=== PATIENT | female | born 1955 | race Hispanic/Latino ===

== ENCOUNTER 2017-02-25 17:59 | Observation (INO) | payer BC, OTHER ==
[~2017-02-25] VITALS: Ht 162.6 cm; Wt 55.0 kg
[2017-02-25] MEDS ORDERED: ENOXAPARIN SODIUM 60 MG/0.6 ML SQ ONE (19:39)
[2017-02-25 19:54] LABS: EOSINOPHILS % (AUTO) 1.2 % (0.0-8.0); HEMATOCRIT 37.3 % (36-48); LYMPHOCYTES % (AUTO) 36.3 % (21.0-51.0); MEAN CORPUSCULAR HEMOGLOBIN 32.1 pg (27.0-33.0); MEAN CORPUSCULAR HGB CONC 34.3 g/dL (32.0-36.0); MEAN CORPUSCULAR VOLUME 93.5 fL (79-99); NEUTROPHILS % (AUTO) 55.5 % (40.0-77.0); NUCLEATED RED BLOOD CELLS 0.1 % (0.0-0.19); PLATELET COUNT (AUTO) 203 K/uL (130-400); RED BLOOD CELL COUNT(AUTO) 3.99 MIL/uL (4.00-5.50); RED CELL DISTRIBUTION WIDTH 12.4 % (11.0-15.5); WHITE BLOOD COUNT (AUTO) 5.5 K/uL (4.8-10.8)
[2017-02-25 20:05] LABS: CREATININE 0.5 mg/dL (0.5-1.5); POTASSIUM 3.8 mmol/L (3.5-5.1)
[2017-02-25 20:07] LABS: INR 0.92 (0.85-1.15); PARTIAL THROMBOPLASTIN TIME 22.5 SEC (26.3-35.5); PROTHROMBIN TIME 9.7 SEC (9.6-11.6)
[2017-02-25] MEDS ORDERED: INSULIN HUMULIN R 100 UNIT/ML 3ML ONE (23:41)
[2017-02-25 23:58] VITALS: BP 148/76
[2017-02-26] MEDS ORDERED: POTASSIUM CHLORIDE 20MEQ/100ML 100 ML IV PRN (02:30)
[2017-02-26] MEDS ORDERED: POTASSIUM CHLORIDE 10% ELIXIR 20 MEQ/15 ML UDCUP PO PRN (02:30)
[2017-02-26] MEDS ORDERED: LACTULOSE 20 GM/30 ML UDCUP PO PRN (02:30)
[2017-02-26] MEDS ORDERED: CLONIDINE HCL 0.1 MG TABLET PO PRN (02:30)
[2017-02-26] MEDS ORDERED: ACETAMINOPHEN 325 MG TAB PO PRN ×2 (02:30)
[2017-02-26] MEDS ORDERED: LIDOCAINE HCL-MPF 1% 2ML VIAL IJ PRN (02:30)
[2017-02-26] MEDS ORDERED: ZOLPIDEM TARTRATE 5 MG TAB PO PRN (02:30)
[2017-02-26] MEDS ORDERED: POTASSIUM CHLORIDE 20 MEQ ERTAB PO PRN (02:30)
[2017-02-26] MEDS ORDERED: NITROGLYCERIN 0.4 MG SL TAB SL PRN (02:30)
[2017-02-26 03:54] LABS: HEMATOCRIT 36.8 % (36-48); MEAN CORPUSCULAR HGB CONC 34.2 g/dL (32.0-36.0); MEAN CORPUSCULAR VOLUME 93.4 fL (79-99); PLATELET COUNT (AUTO) 194 K/uL (130-400); RED BLOOD CELL COUNT(AUTO) 3.94 MIL/uL (4.00-5.50); RED CELL DISTRIBUTION WIDTH 12.3 % (11.0-15.5); WHITE BLOOD COUNT (AUTO) 6.3 K/uL (4.8-10.8)
[2017-02-26 04:00] VITALS: BP 133/72
[2017-02-26 04:04] LABS: INR 0.93 (0.85-1.15); PARTIAL THROMBOPLASTIN TIME 24.7 SEC (26.3-35.5); PROTHROMBIN TIME 9.8 SEC (9.6-11.6)
[2017-02-26 04:10] LABS: CREATININE 0.5 mg/dL (0.5-1.5); POTASSIUM 3.4 mmol/L (3.5-5.1)
[2017-02-26 04:59] LABS: HEMOGLOBIN A1C 12.9 % (4.0-6.0)
[2017-02-26] MEDS ORDERED: DEXTROSE 50%-WATER 50 ML DISP.SYRIN IV PRN (05:30)
[2017-02-26] MEDS ORDERED: GLUCAGON 1MG KIT 1 MG ML IM PRN (05:30)
[2017-02-26] MEDS ORDERED: INSULIN HUMULIN R 100 UNIT/ML 3ML SQ SCH (07:30)
[2017-02-26 08:00] VITALS: BP 125/79
[2017-02-26] MEDS ORDERED: FAMOTIDINE 20MG TAB 20 MG TAB PO SCH (09:00)
[2017-02-26] MEDS ORDERED: ENOXAPARIN SODIUM 60 MG/0.6 ML SQ SCH (09:00)
[2017-02-26] MEDS ORDERED: METFORMIN HCL 500 MG TABLET PO SCH (09:45)
[2017-02-26 10:06] LABS: APPEARANCE,URINE Cloudy (CLEAR); BILIRUBIN,URINE Negative (NEGATIVE); COLOR,URINE Yellow (YELLOW); GLUCOSE, URINE (UA) >=1000 mg/dL (NEGATIVE); KETONES,URINE 15 mg/dL (NEGATIVE); LEUKOCYTE ESTERASE ,URINE Negative (NEGATIVE); NITRATE,URINE Negative (NEGATIVE); OCCULT BLOOD,URINE Negative (NEGATIVE); PROTEIN,URINE Negative (NEGATIVE); UROBILINOGEN,URINE 0.2 mg/dL (0.2-1.0)
[2017-02-26 10:15] LABS: BACTERIA,URINE Few /HPF (None Seen); RBC,URINE 0-1 /HPF (0-1); SQUAMOUS EPITHELIAL CELL,UR Rare /LPF (0-2); YEAST,URINE BUDDING Many /HPF (None Seen)
[2017-02-26] MEDS ORDERED: RIVAROXABAN 15 MG TABLET PO SCH (21:00)
== END 2017-02-26 11:30 | disposition home or self-care (01) ==
LOC: EDH 17:59 → EDHIP 20:01 → 3CH 23:11
PROVIDERS: ADMIT Internal Medicine; ATTEND Internal Medicine
DX: I82.402 Acute embolism and thrombosis of unspecified deep veins of left lower extremity (principal); M25.462 Effusion, left knee; E11.65 Type 2 diabetes mellitus with hyperglycemia; W01.190A Fall on same level from slipping, tripping and stumbling with subsequent striking against furniture, initial encounter; Y93.89 Activity, other specified; Y92.89 Other specified places as the place of occurrence of the external cause; Y99.8 Other external cause status; Z79.84 Long term (current) use of oral hypoglycemic drugs
CPT/HCPCS: 36415 ×2; 80048 ×2; 81001; 82948 ×2; 83036; 85025; 85027; 85610 ×2; 85730 ×2; 93005; 93971; 96372; 99285; G0378 ×15; J1650 ×2; J1815 ×2

== ENCOUNTER 2018-03-27 16:03 | Emergency (ER) | payer BC | END 2018-03-27 17:39 | disposition home or self-care (01) | LOC: EDH 16:03 | DX: M79.661 Pain in right lower leg (principal); E13.8 Other specified diabetes mellitus with unspecified complications | CPT/HCPCS: 93971 ==

== ENCOUNTER → 2020-08-18 | Outpatient (CLI) | payer BC ==
[~2020-08-18] MED LIST: AEC81 PO; AMLO5TAB4 PO; ATOR40TA69 PO; CEPH500B PO; CLOP75TA14 PO; GLIP5TAB11 PO; LISI40TA9 PO; METF-446 PO; PANT40TA55 PO
== END | disposition home or self-care (01) ==
LOC: RAH 13:46
PROVIDERS: ATTEND Internal Medicine
DX: R10.2 Pelvic and perineal pain (principal)
CPT/HCPCS: 76882

== ENCOUNTER 2020-10-27 09:32 | Emergency (ER) | payer BC ==
[~2020-10-27] VITALS: Ht 162.6 cm; Wt 54.4 kg
[2020-10-27] MEDS ORDERED: KETOROLAC 30MG VIAL (30MG/ML) IM ONE (10:00)
[2020-10-27 10:22] LABS: BASOPHILS % (AUTO) 0.5 % (0.0-5.0); EOSINOPHILS % (AUTO) 0.6 % (0.0-8.0); HEMATOCRIT 33.9 % (36-48); LYMPHOCYTES % (AUTO) 21.1 % (21.0-51.0); MEAN CORPUSCULAR HEMOGLOBIN 31.3 pg (27.0-33.0); MEAN CORPUSCULAR HGB CONC 33.9 g/dL (32.0-36.0); MEAN CORPUSCULAR VOLUME 92.4 fL (79-99); MONOCYTES % (AUTO) 5.9 % (3.0-13.0); NEUTROPHILS % (AUTO) 71.5 % (40.0-77.0); PLATELET COUNT (AUTO) 222 K/uL (130-400); RED BLOOD CELL COUNT(AUTO) 3.67 MIL/uL (4.00-5.50); RED CELL DISTRIBUTION WIDTH 11.7 % (11.0-15.5)
[2020-10-27 10:23] VITALS: BP 139/66
[2020-10-27 10:29] LABS: CREATININE 0.6 mg/dL (0.5-1.5); POTASSIUM 4.1 mmol/L (3.5-5.1)
[2020-10-27 10:34] LABS: ALBUMIN 3.3 g/dL (3.5-5.0); BILIRUBIN,TOTAL 0.3 mg/dL (0.2-1.0); CRP QUANTITATIVE 19.5 mg/L (0.00-9.0); TOTAL PROTEIN, SERUM 6.7 g/dL (6.0-8.3)
[2020-10-27 11:43] LABS: ERYTHROCYTE SEDIMENTATION RATE 11 MM/HR (0-30)
[2020-10-27 11:59] VITALS: BP 118/52
[2020-10-27] MEDS ORDERED: ACET-66 PO (12:14)
[2020-10-27] MEDS ORDERED: DICL20GE TP (12:14)
[2020-10-27 12:51] VITALS: BP 113/57
== END 2020-10-27 13:13 | disposition home or self-care (01) ==
LOC: EDH 09:32
DX: J20.9 Acute bronchitis, unspecified (principal); M25.571 Pain in right ankle and joints of right foot; M79.671 Pain in right foot; Z20.822 Contact with and (suspected) exposure to COVID-19; E11.9 Type 2 diabetes mellitus without complications; I10 Essential (primary) hypertension; Z79.1 Long term (current) use of non-steroidal anti-inflammatories (NSAID); Z79.82 Long term (current) use of aspirin; Z79.84 Long term (current) use of oral hypoglycemic drugs; Z79.899 Other long term (current) drug therapy; Z90.49 Acquired absence of other specified parts of digestive tract
CPT/HCPCS: 36415; 71045; 73600; 73630; 80053; 85025; 85651; 86140; 87635; 96372; 99284; C9803; J1885

== ENCOUNTER 2021-02-17 12:38 | Emergency (ER) | payer BC ==
[~2021-02-17] VITALS: Ht 157.5 cm; Wt 54.4 kg
[~2021-02-17 12:38] MED LIST changes: +ACET-66 PO; +DICL20GE TP
[2021-02-17 12:41] VITALS: BP 144/60
[2021-02-17] MEDS ORDERED: ACETAMINOPHEN 500 MG TABLET PO SCH (13:00)
[2021-02-17 13:46] LABS: BASOPHILS % (AUTO) 0.5 % (0.0-5.0); EOSINOPHILS % (AUTO) 0.8 % (0.0-8.0); HEMATOCRIT 39.9 % (36-48); LYMPHOCYTES % (AUTO) 7.3 % (21.0-51.0); MEAN CORPUSCULAR HEMOGLOBIN 31.8 pg (27.0-33.0); MEAN CORPUSCULAR HGB CONC 33.6 g/dL (32.0-36.0); MEAN CORPUSCULAR VOLUME 94.5 fL (79-99); MONOCYTES % (AUTO) 5.9 % (3.0-13.0); NEUTROPHILS % (AUTO) 85.2 % (40.0-77.0); PLATELET COUNT (AUTO) 190 K/uL (130-400); RED BLOOD CELL COUNT(AUTO) 4.22 MIL/uL (4.00-5.50); RED CELL DISTRIBUTION WIDTH 12.1 % (11.0-15.5); WHITE BLOOD COUNT (AUTO) 8.7 K/uL (4.8-10.8)
[2021-02-17 13:53] LABS: CREATININE 0.6 mg/dL (0.5-1.5); POTASSIUM 4.1 mmol/L (3.5-5.1)
[2021-02-17 13:57] LABS: ALBUMIN 4.2 g/dL (3.5-5.0); BILIRUBIN,TOTAL 0.3 mg/dL (0.2-1.0); TOTAL PROTEIN, SERUM 7.6 g/dL (6.0-8.3)
[2021-02-17] MEDS ORDERED: GUAIFENESIN-DM 200/20 MG 10 ML PO ONE (14:30)
[2021-02-17] MEDS ORDERED: ACET-66 PO (14:54)
[2021-02-17] MEDS ORDERED: BUDE180H IH (14:54)
[2021-02-17] MEDS ORDERED: AZIT500T4 PO (14:54)
[2021-02-17] MEDS ORDERED: ONDA4TAB10 PO (14:54)
[2021-02-17] MEDS ORDERED: BENZ-39 PO (14:54)
== END 2021-02-17 15:48 | disposition home or self-care (01) ==
LOC: EDH 12:38
DX: U07.1 COVID-19 (principal); Z79.899 Other long term (current) drug therapy
CPT/HCPCS: 36415; 71045; 80053; 85025; 87635; 87804 ×2; 87880; 99283; C9803

== ENCOUNTER 2023-12-19 15:03 | Inpatient (IN) | payer BC, MEDICARE, OTHER ==
[~2023-12-19] VITALS: Ht 162.6 cm; Wt 53.1 kg
[~2023-12-19 15:03] MED LIST changes: -ACET-66 PO; -AEC81 PO; -AMLO5TAB4 PO; -ATOR40TA69 PO; +ATOR40TA71 PO; -CEPH500B PO; -CLOP75TA14 PO; +CYAN-52 PO; -DICL20GE TP; +FOLI1 PO; -GLIP5TAB11 PO; +GLIP5TAB15 PO; +INSLAN SQ; +LISI10TA24 PO; -LISI40TA9 PO; -PANT40TA55 PO
--- NOTE | 2023-12-19 15:09 | ERN ---
ED Note History of Present Illness Stated Complaint: LEFT FOOT CELLULITIS X 3 WEEKS Chief Complaint: Cellulitis Time Seen by MD: 15:05 Dictation: PATIENT IS A 68-YEAR-OLD FEMALE HERE THAT IS COMING IN WITH ERYTHEMA TENDERNESS TO HER LEFT FOOT SHE HAS HAD FOR THREE WEEKS. SHE DENIES FEVER CHILLS NAUSEA VOMITING STATES SHE IS A DIABETIC STATES HE JUST CAME IN FROM [place] AND A NOT SEEN HER DOCTOR IN [place] PRIOR TO TRAVELING TO [place]. NO NAUSEA VOMITING. PATIENT STATES SHE HAS HAD A STENT FOR PID TO HER RIGHT LEG DONE [place] DR[place] NIELSEN SE[place]AL [place] [facility] [place]ies: Coded Allergies: No Known Drug Allergies (Unverified Allergy, Unknown, 02/26/17) Home Meds Active Scripts Insulin Glargine,Hum.rec.anlog (Lantus) 100 Unit/Ml Inj, 15 UNITS SQ HS, #1 ML Prov:LAWRENCE WILSON I [facility] 04/14/23 Folic Acid (Folvite) 1 Mg Tab, 1 MG PO DAILY, #30 TAB Prov:LAWRENCE W[facility]SON [facility] 04/14/23 Cyanocobalamin (Vitamin B-12) (Vitamin B-12) 1,000 Mcg Tablet, 1000 MCG PO DAILY, #30 TAB Prov:LAWRENCE W[facility]SON [facility] 04/14/23 Reported Medications Lisinopril (Lisinopril) 10 Mg Tablet, 1 TAB PO DAILY 04/14/23 Atorvastatin Calcium (Atorvastatin Calcium) 40 Mg Tablet, 1 TAB PO HS 04/14/23 Metformin HCl (Metformin HCl) 1,000 Mg Tablet, 1000 MG PO BID, TAB 09/24/18 Glipizide (Glipizide) 5 Mg Tablet, 5 MG PO DAILY, TAB 09/24/18 Past Medical History Past Medical History: Diabetes-Type II, High Cholesterol, Hypertension Surgical History: None Surgical History Other: C-SEC PSYCH History: no pertinent psych hx Family History: Negative Social History: Negative, Lives with family History: Not Applicable RN Note Reviewed/Agreed w/PFSH: Yes Review of System Dictation CONSTITUTIONAL: NEGATIVE EXCEPT FOR HPI HEAD/FACE: NEGATIVE EXCEPT FOR HPI EENT: NEGATIVE EXCEPT FOR HPI RESPIRATORY: NEGATIVE EXCEPT FOR HPI GASTROINTESTINAL/ABDOMINAL: NEGATIVE EXCEPT FOR HPI GENITOURINARY: NEGATIVE EXCEPT FOR HPI MUSCULOSKELETAL: NEGATIVE EXCEPT FOR HPI ERYTHEMA TENDERNESS TO DISTAL LEFT FOOT INTEGUMENTARY: NEGATIVE EXCEPT FOR HPI NEUROLOGICAL/PSYCH: NEGATIVE EXCEPT FOR HPI HEMATOLOGIC/LYMPHATIC: NEGATIVE EXCEPT FOR HPI ALL SYSTEMS NEGATIVE, EXCEPT NOTED ABOVE. 13 POINT REVIEW OF SYSTEMS ASSESSED AND ALL NEGATIVE EXCEPT FOR ABOVE. Initial Vital Sign VS Vital Signs Date Time Temp Pulse Resp B/P (MAP) Pulse Ox O2 Delivery O2 Flow Rate FiO2 12/19/23 15:05 99.3 110 20 168/87 99 Room Air 0 12/19/23 23:43 21 Physical Exam Dictation VITAL SIGNS REVIEWED GENERAL APPEARANCE: ALERT, ORIENTED X 3, MILD ACUTE DISTRESS, WELL DEVELOPED, NOURISHED. HEAD AND FACE: NON-TRAUMATIC. EYES: PERRL, PINK CONJUNCTIVAS, EYELID NO TRAUMA, ANTERIOR CHAMBER WITH ARCUS SENILIS. EARS: PINNAS INTACT AND NO SIGNS OF TRAUMA OR ERYTHEMA EAR CANALS CLEAR AND NO DISCHARGE TM NO ERYTHEMA NOSE: NO DISCHARGE, NO BLEEDING. OROPHARYNX: MOUTH NORMAL, TONGUE PINK, PHARYNX CLEAR,NO ERYTHEMA, TONSILS NO EXUDATES, NO ABSCESSES NOTED, MUCOUS MEMBRANE MOIST NECK: SUPPLE, NON-TENDER, NO THYROMEGALY, NO MASSES, NO JVD, NO BRUITS BREAST:DEFERRED CHEST:NO TENDERNESS, NO CREPITUS, NO PARADOXICAL MOVEMENT, NO RETRACTIONS LUNGS:CLEAR, WELL-VENTILATED, SYMMETRIC, NO RALES, NO WHEEZING, NO RHONCHI, NO STRIDOR, GOOD BREATH SOUNDS BILATERALLY HEART: REGULAR RATE, REGULAR RHYTHM, NO MURMUR, NO GALLOPS VASCULAR: NO PERIPHERAL EDEMA, ABDOMEN: SOFT, POSITIVE BOWEL SOUNDS, NONDISTENDED, NO GUARDING, NONTENDER, NO REBOUND, NO MASSES NO HEPATOMEGALY, NO SPLENOMEGALY, NO GARCIA'S SIGN, NO HERNIAS. RECTAL: DEFERRED GENITAL: DEFERRED NEUROLOGICAL: NORMAL SPEECH, MOTOR FUNCTION INTACT, SENSORY FUNCTION INTACT MUSCULOSKELETAL: NECK NONTENDER, FULL RANGE OF MOTION, BACK NONTENDER, FULL RANGE OF MOTION, EXTREMITIES: DISTAL LEFT FOOT INCLUDING TOES WITH ERYTHEMA TENDERNESS TO ALL FIVE TOES SKIN INTACT. ALSO DIMINISHED PULSES NOTED WITH DISTAL FOOT WARM TO TOUCH UNABLE TO PALPATE PULSES SKIN: COLOR PINK, DRY, NO TURGOR, NO RASH, NO LACERATIONS, NO ABRASIONS, NO CONTUSIONS. LYMPHATIC: DEFERRED Results (Laboratory/Radiology) Laboratory/Radiology Laboratory Tests Test 12/19/23 15:16 White Blood Count 4.8 K/uL (4.8-10.8) Red Blood Count 3.37 MIL/uL (4.00-5.50) L Hemoglobin 10.5 g/dL (12.0-16.0) L Hematocrit 31.8 % (36-48) L Mean Corpuscular Volume 94.4 fL (79-99) Mean Corpuscular Hemoglobin 31.2 pg (27.0-33.0) Mean Corpuscular Hemoglobin Concent 33.0 g/dL (32.0-36.0) Red Cell Distribution Width 12.5 % (11.0-15.5) Platelet Count 288 K/uL (130-400) Mean Platelet Volume 9.2 fL (7.5-10.5) Immature Granulocyte % (Auto) 0.2 % (0-1) Neutrophils (%) (Auto) 59.1 % (40.0-77.0) Lymphocytes (%) (Auto) 33.2 % (21.0-51.0) Monocytes (%) (Auto) 4.8 % (3.0-13.0) Eosinophils (%) (Auto) 1.9 % (0.0-8.0) Basophils (%) (Auto) 0.8 % (0.0-5.0) Neutrophils # (Auto) 2.8 K/uL (1.8-7.7) Lymphocytes # (Auto) 1.6 K/uL (1.0-4.8) Monocytes # (Auto) 0.2 K/uL (0.1-1.0) Eosinophils # (Auto) 0.09 K/uL (0.00-0.70) Basophils # (Auto) 0.04 K/uL (0.00-0.20) Absolute Immature Granulocyte (auto 0.01 K/uL (0-1) Nucleated Red Blood Cells 0.0 % (0.0-0.19) Sodium Level 143 mmol/L (136-145) Potassium Level 3.9 mmol/L (3.5-5.1) Chloride Level 104 mmol/L (101-111) Carbon Dioxide Level 29 mmol/L (21-32) Blood Urea Nitrogen 20 mg/dL (7-18) H Creatinine 0.6 mg/dL (0.5-1.0) Glomerular Filtration Rate Calc 97 mL/min (>90) Random Glucose 324 mg/dL (70-105) H Lactic Acid Level 1.8 mmol/L (0.8-2.5) Total Calcium 9.2 mg/dL (8.5-10.1) OOT COMP 3+VWS LT REASON: CELLULITIS OF DISTAL METATARSALS AND TOES RULE OUT OSTEO TECHNIQUE: 3 views were obtained. FINDINGS: There is no evidence of fracture or dislocation. There is no joint effusion. The soft tissues appear unremarkable. There is no evidence of a radiopaque foreign body. IMPRESSION: No acute findings. US ARTERIAL UNILA LOW EXT DUPL REASON: LEFT FOOT ERYTHEMA, FOOT COOL TO TOUCH COMPARISON: None TECHNIQUE: Left leg arterial Doppler evaluation was performed with spectral analysis and color flow imaging. FINDINGS: There is normal triphasic waveform in the right common femoral artery. Proximal superficial femoral artery is biphasic. There is marked flow velocity elevation in the mid superficial femoral artery consistent with stenosis. There are monophasic distal waveforms with significantly decreased flow velocity. There is no flow visible in the posterior tibial artery. Anterior tibial and dorsalis pedis arteries show decreased flow as does the distal popliteal artery. IMPRESSION: 1. Findings consistent with a severe stenosis mid superficial femoral artery with moderate to marked distal arterial inflow occlusion. Labs Reviewed?: Yes ED Course ED Course Orders Procedure Category Date Status Time Blood Cult KENIA 12/19/23 In Process 15:06 Lactic Acid LAB 12/19/23 Complete 15:06 Cbc With Differential LAB 12/19/23 Complete 15:06 Basic Metabolic Panel LAB 12/19/23 Complete 15:06 Urinalysis Profile LAB 12/19/23 Logged 15:13 Foot Comp 3+Vws Lt RAD 12/19/23 Resulted 15:13 Us Arterial Unila Low US 12/19/23 Resulted Ext Dupl 15:44 Heparin 25,000 PHA 12/19/23 In Process Units/250ml D5w 17:30 Clindamycin Ivpb PHA 12/19/23 In Process 600mg/50ml (Cleocin 17:30 Pt And Ptt LAB 12/19/23 In Process 23:28 Morphine 2mg Syg PHA 12/20/23 In Process (Morphine 2mg Syg) 00:00 Admit Orders ADM 12/19/23 Transmitted 23:43 Current Medications Medications (Trade) Dose Ordered Sig/Reji Route PRN Reason Start Time Stop Time Status Last Admin Dose Admin Clindamycin HCl/ Dextrose 50 ml @ 100 mls/hr Q8H IV 12/19/23 17:30 12/29/23 17:29 12/19/23 23:37 Heparin Sodium/ Dextrose 250 ml @ 0 mls/hr PROTOCOL IV 12/19/23 17:30 01/18/24 17:29 Morphine Sulfate (morPHINE 2MG SYG) 2 mg ONCE ONCE IVP 12/20/23 00:00 12/20/23 00:01 Vital Signs Date Time Temp Pulse Resp B/P (MAP) Pulse Ox O2 Delivery O2 Flow Rate FiO2 12/19/23 23:43 98.8 85 18 185/67 100 Room Air* 0 21 12/19/23 15:05 99.3 110 20 168/87 99 Room Air 0 SEVENTEEN , PATIENT HAS ULTRASOUND ARTERIAL OF THE LEFT LEG DEMONSTRATES SEVERE ARTERIAL STENOSIS, WE WILL PLACE PATIENT ON HEPARIN DRIP, WE WILL BEGIN CLINDAMYCIN FOR SECONDARY BACTERIAL INFECTION/CELLULITIS AND ADMIT PATIENT TO THE HOSPITAL FOR VASCULAR SURGERY CONSULTATION. 1 1725 spoke with Dereck METCALFdischarge planner nurse to make him aware of need for bed 1915, EMERGENCY ROOM IS FULL AND PATIENT IS STILL IN THE WAITING ROOM. CHARGE NURSES MADE AWARE THAT SHE IS PENDING HEPARIN DRIP FOR ISCHEMIA AND ADMISSION, BED WE WILL BE MADE AVAILABLE SOON POSSIBLE. 2320 PATIENT PLACED IN ROOM 16 IN THE EMERGENCY ROOM AND WE WILL START HEPARIN DRIP. SHE WILL BE ADMITTED TO THE HOSPITAL NOW FOR CRITICAL ISCHEMIA LEFT LEG. LEFT FOOT IS WARM TO TOUCH PULSES NOT PALPABLE WITH CLUBBING NOTED 2345SPOKE WITH JANEY MOTNEMAYOR HOSPITALIST AND REVIEWED LABS ULTRASOUND REPORT AND INITIATION OF HEPARIN AND CLINDAMYCIN FOR CRITICAL ISCHEMIA AND CELLULITIS HE AGREED TO ADMIT PATIENT. Medical Decision Making MDM MDM: DIFFERENTIAL DIAGNOSIS: CELLULITIS/SEPSIS/DIABETES MELLITUS/ELECTROLYTE IMBALANCE/DEHYDRATION/OSTEOMYELITIS/ARTERIAL STENOSIS/ISCHEMIA RATIONALE: TESTS CONSIDERED AND ORDERED SECONDARY TO SHARED DECISION MAKING INCLUDE: LABS, ECG AND RADIOLOGY PREVIOUS OUTSIDE RECORDS REVIEWED: OLD ER VISITS. SEE NURSE'S RISK OF COMPLICATION AND/OR MORBIDITY OR MORTALITY OF PATIENT MANAGEMENT: YES PATIENT WILL NEED HEPARIN DRIP AND VASCULAR SURGERY CONSULTATION MEDICATIONS-PER MEDICATION RECONCILIATION NEED FOR HOSPITALIZATION: PATIENT DOES MEET CRITERIA FOR HOSPITALIZATION. YES NEED FOR EMERGENCY MAJOR/MINOR SURGERY: NO THERE ARE NO SOCIAL CONCERNS WITH THIS PATIENT. PRESCRIPTION DRUG MANAGEMENT PRESCRIPTIONS WILL INCLUDE SYMPTOMATIC CARE PATIENT'S PRIOR EXTERNAL MEDICAL RECORDS FROM OTHER ER VISITS WERE REVIEWED BY ME INDICATED. PRIOR TESTING AND RESULTS FROM PREVIOUS VISITS WERE REVIEWED. PRIOR TESTS WERE TAKEN INTO ACCOUNT WITH MEDICAL DECISION MAKING AND RESOURCE UTILIZATION, INDEPENDENT HISTORIAN/HISTORIANS WERE USED TO OBTAIN COMPLETE MEDICAL HISTORY. I INDEPENDENTLY INTERPRETED THE TEST THAT WERE PERFORMED, RESULTS WERE REVIEWED BY ME AND CONSIDERED FINDINGS ON RADIOLOGY IF ORDERED. MEDICAL MANAGEMENT AND EXAMINATION INTERPRETATION DISCUSSIONS WERE HAD BY ME WITH OTHER QUALIFIED HEALTHCARE PROFESSIONALS INDICATED FOR THE PATIENT'S CARE. DX & DISP Disposition: Inpatient Decision to Admit Time: 17:21 Departure Impression: Primary Impression: Critical limb ischemia of left lower extremity Additional Impressions: Uncontrolled diabetes mellitus, Dehydration Condition: Stable Referrals: THERESE VOSS (PCP) Time of Disposition: 23:29 I have reviewed the case, and I agree with, Diagnosis and Plan LONNIE NDIAYE NP Dec 19, 2023 15:09
[2023-12-19 15:33] LABS: BASOPHILS # (AUTO) 0.04 K/uL (0.00-0.20); BASOPHILS % (AUTO) 0.8 % (0.0-5.0); EOSINOPHILS # (AUTO) 0.09 K/uL (0.00-0.70); EOSINOPHILS % (AUTO) 1.9 % (0.0-8.0); HEMATOCRIT 31.8 % (36-48); IMMATURE GRANULOCYTE ABSOLUTE 0.01 K/uL (0-1); LYMPHOCYTES # (AUTO) 1.6 K/uL (1.0-4.8); LYMPHOCYTES % (AUTO) 33.2 % (21.0-51.0); MEAN CORPUSCULAR HEMOGLOBIN 31.2 pg (27.0-33.0); MEAN CORPUSCULAR VOLUME 94.4 fL (79-99); MONOCYTES # (AUTO) 0.2 K/uL (0.1-1.0); MONOCYTES % (AUTO) 4.8 % (3.0-13.0); NEUTROPHILS # (AUTO) 2.8 K/uL (1.8-7.7); NEUTROPHILS % (AUTO) 59.1 % (40.0-77.0); PLATELET COUNT (AUTO) 288 K/uL (130-400); RED BLOOD CELL COUNT(AUTO) 3.37 MIL/uL (4.00-5.50); RED CELL DISTRIBUTION WIDTH 12.5 % (11.0-15.5); WHITE BLOOD COUNT (AUTO) 4.8 K/uL (4.8-10.8)
[2023-12-19 16:19] LABS: CREATININE 0.6 mg/dL (0.5-1.0); POTASSIUM 3.9 mmol/L (3.5-5.1)
--- NOTE | 2023-12-19 16:23 | HMCIMG ---
FOOT COMP 3+VWS LT REASON: CELLULITIS OF DISTAL METATARSALS AND TOES RULE OUT OSTEO TECHNIQUE: 3 views were obtained. FINDINGS: There is no evidence of fracture or dislocation. There is no joint effusion. The soft tissues appear unremarkable. There is no evidence of a radiopaque foreign body. IMPRESSION: No acute findings.
--- NOTE | 2023-12-19 16:58 | HMCIMG ---
US ARTERIAL UNILA LOW EXT DUPL REASON: LEFT FOOT ERYTHEMA, FOOT COOL TO TOUCH COMPARISON: None TECHNIQUE: Left leg arterial Doppler evaluation was performed with spectral analysis and color flow imaging. FINDINGS: There is normal triphasic waveform in the right common femoral artery. Proximal superficial femoral artery is biphasic. There is marked flow velocity elevation in the mid superficial femoral artery consistent with stenosis. There are monophasic distal waveforms with significantly decreased flow velocity. There is no flow visible in the posterior tibial artery. Anterior tibial and dorsalis pedis arteries show decreased flow as does the distal popliteal artery. IMPRESSION: 1. Findings consistent with a severe stenosis mid superficial femoral artery with moderate to marked distal arterial inflow occlusion.
--- NOTE | 2023-12-19 23:11 | NUR ---
ASSUMED PT CARE AT THIS TIME
[2023-12-19] MEDS: CLINDAMYCIN IVPB 600MG/50ML 50 ML IV SCH (23:37)
--- NOTE | 2023-12-19 23:43 | HP ---
History of Present Illness Reason for Visit: lle pain Referring MD: Nicole History of Present Illness Ms. Suarez is a 68-year-old female that was seen and examined today on 12/2023. Patient is a good historian and personal health. Patient reports that she came to the emergency department with a chief complaint of foot pain. Onset was three weeks ago. Location is to left lower extremity. Duration is on and off. Symptoms are aggravated with physical activity such as walking. There was no alleviating factors. Character of pain described as ting ling" like if I have lots of cuts. " patient denies any associated chest pain or shortness of breath. Today in the emergency department glucose 324 mg/dL, arterial ultrasound of lower extremity shows Findings consistent with a severe stenosis mid superficial femoral artery with moderate to marked distal arterial inflow occlusion. Emergency room mid-level provider recommended that patient be admitted with a diagnosis of severe PID and uncontrolled Diabetes mellitius type2 Past Medical History Patient History: Carcinomas MOTHER Diabetes mellitus BROTHER BROTHER Hypertension BROTHER BROTHER Unknown FATHER (HEART PROBLEM CAUSE OF ) ADDITIONAL PAST MEDICAL HISTORY: [Diabetes mellitius type2, PID] SOCIAL HISTORY: [Negative for smoking, alcohol use, drug use. Patient lives with the Ananth Suarez. Patient is typically independent of all her ADLs. Patient denies difficulty paying her bills. Patient has good access to health care through her insurance. 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 Dyspnea, Edema, Lt Headedness, Other Gastrointestinal: No: Nausea, Vomiting, Abdominal Pain, Diarrhea, Constipation, Melena, Hematochezia, Other Genitourinary: No Dysuria, No Frequency, No Incontinence, No Hematuria, No Retention, No Other Musculoskeletal: leg pain, foot pain; No: other, neck pain, shoulder pain, arm pain, back pain, hand pain Skin: No Urticaria, No Rash, No Other Neurological: No: Weakness, Numbness, Incoordination, Change in speech, Confusion, Seizures, Other Allergies: Coded Allergies: No Known Drug Allergies (Unverified Allergy, Unknown, 02/26/17) Scheduled Atorvastatin Calcium (Atorvastatin Calcium), 1 TAB PO HS, (Reported) Cyanocobalamin (Vitamin B-12) (Vitamin B-12), 1,000 MCG PO DAILY Folic Acid (Folvite), 1 MG PO DAILY Glipizide (Glipizide), 5 MG PO DAILY, (Reported) Insulin Detemir (Levemir), 30 UNIT SQ DAILY, (Reported) Insulin Glargine,Hum.rec.anlog (Lantus), 15 UNITS SQ HS Lisinopril (Lisinopril), 1 TAB PO DAILY, (Reported) Metformin HCl (Metformin HCl), 1,000 MG PO BID, (Reported) Metformin HCl (Metformin HCl ER), 1 TAB PO BID, (Reported) Rivaroxaban (Xarelto), 1 TAB PO DAILY, (Reported) Semaglutide (Ozempic), 1 MG SQ QWEEK, (Reported) [Rumoquin], Unknown Dose PO AD, (Reported) Exam Vital Signs Vital Signs Date Time Temp Pulse Resp B/P (MAP) Pulse Ox O2 Delivery O2 Flow Rate FiO2 12/19/23 15:05 99.3 110 20 168/87 99 Room Air 0 General Appearance: Alert, Oriented X3, Cooperative, No acute distress HEENT: Atraumatic, EOMI Respiratory: Clear to auscultation, Normal air movement, NL respiratory effort Cardiovascular: Regular rate, Regular rhythm, Normal S1, Normal S2 Abdominal: Normal bowel sounds, Soft, No tenderness Extremities: No edema, Other (Decreased left lower extremity pedal pulses) Skin: No rashes, No breakdown, No significant lesion Neuro: Normal speech, Strength at 5/5 X4 ext, Normal tone, Sensation intact, Cranial nerves 3-12 NL Psych/Mental Status: Mental status NL, Mood NL, Thoughts/Content NL Assessment/Plan ASSESSMENT: [ moderate to marked distal arterial inflow occlusion LLE, POA Uncontrolled Diabetes mellitius type2] PLAN: [ Admit patient to PCU as inpatient status. Place patient on telemetry monitoring. Continue heparin drip started in the emergency department. Monitor patient's labs. Consult cardiology service, Dr. Tolbert for evaluation and further recommend ations. Keep patient NPO. IV fluid maintenance therapy lactated Ringer's at 75 mL/HR Check preprocedure labs, CBC, BMP, magnesium, phosphorus, PTT, UA, type and screen, EKG, CXR Check hemoglobin A1c in a.m. Glucometer checks a.c. and HS 1800 ADA diet once patient is no longer NPO Humulin R sliding scale half dose GI prophylaxis, famotidine 20 mg by mouth once daily. DVT prophylaxis, patient will be on heparin drip as mentioned above. ADVANCED CARE PLANNING 1. Which of the following were discussed? Hospice Care - Yes Therapeutic options - Yes Advance Directives - Yes-patient states she does not have any advance directives in place at this time, however her Ananth Suarez can make decisions for her if she becomes unable. Other discussions - patient wishes to remain a full code at this time 2. Discussed with who? Patient 3. Voluntary nature of this service was explained to the patient? Yes 4. Amount of time spent - __ 16 minutes 5. Reviewed by Physician? (if this service was performed by NPP) Yes This document was generated in part using voice recognition software, occasional wrong word or sound alike substitutions may have occurred due to the inherent limitations of voice recognition software. Read the chart carefully and recognize using context, where the substitutions have occurred. Although every effort was made to edit the content, tire fabric impregnating range tender and typing errors may occur ATTESTATION BY PHYSICIAN I have seen and examined the patient. I reviewed the documentation, medical decision making, and treatment plan as noted by the mid-level provider above. I agree with the findings and plan of care. JANEY COHEN [facility] Dec 19, 2023 23:43
[2023-12-19 23:51] LABS: INR 1.01 (0.85-1.15); PROTHROMBIN TIME 10.9 SEC (9.6-11.6)
[2023-12-19 23:52] LABS: PARTIAL THROMBOPLASTIN TIME 25.2 SEC (26.3-35.5)
[2023-12-19] MEDS: morPHINE 2 MG SYG IVP ONE (23:53)
[2023-12-19] MEDS ORDERED: METF-1151 PO (23:56)
[2023-12-19] MEDS ORDERED: RIVA20TA PO (23:56)
[2023-12-19] MEDS ORDERED: INSU100V12 SQ (23:56)
[2023-12-19] MEDS ORDERED: [UNRECOGNIZED DRUG - OTHER] PO (23:56)
[2023-12-19] MEDS ORDERED: SEMA1PEN3 SQ (23:57)
[2023-12-20] MEDS: HEParin 25,000 UNITS/250ML D5W 250 ML IV SCH (00:08)
[2023-12-20] MEDS: HEParin 5,000 UNIT VIAL ONE (00:10)
[2023-12-20] MEDS ORDERED: acetaMINOPHEN 325 MG TAB PO PRN (00:30)
[2023-12-20] MEDS: LACTATED RINGERS 1000ML 1,000 ML IV SCH (01:09)
[2023-12-20 06:27] LABS: BASOPHILS # (AUTO) 0.02 K/uL (0.00-0.20); BASOPHILS % (AUTO) 0.4 % (0.0-5.0); EOSINOPHILS # (AUTO) 0.15 K/uL (0.00-0.70); EOSINOPHILS % (AUTO) 2.7 % (0.0-8.0); IMMATURE GRANULOCYTE ABSOLUTE 0.02 K/uL (0-1); LYMPHOCYTES # (AUTO) 2.5 K/uL (1.0-4.8); LYMPHOCYTES % (AUTO) 44.3 % (21.0-51.0); MEAN CORPUSCULAR HEMOGLOBIN 30.9 pg (27.0-33.0); MEAN CORPUSCULAR HGB CONC 33.9 g/dL (32.0-36.0); MEAN CORPUSCULAR VOLUME 91.2 fL (79-99); MONOCYTES # (AUTO) 0.3 K/uL (0.1-1.0); MONOCYTES % (AUTO) 6.1 % (3.0-13.0); NEUTROPHILS # (AUTO) 2.6 K/uL (1.8-7.7); NEUTROPHILS % (AUTO) 46.1 % (40.0-77.0); PLATELET COUNT (AUTO) 241 K/uL (130-400); RED BLOOD CELL COUNT(AUTO) 3.07 MIL/uL (4.00-5.50); RED CELL DISTRIBUTION WIDTH 12.6 % (11.0-15.5); WHITE BLOOD COUNT (AUTO) 5.6 K/uL (4.8-10.8)
[2023-12-20 06:34] LABS: INR 1.2 (0.85-1.15); PROTHROMBIN TIME 12.8 SEC (9.6-11.6)
[2023-12-20 06:35] LABS: CREATININE 0.6 mg/dL (0.5-1.0); MAGNESIUM 1.4 mg/dL (1.80-2.40); PHOSPHORUS 3.7 mg/dL (2.5-4.9); POTASSIUM 3.5 mmol/L (3.5-5.1)
[2023-12-20] MEDS: MAGNESIUM 2GM PREMIX 50ML 50 ML IV PRN (06:40)
[2023-12-20 06:41] LABS: PARTIAL THROMBOPLASTIN TIME 94.5 SEC (26.3-35.5)
--- NOTE | 2023-12-20 06:41 | NUR ---
LAB REPORTED PTT OF 94.5, HEPARIN DRIP HELD AT THIS TIME PER PROTOCOL.
[2023-12-20 07:05] LABS: HEMOGLOBIN A1C 12.5 % (4.0-6.0)
--- NOTE | 2023-12-20 07:05 | NUR ---
ASSUMED CARE AT THIS TIME PT AOX3 HEPARIN ON HOLD TILL 0740.
--- NOTE | 2023-12-20 07:33 | EKG ---
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
[2023-12-20] MEDS: FAMOTIDINE 20MG TAB PO SCH (09:04)
[2023-12-20] MEDS: INSULIN humuLIN R 100 UNIT/ML 3ML SQ SCH (09:05)
--- NOTE | 2023-12-20 09:52 | HMCIMG ---
CHEST 1VW REASON: preprocedural COMPARISON: 02/17/2021 FINDINGS: Single view of the chest was obtained. Lungs are clear. Heart size is normal. There is no pulmonary vascular congestion. Mediastinum and bony thorax appear unremarkable. IMPRESSION: 1. Normal single view chest x-ray.
--- NOTE | 2023-12-20 10:02 | CONS ---
[facility] CARDIOLOGY CONSULTATION NOTE Date Patient Seen: Dec 20, 2023 Time of Visit: 09:56 Reason for Consultation: Pain in Right lower extremity, peripheral artery d isease History of Present Illness: Patient is a 68-year-old female with past history of type 2 diabetes mellitus, hypertension, dyslipidemia and peripheral vascular disease who presented emergency department with complaints of Left foot pain onset over the past few weeks with progressive worsening. Arterial duplex suggesting severe stenosis in the mid SFA, with monophasic waveforms distally. She was last seen at the [facility] in [address] Oconnor. Patient has a history of intervention to the left distal SFA using a 5 x 150 Medtronic Impact drug-coated balloon angioplasty, left popliteal Medtronic Impact drug-coated balloon angioplasty 4.0 x 40 mm with 20 to 30% residual stenosis in July 2020. The Left RUBY was 100% pproximal, TPT 50%, L PT 100%. She has a known history of Right SFA [employer] with extensive collaterals, Right pAT 70%, distal AT 70%, and R PT 100%. She also has a history of LLE DVT Involving the left common, superficial femoral and popliteal veins in April of 2023 treated with Eliquis therapy. Past Medical History: Type 2 diabetes mellitus, hypertension, dyslipidemia, peripheral vascular disease, LLE DVT 04/2023 Past Surgical History: Left SFA balloon angioplasty July 27, 2020 Family History: denies Social History: nonsmoker Current Meds: Current Medications Medications Dose Ordered Sig/Reji Start Time Stop Time Status Last Admin Heparin Sodium/ Dextrose 250 ml @ 0 mls/hr PROTOCOL 12/19/23 17:30 01/18/24 17:29 12/20/23 00:08 Clindamycin HCl/ Dextrose 50 ml @ 100 mls/hr Q8H 12/19/23 17:30 12/29/23 17:29 12/20/23 09:04 Acetaminophen 650 mg Q6H PRN 12/20/23 00:30 01/19/24 00:29 Acetaminophen 650 mg Q4H PRN 12/20/23 00:30 01/19/24 00:29 Ondansetron HCl 4 mg Q6H PRN 12/20/23 00:30 01/19/24 00:29 Famotidine 20 mg DAILY 12/20/23 09:00 01/19/24 08:59 12/20/23 09:04 Morphine Sulfate 2 mg Q4H PRN 12/20/23 00:30 12/27/23 00:29 Lactated Ringer's 1,000 ml @ 75 mls/hr [id number] 12/20/23 00:30 01/19/24 00:29 12/20/23 01:09 Insulin Human Regular INSULIN SLIDING SCAL... ACHS 12/20/23 07:30 01/19/24 07:29 12/20/23 09:05 Potassium Chloride 100 ml @ 50 mls/hr AD PRN 12/20/23 00:30 01/19/24 00:29 Magnesium Sulfate 50 ml @ 0 mls/hr PROTOCOL PRN 12/20/23 00:30 01/19/24 00:29 12/20/23 06:40 Review of Systems: left foot pain, bleeding between 3rd and 4th digits with wound. denies Chest pain, shortness of breath. No palpitations. No blood in the stool or urine. No lightheadedness or dizziness. Physical Examination: GENERAL: [No acute distress.] HEAD: [Normal with no signs of head trauma.] NECK: [ Normal carotid upstrokes without bruits.] LUNGS: [Clear breath sounds bilaterally. No wheezes, or rhonchi.] HEART: [Normal rate and rhythm. Normal S1 and S2 without murmurs, gallop or rub.] VASC: 1+ DP Left. Non palpable DP Right. distal extremities warm. superficial wound of 3rd and 4th interdigit space on the Left. EXT: [No clubbing, cyanosis or edema.] SKIN: [wound to Left foot.] NEURO: [Awake, alert, and oriented x3. No focal sensory or strength deficits noted.] Vital Signs (last 8hr) Date Time Temp Pulse Resp B/P (MAP) Pulse Ox O2 Delivery O2 Flow Rate FiO2 12/20/23 06:10 87 14 152/65 98 Room Air* 0 21 12/20/23 03:46 80 16 143/68 98 Room Air* 0 21 Laboratory: [ ] Hematology Labs: Test 12/20/23 06:04 Range/Units White Blood Count 5.6 4.8-10.8 K/uL Red Blood Count 3.07 L 4.00-5.50 MIL/uL Hemoglobin 9.5 L 12.0-16.0 g/dL Hematocrit 28.0 L 36-48 % Mean Corpuscular Volume 91.2 79-99 fL Mean Corpuscular Hemoglobin 30.9 27.0-33.0 pg Mean Corpuscular Hemoglobin Concent 33.9 32.0-36.0 g/dL Red Cell Distribution Width 12.6 11.0-15.5 % Platelet Count 241 130-400 K/uL Mean Platelet Volume 9.1 7.5-10.5 fL Immature Granulocyte % (Auto) 0.4 0-1 % Neutrophils (%) (Auto) 46.1 40.0-77.0 % Lymphocytes (%) (Auto) 44.3 21.0-51.0 % Monocytes (%) (Auto) 6.1 3.0-13.0 % Eosinophils (%) (Auto) 2.7 0.0-8.0 % Basophils (%) (Auto) 0.4 0.0-5.0 % Neutrophils # (Auto) 2.6 1.8-7.7 K/uL Lymphocytes # (Auto) 2.5 1.0-4.8 K/uL Monocytes # (Auto) 0.3 0.1-1.0 K/uL Eosinophils # (Auto) 0.15 0.00-0.70 K/uL Basophils # (Auto) 0.02 0.00-0.20 K/uL Absolute Immature Granulocyte (auto 0.02 0-1 K/uL Nucleated Red Blood Cells 0.0 0.0-0.19 % Chemistry Labs: Test 12/20/23 08:34 12/20/23 06:04 12/19/23 15:16 Range/Units Whole Blood Glucose 210 H 70-110 MG/DL Sodium Level 144 136-145 mmol/L Potassium Level 3.5 3.5-5.1 mmol/L Chloride Level 109 101-111 mmol/L Carbon Dioxide Level 28 21-32 mmol/L Blood Urea Nitrogen 21 H 7-18 mg/dL Creatinine 0.6 0.5-1.0 mg/dL Glomerular Filtration Rate Calc 97 >90 mL/min Random Glucose 223 H 70-105 mg/dL Hemoglobin A1c 12.5 H 4.0-6.0 % Estimated Average Glucose (eAG) 312 H 70-126 mg/dL Total Calcium 8.5 8.5-10.1 mg/dL Phosphorus Level 3.7 2.5-4.9 mg/dL Magnesium Level 1.40 L 1.80-2.40 mg/dL Lactic Acid Level 1.8 0.8-2.5 mmol/L Coagulation Labs: Test 12/20/23 06:04 Range/Units Prothrombin Time 12.8 H 9.6-11.6 SEC Prothromb Time International Ratio 1.20 H 0.85-1.15 Activated Partial Thromboplast Time 94.5 #*H 26.3-35.5 SEC Diagnostics / Radiology: REASON: LEFT FOOT ERYTHEMA, FOOT COOL TO TOUCH ORDERING PHYSICIAN: LONNIE NDIAYE NP PROCEDURE: ART U LE - US ARTERIAL UNILA LOW EXT DUPL US ARTERIAL UNILA LOW EXT DUPL REASON: LEFT FOOT ERYTHEMA, FOOT COOL TO TOUCH COMPARISON: None TECHNIQUE: Left leg arterial Doppler evaluation was performed with spectral analysis and color flow imaging. FINDINGS: There is normal triphasic waveform in the right common femoral artery. Proximal superficial femoral artery is biphasic. There is marked flow velocity elevation in the mid superficial femoral artery consistent with stenosis. There are monophasic distal waveforms with significantly decreased flow velocity. There is no flow visible in the posterior tibial artery. Anterior tibial and dorsalis pedis arteries show decreased flow as does the distal popliteal artery. IMPRESSION: 1. Findings consistent with a severe stenosis mid superficial femoral artery with moderate to marked distal arterial inflow occlusion. DICTATED BY: MATTY ODELL MD DATE: 12/19/231654 Assessment: Peripheral artery disease Left lower extremity arterial ischemia with wound between the third and fourth digits History of type 2 diabetes mellitus History of left lower extremity DVT in April 2023 Plan: Review of the patient's home med list reveal administration of Xarelto 20 mg 1 tablet daily, with last reported dose on 12/19/23 in the evening. Will clarify with the patient her use of this medication. Would wait 48 hours post last DOAC dose prior to arterial puncture and may need to postpone peripheral angiogram, however keep patient NPO after midnight in the event we can proceed with angiography tomorrow. SRIDHAR SWARTZ DO Dec 20, 2023 10:02
[2023-12-20 12:26] LABS: INR 1.2 (0.85-1.15); PROTHROMBIN TIME 12.8 SEC (9.6-11.6)
[2023-12-20 12:27] LABS: PARTIAL THROMBOPLASTIN TIME 28.5 SEC (26.3-35.5)
[2023-12-20] MEDS: ondanSETRON 4MG INJ IV PRN (13:13)
[2023-12-20] MEDS: morPHINE 2 MG SYG IV PRN (13:14)
[2023-12-20 14:03] LABS: ADD UA MICROSCOPIC YES
[2023-12-20 14:04] LABS: APPEARANCE,URINE CLOUDY (CLEAR); BILIRUBIN,URINE NEGATIVE (NEGATIVE); COLOR,URINE LIGHT-YELLOW (YELLOW); GLUCOSE, URINE (UA) >=1000 mg/dL (NEGATIVE); KETONES,URINE NEGATIVE (NEGATIVE); LEUKOCYTE ESTERASE ,URINE 250 Leu/uL (NEGATIVE); MUCUS,URINE RARE LPF (None Seen); NITRATE,URINE NEGATIVE (NEGATIVE); OCCULT BLOOD,URINE NEGATIVE (NEGATIVE); PH,URINE 5.5 (5.0-8.0); PROTEIN,URINE 20 mg/dL (NEGATIVE); UROBILINOGEN,URINE 0.2 mg/dL (0.2-1.0); YEAST,URINE BUDDING MANY /HPF (None Seen)
--- NOTE | 2023-12-20 15:55 | NUR ---
DR. SWARTZ IN PTS ROOM.
--- NOTE | 2023-12-20 16:00 | NUR ---
CARDIOLOGY CONSULT AT BEDSIDE DR SWARTZ
--- NOTE | 2023-12-20 17:21 | PN ---
[facility] PROGRESS NOTE Date of Service: Dec 20, 2023 Time of Service: 10:09 SUBJECTIVE: Ms. Traylor is a 68-year-old female that was seen and examined today on 12/19/2023. Patient is a good historian and personal health. Patient reports that she came to the emergency department with a chief complaint of foot pain. Onset was three weeks ago. Location is to left lower extremity. Duration is on and off. Symptoms are aggravated with physical activity such as walking. There was no alleviating factors. Character of pain described as tingling" like if I have lots of cuts. " patient denies any associated chest pain or shortness of breath. Today in the emergency department glucose 324 mg/dL, arterial ultrasound of lower extremity shows Findings consistent with a severe stenosis mid superficial femoral artery with moderate to marked distal arterial inflow occlusion. Emergency room mid-level provider recommended that patient be admitted with a diagnosis of severe PAD and uncontrolled Diabetes mellitus type 2. 12/20/2023: Patient seen at bedside. She is hemodynamically stable and saturating well on room air. She has no shortness of breath or chest pain, no headaches, dizziness, nausea, or vomiting. She complains of pain in left lower extremity with foot feeling hot and cold intermittently. Per cardiology patient had a SFA balloon angioplasty in July 2020 with known [facility] of the Right SFA and extensive collateral filling. Patient denies any pain since the angioplasty till a few weeks ago. Left foot x-ray negative for fracture or dislocation. Chest x-ray clear. Patient counseled on importance of diabetes management with HBA1C of 12.5. 2 grams of Mg given per protocol for magnesium of 1.4. All other labs relatively unremarkable. PTT will be monitored and heparin protocol will be followed for DVT prophylaxis. Will continue to monitor patient and follow up with cardiology recommendations. REVIEW OF SYSTEMS CONSTITUTIONAL: Denies fevers, chills, or night sweats. No unintentional weight loss reported. NEUROLOGICAL: Denies headache, amaurosis fugax, motor weakness, sensory deficit, vertigo/spinning sensation, gait abnormalities, or tremors. ENT: No hearing loss, otalgia, otorrhea, rhinitis, rhinorrhea, hoarseness, or sore throat. CARDIOVASCULAR: Denies any exertional angina, dyspnea on exertion, orthopnea, paroxysmal nocturnal dyspnea, palpitations, life-threatening arrhythmias, claudication. PULMONARY: Denies any shortness of breath, cough, phlegm/sputum, hemoptysis, pleuritic chest pain. SLEEP: Denies morning headaches, daytime somnolence or napping. Denies difficulty falling asleep, staying asleep, waking from sleep. Denies knowledge of snoring. GASTROINTESTINAL: Denies any type of dysphagia to either liquids or solids. Denies nausea, vomiting, pyrosis, early satiety, abdominal pain, diarrhea, constipation, or changes in stool consistency or caliber. Denies coffee-ground emesis, hematemesis, hematochezia, or melanotic stools. GENITOURINARY: Denies frequency, urgency, nocturia, hematuria or incontinence (Storage/Irritative symptoms.) Low urinary stream, straining to void, urinary intermittency or hesitancy, splitting of the voiding stream, terminal dribbling. ENDOCRINOLOGIC: Denies polyuria, polydipsia, polyphagia or heat/cold intolerances. HEMATOLOGIC: Denies thrombophilia/previous clots, or coagulopathy/bleeding disorders. ONCOLOGIC: Denies personal history of malignancy. DERMATOLOGIC: Denies rashes or pruritus. PSYCHIATRIC: Denies any suicidal or homicidal ideation. Denies hallucinations. PHYSICAL EXAM GENERAL APPEARANCE: The patient is awake, alert, and oriented, in no acute cardiopulmonary distress. NEUROLOGICAL: Cranial nerves II-XII grossly intact. Motor is 5/5 in bilateral upper and lower extremities proximal to distal. No sensory deficits. HEENT: Face is symmetric. Pupils are equal and reactive. Extraocular movements are intact. NECK: Supple. No JVD. No thyromegaly. No submental, submandibular, pre- /postauricular, occipital or supraclavicular lymphadenopathy. CHEST: Normal chest expansion. No Telemetry. LUNGS: Absence of any rales, rhonchi or any wheezing. CARDIOVASCULAR: Regular. S1 and S2 normal. No appreciable rubs, murmurs or gallops. ABDOMEN: Soft, nontender, and nondistended. There is no rebound, voluntary guarding, or rigidity. : Deferred. No Martel. EXTREMITIES: Non-edematous and not cyanotic. No clubbing. Good capillary refill. SKIN: No skin breakdown. Vital Signs (last 8hr) Date Time Temp Pulse Resp B/P (MAP) Pulse Ox O2 Delivery O2 Flow Rate FiO2 12/20/23 11:03 98.8 88 12 171/74 99 Room Air* 0 21 LABS: Laboratory: Test 12/20/23 16:26 12/20/23 13:25 12/20/23 11:59 12/20/23 06:04 Range/Units Whole Blood Glucose 140 H 70-110 MG/DL Bedside Glucose Comment Notified Nurse Urine Color LIGHT-YELLOW YELLOW Urine Appearance CLOUDY H CLEAR Urine pH 5.5 5.0-8.0 Urine Specific [place] 1.022 1.001-1.031 Urine Protein 20 H NEGATIVE mg/dL Urine Glucose (UA) >=1000 H NEGATIVE mg/dL Urine Ketones NEGATIVE NEGATIVE mg/dL Urine Occult Blood NEGATIVE NEGATIVE Urine Nitrate NEGATIVE NEGATIVE Urine Bilirubin NEGATIVE NEGATIVE mg/dL Urine Urobilinogen 0.2 0.2-1.0 mg/dL Urine Leukocyte Esterase 250 H NEGATIVE Remberto/uL Urine RBC 6-10 H 0-1 /HPF Urine WBC 11-25 H 0-1 /HPF Urine Bacteria None None Seen /HPF Urine Yeast MANY None Seen /HPF Prothrombin Time 12.8 H 9.6-11.6 SEC Prothromb Time International Ratio 1.20 H 0.85-1.15 Activated Partial Thromboplast Time 28.5 # 26.3-35.5 SEC White Blood Count 5.6 4.8-10.8 K/uL Red Blood Count 3.07 L 4.00-5.50 MIL/uL Hemoglobin 9.5 L 12.0-16.0 g/dL Hematocrit 28.0 L 36-48 % Mean Corpuscular Volume 91.2 79-99 fL Mean Corpuscular Hemoglobin 30.9 27.0-33.0 pg Mean Corpuscular Hemoglobin Concent 33.9 32.0-36.0 g/dL Red Cell Distribution Width 12.6 11.0-15.5 % Platelet Count 241 130-400 K/uL Mean Platelet Volume 9.1 7.5-10.5 fL Immature Granulocyte % (Auto) 0.4 0-1 % Neutrophils (%) (Auto) 46.1 40.0-77.0 % Lymphocytes (%) (Auto) 44.3 21.0-51.0 % Monocytes (%) (Auto) 6.1 3.0-13.0 % Eosinophils (%) (Auto) 2.7 0.0-8.0 % Basophils (%) (Auto) 0.4 0.0-5.0 % Neutrophils # (Auto) 2.6 1.8-7.7 K/uL Lymphocytes # (Auto) 2.5 1.0-4.8 K/uL Monocytes # (Auto) 0.3 0.1-1.0 K/uL Eosinophils # (Auto) 0.15 0.00-0.70 K/uL Basophils # (Auto) 0.02 0.00-0.20 K/uL Absolute Immature Granulocyte (auto 0.02 0-1 K/uL Nucleated Red Blood Cells 0.0 0.0-0.19 % Sodium Level 144 136-145 mmol/L Potassium Level 3.5 3.5-5.1 mmol/L Chloride Level 109 101-111 mmol/L Carbon Dioxide Level 28 21-32 mmol/L Blood Urea Nitrogen 21 H 7-18 mg/dL Creatinine 0.6 0.5-1.0 mg/dL Glomerular Filtration Rate Calc 97 >90 mL/min Random Glucose 223 H 70-105 mg/dL Hemoglobin A1c 12.5 H 4.0-6.0 % Estimated Average Glucose (eAG) 312 H 70-126 mg/dL Total Calcium 8.5 8.5-10.1 mg/dL Phosphorus Level 3.7 2.5-4.9 mg/dL Magnesium Level 1.40 L 1.80-2.40 mg/dL Test 12/19/23 15:16 Range/Units Lactic Acid Level 1.8 0.8-2.5 mmol/L Current Medications Medications (Trade) Dose Ordered Sig/Reji Route PRN Reason Start Time Stop Time Status Last Admin Dose Admin Acetaminophen (TYLenol 325MG TAB) 650 mg Q4H PRN PO MILD PAIN (1-3) 12/20/23 00:30 01/19/24 00:29 Acetaminophen (TYLenol 325MG TAB) 650 mg Q6H PRN PO TEMPERATURE GREATER THAN 101.5 12/20/23 00:30 01/19/24 00:29 Clindamycin HCl/ Dextrose 50 ml @ 100 mls/hr Q8H IV 12/19/23 17:30 12/29/23 17:29 12/20/23 09:04 100 MLS/HR Famotidine (Pepcid 20mg Tab) 20 mg DAILY PO 12/20/23 09:00 01/19/24 08:59 12/20/23 09:04 20 MG Heparin Sodium/ Dextrose 250 ml @ 0 mls/hr PROTOCOL IV 12/19/23 17:30 01/18/24 17:29 12/20/23 00:08 8.6 MLS/HR Insulin Human Regular (humuLIN R 100 UNIT/ML 3ML) INSULIN SLIDING SCAL... ACHS SQ 12/20/23 07:30 01/19/24 07:29 12/20/23 09:05 3 UNIT Lactated Ringer's 1,000 ml @ 75 mls/hr [id number] IV 12/20/23 00:30 01/19/24 00:29 12/20/23 15:48 75 MLS/HR Magnesium Sulfate 50 ml @ 0 mls/hr PROTOCOL PRN IV Hypomagnesemia 12/20/23 00:30 01/19/24 00:29 12/20/23 06:40 25 MLS/HR Morphine Sulfate (morPHINE 2MG SYG) 2 mg Q4H PRN IV SEVERE PAIN (7-10) 12/20/23 00:30 12/27/23 00:29 12/20/23 13:14 2 MG Ondansetron HCl (zoFRAN 4MG INJ) 4 mg Q6H PRN IV NAUSEA/VOMITING 12/20/23 00:30 01/19/24 00:29 12/20/23 13:13 4 MG Potassium Chloride 100 ml @ 50 mls/hr AD PRN IV POTASSIUM PROTOCOL 12/20/23 00:30 01/19/24 00:29 DIAGNOSTICS / RADIOLOGY: PATIENT: JERMAINE TRAYLOR MR#: [id number] : 1955 SEX: F AGE: 68 LOCATION: [facility] ORDER STATUS: ADM IN REPORT#: [id number] SERVICE REASON: preprocedural ORDERING PHYSICIAN: JANEY COHEN PROCEDURE: CXR1VW - CHEST 1VW CHEST 1VW REASON: preprocedural COMPARISON: 02/17/2021 FINDINGS: Single view of the chest was obtained. Lungs are clear. Heart size is normal. There is no pulmonary vascular congestion. Mediastinum and bony thorax appear unremarkable. IMPRESSION: 1. Normal single view chest x-ray. DICTATED BY: MATTY ODELL MD DATE: 12/20/23948 ELECTRONICALLY SIGNED BY: MATTY ODELL MD DATE: 12/20/23951 PATIENT: JERMAINE TRAYLOR MR#: [id number] : 1955 SEX: F AGE: 68 LOCATION: [facility] ORDER 44 STATUS: [facility] ER REPORT#: [id number] SERVICE 43 REASON: LEFT FOOT ERYTHEMA, FOOT COOL TO TOUCH ORDERING PHYSICIAN: LONNIE NDIAYE NP PROCEDURE: ART U LE - US ARTERIAL UNILA LOW EXT DUPL US ARTERIAL UNILA LOW EXT DUPL REASON: LEFT FOOT ERYTHEMA, FOOT COOL TO TOUCH COMPARISON: None TECHNIQUE: Left leg arterial Doppler evaluation was performed with spectral analysis and color flow imaging. FINDINGS: There is normal triphasic waveform in the right common femoral artery. Proximal superficial femoral artery is biphasic. There is marked flow velocity elevation in the mid superficial femoral artery consistent with stenosis. There are monophasic distal waveforms with significantly decreased flow velocity. There is no flow visible in the posterior tibial artery. Anterior tibial and dorsalis pedis arteries show decreased flow as does the distal popliteal artery. IMPRESSION: 1. Findings consistent with a severe stenosis mid superficial femoral artery with moderate to marked distal arterial inflow occlusion. DICTATED BY: MATTY ODELL MD DATE: 12/19/231654 ELECTRONICALLY SIGNED BY: MATTY ODELL MD DATE: 12/19/231657 PATIENT: JERMAINE TRAYLOR MR#: [id number] : 1955 SEX: F AGE: 68 LOCATION: [facility] ORDER 13 STATUS: [facility] ER REPORT#: [id number] SERVICE 12 REASON: CELLULITIS OF DISTAL METATARSALS AND TOES RULE OUT OSTEO ORDERING PHYSICIAN: LONNIE NDIAYE NP PROCEDURE: FT 3VW LT - FOOT COMP 3+VWS LT FOOT COMP 3+VWS LT REASON: CELLULITIS OF DISTAL METATARSALS AND TOES RULE OUT OSTEO TECHNIQUE: 3 views were obtained. FINDINGS: There is no evidence of fracture or dislocation. There is no joint effusion. The soft tissues appear unremarkable. There is no evidence of a radiopaque foreign body. IMPRESSION: No acute findings. DICTATED BY: MATTY ODELL MD DATE: 12/19/231619 ELECTRONICALLY SIGNED BY: MATTY ODELL MD DATE: 12/19/231622 ASSESSMENT: Moderate to marked distal arterial inflow occlusion LLE, POA Uncontrolled Diabetes mellitius type2, HBA1c 12.5 Hypomagnesemia PLAN: Admit patient to PCU as inpatient status. Place patient on telemetry monitoring. Continue heparin drip started in the emergency department. Continue to monitor PTT and follow heparin protocol. Monitor patient's labs. Consult cardiology service, Dr. Tolbert for evaluation and further recommendations. Keep patient NPO. IV fluid maintenance therapy lactated Ringer's at 75 mL/HR Check preprocedure labs, CBC, BMP, magnesium, phosphorus, PTT, UA, type and screen, EKG, CXR Glucometer checks a.c. and HS 1800 ADA diet once patient is no longer NPO Humulin R sliding scale half dose GI prophylaxis, famotidine 20 mg by mouth once daily. DVT prophylaxis, patient will be on heparin drip as mentioned above. ATTESTATION BY PHYSICIAN I have seen and examined the patient. I reviewed the documentation, medical decision making, and treatment plan as noted by the resident provider above. I agree with the findings and plan of care. Kameron Ash MD, NEHA MD Dec 20, 2023 17:21
--- NOTE | 2023-12-20 18:15 | NUR ---
report called for room 227
[2023-12-20 19:03] LABS: INR 1.1 (0.85-1.15); PROTHROMBIN TIME 11.8 SEC (9.6-11.6)
[2023-12-20 19:04] LABS: PARTIAL THROMBOPLASTIN TIME 23.6 SEC (26.3-35.5)
[2023-12-20 20:05] VITALS: BP 147/64; PULSE 99; RESP 18; TEMP 98
[2023-12-20 21:00] VITALS: O2SAT 98
[2023-12-21] VITALS (8 sets, daily range): BP systolic 138–151; BP diastolic 60–91; PULSE 82–90; RESP 16–18; TEMP 97.8–99.3; O2SAT 97–98
[2023-12-21 00:55] LABS: BASOPHILS # (AUTO) 0.04 K/uL (0.00-0.20); BASOPHILS % (AUTO) 0.7 % (0.0-5.0); EOSINOPHILS % (AUTO) 1.7 % (0.0-8.0); HEMATOCRIT 27.8 % (36-48); IMMATURE GRANULOCYTE ABSOLUTE 0.02 K/uL (0-1); LYMPHOCYTES # (AUTO) 1.9 K/uL (1.0-4.8); LYMPHOCYTES % (AUTO) 32.5 % (21.0-51.0); MEAN CORPUSCULAR HEMOGLOBIN 30.9 pg (27.0-33.0); MEAN CORPUSCULAR HGB CONC 33.8 g/dL (32.0-36.0); MEAN CORPUSCULAR VOLUME 91.4 fL (79-99); MONOCYTES # (AUTO) 0.3 K/uL (0.1-1.0); MONOCYTES % (AUTO) 5.4 % (3.0-13.0); NEUTROPHILS # (AUTO) 3.5 K/uL (1.8-7.7); NEUTROPHILS % (AUTO) 59.4 % (40.0-77.0); PLATELET COUNT (AUTO) 251 K/uL (130-400); RED BLOOD CELL COUNT(AUTO) 3.04 MIL/uL (4.00-5.50); RED CELL DISTRIBUTION WIDTH 12.5 % (11.0-15.5); WHITE BLOOD COUNT (AUTO) 5.9 K/uL (4.8-10.8)
[2023-12-21 01:08] LABS: INR 1.02 (0.85-1.15)
[2023-12-21 01:09] LABS: PARTIAL THROMBOPLASTIN TIME 42.2 SEC (26.3-35.5)
[2023-12-21 01:10] LABS: ALBUMIN 2.9 g/dL (3.5-5.0); BILIRUBIN,TOTAL 0.1 mg/dL (0.2-1.0); CREATININE 0.5 mg/dL (0.5-1.0); POTASSIUM 3.7 mmol/L (3.5-5.1); TOTAL PROTEIN, SERUM 5.9 g/dL (6.0-8.3)
--- NOTE | 2023-12-21 05:21 | PN ---
[facility] CARDIOLOGY PROGRESS NOTE Date Patient Seen: Dec 21, 2023 Time of Visit: 05:20 Problem List: PAD LLE gangrene Interval History: No complaints this AM. Physical Examination: GENERAL: [No acute distress.] HEAD: [Normal with no signs of head trauma.] NECK: [ Normal carotid upstrokes without bruits.] LUNGS: [Clear breath sounds bilaterally. No wheezes, or rhonchi.] HEART: [Normal rate and rhythm. Normal S1 and S2 without murmurs, gallop or rub.] VASC: 1+ DP Left. Non palpable DP Right. distal extremities warm. superficial wound of 3rd and 4th interdigit space on the Left. EXT: [No clubbing, cyanosis or edema.] SKIN: [wound to Left foot.] NEURO: [Awake, alert, and oriented x3. No focal sensory or strength deficits noted.] Laboratory: [ ] Hematology Labs: Test 12/21/23 00:41 Range/Units White Blood Count 5.9 4.8-10.8 K/uL Red Blood Count 3.04 L 4.00-5.50 MIL/uL Hemoglobin 9.4 L 12.0-16.0 g/dL Hematocrit 27.8 L 36-48 % Mean Corpuscular Volume 91.4 79-99 fL Mean Corpuscular Hemoglobin 30.9 27.0-33.0 pg Mean Corpuscular Hemoglobin Concent 33.8 32.0-36.0 g/dL Red Cell Distribution Width 12.5 11.0-15.5 % Platelet Count 251 130-400 K/uL Mean Platelet Volume 9.1 7.5-10.5 fL Immature Granulocyte % (Auto) 0.3 0-1 % Neutrophils (%) (Auto) 59.4 40.0-77.0 % Lymphocytes (%) (Auto) 32.5 21.0-51.0 % Monocytes (%) (Auto) 5.4 3.0-13.0 % Eosinophils (%) (Auto) 1.7 0.0-8.0 % Basophils (%) (Auto) 0.7 0.0-5.0 % Neutrophils # (Auto) 3.5 1.8-7.7 K/uL Lymphocytes # (Auto) 1.9 1.0-4.8 K/uL Monocytes # (Auto) 0.3 0.1-1.0 K/uL Eosinophils # (Auto) 0.10 0.00-0.70 K/uL Basophils # (Auto) 0.04 0.00-0.20 K/uL Absolute Immature Granulocyte (auto 0.02 0-1 K/uL Nucleated Red Blood Cells 0.0 0.0-0.19 % Chemistry Labs: Test 12/21/23 00:41 12/20/23 20:24 12/20/23 16:26 12/20/23 06:04 Range/Units Sodium Level 143 136-145 mmol/L Potassium Level 3.7 3.5-5.1 mmol/L Chloride Level 107 101-111 mmol/L Carbon Dioxide Level 32 21-32 mmol/L Blood Urea Nitrogen 15 7-18 mg/dL Creatinine 0.5 0.5-1.0 mg/dL Glomerular Filtration Rate Calc 101 >90 mL/min Random Glucose 161 H 70-105 mg/dL Total Calcium 8.3 L 8.5-10.1 mg/dL Total Bilirubin 0.1 L 0.2-1.0 mg/dL Aspartate Amino Transf (AST/SGOT) 16 10-37 U/L Alanine Aminotransferase (ALT/SGPT) 19 12-78 U/L Alkaline Phosphatase 53 50-136 U/L Total Protein 5.9 L 6.0-8.3 g/dL Albumin 2.9 L 3.5-5.0 g/dL Whole Blood Glucose 253 #H 70-110 MG/DL Bedside Glucose Comment Notified Nurse Hemoglobin A1c 12.5 H 4.0-6.0 % Estimated Average Glucose (eAG) 312 H 70-126 mg/dL Phosphorus Level 3.7 2.5-4.9 mg/dL Magnesium Level 1.40 L 1.80-2.40 mg/dL Test 12/19/23 15:16 Range/Units Lactic Acid Level 1.8 0.8-2.5 mmol/L Coagulation Labs: Test 12/21/23 00:41 Range/Units Prothrombin Time 11.0 9.6-11.6 SEC Prothromb Time International Ratio 1.02 0.85-1.15 Activated Partial Thromboplast Time 42.2 #H 26.3-35.5 SEC Impression and Plan: Peripheral artery disease Left lower extremity arterial ischemia with wound between the third and fourth digits -history of intervention to the left distal SFA using a 5 x 150 Medtronic Impact drug-coated balloon angioplasty, left popliteal Medtronic Impact drug-coated balloon angioplasty 4.0 x 40 mm with 20 to 30% residual stenosis in July 2020 History of type 2 diabetes mellitus History of left lower extremity DVT in April 2023 Patient taking therapeutic anticoagulation at home with Xarelto. It has been only 36 hours since her last dose. Will defer invasive angiography today due to bleeding risk. Continue heparin gtt. NPO p midnight for possible angiography tomorrow. Will have to ask my on-call colleague regarding availability. SRIDHAR SWARTZ DO Dec 21, 2023 05:21
[2023-12-21] MEDS: PoTASSium chloRIDE 20MEQ/100ML 100 ML IV PRN (06:38)
[2023-12-21 07:54] LABS: INR 1.03 (0.85-1.15); PROTHROMBIN TIME 11.1 SEC (9.6-11.6)
[2023-12-21 07:55] LABS: PARTIAL THROMBOPLASTIN TIME 52.7 SEC (26.3-35.5)
[2023-12-21] MEDS: ASPIRIN 81 MG EC TAB PO SCH (09:50)
--- NOTE | 2023-12-21 13:23 | PN ---
[facility] PROGRESS NOTE Date of Service: Dec 21, 2023 Time of Service: 13:17 SUBJECTIVE: Ms. Traylor is a 68-year-old female that was seen and examined today on 12/19/2023. Patient is a good historian and personal health. Patient reports that she came to the emergency department with a chief complaint of foot pain. Onset was three weeks ago. Location is to left lower extremity. Duration is on and off. Symptoms are aggravated with physical activity such as walking. There was no alleviating factors. Character of pain described as tingling" like if I have lots of cuts. " patient denies any associated chest pain or shortness of breath. Today in the emergency department glucose 324 mg/dL, arterial ultrasound of lower extremity shows Findings consistent with a severe stenosis mid superficial femoral artery with moderate to marked distal arterial inflow occlusion. Emergency room mid-level provider recommended that patient be admitted with a diagnosis of severe PAD and uncontrolled Diabetes mellitus type 2. 12/20/2023: Patient seen at bedside. She is hemodynamically stable and saturating well on room air. She has no shortness of breath or chest pain, no headaches, dizziness, nausea, or vomiting. She complains of pain in left lower extremity with foot feeling hot and cold intermittently. 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 Patient denies any pain since the angioplasty till a few weeks ago. Left foot x-ray negative for fracture or dislocation. Chest x-ray clear. Patient counseled on importance of diabetes management with HBA1C of 12.5. 2 grams of Mg given per protocol for magnesium of 1.4. All other labs relatively unremarkable. PTT will be monitored and heparin protocol will be followed for DVT prophylaxis. Will continue to monitor patient and follow up with cardiology recommendations. 12/21/2023: Patient seen sitting upright in chair eating lunch. She continues to be hemodynamically stable and saturating well on room air. She states the pain in her LLE has improved. Currently being managed on morphine 2mg q4hrs. Patient continued on heparin with monitoring of PTT, heparin will be discontinued after midnight and patient will be NPO after midnight for angiography tomorrow morning. Home medications were reconciled, Steven reyna. We will continue to monitor the patient and follow cardiology recommendations. REVIEW OF SYSTEMS CONSTITUTIONAL: Denies fevers, chills, or night sweats. No unintentional weight loss reported. NEUROLOGICAL: Denies headache, amaurosis fugax, motor weakness, sensory deficit, vertigo/spinning sensation, gait abnormalities, or tremors. ENT: No hearing loss, otalgia, otorrhea, rhinitis, rhinorrhea, hoarseness, or so re throat. CARDIOVASCULAR: Denies any exertional angina, dyspnea on exertion, orthopnea, paroxysmal nocturnal dyspnea, palpitations, life-threatening arrhythmias, claudication. PULMONARY: Denies any shortness of breath, cough, phlegm/sputum, hemoptysis, pleuritic chest pain. SLEEP: Denies morning headaches, daytime somnolence or napping. Denies difficulty falling asleep, staying asleep, waking from sleep. Denies knowledge of snoring. GASTROINTESTINAL: Denies any type of dysphagia to either liquids or solids. Denies nausea, vomiting, pyrosis, early satiety, abdominal pain, diarrhea, constipation, or changes in stool consistency or caliber. Denies coffee-ground emesis, hematemesis, hematochezia, or melanotic stools. GENITOURINARY: Denies frequency, urgency, nocturia, hematuria or incontinence (Storage/Irritative symptoms.) Low urinary stream, straining to void, urinary intermittency or hesitancy, splitting of the voiding stream, terminal dribbling. ENDOCRINOLOGIC: Denies polyuria, polydipsia, polyphagia or heat/cold intolerances. HEMATOLOGIC: Denies thrombophilia/previous clots, or coagulopathy/bleeding disorders. ONCOLOGIC: Denies personal history of malignancy. DERMATOLOGIC: Denies rashes or pruritus. Left foot pain, bleeding between 3rd and 4th digits with wound. PSYCHIATRIC: Denies any suicidal or homicidal ideation. Denies hallucinations. PHYSICAL EXAM GENERAL APPEARANCE: The patient is awake, alert, and oriented, in no acute cardiopulmonary distress. NEUROLOGICAL: Cranial nerves II-XII grossly intact. Motor is 5/5 in bilateral upper and lower extremities proximal to distal. No sensory deficits. HEENT: Face is symmetric. Pupils are equal and reactive. Extraocular movements are intact. NECK: Supple. No JVD. No thyromegaly. No submental, submandibular, pre- /postauricular, occipital or supraclavicular lymphadenopathy. CHEST: Normal chest expansion. No Telemetry. LUNGS: Absence of any rales, rhonchi or any wheezing. CARDIOVASCULAR: Regular. S1 and S2 normal. No appreciable rubs, murmurs or gallops. ABDOMEN: Soft, nontender, and nondistended. There is no rebound, voluntary guarding, or rigidity. : Deferred. No Martel. EXTREMITIES: Non-edematous and not cyanotic. No clubbing. Good capillary refill. SKIN: No skin breakdown. Vital Signs (last 8hr) Date Time Temp Pulse Resp B/P (MAP) Pulse Ox O2 Delivery O2 Flow Rate FiO2 12/21/23 12:43 98.4 82 16 148/68 97 Room Air 12/21/23 08:00 98 Room Air* 0 21 12/21/23 07:48 98.1 86 16 138/60 98 Room Air LABS: Laboratory: Test 12/21/23 11:57 12/21/23 06:47 12/21/23 00:41 12/20/23 16:26 Range/Units Whole Blood Glucose 231 H 70-110 MG/DL Prothrombin Time 11.1 9.6-11.6 SEC Prothromb Time International Ratio 1.03 0.85-1.15 Activated Partial Thromboplast Time 52.7 H 26.3-35.5 SEC White Blood Count 5.9 4.8-10.8 K/uL Red Blood Count 3.04 L 4.00-5.50 MIL/uL Hemoglobin 9.4 L 12.0-16.0 g/dL Hematocrit 27.8 L 36-48 % Mean Corpuscular Volume 91.4 79-99 fL Mean Corpuscular Hemoglobin 30.9 27.0-33.0 pg Mean Corpuscular Hemoglobin Concent 33.8 32.0-36.0 g/dL Red Cell Distribution Width 12.5 11.0-15.5 % Platelet Count 251 130-400 K/uL Mean Platelet Volume 9.1 7.5-10.5 fL Immature Granulocyte % (Auto) 0.3 0-1 % Neutrophils (%) (Auto) 59.4 40.0-77.0 % Lymphocytes (%) (Auto) 32.5 21.0-51.0 % Monocytes (%) (Auto) 5.4 3.0-13.0 % Eosinophils (%) (Auto) 1.7 0.0-8.0 % Basophils (%) (Auto) 0.7 0.0-5.0 % Neutrophils # (Auto) 3.5 1.8-7.7 K/uL Lymphocytes # (Auto) 1.9 1.0-4.8 K/uL Monocytes # (Auto) 0.3 0.1-1.0 K/uL Eosinophils # (Auto) 0.10 0.00-0.70 K/uL Basophils # (Auto) 0.04 0.00-0.20 K/uL Absolute Immature Granulocyte (auto 0.02 0-1 K/uL Nucleated Red Blood Cells 0.0 0.0-0.19 % Sodium Level 143 136-145 mmol/L Potassium Level 3.7 3.5-5.1 mmol/L Chloride Level 107 101-111 mmol/L Carbon Dioxide Level 32 21-32 mmol/L Blood Urea Nitrogen 15 7-18 mg/dL Creatinine 0.5 0.5-1.0 mg/dL Glomerular Filtration Rate Calc 101 >90 mL/min Random Glucose 161 H 70-105 mg/dL Total Calcium 8.3 L 8.5-10.1 mg/dL Total Bilirubin 0.1 L 0.2-1.0 mg/dL Aspartate Amino Transf (AST/SGOT) 16 10-37 U/L Alanine Aminotransferase (ALT/SGPT) 19 12-78 U/L Alkaline Phosphatase 53 50-136 U/L Total Protein 5.9 L 6.0-8.3 g/dL Albumin 2.9 L 3.5-5.0 g/dL Bedside Glucose Comment Notified Nurse Test 12/20/23 13:25 12/20/23 06:04 12/19/23 15:16 Range/Units Urine Color LIGHT-YELLOW YELLOW Urine Appearance CLOUDY H CLEAR Urine pH 5.5 5.0-8.0 Urine Specific [place] 1.022 1.001-1.031 Urine Protein 20 H NEGATIVE mg/dL Urine Glucose (UA) >=1000 H NEGATIVE mg/dL Urine Ketones NEGATIVE NEGATIVE mg/dL Urine Occult Blood NEGATIVE NEGATIVE Urine Nitrate NEGATIVE NEGATIVE Urine Bilirubin NEGATIVE NEGATIVE mg/dL Urine Urobilinogen 0.2 0.2-1.0 mg/dL Urine Leukocyte Esterase 250 H NEGATIVE Remberto/uL Urine RBC 6-10 H 0-1 /HPF Urine WBC 11-25 H 0-1 /HPF Urine Bacteria None None Seen /HPF Urine Yeast MANY None Seen /HPF Hemoglobin A1c 12.5 H 4.0-6.0 % Estimated Average Glucose (eAG) 312 H 70-126 mg/dL Phosphorus Level 3.7 2.5-4.9 mg/dL Magnesium Level 1.40 L 1.80-2.40 mg/dL Lactic Acid Level 1.8 0.8-2.5 mmol/L Current Medications Medications (Trade) Dose Ordered Sig/Reji Route PRN Reason Start Time Stop Time Status Last Admin Dose Admin Acetaminophen (TYLenol 325MG TAB) 650 mg Q4H PRN PO MILD PAIN (1-3) 12/20/23 00:30 01/19/24 00:29 Acetaminophen (TYLenol 325MG TAB) 650 mg Q6H PRN PO TEMPERATURE GREATER THAN 101.5 12/20/23 00:30 01/19/24 00:29 Aspirin (Aspirin 81mg Ec Tab) 81 mg DAILY PO 12/21/23 09:00 01/20/24 08:59 12/21/23 09:50 81 MG Atorvastatin Calcium (LIPItor 40MG) 40 mg HS PO 12/21/23 21:00 12/21/23 09:46 DC Atorvastatin Calcium (LIPItor 40MG) 40 mg HS PO 12/21/23 21:00 01/20/24 20:59 Clindamycin HCl/ Dextrose 50 ml @ 100 mls/hr Q8H IV 12/19/23 17:30 12/29/23 17:29 12/21/23 09:50 100 MLS/HR Famotidine (Pepcid 20mg Tab) 20 mg DAILY PO 12/20/23 09:00 01/19/24 08:59 12/21/23 09:50 20 MG Folic Acid (FOLic ACID 1 MG TABLET) 1 mg DAILY PO 12/22/23 09:00 01/21/24 08:59 Heparin Sodium/ Dextrose 250 ml @ 0 mls/hr PROTOCOL IV 12/19/23 17:30 01/18/24 17:29 12/20/23 00:08 8.6 MLS/HR Insulin Human Regular (humuLIN R 100 UNIT/ML 3ML) INSULIN SLIDING SCAL... ACHS SQ 12/20/23 07:30 01/19/24 07:29 12/21/23 12:40 4 UNIT Lactated Ringer's 1,000 ml @ 75 mls/hr [id number] IV 12/20/23 00:30 01/19/24 00:29 12/20/23 15:48 75 MLS/HR Lisinopril (Prinivil 10mg) 10 mg DAILY PO 12/22/23 09:00 01/21/24 08:59 Magnesium Sulfate 50 ml @ 0 mls/hr PROTOCOL PRN IV Hypomagnesemia 12/20/23 00:30 01/19/24 00:29 12/20/23 06:40 25 MLS/HR Morphine Sulfate (morPHINE 2MG SYG) 2 mg Q4H PRN IV SEVERE PAIN (7-10) 12/20/23 00:30 12/27/23 00:29 12/21/23 11:05 2 MG Ondansetron HCl (zoFRAN 4MG INJ) 4 mg Q6H PRN IV NAUSEA/VOMITING 12/20/23 00:30 01/19/24 00:29 12/20/23 13:13 4 MG Potassium Chloride 100 ml @ 50 mls/hr AD PRN IV POTASSIUM PROTOCOL 12/20/23 00:30 01/19/24 00:29 12/21/23 06:38 50 MLS/HR DIAGNOSTICS / RADIOLOGY: PATIENT: JERMAINE TRAYLOR MR#: [id number] : 1955 SEX: F AGE: 68 LOCATION: [facility] ORDER STATUS: ADM IN REPORT#: [id number] SERVICE REASON: preprocedural ORDERING PHYSICIAN: JANEY COHEN 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 Lungs are clear. Heart size is normal. There is no pulmonary vascular congestion. Mediastinum and bony thorax appear unremarkable. IMPRESSION: 1. Normal single view chest x-ray. DICTATED BY: MATTY ODELL MD DATE: 12/20/23948 ELECTRONICALLY SIGNED BY: MATTY ODELL MD DATE: 12/20/23951 PATIENT: JERMAINE TRAYLOR MR#: [id number] : 1955 SEX: F AGE: 68 LOCATION: ED ORDER [id number] STATUS: REG ER REPORT#: [id number] SERVICE 43 REASON: LEFT FOOT ERYTHEMA, FOOT COOL TO TOUCH ORDERING PHYSICIAN: LONNIE NDIAYE NP PROCEDURE: ART U LE - US ARTERIAL UNILA LOW EXT DUPL US ARTERIAL UNILA LOW EXT DUPL REASON: LEFT FOOT ERYTHEMA, FOOT COOL TO TOUCH COMPARISON: None TECHNIQUE: Left leg arterial Doppler evaluation was performed with spectral analysis and color flow imaging. FINDINGS: There is normal triphasic waveform in the right common femoral artery. Proximal superficial femoral artery is biphasic. There is marked flow velocity elevation in the mid superficial femoral artery consistent with stenosis. There are monophasic distal waveforms with significantly decreased flow velocity. There is no flow visible in the posterior tibial artery. Anterior tibial and dorsalis pedis arteries show decreased flow as does the distal popliteal artery. IMPRESSION: 1. Findings consistent with a severe stenosis mid superficial femoral artery with moderate to marked distal arterial inflow occlusion. DICTATED BY: MATTY ODELL MD DATE: 12/19/231654 ELECTRONICALLY SIGNED BY: MATTY ODELL MD DATE: 12/19/231657 PATIENT: JERMAINE TRAYLOR MR#: [id number] : 1955 SEX: F AGE: 68 LOCATION: ED ORDER 13 STATUS: REG ER REPORT#: [id number] SERVICE 151 REASON: CELLULITIS OF DISTAL METATARSALS AND TOES RULE OUT OSTEO ORDERING PHYSICIAN: LONNIE NDIAYE NP PROCEDURE: FT 3VW LT - FOOT COMP 3+VWS LT FOOT COMP 3+VWS LT REASON: CELLULITIS OF DISTAL METATARSALS AND TOES RULE OUT OSTEO TECHNIQUE: 3 views were obtained. FINDINGS: There is no evidence of fracture or dislocation. There is no joint effusion. The soft tissues appear unremarkable. There is no evidence of a radiopaque foreign body. IMPRESSION: No acute findings. DICTATED BY: AMTTY ODELL MD DATE: 12/19/231619 ELECTRONICALLY SIGNED BY: MATTY ODELL MD DATE: 12/19/23 2962 ASSESSMENT: Moderate to marked distal arterial inflow occlusion LLE, POA Peripheral artery disease, POA Left lower extremity arterial ischemia with wound between 3rd and 4th digits Uncontrolled Diabetes mellitius type2, HBA1c 12.5 Hypomagnesemia PLAN: Admit patient to PCU as inpatient status. Place patient on telemetry monitoring. NPO after midnight Peripheral angiogram of LLE in the AM, follow up on results Continue heparin drip started in the emergency department. Continue to monitor PTT and follow heparin protocol. Discontinue heparin 4 hours before angiogram. Monitor patient's labs. Consult cardiology service, Dr. Tolbert for evaluation and further recommendations. IV fluid maintenance therapy lactated Ringer's at 75 mL/HR Check preprocedure labs, CBC, BMP, magnesium, phosphorus, PTT, UA, type and screen, EKG, CXR Glucometer checks a.c. and HS 1800 ADA diet once patient is no longer NPO Humulin R sliding scale half dose GI prophylaxis, famotidine 20 mg by mouth once daily. DVT prophylaxis, patient will be on heparin drip as mentioned above. ATTESTATION BY PHYSICIAN I have seen and examined the patient. I reviewed the documentation, medical decision making, and treatment plan as noted by the resident provider above. I agree with the findings and plan of care. Kameron Ash MD, NEHA MD Dec 21, 2023 13:23
[2023-12-21] MEDS: doCUSate SODIUM 100 MG CAP PO ONE (13:36)
[2023-12-21] MEDS: atorVAStatin 40 MG TABLET PO SCH (20:54)
[2023-12-21] MEDS ORDERED: atorVAStatin 40 MG TABLET PO SCH (21:00)
[2023-12-22] VITALS (14 sets, daily range): BP systolic 137–165; BP diastolic 64–96; PULSE 79–110; RESP 17–20; TEMP 98–99.8; O2SAT 97–98
--- NOTE | 2023-12-22 02:55 | NUR ---
pictures takes on wound between left foot 3rd and 4th toe, area with redness and slight bleeding. left foot in between 4th and 5th toe with dry scabbing, no open area.
[2023-12-22] MEDS: CLINDAMYCIN IVPB 600MG/50ML 50 ML IV SCH (03:25)
--- NOTE | 2023-12-22 07:23 | PN ---
[facility] PROGRESS NOTE Date Patient Seen: Dec 22, 2023 Time of Visit: 07:22 Problem List: PAD LLE gangrene Interval History: No complaints this AM. Physical Examination: GENERAL: [No acute distress.] HEAD: [Normal with no signs of head trauma.] NECK: [ Normal carotid upstrokes without bruits.] LUNGS: [Clear breath sounds bilaterally. No wheezes, or rhonchi.] HEART: [Normal rate and rhythm. Normal S1 and S2 without murmurs, gallop or rub.] VASC: 1+ DP Left. Non palpable DP Right. distal extremities warm. superficial wound of 3rd and 4th interdigit space on the Left. EXT: [No clubbing, cyanosis or edema.] SKIN: [wound to Left foot.] NEURO: [Awake, alert, and oriented x3. No focal sensory or strength deficits noted.] Laboratory: [ ] Hematology Labs: Test 12/21/23 00:41 Range/Units White Blood Count 5.9 4.8-10.8 K/uL Red Blood Count 3.04 L 4.00-5.50 MIL/uL Hemoglobin 9.4 L 12.0-16.0 g/dL Hematocrit 27.8 L 36-48 % Mean Corpuscular Volume 91.4 79-99 fL Mean Corpuscular Hemoglobin 30.9 27.0-33.0 pg Mean Corpuscular Hemoglobin Concent 33.8 32.0-36.0 g/dL Red Cell Distribution Width 12.5 11.0-15.5 % Platelet Count 251 130-400 K/uL Mean Platelet Volume 9.1 7.5-10.5 fL Immature Granulocyte % (Auto) 0.3 0-1 % Neutrophils (%) (Auto) 59.4 40.0-77.0 % Lymphocytes (%) (Auto) 32.5 21.0-51.0 % Monocytes (%) (Auto) 5.4 3.0-13.0 % Eosinophils (%) (Auto) 1.7 0.0-8.0 % Basophils (%) (Auto) 0.7 0.0-5.0 % Neutrophils # (Auto) 3.5 1.8-7.7 K/uL Lymphocytes # (Auto) 1.9 1.0-4.8 K/uL Monocytes # (Auto) 0.3 0.1-1.0 K/uL Eosinophils # (Auto) 0.10 0.00-0.70 K/uL Basophils # (Auto) 0.04 0.00-0.20 K/uL Absolute Immature Granulocyte (auto 0.02 0-1 K/uL Nucleated Red Blood Cells 0.0 0.0-0.19 % Chemistry Labs: Test 12/22/23 05:21 12/21/23 00:41 12/20/23 16:26 Range/Units Whole Blood Glucose 218 H 70-110 MG/DL Sodium Level 143 136-145 mmol/L Potassium Level 3.7 3.5-5.1 mmol/L Chloride Level 107 101-111 mmol/L Carbon Dioxide Level 32 21-32 mmol/L Blood Urea Nitrogen 15 7-18 mg/dL Creatinine 0.5 0.5-1.0 mg/dL Glomerular Filtration Rate Calc 101 >90 mL/min Random Glucose 161 H 70-105 mg/dL Total Calcium 8.3 L 8.5-10.1 mg/dL Total Bilirubin 0.1 L 0.2-1.0 mg/dL Aspartate Amino Transf (AST/SGOT) 16 10-37 U/L Alanine Aminotransferase (ALT/SGPT) 19 12-78 U/L Alkaline Phosphatase 53 50-136 U/L Total Protein 5.9 L 6.0-8.3 g/dL Albumin 2.9 L 3.5-5.0 g/dL Bedside Glucose Comment Notified Nurse Coagulation Labs: Test 12/21/23 13:16 12/21/23 06:47 Range/Units Activated Partial Thromboplast Time 60.5 H 26.3-35.5 SEC Prothrombin Time 11.1 9.6-11.6 SEC Prothromb Time International Ratio 1.03 0.85-1.15 Impression and Plan: Peripheral artery disease Left lower extremity arterial ischemia with wound between the third and fourth digits -history of intervention to the left distal SFA using a 5 x 150 Medtronic Impact drug-coated balloon angioplasty, left popliteal Medtronic Impact drug-coated balloon angioplasty 4.0 x 40 mm with 20 to 30% residual stenosis in July 2020 History of type 2 diabetes mellitus History of left lower extremity DVT in April 2023 Last dose of Xarelto 12/19/23 Will contact senior controls engineer colleague regarding availability for peripheral angiogram today Please keep SRIDHAR GONZALEZ DO Dec 22, 2023 07:23
--- NOTE | 2023-12-22 07:48 | NUR ---
HEPARIN DRIP WAS STOPPED AT 0600AM PER DR. NEWBERRY ORDERS. PAGED HOSPITALIST TO REPORT WOUND AREA BETWEEN LEFT FOOT 3RD AND 4TH TOE. PENDING CALL BACK.
[2023-12-22] MEDS: FOLic ACID 1 MG TABLET PO SCH (08:52)
[2023-12-22] MEDS: LISINOPRIL 10 MG TABLET PO SCH (08:52)
[2023-12-22] MEDS: acetaMINOPHEN 325 MG TAB PO PRN (11:32)
[2023-12-22] MEDS: morPHINE 2 MG SYG IVP SCH (12:17)
--- NOTE | 2023-12-22 13:01 | PN ---
I personally saw and evaluated the patient and answered all her questions about the intended left lower extremity arteriogram and revascularization. Patient verbalizes understanding and acceptance and is eager to proceed this afternoon. Vitals/Labs Vital Signs Date Time Temp Pulse Resp B/P (MAP) Pulse Ox O2 Delivery O2 Flow Rate FiO2 12/22/23 11:00 98.8 79 17 159/68 98 Room Air 12/22/23 08:00 0 21 Medications Current Medications Heparin Sodium/ Dextrose 250 ml @ 0 mls/hr PROTOCOL IV Last administered on 12/20/23at 00:08; Start 12/19/23 at 17:30; Stop 12/22/23 at 02:00; Status DC Clindamycin HCl/ Dextrose 50 ml @ 100 mls/hr Q8H IV Last administered on 12/21/23at 18:30; Start 12/19/23 at 17:30; Stop 12/21/23 at 21:45; Status DC Morphine Sulfate 2 mg ONCE ONCE IVP Last administered on 12/19/23at 23:53; Start 12/20/23 at 00:00; Stop 12/20/23 at 00:01; Status DC Heparin Sodium (Porcine) 5,000 unit STK-MED ONCE .ROUTE Last administered on 12/20/23at 00:10; Start 12/20/23 at 00:00; Stop 12/20/23 at 00:04; Status DC Acetaminophen 650 mg Q6H PRN PO; Start 12/20/23 at 00:30; Stop 01/19/24 at 00:29 Acetaminophen 650 mg Q4H PRN PO Last administered on 12/22/23at 11:32; Start 12/20/23 at 00:30; Stop 01/19/24 at 00:29 Ondansetron HCl 4 mg Q6H PRN IV Last administered on 12/20/23at 13:13; Start 12/20/23 at 00:30; Stop 01/19/24 at 00:29 Famotidine 20 mg DAILY PO Last administered on 12/22/23at 08:52; Start 12/20/23 at 09:00; Stop 01/19/24 at 08:59 Morphine Sulfate 2 mg Q4H PRN IV Last administered on 12/22/23at 09:00; Start 12/20/23 at 00:30; Stop 12/27/23 at 00:29 Lactated Ringer's 1,000 ml @ 75 mls/hr [id number] IV Last administered on 12/21/23at 13:36; Start 12/20/23 at 00:30; Stop 01/19/24 at 00:29 Insulin Human Regular INSULIN SLIDING SCAL... ACHS SQ Last administered on 12/08 04/30at 21:02; Start 12/20/23 at 07:30; Stop 01/19/24 at 07:29 Potassium Chloride 100 ml @ 50 mls/hr AD PRN IV Last administered on 12/21/23at 06:38; Start 12/20/23 at 00:30; Stop 01/19/24 at 00:29 Magnesium Sulfate 50 ml @ 0 mls/hr PROTOCOL PRN IV Last administered on 12/20/23at 06:40; Start 12/20/23 at 00:30; Stop 01/19/24 at 00:29 Aspirin 81 mg DAILY PO Last administered on 12/21/23at 09:50; Start 12/21/23 at 09:00; Stop 01/20/24 at 08:59 Atorvastatin Calcium 40 mg HS PO; Start 12/21/23 at 21:00; Stop 12/21/23 at 09:46; Status DC Atorvastatin Calcium 40 mg HS PO Last administered on 12/21/23at 20:54; Start 12/21/23 at 21:00; Stop 01/20/24 at 20:59 Folic Acid 1 mg DAILY PO Last administered on 12/22/23at 08:52; Start 12/22/23 at 09:00; Stop 01/21/24 at 08:59 Lisinopril 10 mg DAILY PO Last administered on 12/22/23at 08:52; Start 12/22/23 at 09:00; Stop 01/21/24 at 08:59 Docusate Sodium 100 mg ONCE ONCE PO Last administered on 12/21/23at 13:36; Start 12/21/23 at 13:30; Stop 12/21/23 at 13:31; Status DC Clindamycin HCl/ Dextrose 50 ml @ 100 mls/hr Q8H IV Last administered on 12/22/23at 11:30; Start 12/22/23 at 03:30; Stop 01/01/24 at 03:29 Morphine Sulfate 2 mg ONCE IVP Last administered on 12/22/23at 12:17; Start 12/22/23 at 12:30; Stop 12/22/23 at 14:30 CRISTHIAN OCONNELL MD Dec 22, 2023 13:01
--- NOTE | 2023-12-22 13:19 | PN ---
[facility] PROGRESS NOTE Date of Service: Dec 22, 2023 Time of Service: 13:15 SUBJECTIVE: Ms. Traylor is a 68-year-old female that was seen and examined today on 12/19/2023. Patient is a good historian and personal health. Patient reports that she came to the emergency department with a chief complaint of foot pain. Onset was three weeks ago. Location is to left lower extremity. Duration is on and off. Symptoms are aggravated with physical activity such as walking. There was no alleviating factors. Character of pain described as tingling" like if I have lots of cuts. " patient denies any associated chest pain or shortness of breath. Today in the emergency department glucose 324 mg/dL, arterial ultrasound of lower extremity shows Findings consistent with a severe stenosis mid superficial femoral artery with moderate to marked distal arterial inflow occlusion. Emergency room mid-level provider recommended that patient be admitted with a diagnosis of severe PAD and uncontrolled Diabetes mellitus type 2. 12/20/2023: Patient seen at bedside. She is hemodynamically stable and saturating well on room air. She has no shortness of breath or chest pain, no headaches, dizziness, nausea, or vomiting. She complains of pain in left lower extremity with foot feeling hot and cold intermittently. Per cardiology patient had a SFA balloon angioplasty in July 2020 with known ADOLESCENT COUNSELOR of the Right SFA and extensive collateral filling. Patient denies any pain since the angioplasty till a few weeks ago. Left foot x-ray negative for fracture or dislocation. Chest x-ray clear. Patient counseled on importance of diabetes management with HBA1C of 12.5. 2 grams of Mg given per protocol for magnesium of 1.4. All other labs relatively unremarkable. PTT will be monitored and heparin protocol will be followed for DVT prophylaxis. Will continue to monitor patient and follow up with cardiology recommendations. 12/21/2023: Patient seen sitting upright in chair eating lunch. She continues to be hemodynamically stable and saturating well on room air. She states the pain in her LLE has improved. Currently being managed on morphine 2mg q4hrs. Patient continued on heparin with monitoring of PTT, heparin will be discontinued after midnight and patient will be NPO after midnight for angiography tomorrow morning. Home medications were reconciled, Steven reyna. We will continue to monitor the patient and follow cardiology recommendations. 12/22/2023: Patient seen at bedside. She continues to have LLE pain, will give another dose of Morphine 2mg. Patient NPO. Heparin has been held since 6am. Last dose of Xarelto was 12/19/23. Per cardiology, patient will be going for left lower extremity arteriogram and revascularization this afternoon. We will continue to monitor patient and follow up after procedure with wound management. REVIEW OF SYSTEMS CONSTITUTIONAL: Denies fevers, chills, or night sweats. No unintentional weight loss reported. NEUROLOGICAL: Denies headache, amaurosis fugax, motor weakness, sensory deficit, vertigo/spinning sensation, gait abnormalities, or tremors. ENT: No hearing loss, otalgia, otorrhea, rhinitis, rhinorrhea, hoarseness, or sore throat. CARDIOVASCULAR: Denies any exertional angina, dyspnea on exertion, orthopnea, paroxysmal nocturnal dyspnea, palpitations, life-threatening arrhythmias, claudication. PULMONARY: Denies any shortness of breath, cough, phlegm/sputum, hemoptysis, pleuritic chest pain. SLEEP: Denies morning headaches, daytime somnolence or napping. Denies difficulty falling asleep, staying asleep, waking from sleep. Denies knowledge of snoring. GASTROINTESTINAL: Denies any type of dysphagia to either liquids or solids. Denies nausea, vomiting, pyrosis, early satiety, abdominal pain, diarrhea, constipation, or changes in stool consistency or caliber. Denies coffee-ground emesis, hematemesis, hematochezia, or melanotic stools. GENITOURINARY: Denies frequency, urgency, nocturia, hematuria or incontinence (Storage/Irritative symptoms.) Low urinary stream, straining to void, urinary intermittency or hesitancy, splitting of the voiding stream, terminal dribbling. ENDOCRINOLOGIC: Denies polyuria, polydipsia, polyphagia or heat/cold intolerances. HEMATOLOGIC: Denies thrombophilia/previous clots, or coagulopathy/bleeding disorders. ONCOLOGIC: Denies personal history of malignancy. DERMATOLOGIC: Denies rashes or pruritus. Left foot pain, bleeding between 3rd and 4th digits with wound. PSYCHIATRIC: Denies any suicidal or homicidal ideation. Denies hallucinations. PHYSICAL EXAM GENERAL APPEARANCE: The patient is awake, alert, and oriented, in no acute cardiopulmonary distress. NEUROLOGICAL: Cranial nerves II-XII grossly intact. Motor is 5/5 in bilateral upper and lower extremities proximal to distal. No sensory deficits. HEENT: Face is symmetric. Pupils are equal and reactive. Extraocular movements are intact. NECK: Supple. No JVD. No thyromegaly. No submental, submandibular, pre- /postauricular, occipital or supraclavicular lymphadenopathy. CHEST: Normal chest expansion. No Telemetry. LUNGS: Absence of any rales, rhonchi or any wheezing. CARDIOVASCULAR: Regular. S1 and S2 normal. No appreciable rubs, murmurs or gallops. ABDOMEN: Soft, nontender, and nondistended. There is no rebound, voluntary guarding, or rigidity. : Deferred. No Martel. EXTREMITIES: Non-edematous and not cyanotic. No clubbing. Good capillary refill. SKIN: No skin breakdown. Vital Signs (last 8hr) Date Time Temp Pulse Resp B/P (MAP) Pulse Ox O2 Delivery O2 Flow Rate FiO2 12/22/23 11:00 98.8 79 17 159/68 98 Room Air 12/22/23 08:00 98 Room Air* 0 21 12/22/23 07:00 99.1 80 17 154/75 98 Room Air LABS: Laboratory: Test 12/22/23 12:00 12/21/23 13:16 12/21/23 06:47 12/21/23 00:41 Range/Units Whole Blood Glucose 193 H 70-110 MG/DL Activated Partial Thromboplast Time 60.5 H 26.3-35.5 SEC Prothrombin Time 11.1 9.6-11.6 SEC Prothromb Time International Ratio 1.03 0.85-1.15 White Blood Count 5.9 4.8-10.8 K/uL Red Blood Count 3.04 L 4.00-5.50 MIL/uL Hemoglobin 9.4 L 12.0-16.0 g/dL Hematocrit 27.8 L 36-48 % Mean Corpuscular Volume 91.4 79-99 fL Mean Corpuscular Hemoglobin 30.9 27.0-33.0 pg Mean Corpuscular Hemoglobin Concent 33.8 32.0-36.0 g/dL Red Cell Distribution Width 12.5 11.0-15.5 % Platelet Count 251 130-400 K/uL Mean Platelet Volume 9.1 7.5-10.5 fL Immature Granulocyte % (Auto) 0.3 0-1 % Neutrophils (%) (Auto) 59.4 40.0-77.0 % Lymphocytes (%) (Auto) 32.5 21.0-51.0 % Monocytes (%) (Auto) 5.4 3.0-13.0 % Eosinophils (%) (Auto) 1.7 0.0-8.0 % Basophils (%) (Auto) 0.7 0.0-5.0 % Neutrophils # (Auto) 3.5 1.8-7.7 K/uL Lymphocytes # (Auto) 1.9 1.0-4.8 K/uL Monocytes # (Auto) 0.3 0.1-1.0 K/uL Eosinophils # (Auto) 0.10 0.00-0.70 K/uL Basophils # (Auto) 0.04 0.00-0.20 K/uL Absolute Immature Granulocyte (auto 0.02 0-1 K/uL Nucleated Red Blood Cells 0.0 0.0-0.19 % Sodium Level 143 136-145 mmol/L Potassium Level 3.7 3.5-5.1 mmol/L Chloride Level 107 101-111 mmol/L Carbon Dioxide Level 32 21-32 mmol/L Blood Urea Nitrogen 15 7-18 mg/dL Creatinine 0.5 0.5-1.0 mg/dL Glomerular Filtration Rate Calc 101 >90 mL/min Random Glucose 161 H 70-105 mg/dL Total Calcium 8.3 L 8.5-10.1 mg/dL Total Bilirubin 0.1 L 0.2-1.0 mg/dL Aspartate Amino Transf (AST/SGOT) 16 10-37 U/L Alanine Aminotransferase (ALT/SGPT) 19 12-78 U/L Alkaline Phosphatase 53 50-136 U/L Total Protein 5.9 L 6.0-8.3 g/dL Albumin 2.9 L 3.5-5.0 g/dL Test 12/20/23 16:26 12/20/23 13:25 Range/Units Bedside Glucose Comment Notified Nurse Urine Color LIGHT-YELLOW YELLOW Urine Appearance CLOUDY H CLEAR Urine pH 5.5 5.0-8.0 Urine Specific [place] 1.022 1.001-1.031 Urine Protein 20 H NEGATIVE mg/dL Urine Glucose (UA) >=1000 H NEGATIVE mg/dL Urine Ketones NEGATIVE NEGATIVE mg/dL Urine Occult Blood NEGATIVE NEGATIVE Urine Nitrate NEGATIVE NEGATIVE Urine Bilirubin NEGATIVE NEGATIVE mg/dL Urine Urobilinogen 0.2 0.2-1.0 mg/dL Urine Leukocyte Esterase 250 H NEGATIVE Remberto/uL Urine RBC 6-10 H 0-1 /HPF Urine WBC 11-25 H 0-1 /HPF Urine Bacteria None None Seen /HPF Urine Yeast MANY None Seen /HPF Current Medications Medications (Trade) Dose Ordered Sig/Reji Route PRN Reason Start Time Stop Time Status Last Admin Dose Admin Acetaminophen (TYLenol 325MG TAB) 650 mg Q4H PRN PO MILD PAIN (1-3) 12/20/23 00:30 01/19/24 00:29 12/22/23 11:32 650 MG Acetaminophen (TYLenol 325MG TAB) 650 mg Q6H PRN PO TEMPERATURE GREATER THAN 101.5 12/20/23 00:30 01/19/24 00:29 Aspirin (Aspirin 81mg Ec Tab) 81 mg DAILY PO 12/21/23 09:00 01/20/24 08:59 12/21/23 09:50 81 MG Atorvastatin Calcium (LIPItor 40MG) 40 mg HS PO 12/21/23 21:00 12/21/23 09:46 DC Atorvastatin Calcium (LIPItor 40MG) 40 mg HS PO 12/21/23 21:00 01/20/24 20:59 12/21/23 20:54 40 MG Clindamycin HCl/ Dextrose 50 ml @ 100 mls/hr Q8H IV 12/19/23 17:30 12/21/23 21:45 DC 12/21/23 18:30 100 MLS/HR Clindamycin HCl/ Dextrose 50 ml @ 100 mls/hr Q8H IV 12/22/23 03:30 01/01/24 03:29 12/22/23 11:30 100 MLS/HR Famotidine (Pepcid 20mg Tab) 20 mg DAILY PO 12/20/23 09:00 01/19/24 08:59 12/22/23 08:52 20 MG Folic Acid (FOLic ACID 1 MG TABLET) 1 mg DAILY PO 12/22/23 09:00 01/21/24 08:59 12/22/23 08:52 1 MG Heparin Sodium/ Dextrose 250 ml @ 0 mls/hr PROTOCOL IV 12/19/23 17:30 12/22/23 02:00 DC 12/20/23 00:08 8.6 MLS/HR Insulin Human Regular (humuLIN R 100 UNIT/ML 3ML) INSULIN SLIDING SCAL... ACHS SQ 12/20/23 07:30 01/19/24 07:29 12/21/23 21:02 7 UNIT Lactated Ringer's 1,000 ml @ 75 mls/hr [id number] IV 12/20/23 00:30 01/19/24 00:29 12/21/23 13:36 75 MLS/HR Lisinopril (Prinivil 10mg) 10 mg DAILY PO 12/22/23 09:00 01/21/24 08:59 12/22/23 08:52 10 MG Magnesium Sulfate 50 ml @ 0 mls/hr PROTOCOL PRN IV Hypomagnesemia 12/20/23 00:30 01/19/24 00:29 12/20/23 06:40 25 MLS/HR Morphine Sulfate (morPHINE 2MG SYG) 2 mg ONCE IVP 12/22/23 12:30 12/22/23 14:30 12/22/23 12:17 2 MG Morphine Sulfate (morPHINE 2MG SYG) 2 mg Q4H PRN IV SEVERE PAIN (7-10) 12/20/23 00:30 12/27/23 00:29 12/22/23 09:00 2 MG Ondansetron HCl (zoFRAN 4MG INJ) 4 mg Q6H PRN IV NAUSEA/VOMITING 12/20/23 00:30 01/19/24 00:29 12/20/23 13:13 4 MG Potassium Chloride 100 ml @ 50 mls/hr AD PRN IV POTASSIUM PROTOCOL 12/20/23 00:30 01/19/24 00:29 12/21/23 06:38 50 MLS/HR DIAGNOSTICS / RADIOLOGY: PATIENT: JERMAINE TRAYLOR MR#: [id number] : 1955 SEX: F AGE: 68 LOCATION: [facility] ORDER STATUS: ADM IN REPORT#: [id number] SERVICE REASON: preprocedural ORDERING PHYSICIAN: JANEY COHEN BAD CLOTH CHECKER PROCEDURE: CXR1VW - CHEST 1VW CHEST 1VW REASON: preprocedural COMPARISON: 02/17/2021 FINDINGS: Single view of the chest was obtained. Lungs are clear. Heart size is normal. There is no pulmonary vascular congestion. Mediastinum and bony thorax appear unremarkable. IMPRESSION: 1. Normal single view chest x-ray. DICTATED BY: MATYT ODELL MD DATE: 12/20/23948 ELECTRONICALLY SIGNED BY: MATTY ODELL MD DATE: 12/20/23951 PATIENT: JERMAINE TRAYLOR MR#: [id number] : 1955 SEX: F AGE: 68 LOCATION: [facility] ORDER 44 STATUS: REG ER REPORT#: [id number] SERVICE 43 REASON: LEFT FOOT ERYTHEMA, FOOT COOL TO TOUCH ORDERING PHYSICIAN: LONNIE NDIAYE NP PROCEDURE: ART U LE - US ARTERIAL UNILA LOW EXT DUPL US ARTERIAL UNILA LOW EXT DUPL REASON: LEFT FOOT ERYTHEMA, FOOT COOL TO TOUCH COMPARISON: None TECHNIQUE: Left leg arterial Doppler evaluation was performed with spectral analysis and color flow imaging. FINDINGS: There is normal triphasic waveform in the right common femoral artery. Proximal superficial femoral artery is biphasic. There is marked flow velocity elevation in the mid superficial femoral artery consistent with stenosis. There are monophasic distal waveforms with significantly decreased flow velocity. There is no flow visible in the posterior tibial artery. Anterior tibial and dorsalis pedis arteries show decreased flow as does the distal popliteal artery. IMPRESSION: 1. Findings consistent with a severe stenosis mid superficial femoral artery with moderate to marked distal arterial inflow occlusion. DICTATED BY: MATTY ODELL MD DATE: 12/19/231654 ELECTRONICALLY SIGNED BY: MATTY ODELL MD DATE: 12/19/231657 PATIENT: JERMAINE TRAYLOR MR#: [id number] : 1955 SEX: F AGE: 68 LOCATION: [facility] ORDER 13 STATUS: REG ER REPORT#: [id number] SERVICE 12 REASON: CELLULITIS OF DISTAL METATARSALS AND TOES RULE OUT OSTEO ORDERING PHYSICIAN: LONNIE NDIAYE NP PROCEDURE: FT 3VW LT - FOOT COMP 3+VWS LT FOOT COMP 3+VWS LT REASON: CELLULITIS OF DISTAL METATARSALS AND TOES RULE OUT OSTEO TECHNIQUE: 3 views were obtained. FINDINGS: There is no evidence of fracture or dislocation. There is no joint effusion. The soft tissues appear unremarkable. There is no evidence of a radiopaque foreign body. IMPRESSION: No acute findings. DICTATED BY: MATTY ODELL MD DATE: 12/19/231619 ELECTRONICALLY SIGNED BY: MATTY ODELL MD DATE: 12/19/231622 ASSESSMENT: Moderate to marked distal arterial inflow occlusion LLE, POA Peripheral artery disease, POA Left lower extremity arterial ischemia with wound between 3rd and 4th digits Uncontrolled Diabetes mellitius type2, HBA1c 12.5 Hypomagnesemia PLAN: Admit patient to PCU as inpatient status. Place patient on telemetry monitoring. Patient NPO since midnight. Peripheral angiogram of LLE in the AM, follow up on results Heparin discontinued this AM. Monitor patient's labs. Consult cardiology service, Dr. Tolbert for evaluation and further recommendations. IV fluid maintenance therapy lactated Ringer's at 75 mL/HR Check preprocedure labs, CBC, BMP, magnesium, phosphorus, PTT, UA, type and screen, EKG, CXR Glucometer checks a.c. and HS 1800 ADA diet once patient is no longer NPO Humulin R sliding scale half dose GI prophylaxis, famotidine 20 mg by mouth once daily. DVT prophylaxis, patient will be on heparin drip as mentioned above. ATTESTATION BY PHYSICIAN I have seen and examined the patient. I reviewed the documentation, medical d ecision making, and treatment plan as noted by the resident provider above. I agree with the findings and plan of care. Kameron Ash MD, NEHA MD Dec 22, 2023 13:19
--- NOTE | 2023-12-22 16:00 | NUR ---
RESIDENT ROUNDED RESIDENT DR. FERRERA ROUNDED ON THIS PATIENT AND WOUND CARE CONSULT WAS MENTIONED TO FURTHER MANAGE OPEN WOUND BETWEEN 3RD AND 4TH TOE OF LEFT FOOT. PENDING ORDERS FOR WOUND CARE.
--- NOTE | 2023-12-22 16:06 | NUR ---
PATIENT WAS TAKEN DOWN TO MANAGER STRATEG[employer]NERSHIPS. SON AT BEDSIDE AND PHONE LEFT WITH HIM. TELEMETRY NOTIFIED.
[2023-12-22] MEDS ORDERED: HEParin 10,000 UNIT/10ML (1,000 UNIT/ML) VIAL ONE (16:27)
[2023-12-22] MEDS ORDERED: IODIXANOL 320 MG/ML 100 ML VIAL ONE (16:27)
[2023-12-22] MEDS ORDERED: SODIUM BICARB 50MEQ 50ML VIAL 50 ML ONE (16:27)
[2023-12-22] MEDS ORDERED: LIDOCAINE HCL 400MG/20ML VIAL ONE (16:27)
[2023-12-22] MEDS ORDERED: NITROGLYCERIN 50MG VIAL ONE (16:28)
[2023-12-22] MEDS ORDERED: HEParin-NS 1,000 UNIT/500 ML 1,000 ML IV ONE (16:28)
[2023-12-22] MEDS ORDERED: FENTanyl CITRate PF 50 MCG/1 ML 2ML VIAL ONE (16:43)
[2023-12-22] MEDS ORDERED: MIDAZOLAM HCL 1 MG/ML 2ML VIAL ONE (16:44)
[2023-12-22] MEDS ORDERED: LAbetaLOL 20MG SYG IV ONE (17:00)
[2023-12-22] MEDS ORDERED: LAbetaLOL 20MG VIAL ONE (18:14)
[2023-12-22] MEDS ORDERED: ASPIRIN 325MG EC TAB PO ONE (18:28)
[2023-12-22] MEDS ORDERED: TICAGrelor 90 MG TABLET ONE (18:28)
--- NOTE | 2023-12-22 19:06 | PRN ---
ABDOMINAL AORTOGRAM WITH PELVIC RUNOFF, LEFT LOWER EXTREMITY DIGITAL SUBTRACTION ARTERIOGRAM AND HEALTH DIAGNOSTICS TEACHER WITH SHOCKWAVE AND DCB LEFT SUPERFICIAL FEMORAL, POPLITEAL, TIBIOPERONEAL AND PERONEAL INDICATION: ANALI STAGE FIVE PERIPHERAL ARTERIAL DISEASE TECHNIQUE: Patient was brought to the lab in a fasting state after informed consent and sedated with 1 mg Versed and 50 mcg fentanyl. Additional 50 mcg fentanyl was administered later. Under local anesthesia with 1% lidocaine using fluoroscopic and ultrasound guidance with micropuncture technique the right common femoral was punctured anteriorly and a six Japanese sheath was advanced into the vessel. An Omni flush catheter was positioned in the distal abdominal aorta and an aortogram with pelvic runoff was performed by digital subtraction. The catheter was then repositioned in the proximal SFA and left lower extremity digital subtraction angiograms were obtained in sequential fashion. An exchange was made for a six Japanese 65 cm sheath which was positioned in the left superficial femoral and the patient was treated with weight based heparin. Additional heparin was administered as guided by ACT. Patient was treated with 180 mg Brilinta and 325 mg aspirin in the left peroneal was wired with a run- through wire. The superficial femoral was treated with overlapping inflations with a six by 60 mm shockwave, using all 300 pulses. We exchanged for a 4 x 60 mm shockwave with which we treated the left popliteal and distal SFA, again using all 300 pulses. We then exchanged for a four by 80 mm Medtronic impact with which we treated the popliteal and distal SFA. We then exchanged for a Medtronic impact 6 x 100 mm DCB and treated the superficial femoral. We then turned our attention to the tibioperoneal and peroneal which we treated with over Lapping shockwave treatments with a 3 x 40 mm shockwave balloon, applying to treatments at each location. We then exchanged for a four by 60 mm impact and treated the tibioperoneal/popliteal. Final results were assessed angiographically. The catheter was removed and hemostasis was obtained with Perclose with excellent hemostasis and no complications. During this procedure the patient received a total of 110 mg IV Trandate for hypertension and she received 100 mL contrast for the imaging. No complications occurred Results: Distal aorta and pelvic follow-through it is notable for 30% eccentric right common femoral, 30% ostial right internal iliac, 50% ostial left internal iliac stenoses. There are no other stenoses in the pelvis. Left profunda femoris is normal. Left superficial femoral is notable for a nonobstructive 40% ostial narrowing and a 30% eccentric mid thigh narrowing, but in from the mid to distal SFA commencing before and most of the way through Pro's canal, there is segmental calcified 80-98% stenosis. Distal left superficial femoral and popliteal vessel is noted for segmental calcified 90-98% stenosis through most of the popliteal. Left posterior tibial and anterior tibial are completely occluded commencing at the origin of the HEALTH DIAGNOSTICS TEACHER and about 15 mm into the RUBY. The HEALTH DIAGNOSTICS TEACHER does not reconstitute in the RUBY is notable only for minimal reconstitution of the dorsalis pedis by collaterals, not reaching the arch. Left tibioperoneal and proximal peroneal are notable for a segmental 90-98% stenosis which is calcified. Interventional Results: SFA 80-98% segmental stenosis is reduced to 0% residual. Left popliteal segmental 90-98% stenosis is reduced to 10% residual. Left tibioperoneal and proximal peroneal 90-98% stenosis is reduced to 0% residual. Although initial images demonstrated very slow flow through the lower extremity, final images demonstrate brisk flow to the ankle with collaterals into the heel and dorsalis pedis region, but the plantar arch is not well served. There is no achievable direct flow into the foot. CRISTHIAN OCONNELL MD Dec 22, 2023 19:06
[2023-12-22] MEDS: 0.9%NACL 1000ML 1,000 ML IV SCH (19:50)
[2023-12-22] MEDS: TICAGrelor 90 MG TABLET PO SCH (20:34)
--- NOTE | 2023-12-23 00:58 | NUR ---
notified hospitalist homar mcguire shrimp header of open area to left foot in between 3rd and 4th digit, dry scab in between 4th and 5ht digit. Received order for podiatry consult with dr celine walsh and paint area with betadine.
[2023-12-23 03:58] LABS: HEMATOCRIT 25.4 % (36-48); MEAN CORPUSCULAR HEMOGLOBIN 30.4 pg (27.0-33.0); MEAN CORPUSCULAR HGB CONC 33.1 g/dL (32.0-36.0); RED BLOOD CELL COUNT(AUTO) 2.76 MIL/uL (4.00-5.50); RED CELL DISTRIBUTION WIDTH 12.4 % (11.0-15.5); WHITE BLOOD COUNT (AUTO) 5.5 K/uL (4.8-10.8)
[2023-12-23 04:09] LABS: CREATININE 0.6 mg/dL (0.5-1.0); POTASSIUM 3.5 mmol/L (3.5-5.1)
[2023-12-23 04:10] VITALS: BP 146/62; PULSE 87; RESP 20; TEMP 98.4
--- NOTE | 2023-12-23 05:46 | NUR ---
pt has not had a bm since 12/18/23. abdomen is soft. non distended. denies any nausea or emesis. no prn medication orders. spoke to homar mcguire inpatient auditor. ordered lactulose 30ml bid until patient has a bowel movement. once pt has a bowel movement may stop giving.
[2023-12-23] MEDS: LACTULOSE 20 GM/30 ML UDCUP PO SCH (06:28)
[2023-12-23 07:00] VITALS: BP 151/71; PULSE 87; RESP 16; TEMP 98.3
--- NOTE | 2023-12-23 07:26 | PN ---
[facility] PROGRESS NOTE Date Patient Seen: Dec 23, 2023 Time of Visit: 07:24 Problem List: PAD LLE gangrene Interval History: Patient is postoperative day one from percutaneous vascular intervention to left extremity superficial femoral, popliteal, tibioperoneal and peroneal arteries with Dr Cam Reports pain to foot improved. Physical Examination: GENERAL: [No acute distress.] LUNGS: [Clear breath sounds bilaterally. No wheezes, or rhonchi.] HEART: [Normal rate and rhythm. Normal S1 and S2 without murmurs, gallop or rub. ] VASC: 1+ DP Left. Non palpable DP Right. distal extremities warm. superficial wound of 3rd and 4th interdigit space on the Left. Right STONE ROUGHER access site nontender, no ecchymoses, 2+ pulse. EXT: [No clubbing, cyanosis or edema.] SKIN: [wound to Left foot.] NEURO: [Awake, alert, and oriented x3. No focal sensory or strength deficits noted.] Laboratory: [ ] Hematology Labs: Test 12/23/23 03:51 Range/Units White Blood Count 5.5 4.8-10.8 K/uL Red Blood Count 2.76 L 4.00-5.50 MIL/uL Hemoglobin 8.4 L 12.0-16.0 g/dL Hematocrit 25.4 L 36-48 % Mean Corpuscular Volume 92.0 79-99 fL Mean Corpuscular Hemoglobin 30.4 27.0-33.0 pg Mean Corpuscular Hemoglobin Concent 33.1 32.0-36.0 g/dL Red Cell Distribution Width 12.4 11.0-15.5 % Platelet Count 237 130-400 K/uL Mean Platelet Volume 9.0 7.5-10.5 fL Nucleated Red Blood Cells 0.0 0.0-0.19 % Chemistry Labs: Test 12/23/23 06:25 12/23/23 03:51 Range/Units Whole Blood Glucose 151 H 70-110 MG/DL Sodium Level 145 136-145 mmol/L Potassium Level 3.5 3.5-5.1 mmol/L Chloride Level 110 101-111 mmol/L Carbon Dioxide Level 27 21-32 mmol/L Blood Urea Nitrogen 8 7-18 mg/dL Creatinine 0.6 0.5-1.0 mg/dL Glomerular Filtration Rate Calc 97 >90 mL/min Random Glucose 134 H 70-105 mg/dL Total Calcium 8.3 L 8.5-10.1 mg/dL Coagulation Labs: Test 12/21/23 13:16 Range/Units Activated Partial Thromboplast Time 60.5 H 26.3-35.5 SEC Impression: Peripheral artery disease Left lower extremity arterial ischemia with wound between the third and fourth digits -history of intervention to the left distal SFA using a 5 x 150 Medtronic Impact drug-coated balloon angioplasty, left popliteal Medtronic Impact drug-coated balloon angioplasty 4.0 x 40 mm with 20 to 30% residual stenosis in July 2020 -Patient is postoperative day one from percutaneous vascular intervention to left extremity superficial femoral, popliteal, tibioperoneal and peroneal arteries, with shockwave lithotripsy (4 x 60 mm) to the superficial artery and popliteal followed by Medtronic impact drug coated balloon (6 x 100 mm), shockwave lithotripsy (3 x 40 mm) to the tibial perineal and perineal followed by Medtronic impact drug coated balloon (4 x 60 mm). The left LINEN CHECKER 100% occluded at origin without reconstitution. The left RUBY occluded in the midportion with minimal reconstitution at the DP by collaterals, not reaching the arch History of type 2 diabetes mellitus History of left lower extremity DVT in April 2023 RECCS Patient on Xarelto therapy given her history of DVT in April of 2023, however this appears to be singular episode of VTE which we would recommend 6 months of treatment. For this reason, can continue DAPT with aspirin and ticgarelor upon discharge. Long-Term, can transition patient to single antiplatelet therapy with vascular dose of Xarelto. OK for d/c from cardiac standpoint SRIDHAR SWARTZ DO Dec 23, 2023 07:26
[2023-12-23 08:00] VITALS: O2SAT 100
--- NOTE | 2023-12-23 08:10 | CONS ---
CONSULTATION NOTE Date of Service: Dec 23, 2023 Reason for Consultation: Ischemic ulcerations to 3rd toe on 4th toe of the left foot Requesting Physician: Dr. Cantu HISTORY OF PRESENT ILLNESS: This is a 68 years old female was seen on consultation at this time for evaluation of ischemic ulceration to the 3rd toe and 4th toe the patient was admitted to the hospital secondary to severe pain on her left foot was found to have from 90-80% occlusion of arteries of the lower extremity after extensive angioplasty presybeterian of the circulation was able to be done up to the level of the ankle collaterals were filling the distal aspect of the foot and toes at this time as the final result. Patient has a history of diabetes and history of uncontrolled diabetes. REVIEW OF SYSTEMS CONSTITUTIONAL: Denies fever, chills, or fatigue. HEAD/FACE: No signs of trauma. EENT: Denies eye pain, blurred vision, double vision, or light sensitivity. RESPIRATORY: Denies shortness of breath, cough, wheezing CARDIOVASCULAR: Denies chest pain, palpitation, syncope GASTROINTESTINAL/ABDOMINAL: Denies abdominal pain, constipation, diarrhea, nausea or vomiting GENITOURINARY: Denies dysuria or hematuria. MUSCULOSKELETAL: Denies joint pain, tenderness, or trauma. INTEGUMENTARY: Ulcers between 3rd and 4th toe left foot. NEUROLOGICAL/PSYCH: Denies anxiety, depression, heat or cold intolerance. PAST MEDICAL HISTORY: Diabetes peripheral vascular disease hypertension PAST SURGICAL HISTORY: Most recent angioplasty. PAST SOCIAL HISTORY: Denies any smoking drinking or illicit drugs. FAMILY HISTORY: Noncontributory Coded Allergies: No Known Drug Allergies (Unverified Allergy, Unknown, 02/26/17) PHYSICAL EXAM EYES: Anicteric. Pupils equal and reactive. HENT: No oral thrush seen, moist Oral mucosa NECK: Supple, no JVD or thyromegaly. LUNGS: Good air entry. No rales, no rhonchi. CARDIOVASCULAR: S1, S2 regular. No murmur heard. Peripheral vascular disease to lower extremity left status post angioplasty with presybeterian of circulation to the level of the ankle and peripheral ulcer to the foot. ABDOMEN: Soft, non tender, bowel sounds present, no organomegaly CENTRAL NERVOUS SYSTEM: Awake, alert, oriented x 3. No focal deficits. SKIN: Ischemic ulceration between 3rd and 4th toe tender upon palpation. LYMPHATICS: No peripheral lymphadenopathy MUSCULOSKELETAL: No joint swelling, erythema or tenderness. EXTREMITIES: No cyanosis or clubbing BACK: No deformity, no pressure ulcer. GENITOURINARY: No dysuria or hematuria Vital Sign (Last 24 Hours) 12/22/23 12/23/23 20:45 04:10 Temp 98.4 Pulse 87 Resp 20 B/P (MAP) 146/62 Pulse Ox 97 O2 Delivery Room Air O2 Flow Rate 0 FiO2 21 Intake & Output (last 24hrs) 12/22/23 12/22/23 12/23/23 15:00 23:00 07:00 Intake Total 50.0 ml 650.0 ml Output Total 700 ml Balance 50.0 ml -50.0 ml LABS: Laboratory: Test 12/23/23 06:25 12/23/23 03:51 12/21/23 13:16 Range/Units Whole Blood Glucose 151 H 70-110 MG/DL White Blood Count 5.5 4.8-10.8 K/uL Red Blood Count 2.76 L 4.00-5.50 MIL/uL Hemoglobin 8.4 L 12.0-16.0 g/dL Hematocrit 25.4 L 36-48 % Mean Corpuscular Volume 92.0 79-99 fL Mean Corpuscular Hemoglobin 30.4 27.0-33.0 pg Mean Corpuscular Hemoglobin Concent 33.1 32.0-36.0 g/dL Red Cell Distribution Width 12.4 11.0-15.5 % Platelet Count 237 130-400 K/uL Mean Platelet Volume 9.0 7.5-10.5 fL Nucleated Red Blood Cells 0.0 0.0-0.19 % Sodium Level 145 136-145 mmol/L Potassium Level 3.5 3.5-5.1 mmol/L Chloride Level 110 101-111 mmol/L Carbon Dioxide Level 27 21-32 mmol/L Blood Urea Nitrogen 8 7-18 mg/dL Creatinine 0.6 0.5-1.0 mg/dL Glomerular Filtration Rate Calc 97 >90 mL/min Random Glucose 134 H 70-105 mg/dL Total Calcium 8.3 L 8.5-10.1 mg/dL Activated Partial Thromboplast Time 60.5 H 26.3-35.5 SEC DIAGNOSTICS / RADIOLOGY: [ ] ASSESSMENT: Ischemic ulceration 3rd and 4th toe left foot. Peripheral vascular disease. Uncontrolled diabetes PLAN: Patient is status post angioplasty at this moment we will recommend continue local wound care follow up as an outpatient patient educated or problems she stated today improving pain physical therapy evaluation recommended and follow up at the [facility] next week after discharged from the hospital. ONESIMO SAUCEDO DPM Dec 23, 2023 08:10
[2023-12-23] MEDS: ASPIRIN 81MG CHEW TAB PO SCH (09:13)
[2023-12-23] MEDS: PoTASSium chloRIDE 20MEQ ER 20 MEQ ERTAB PO PRN (09:28)
[2023-12-23] MEDS: PoTASSium chloRIDE 20MEQ ER 20 MEQ ERTAB PO ONE (09:30)
[2023-12-23] MEDS ORDERED: PoTASSium chl 10% ELIXIR 20MEQ 20 MEQ/15 ML UDCUP PO PRN (09:30)
[2023-12-23 11:00] VITALS: BP 148/68; PULSE 92; RESP 20; TEMP 99.1
--- NOTE | 2023-12-23 13:37 | DS ---
Discharge Summary Hospital Course Summary: Ms. Traylor is a 68-year-old female who presented to the emergency department for left foot pain. Onset was three weeks ago. Patient denies any associated chest pain or shortness of breath. Today in the emergency department glucose 324 mg/dL, arterial ultrasound of lower extremity shows findings consistent with a severe stenosis mid superficial femoral artery with moderate to marked distal arterial inflow occlusion. Patient admitted for severe PAD and uncontrolled Diabetes mellitus type 2. 12/20/2023: Patient denies shortness of breath or chest pain, no headaches, dizziness, nausea, or vomiting. She complains of pain in left lower extremity with foot feeling hot and cold intermittently. Per cardiology patient had a SFA balloon angioplasty in July 2020 with known SERVICE MANAGER of the Right SFA and extensive collateral filling. Patient denies any pain since the angioplasty till a few weeks ago. Left foot x-ray negative for fracture or dislocation. Chest x-ray clear. Patient counseled on importance of diabetes management with HBA1C of 1 2.5. Pain managed with morphine. Hyperglycemia managed with ISS. PTT elevated, will be monitored and heparin protocol will be followed for DVT prophylaxis. All other labs relatively unremarkable. 12/21/2023: Patient continues to be hemodynamically stable and saturating well on room air. Pain in her LLE has improved, managed on morphine. Continued on heparin. NPO after midnight for angiography tomorrow morning. Xarelto home med was held. We will continue to monitor the patient and follow cardiology recommendations. 12/22/2023: Continues to have LLE pain, pain managed on morphine. Patient NPO. Heparin has been held since 6am. Last dose of Xarelto was 12/19/23. Per cardiology, patient will be going for left lower extremity arteriogram and revascularization this afternoon. We will continue to monitor patient and follow up after procedure with wound management. 12/23/2023: Status post angioplasty to the left extremity superficial femoral, popliteal, tibioperoneal and peroneal arteries. Pain managed with acetaminophen. Wound due to arterial ischemia between third and fourth digits managed with Betadine and will follow up at Wound Center next week. Will be continued on DAPT with Aspirin and ticgarelor. Cardiology and wound care have signed off. Secondary English Teacher(s): Cardiology. Wound care. Procedure(s): PATIENT: JERMAINE TRAYLOR MR#: [id number] : 1955 SEX: F AGE: 68 LOCATION: [facility] ORDER [id number] STATUS: ADM IN REPORT#: [id number] SERVICE REASON: preprocedural ORDERING PHYSICIAN: JANEY COHEN BACK END DEVELOPER PROCEDURE: CXR1VW - CHEST 1VW CHEST 1VW REASON: preprocedural COMPARISON: 02/17/2021 FINDINGS: Single view of the chest was obtained. Lungs are clear. Heart size is normal. There is no pulmonary vascular congestion. Mediastinum and bony thorax appear unremarkable. IMPRESSION: 1. Normal single view chest x-ray. DICTATED BY: MATTY ODELL MD DATE: 12/20/23948 ELECTRONICALLY SIGNED BY: MATTY ODELL MD DATE: 12/20/23951 PATIENT: JERMAINE TRAYLOR MR#: [id number] : 1955 SEX: F AGE: 68 LOCATION: [facility] ORDER 154 STATUS: REG ER REPORT#: [id number] SERVICE 43 REASON: LEFT FOOT ERYTHEMA, FOOT COOL TO TOUCH ORDERING PHYSICIAN: LONNIE NDIAYE NP PROCEDURE: ART U LE - US ARTERIAL UNILA LOW EXT DUPL US ARTERIAL UNILA LOW EXT DUPL REASON: LEFT FOOT ERYTHEMA, FOOT COOL TO TOUCH COMPARISON: None TECHNIQUE: Left leg arterial Doppler evaluation was performed with spectral analysis and color flow imaging. FINDINGS: There is normal triphasic waveform in the right common femoral artery. Proximal superficial femoral artery is biphasic. There is marked flow velocity elevation in the mid superficial femoral artery consistent with stenosis. There are monophasic distal waveforms with significantly decreased flow velocity. There is no flow visible in the posterior tibial artery. Anterior tibial and dorsalis pedis arteries show decreased flow as does the distal popliteal artery. IMPRESSION: 1. Findings consistent with a severe stenosis mid superficial femoral artery with moderate to marked distal arterial inflow occlusion. DICTATED BY: MATTY ODELL MD DATE: 12/19/231654 ELECTRONICALLY SIGNED BY: MATTY ODELL MD DATE: 12/19/231657 PATIENT: JERMAINE TRAYLOR MR#: [id number] : 1955 SEX: F AGE: 68 LOCATION: ED ORDER 13 STATUS: REG ER REPORT#: [id number] SERVICE 12 REASON: CELLULITIS OF DISTAL METATARSALS AND TOES RULE OUT OSTEO ORDERING PHYSICIAN: LONNIE NDIAYE NP PROCEDURE: FT 3VW LT - FOOT COMP 3+VWS LT FOOT COMP 3+VWS LT REASON: CELLULITIS OF DISTAL METATARSALS AND TOES RULE OUT OSTEO TECHNIQUE: 3 views were obtained. FINDINGS: There is no evidence of fracture or dislocation. There is no joint effusion. The soft tissues appear unremarkable. There is no evidence of a radiopaque foreign body. IMPRESSION: No acute findings. DICTATED BY: MATTY ODELL MD DATE: 12/19/231619 ELECTRONICALLY SIGNED BY: MATTY ODELL MD DATE: 12/19/231622 Assessment/Plan: ASSESSMENT: Status post angioplasty to the left extremity superficial femoral, popliteal, tibioperoneal and peroneal arteries 12/22/2023 Moderate to marked distal arterial inflow occlusion LLE, POA Peripheral artery disease, POA Left lower extremity arterial ischemia with wound between 3rd and 4th digits, improved Uncontrolled Diabetes mellitius type2, HBA1c 12.5 Hypomagnesemia Discharge Instructions: Follow up with PCP in 3-5 days. Follow up at the Wound center in one week. Home Medications: Active Scripts Insulin Glargine,Hum.rec.anlog (Lantus) 100 Unit/Ml Inj, 15 UNITS SQ HS, #1 ML Prov:LAWRENCE WILSON I BACK END DEVELOPER 04/14/23 Folic Acid (Folvite) 1 Mg Tab, 1 MG PO DAILY, #30 TAB Prov:LAWRENCE WILSON I BACK END DEVELOPER 04/14/23 Cyanocobalamin (Vitamin B-12) (Vitamin B-12) 1,000 Mcg Tablet, 1000 MCG PO DAILY, #30 TAB Prov:LAWRENCE WILSON I BACK END DEVELOPER 04/14/23 Reported Medications Semaglutide (Ozempic) 1 Mg/0.75 Ml (4 Mg/3 Ml) Pen.injctr, 1 MG SQ QWEEK for 30 Days, #3 ML 0 Refills 12/19/23 [Rumoquin] No Conflict Check, PO AD 12/19/23 Metformin HCl (Metformin HCl ER) 1,000 Mg [id number], 1 TAB PO BID for diabetes for 30 Days, #60 TAB 0 Refills 12/19/23 Rivaroxaban (Xarelto) 20 Mg Tablet, 1 TAB PO DAILY for 30 Days, #30 TAB 0 Refills with food 12/19/23 Insulin Detemir (Levemir) 100 Unit/Ml Vial, 30 UNIT SQ DAILY, VIAL 12/19/23 Lisinopril (Lisinopril) 10 Mg Tablet, 1 TAB PO DAILY 04/14/23 Atorvastatin Calcium (Atorvastatin Calcium) 40 Mg Tablet, 1 TAB PO HS 04/14/23 Metformin HCl (Metformin HCl) 1,000 Mg Tablet, 1000 MG PO BID, TAB 09/24/18 Glipizide (Glipizide) 5 Mg Tablet, 5 MG PO DAILY, TAB 09/24/18 New Medications: Aspirin (Aspirin 81MG Chew Tab) 81 Mg Tab.chew 81 MG PO DAILY for 30 Days, #30 TAB.CHEW Ticagrelor (Brilinta) 90 Mg Tablet 90 MG PO BID for 30 Days, #60 TAB Continued Medications: Atorvastatin Calcium (Atorvastatin Calcium) 40 Mg Tablet 1 TAB PO HS Cyanocobalamin (Vitamin B-12) (Vitamin B-12) 1,000 Mcg Tablet 1000 MCG PO DAILY, #30 TAB Folic Acid (Folvite) 1 Mg Tab 1 MG PO DAILY, #30 TAB Glipizide (Glipizide) 5 Mg Tablet 5 MG PO DAILY, TAB Insulin Detemir (Levemir) 100 Unit/Ml Vial 30 UNIT SQ DAILY, VIAL Insulin Glargine,Hum.rec.anlog (Lantus) 100 Unit/Ml Inj 15 UNITS SQ HS, #1 ML Lisinopril (Lisinopril) 10 Mg Tablet 1 TAB PO DAILY Metformin HCl (Metformin HCl) 1,000 Mg Tablet 1000 MG PO BID, TAB Metformin HCl (Metformin HCl ER) 1,000 Mg [id number] 1 TAB PO BID for diabetes for 30 Days, #60 TAB 0 Refills [Rumoquin] () Unknown Dose PO AD Semaglutide (Ozempic) 1 Mg/0.75 Ml (4 Mg/3 Ml) Pen.injctr 1 MG SQ QWEEK for 30 Days, #3 ML 0 Refills Discontinued Medications: Rivaroxaban (Xarelto) 20 Mg Tablet 1 TAB PO DAILY for 30 Days, #30 TAB 0 Refills with food Time spent arranging discharge: 1-30 minutes ATTESTATION BY PHYSICIAN I have seen and examined the patient. I reviewed the documentation, medical decision making, and treatment plan as noted by the resident provider above. I agree with the findings and plan of care. Kameron Ash MD, NEHA MD Dec 23, 2023 13:36
[2023-12-23] MEDS ORDERED: ASPI-1005 PO (14:01)
[2023-12-23] MEDS ORDERED: TICA90TA PO (14:01)
[2023-12-23] MEDS ORDERED: ACET-3859 PO (15:05)
[2023-12-23 16:00] VITALS: BP 152/62; PULSE 89; RESP 20; TEMP 98.9
[2023-12-23] MEDS ORDERED: KETO10 PO (17:02)
--- NOTE | 2023-12-23 18:23 | NUR ---
D/C PLAN CM spoke to patient regarding d/c planning. Patient reports she lives with son. Denies having any home health or DME. CM discussed wound care and offered to arrange home health. Patient declined. States her daughter in law can perform dressing changes. Asked patient about dressing supplies. States she will have son purchase supplies. CM also discussed DME needs. CM offered to assist with arranging walker. Patient states she will purchase walker at a thrift store and will return hospital walker once she obtains one. CM updated primary nurse. Patient to return home with borrowed hospital walker. No other needs verbalized. Addendum: 12/23/23 at 1830 by INDIO RICHARDSON Amended: Links added.
--- NOTE | 2023-12-23 19:15 | NUR ---
DISCHARGE INSTRUCTIONS WERE GIVEN TO THIS PATIENT AND SHE WAS IN AGREEMENT TO ATTEND FOLLOW UP APPTS. SHE WAS ALSO INSTRUCTED TO FOLLOW UP ON TUESDAY WITH THE WOUND CARE CLINIC TO SETUP FOLLOW UP APPT THEY WERE ALREADY CLOSED TODAY. TELE REYNA WAS REMOVED AND RETURNED TO TELEMETRY. PIV TO LEFT FOREARM WAS REMOVED AND DRY DRESSING WAS APPLIED. ALL BELONGINGS WERE TAKEN WITH THE PATIENT AND WOUND CARE SUPPLIES WAS PROVIDED. PATIENT WAS TAKEN DOWN TO PRIVATE VEHICLE VIA WHEEL CHAIR. ALSO, [employer] WALKER WAS PROVIDED AND WAS INSTRUCTED TO BRING BACK TO [facility] ONCE SHE HAS OBTAIN A WALKER OF HER OWN. SHE WAS IN AGREEMENT TO RETURN IT.
== END 2023-12-23 19:00 | disposition home or self-care (01) | DRG 279 ==
LOC: EDH 15:03 → EDHIP 23:43 → 3CH 12-20 17:02 → 2DH 12-20 19:00
PROVIDERS: ADMIT Internal Medicine; ATTEND Internal Medicine
PROC: 047Q3ZZ Dilation of Left Anterior Tibial Artery, Percutaneous Approach (ICD-10-PCS; principal; 2023-12-22)
PROC: 04FL3ZZ Fragmentation of Left Femoral Artery, Percutaneous Approach (ICD-10-PCS; 2023-12-22)
PROC: 047S3ZZ Dilation of Left Posterior Tibial Artery, Percutaneous Approach (ICD-10-PCS; 2023-12-22)
PROC: 04FN3ZZ Fragmentation of Left Popliteal Artery, Percutaneous Approach (ICD-10-PCS; 2023-12-22)
PROC: 04FU3ZZ Fragmentation of Left Peroneal Artery, Percutaneous Approach (ICD-10-PCS; 2023-12-22)
PROC: B4101ZZ Fluoroscopy of Abdominal Aorta using Low Osmolar Contrast (ICD-10-PCS; 2023-12-22)
DX: E11.52 Type 2 diabetes mellitus with diabetic peripheral angiopathy with gangrene (principal); L97.528 Non-pressure chronic ulcer of other part of left foot with other specified severity; I10 Essential (primary) hypertension; E86.0 Dehydration; E11.65 Type 2 diabetes mellitus with hyperglycemia; E83.42 Hypomagnesemia; N73.9 Female pelvic inflammatory disease, unspecified; E11.621 Type 2 diabetes mellitus with foot ulcer; E78.00 Pure hypercholesterolemia, unspecified; Z51.5 Encounter for palliative care; Z79.01 Long term (current) use of anticoagulants; Z79.4 Long term (current) use of insulin; Z86.718 Personal history of other venous thrombosis and embolism
CPT/HCPCS: 36415; 71045; 73630; 75716; 80048; 80053; 81001; 82948; 83036; 83605; 83735; 84100; 85025; 85027; 85610; 85730; 86850; 86900; 86901; 87040; 87086; 93005; 93926; 96374; 99156; 99157; 99285; C1760; C1893; C1894; C9764; C9772; G0378; J1644; J1815; J2250; J2270; J2405; J3010; J3475; J3480; J3490; J7120; Q9967; C1725; C1769; C2623

== ENCOUNTER 2023-12-27 14:38 | Inpatient (IN) | payer OTHER ==
[~2023-12-27] VITALS: Ht 154.9 cm; Wt 22.9 kg
[~2023-12-27 14:38] MED LIST changes: +ACET-3859 PO; +ASPI-1005 PO; +INSU100V12 SQ; +KETO10 PO; +METF-1151 PO; +SEMA1PEN3 SQ; +TICA90TA PO; +[UNRECOGNIZED DRUG - OTHER] PO
--- NOTE | 2023-12-27 15:23 | HMCIMG ---
FOOT COMP 3+VWS LT HISTORY: Foot lesion COMPARISON: None TECHNIQUE: 3 images of left foot were obtained. FINDINGS: There is no acute displaced fracture or dislocation. There is soft tissue swelling. Vascular calcifications are seen. Degenerative changes are seen. IMPRESSION: 1. Findings as described above.
[2023-12-27 15:53] LABS: BASOPHILS # (AUTO) 0.03 K/uL (0.00-0.20); BASOPHILS % (AUTO) 0.4 % (0.0-5.0); EOSINOPHILS # (AUTO) 0.04 K/uL (0.00-0.70); EOSINOPHILS % (AUTO) 0.5 % (0.0-8.0); HEMATOCRIT 29.3 % (36-48); IMMATURE GRANULOCYTE ABSOLUTE 0.04 K/uL (0-1); LYMPHOCYTES % (AUTO) 11.6 % (21.0-51.0); MEAN CORPUSCULAR HEMOGLOBIN 30.4 pg (27.0-33.0); MEAN CORPUSCULAR HGB CONC 32.8 g/dL (32.0-36.0); MEAN CORPUSCULAR VOLUME 92.7 fL (79-99); MONOCYTES # (AUTO) 0.3 K/uL (0.1-1.0); MONOCYTES % (AUTO) 3.3 % (3.0-13.0); NEUTROPHILS % (AUTO) 83.7 % (40.0-77.0); PLATELET COUNT (AUTO) 348 K/uL (130-400); RED BLOOD CELL COUNT(AUTO) 3.16 MIL/uL (4.00-5.50); RED CELL DISTRIBUTION WIDTH 12.4 % (11.0-15.5); WHITE BLOOD COUNT (AUTO) 8.4 K/uL (4.8-10.8)
[2023-12-27 16:00] LABS: CREATININE 0.7 mg/dL (0.5-1.0); POTASSIUM 4.2 mmol/L (3.5-5.1)
--- NOTE | 2023-12-27 16:17 | ERN ---
General Chief Complaint: Lower Extremity Pain/Injury Stated Complaint: SENT BY , LEFT LOWER EXT ISCHEMIA Time Seen by MD: 14:41 Source: patient History of Present Illness Initial Comments PATIENT IS A 68-YEAR-OLD FEMALE COMING IN TO BE EVALUATED FOR LEFT LOWER EXTREMITY ECCHYMOSIS SWELLING. PER PATIENT SHE WAS SENT BY HER PCP FOR ONGOING EVALUATION OF POSSIBLE ISCHEMIC LIMB WITH CELLULITIS. Allergies: Coded Allergies: No Known Drug Allergies (Unverified Allergy, Unknown, 02/26/17) Home Meds Active Scripts Ketorolac Tromethamine (Toradol) 10 Mg Tab, 1 TAB PO Q6HPRN PRN for pain for 5 Days, #20 TAB 0 Refills Prov:OPAL FERRERA MD 12/23/23 Acetaminophen (Acetaminophen) 325 Mg Tablet, 1 TAB PO Q4HPRN PRN for pain or fever for 24 Days, #100 TAB 0 Refills Prov:OPAL FERRERA MD 12/23/23 Aspirin (ASPIRIN 81MG CHEW TAB) 81 Mg Tab.chew, 81 MG PO DAILY for 30 Days, #30 TAB.CHEW Prov:OPAL FERRERA MD 12/23/23 Ticagrelor (Brilinta) 90 Mg Tablet, 90 MG PO BID for 30 Days, #60 TAB Prov:OPAL FERRERA MD 12/23/23 Insulin Glargine,Hum.rec.anlog (Lantus) 100 Unit/Ml Inj, 15 UNITS SQ HS, #1 ML Prov:LAWRENCE WILSON I COLOR CARD MAKER 04/14/23 Folic Acid (Folvite) 1 Mg Tab, 1 MG PO DAILY, #30 TAB Prov:LAWRENCE WILSON I [employer]OR CARD MAKER 04/14/23 Cyanocobalamin (Vitamin B-12) (Vitamin B-12) 1,000 Mcg Tablet, 1000 MCG PO DAILY, #30 TAB Prov:LAWRENCE WILSON I [employer] CARD MAKER 04/14/23 Reported Medications Semaglutide (Ozempic) 1 Mg/0.75 Ml (4 Mg/3 Ml) Pen.injctr, 1 MG SQ QWEEK for 30 Days, #3 ML 0 Refills 12/19/23 [Rumoquin] No Conflict Check, PO AD 12/19/23 Metformin HCl (Metformin HCl ER) 1,000 Mg Fyaprry61x, 1 TAB PO BID for diabetes for 30 Days, #60 TAB 0 Refills 12/19/23 Insulin Detemir (Levemir) 100 Unit/Ml Vial, 30 UNIT SQ DAILY, VIAL 12/19/23 Lisinopril (Lisinopril) 10 Mg Tablet, 1 TAB PO DAILY 04/14/23 Atorvastatin Calcium (Atorvastatin Calcium) 40 Mg Tablet, 1 TAB PO HS 04/14/23 Metformin HCl (Metformin HCl) 1,000 Mg Tablet, 1000 MG PO BID, TAB 09/24/18 Glipizide (Glipizide) 5 Mg Tablet, 5 MG PO DAILY, TAB 09/24/18 Discontinued Reported Medications Rivaroxaban (Xarelto) 20 Mg Tablet, 1 TAB PO DAILY for 30 Days, #30 TAB 0 Refills with food 12/19/23 Past Medical History Past Medical History: Diabetes-Type II, High Cholesterol, Hypertension, Vascular Disease Past Surgical History: None, Surgical History Other: C-SEC Family History Family History: Negative Social History Social History: Negative, Lives with family Female( History) History: Not Applicable ROS Dictation CONSTITUTIONAL: NO CHILLS, NO FEVER, NO WEAKNESS, NO DIAPHORESIS, NO MALAISE. HEAD/FACE: NO SIGNS OF TRAUMA. EENT: NO EYE PAIN, NO BLURRED VISION, NO TEARING, NO DOUBLE VISION, NO EAR PAIN, NO EAR DISCHARGE, NO NOSE PAIN, NO NASAL CONGESTION, NO THROAT PAIN, NO THROAT SWELLING, NO MOUTH PAIN. RESPIRATORY: NO COUGH, NO ORTHOPNEA, NO SOB, NO STRIDOR, NO WHEEZING. CARDIOVASCULAR: NO CHEST PAIN, NO EDEMA, NO PALPITATIONS, NO SYNCOPE. GASTROINTESTINAL/ABDOMINAL: NO ABDOMINAL PAIN, NO CONSTIPATION, NO DIARRHEA, NO NAUSEA, NO VOMITING. GENITOURINARY: NO ABNORMAL DISCHARGE, NO DYSURIA, NO FREQUENT URINATION, NO HEMATURIA. NO COMPLAINTS OF PAIN IN THE GENITALS. MUSCULOSKELETAL: NO BACK PAIN, NO GOUT, NO JOINT PAIN, NO JOINT SWELLING, NO MUSCLE PAIN, NO MUSCLE STIFFNESS, NO NECK PAIN. INTEGUMENTARY: NO CHANGE IN COLOR, NO CHANGE IN HAIR/NAILS, NO DRYNESS, NO LESION, NO LUMPS, LEFT FOOT RASH. NEUROLOGICAL/PSYCH: NO ANXIETY, NOT DEPRESSED, NO EMOTIONAL PROBLEM, NO HEADACHE, NO NUMBNESS, NO PRE-EXISTING DEFICIT, NO HISTORY OF SEIZURES, NO TREMORS, NO WEAKNESS. HEMATOLOGIC/LYMPHATIC: NOT ANEMIC, NO HISTORY OF BLOOD CLOTS, NO APPARENT BLEEDING, NO BRUISING, GLANDS NOT SWOLLEN. ALL SYSTEMS NEGATIVE, EXCEPT NOTED. Physical Exam Physical Exam Dictation VITAL SIGNS: REVIEWED. GENERAL APPEARANCE: ALERT, ORIENTED X3, NO ACUTE DISTRESS, OBESE. HEAD AND FACE: NON-TRAUMATIC. EYES: PERRL, PINK CONJUNCTIVAS, EYELID NO TRAUMA, ANTERIOR CHAMBER CLEAR. EARS: PINNAS INTACT AND NO SIGNS OF TRAUMA OR ERYTHEMA. EAR CANALS CLEAR AND NO DISCHARGE. TMS NO ERYTHEMA. NOSE: NO DISCHARGE, NO BLEEDING. OROPHARYNX: MOUTH NORMAL, TEETH NO CARIES, TONGUE PINK. PHARYNX CLEAR, NO ERYTHEMA. TONSILS NO EXUDATES, NO ABSCESSES NOTED. MUCOUS MEMBRANE MOIST. NECK: SUPPLE, NON-TENDER, NO THYROMEGALY, NO MASSES, NO JVD, NO BRUITS. BREAST: DEFERRED. CHEST: NO TENDERNESS, NO CREPITUS, NO PARADOXICAL MOVEMENT, NO RETRACTIONS. LUNGS: CLEAR, WELL-VENTILATED, SYMMETRIC, NO RALES, NO WHEEZING, NO RHONCHI, NO STRIDOR, GOOD BREATH SOUNDS BILATERALLY. HEART: REGULAR RATE, REGULAR RHYTHM, NO MURMUR, NO GALLOPS. VASCULAR: NO PERIPHERAL EDEMA. ABDOMEN: SOFT, POSITIVE BOWEL SOUNDS, NONDISTENDED, NO GUARDING, NONTENDER, NO REBOUND, NO MASSES NO HEPATOMEGALY, NO SPLENOMEGALY, NO GARCIA'S SIGN, NO HERNIAS. RECTAL: DEFERRED. GENITAL: DEFERRED. NEUROLOGICAL: NORMAL SPEECH, GROSS MOTOR FUNCTION INTACT, GROSS SENSORY FUNCTION INTACT. MUSCULOSKELETAL: NECK NONTENDER, FULL RANGE OF MOTION, BACK NONTENDER, FULL RANGE OF MOTION. EXTREMITIES: NONTENDER, FULL RANGE OF MOTION. SKIN: COLOR PINK, DRY, NO TURGOR, ECCHYMOSIS OF THE LEFT FOOT CONGESTION, PEDAL EDEMA LYMPHATICS: DEFERRED. Results Laboratory and Microbiology Lab and Micro Result Laboratory Tests Test 12/27/23 15:45 White Blood Count 8.4 K/uL (4.8-10.8) Red Blood Count 3.16 MIL/uL (4.00-5.50) L Hemoglobin 9.6 g/dL (12.0-16.0) L Hematocrit 29.3 % (36-48) L Mean Corpuscular Volume 92.7 fL (79-99) Mean Corpuscular Hemoglobin 30.4 pg (27.0-33.0) Mean Corpuscular Hemoglobin Concent 32.8 g/dL (32.0-36.0) Red Cell Distribution Width 12.4 % (11.0-15.5) Platelet Count 348 K/uL (130-400) Mean Platelet Volume 8.9 fL (7.5-10.5) Immature Granulocyte % (Auto) 0.5 % (0-1) Neutrophils (%) (Auto) 83.7 % (40.0-77.0) H Lymphocytes (%) (Auto) 11.6 % (21.0-51.0) L Monocytes (%) (Auto) 3.3 % (3.0-13.0) Eosinophils (%) (Auto) 0.5 % (0.0-8.0) Basophils (%) (Auto) 0.4 % (0.0-5.0) Neutrophils # (Auto) 7.0 K/uL (1.8-7.7) Lymphocytes # (Auto) 1.0 K/uL (1.0-4.8) Monocytes # (Auto) 0.3 K/uL (0.1-1.0) Eosinophils # (Auto) 0.04 K/uL (0.00-0.70) Basophils # (Auto) 0.03 K/uL (0.00-0.20) Absolute Immature Granulocyte (auto 0.04 K/uL (0-1) Nucleated Red Blood Cells 0.0 % (0.0-0.19) Erythrocyte Sedimentation Rate 55 MM/HR (0-30) H Sodium Level 140 mmol/L (136-145) Potassium Level 4.2 mmol/L (3.5-5.1) Chloride Level 104 mmol/L (101-111) Carbon Dioxide Level 26 mmol/L (21-32) Blood Urea Nitrogen 27 mg/dL (7-18) H Creatinine 0.7 mg/dL (0.5-1.0) Glomerular Filtration Rate Calc 93 mL/min (>90) Random Glucose 202 mg/dL (70-105) H Total Calcium 8.8 mg/dL (8.5-10.1) Labs Reviewed?: Yes EKG/XRAY/US/CT/MRI X-RAY Comment [place] [id number] [id number] IMAGING REPORT Signed PATIENT: JERMAINE TRAYLOR MR#: [id number] : 1955 SEX: F AGE: 68 LOCATION: [facility] ORDER 50 STATUS: REG ER REPORT#: [id number] SERVICE 49 REASON: FOOT LESION ORDERING PHYSICIAN: SUSIE PLEITEZ MD PROCEDURE: FT 3VW LT - FOOT COMP 3+VWS LT FOOT COMP 3+VWS LT HISTORY: Foot lesion COMPARISON: None TECHNIQUE: 3 images of left foot were obtained. FINDINGS: There is no acute displaced fracture or dislocation. There is soft tissue swelling. Vascular calcifications are seen. Degenerative changes are seen. IMPRESSION: 1. Findings as described above. DICTATED BY: JESS THOMPSON MD DATE: 12/27/231519 ELECTRONICALLY SIGNED BY: JESS THOMPSON MD DATE: 12/27/231522 MDM MDM: DIFFERENTIAL DIAGNOSIS: LEFT FOOT CELLULITIS, ISCHEMIC FOOT, osteomyelitis of the foot RATIONALE: TESTS CONSIDERED AND ORDERED SECONDARY TO SHARED DECISION MAKING INCLUDE: LABS, ECG AND RADIOLOGY PREVIOUS OUTSIDE RECORDS REVIEWED: OLD ER VISITS. RISK OF COMPLICATION AND/OR MORBIDITY OR MORTALITY OF PATIENT MANAGEMENT: NONE MEDICATIONS-PER MEDICATION RECONCILIATION NEED FOR HOSPITALIZATION: PATIENT DOES MEET CRITERIA FOR HOSPITALIZATION. NEED FOR EMERGENCY MAJOR/MINOR SURGERY: NO THERE ARE NO SOCIAL CONCERNS WITH THIS PATIENT. PRESCRIPTION DRUG MANAGEMENT PRESCRIPTIONS WILL INCLUDE SYMPTOMATIC CARE PATIENT'S PRIOR EXTERNAL MEDICAL RECORDS FROM OTHER ER VISITS WERE REVIEWED BY ME INDICATED. PRIOR TESTING AND RESULTS FROM PREVIOUS VISITS WERE REVIEWED. PRIOR TESTS WERE TAKEN INTO ACCOUNT WITH MEDICAL DECISION MAKING AND RESOURCE UTILIZATION, INDEPENDENT HISTORIAN/HISTORIANS WERE USED TO OBTAIN COMPLETE MEDICAL HISTORY. I INDEPENDENTLY INTERPRETED THE TEST THAT WERE PERFORMED, RESULTS WERE REVIEWED BY ME AND CONSIDERED FINDINGS ON RADIOLOGY IF ORDERED. MEDICAL MANAGEMENT AND EXAMINATION INTERPRETATION DISCUSSIONS WERE HAD BY ME WITH OTHER QUALIFIED HEALTHCARE PROFESSIONALS INDICATED FOR THE PATIENT'S CARE. She will be admitted under the care of hospitalist group for ongoing management. ED Course Orders Procedure Category Date Status Time Cbc With Differential LAB 12/27/23 Complete 14:50 Basic Metabolic Panel LAB 12/27/23 Complete 14:50 Erythrocyte LAB 12/27/23 Complete Sedimentation Rate 14:50 Foot Comp 3+Vws Lt RAD 12/27/23 Resulted 14:50 Ketorolac PHA 12/27/23 Complete Tromethamine 30mg/Ml 18:00 Vancomycin 1g/250ml PHA 12/27/23 Complete Kit (Vancomycin 1g/2 18:00 Vancomycin Protocol PHA 12/27/23 Logged (Vancomycin Protocol 18:00 Zosyn 3.375gm+Ns 50ml PHA 12/27/23 Complete (Zosyn 3.375gm+Ns 18:00 Current Medications Medications (Trade) Dose Ordered Sig/Reji Route PRN Reason Start Time Stop Time Status Last Admin Dose Admin Ketorolac Tromethamine (toRADol) 30 mg ONCE ONCE IM 12/27/23 18:00 12/27/23 18:01 DC 12/27/23 17:58 Piperacillin Sod/ Tazobactam Sod (Zosyn 3.375gm+NS 50ml) 3.375 gm ONCE ONCE IV 12/27/23 18:00 12/27/23 18:01 DC 12/27/23 18:14 Vancomycin HCl (Vancomycin Protocol) 1 each AD IV 12/27/23 18:00 01/10/24 17:59 UNV Vancomycin HCl (Vancomycin 1g/ 250ml Kit) 1 gm ONCE ONCE IV 12/27/23 18:00 12/27/23 18:01 DC Vital Signs Date Time Temp Pulse Resp B/P (MAP) Pulse Ox O2 Delivery O2 Flow Rate FiO2 12/27/23 17:27 84 18 181/76 98 Room Air* 0 21 12/27/23 14:55 99.0 117 18 156/82 Room Air 0 DX & DISP Disposition: Inpatient Decision to Admit Time: 18:36 Departure Impression: Primary Impression: Foot osteomyelitis, left Additional Impression: Cellulitis of foot, left Condition: Stable Referrals: THERESE VOSS (PCP) SUSIE PLEITEZ MD Dec 27, 2023 16:17
[2023-12-27 17:44] LABS: ERYTHROCYTE SEDIMENTATION RATE 55 MM/HR (0-30)
[2023-12-27] MEDS: ketOROlac 30MG VIAL (30MG/ML) IM ONE (17:58)
[2023-12-27] MEDS ORDERED: VANCOMYCIN PROTOCOL PER PHARMACY IV SCH ×2 (18:00→19:30)
[2023-12-27] MEDS: ZOSYN 3.375GM +NS 50ML IV ONE (18:14)
[2023-12-27] MEDS: VANCOMYCIN KIT 1 GM/250 ML IV.KIT IV ONE (18:36)
[2023-12-27] MEDS: hydroMORPHone 0.5 MG SYG (0.5MG/0.5ML) IM ONE (18:45)
[2023-12-27] MEDS: NITROGLYCERIN 1GM OINT 1 INCH/1GM TD ONE (18:52)
[2023-12-27] MEDS ORDERED: GLUCAGON 1MG KIT 1 MG ML IM PRN (19:30)
[2023-12-27] MEDS ORDERED: DEXTROSE 50%-WATER 50 ML DISP.SYRIN IV PRN (19:30)
--- NOTE | 2023-12-27 19:49 | HP ---
[facility] HISTORY [facility] PHYS[facility] Date of Service: Dec 27, 2023 Time of Service: 19:01 PCP:Nicole Castillo HISTORY OF PRESENT ILLNESS: This is a 68 year old female with past medical history of diabetes,hypertension,hyperlipidemia, , left lower extremity DVT , peripheral arterial disease with recent peripheral angiogram with PCI on 12/22/2023 to the left extremity superficial femoral, popliteal , tibioperoneal and peroneal arteries who presents to the ED for complaints of severe left foot pain and was sent by her PCP today.This patient has a wound ulcer in between 3rd and 4th toe on the left foot its red,necrotic and swollen and left anterior foot has somewhat purple discoloration and pedal pulse is palpable and foot is warm to the touch.As per patient she has a follow up appointment with her PCP today and she was in severe pain and left foot has ecchymosis and swollen she was instructed to come to the ED for evaluation of possible ischemic limb with cellulitis. Seen and examined patient today in the ER ,awake,alert and coherent,appears uncomfortable continue to complain of pain 10/10 pain level and patient is crying. Patient states she has nausea and vomited x1 today has not been able to eat and drink all her meds for today. Patient is to be given Dilaudid at this time for pain management per ER. Patient denies fever, chills, abdominal pain, chest pain, palpitation no shortness a breath. Recent vital signs temperature 98.4, heart rate 108, respiration 18, blood pressure 183/79, saturation 98% on room air. Labs: Hemoglobin 9.6, hematocrit 29.3, platelet count 348, neutrophils 83. BUN 27, glucose 202 the rest of the chemistry are normal. X- ray of the left foot result revealed no acute displaced fracture or dislocation. There is soft tissue swelling. Vascular calcifications are seen. Degenerative changes are seen. While in the ER patient received Dilaudid 0.5 mg IM, Zosyn IV, vancomycin 1 g IV, Toradol 30 mg IM. We will admit patient for further medical management. REVIEW OF SYSTEMS CONSTITUTIONAL: Denies fevers, chills, or night sweats. No unintentional weight loss reported. NEUROLOGICAL: Denies headache, amaurosis fugax, motor weakness, sensory deficit, vertigo/spinning sensation, gait abnormalities, or tremors. ENT: No hearing loss, otalgia, otorrhea, rhinitis, rhinorrhea, hoarseness, or sore throat. CARDIOVASCULAR: Denies any exertional angina, dyspnea on exertion, orthopnea, paroxysmal nocturnal dyspnea, palpitations, life-threatening arrhythmias, claudication. PULMONARY: Denies any shortness of breath, cough, phlegm/sputum, hemoptysis, pleuritic chest pain. SLEEP: Denies morning headaches, daytime somnolence or napping. Denies difficulty falling asleep, staying asleep, waking from sleep. Denies knowledge of snoring. GASTROINTESTINAL: Complain of nausea and vomiting x1 Denies any type of dysphagia to either liquids or solids. Denies pyrosis, early satiety, abdominal pain, diarrhea, constipation, or changes in stool consistency or caliber. Denies coffee-ground emesis, hematemesis, hematochezia, or melanotic stools. GENITOURINARY: Denies frequency, urgency, nocturia, hematuria or incontinence (Storage/Irritative symptoms.) Low urinary stream, straining to void, urinary intermittency or hesitancy, splitting of the voiding stream, terminal dribbling. ENDOCRINOLOGIC: Denies polyuria, polydipsia, polyphagia or heat/cold intolerances. HEMATOLOGIC: Denies thrombophilia/previous clots, or coagulopathy/bleeding disorders. ONCOLOGIC: Denies personal history of malignancy. DERMATOLOGIC: Left anterior foot with ecchymosis and wound on the 3rd and 4th toe Denies rashes or pruritus. PSYCHIATRIC: Denies any suicidal or homicidal ideation. Denies hallucinations. PAST MEDICAL HISTORY: [Diabetes, hypertension, hyperlipidemia, left lower DVT, peripheral arterial disease ] PAST SURGICAL HISTORY: [Recent peripheral angiogram with PCI ] PAST SOCIAL HISTORY: [ Patient lives with son. Patient denies alcohol tobacco and recreational drug use ] FAMILY HISTORY: [Hypertension, diabetes and cancer ] Coded Allergies: No Known Drug Allergies (Unverified Allergy, Unknown, 02/26/17) PHYSICAL EXAM GENERAL APPEARANCE: The patient is awake, alert, and oriented, in no acute cardiopulmonary distress. NEUROLOGICAL: Cranial nerves II-XII grossly intact. Motor is 5/5 in bilateral upper and lower extremities proximal to distal. No sensory deficits. HEENT: Face is symmetric. Pupils are equal and reactive. Extraocular movements are intact. NECK: Supple. No JVD. No thyromegaly. No submental, submandibular, pre- /postauricular, occipital or supraclavicular lymphadenopathy. CHEST: Normal chest expansion. No Telemetry. LUNGS: Absence of any rales, rhonchi or any wheezing. CARDIOVASCULAR: Regular. S1 and S2 normal. No appreciable rubs, murmurs or gallops. ABDOMEN: Soft, nontender, and nondistended. There is no rebound, voluntary guarding, or rigidity. : Deferred. No Martel. EXTREMITIES: Non-edematous and not cyanotic. No clubbing. Good capillary refill. SKIN: left anterior foot with purple discoloration ,left foot swollen and erythema with some necrosis on wound ulcer in between 3rd and 4th toe Vital Sign (Last 24 Hours) 12/27/23 18:39 Temp 98.4 Pulse 108 Resp 18 B/P (MAP) 183/79 Pulse Ox 98 O2 Delivery Room Air* O2 Flow Rate 0 FiO2 21 LABS: Laboratory: Test 12/27/23 15:45 Range/Units White Blood Count 8.4 4.8-10.8 K/uL Red Blood Count 3.16 L 4.00-5.50 MIL/uL Hemoglobin 9.6 L 12.0-16.0 g/dL Hematocrit 29.3 L 36-48 % Mean Corpuscular Volume 92.7 79-99 fL Mean Corpuscular Hemoglobin 30.4 27.0-33.0 pg Mean Corpuscular Hemoglobin Concent 32.8 32.0-36.0 g/dL Red Cell Distribution Width 12.4 11.0-15.5 % Platelet Count 348 130-400 K/uL Mean Platelet Volume 8.9 7.5-10.5 fL Immature Granulocyte % (Auto) 0.5 0-1 % Neutrophils (%) (Auto) 83.7 H 40.0-77.0 % Lymphocytes (%) (Auto) 11.6 L 21.0-51.0 % Monocytes (%) (Auto) 3.3 3.0-13.0 % Eosinophils (%) (Auto) 0.5 0.0-8.0 % Basophils (%) (Auto) 0.4 0.0-5.0 % Neutrophils # (Auto) 7.0 1.8-7.7 K/uL Lymphocytes # (Auto) 1.0 1.0-4.8 K/uL Monocytes # (Auto) 0.3 0.1-1.0 K/uL Eosinophils # (Auto) 0.04 0.00-0.70 K/uL Basophils # (Auto) 0.03 0.00-0.20 K/uL Absolute Immature Granulocyte (auto 0.04 0-1 K/uL Nucleated Red Blood Cells 0.0 0.0-0.19 % Erythrocyte Sedimentation Rate 55 H 0-30 MM/HR Sodium Level 140 136-145 mmol/L Potassium Level 4.2 3.5-5.1 mmol/L Chloride Level 104 101-111 mmol/L Carbon Dioxide Level 26 21-32 mmol/L Blood Urea Nitrogen 27 H 7-18 mg/dL Creatinine 0.7 0.5-1.0 mg/dL Glomerular Filtration Rate Calc 93 >90 mL/min Random Glucose 202 H 70-105 mg/dL Total Calcium 8.8 8.5-10.1 mg/dL Current Medications Medications (Trade) Dose Ordered Sig/Reji Route PRN Reason Start Time Stop Time Status Last Admin Dose Admin Vancomycin HCl (Vancomycin 750mg) 750 mg Q12H IVPB 12/28/23 06:00 01/07/24 05:59 Vancomycin HCl (Vancomycin Protocol) 1 each AD IV 12/27/23 18:00 01/10/24 17:59 DIAGNOSTICS / RADIOLOGY: [ ] ASSESSMENT: Severe left foot pain POA Left foot cellulitis POA Suspected Left foot osteomyelitis POA left lower extremity Peripheral arterial disease POA Recent peripheral angioplasty of Left lower extremity on DAPT POA Uncontrolled diabetes POA Hypertension POA Anemia POA POA Hyperlipidemia POA History of left lower extremity DVT PLAN: We will admit patient in medical telemetry We will start on heart healthy and consistent carb diet We will continue Zosyn IV and vancomycin IV for broad-spectrum coverage We will apply nitro paste 0.5 mg topical x1 now We will start on Lovenox 30 mg subQ daily We will start on Famotidine 20 mg p.o. bid for GI prophylaxis We will replace electrolytes as needed per protocol We will start on insulin sliding scale AC & HS with hypoglycemia protocol We will add prn medication for fever,pain, nausea and vomiting We will reconcile home meds once medlist available We will seek podiatry consultation We will request labs in am Further orders to follow depending on above results Case discussed with attending physician and came up with above treatment and plan of care. ADVANCED CARE PLANNING 1. Which of the following were discussed? Hospice Care - No Therapeutic options - Yes Advance Directives - No Other discussions - 2. Discussed with who? Patient 3. Voluntary nature of this service was explained to the patient? Yes 4. Amount of time spent - __22 5. Reviewed by Physician? (if this service was performed by NPP) Yes Patient seen and examined by me. Agree with note by PATHOLOGIST SEE ADDITIONAL ORDERS PER CHART DISCUSSED WITH NURSING STAFF MARY LISA RECORD PRESS SUPERVISOR Dec 27, 2023 19:49
[2023-12-27 20:00] VITALS: BP 164/75; PULSE 110; RESP 18; TEMP 98.5
[2023-12-27] MEDS: INSULIN humuLIN R 100 UNIT/ML 3ML SQ SCH (21:00)
[2023-12-27] MEDS: morPHINE 2 MG SYG IV PRN (21:01)
[2023-12-27] MEDS: FAMOTIDINE 20MG TAB PO SCH (21:07)
[2023-12-28] VITALS: BP 148/64; PULSE 105; RESP 18; TEMP 98.5
[2023-12-28] MEDS: ZOSYN 3.375GM +NS 50ML IV SCH (01:59)
--- NOTE | 2023-12-28 02:00 | NUR ---
PT DENIES DISCOMFORT AT THIS TIME, DENIES NAUSEA OR EMESIS. CALL LIGHT WITHIN REACH
[2023-12-28 04:00] VITALS: BP 160/73; PULSE 104; RESP 18; TEMP 98
--- NOTE | 2023-12-28 04:00 | NUR ---
PT DENIES DISCOMFORT AT THIS TIME, LEFT LOWER EXTREMITY UNCHANGED.
[2023-12-28] MEDS: VANCOMYCIN 750MG VIAL IVPB SCH (05:32)
[2023-12-28] MEDS: ondanSETRON 4MG INJ IV PRN (05:36)
--- NOTE | 2023-12-28 07:00 | NUR ---
AWAKE AND ALERT, MEDICATED WITH NORCO FOR PAIN TO LEFT LOWER EXTREMITY. PULSES PRESENT, CONFIRMED WITH DOPPLER.
[2023-12-28] MEDS: HYDROcodone/APAP 5/325 1 TAB TABLET PO PRN (07:04)
[2023-12-28 07:28] LABS: BASOPHILS # (AUTO) 0.04 K/uL (0.00-0.20); BASOPHILS % (AUTO) 0.4 % (0.0-5.0); EOSINOPHILS # (AUTO) 0.03 K/uL (0.00-0.70); EOSINOPHILS % (AUTO) 0.3 % (0.0-8.0); HEMATOCRIT 27.4 % (36-48); IMMATURE GRANULOCYTE ABSOLUTE 0.06 K/uL (0-1); LYMPHOCYTES # (AUTO) 0.9 K/uL (1.0-4.8); LYMPHOCYTES % (AUTO) 9.4 % (21.0-51.0); MEAN CORPUSCULAR HGB CONC 32.5 g/dL (32.0-36.0); MEAN CORPUSCULAR VOLUME 95.5 fL (79-99); MONOCYTES # (AUTO) 0.4 K/uL (0.1-1.0); MONOCYTES % (AUTO) 4.3 % (3.0-13.0); NEUTROPHILS # (AUTO) 8.3 K/uL (1.8-7.7); PLATELET COUNT (AUTO) 330 K/uL (130-400); RED BLOOD CELL COUNT(AUTO) 2.87 MIL/uL (4.00-5.50); RED CELL DISTRIBUTION WIDTH 12.6 % (11.0-15.5); WHITE BLOOD COUNT (AUTO) 9.8 K/uL (4.8-10.8)
[2023-12-28 07:39] LABS: BILIRUBIN,TOTAL 0.3 mg/dL (0.2-1.0); CREATININE 0.9 mg/dL (0.5-1.0); MAGNESIUM 1.6 mg/dL (1.80-2.40); POTASSIUM 4.8 mmol/L (3.5-5.1); TOTAL PROTEIN, SERUM 6.5 g/dL (6.0-8.3)
[2023-12-28 08:17] LABS: PROTHROMBIN TIME 10.8 SEC (9.6-11.6)
[2023-12-28 08:19] LABS: PARTIAL THROMBOPLASTIN TIME 24.5 SEC (26.3-35.5)
[2023-12-28] MEDS: ENOXAPARIN SODIUM 30 MG/0.3 ML SQ SCH (08:58)
--- NOTE | 2023-12-28 09:15 | NUR ---
DR. SAUCEDO CONSULTED NEW ORDERS FOR CARDIOVASULAR CONSULT AND BILATERAL ARTERIAL DOPPLER
--- NOTE | 2023-12-28 09:20 | NUR ---
DR. PINA CONSULTED
--- NOTE | 2023-12-28 11:02 | HMCIMG ---
US ARTERIAL BILAT LOW EXT DUPL HISTORY: Peripheral arterial disease COMPARISON: None TECHNIQUE: Bilateral lower extremity arterial Doppler ultrasound study was performed. FINDINGS: Abnormal monophasic arterial waveforms are seen in the right superficial femoral, popliteal, bilateral posterior tibial, anterior tibial and dorsalis pedal arteries. Hyperemic flow is seen in the right dorsalis pedal, left anterior tibial and posterior tibial arteries. There is occlusion of the right distal superficial femoral artery. Normal triphasic and biphasic arterial waveforms are noted in the common femoral, deep femoral, superficial femoral, and left popliteal arteries. On the right, the peak systolic velocity of the common femoral artery is 238 cm/s, the proximal femoral artery is 236 cm/s, the mid femoral artery is 121 cm/s, the distal femoral artery is 0 cm/s, the proximal popliteal artery is 240 cm/s, the distal popliteal artery is 77 cm/s, the anterior tibial artery is 33 cm/s, the posterior tibial artery artery is 38 cm/s,and the dorsalis pedal artery is 91 cm/s. On the left, the peak systolic velocity of the common femoral artery is 180 cm/s, the proximal femoral artery is 112 cm/s, the mid femoral artery is 67 cm/s, the distal femoral artery is 76 cm/s, the proximal popliteal artery is 147 cm/s, the distal popliteal artery is 130 cm/s, the anterior tibial artery is 127 cm/s, the posterior tibial artery artery is 86 cm/s,and the dorsalis pedal artery is 95 cm/s. IMPRESSION: 1. Atherosclerotic disease. 2. Abnormal monophasic arterial waveforms are seen in the right superficial femoral, popliteal, bilateral posterior tibial, anterior tibial and dorsalis pedal arteries. Hyperemic flow is seen in the right dorsalis pedal, left anterior tibial and posterior tibial arteries. There is occlusion of the right distal superficial femoral artery. High-grade stenosis is suspected in the right common femoral and right proximal superficial femoral artery. High-grade stenosis is also suspected in the right popliteal artery proximally.
--- NOTE | 2023-12-28 12:25 | CONS ---
CONSULTATION NOTE Date of Service: Dec 28, 2023 Reason for Consultation: This 68 years old female was seen for consultation courtesy of Dr. Gray for evaluation of ulceration 3rd and 4th toe left foot and swelling and infection of the left foot. Requesting Physician: Dr. Gray HISTORY OF PRESENT ILLNESS: Has a history of peripheral vascular disease diabetes and recently underwent percutaneous angioplasty of the left lower extremity secondary to ulcerations and infection to the left foot 3rd and 4th toe patient stated that at this moment the patient presenting with pain severe unable to walk she presented to the emergency room for evaluation and treatment. REVIEW OF SYSTEMS CONSTITUTIONAL: Denies fever, chills, or fatigue. HEAD/FACE: No signs of trauma. EENT: Denies eye pain, blurred vision, double vision, or light sensitivity. RESPIRATORY: Denies shortness of breath, cough, wheezing CARDIOVASCULAR: Denies chest pain, palpitation, syncope GASTROINTESTINAL/ABDOMINAL: Denies abdominal pain, constipation, diarrhea, nausea or vomiting GENITOURINARY: Denies dysuria or hematuria. MUSCULOSKELETAL: Denies joint pain, tenderness, or trauma. INTEGUMENTARY: Ulceration 3rd and 4th toe left foot with cellulitis of the left foot. NEUROLOGICAL/PSYCH: Denies anxiety, depression, heat or cold intolerance. PAST MEDICAL HISTORY: Diabetes, hypertension, hyperlipidemia, left lower DVT, peripheral arterial disease PAST SURGICAL HISTORY: Peripheral angioplasty With extremity left FAMILY HISTORY: Noncontributory SOCIAL HISTORY: Denies any drinking smoking or using illicit drugs. Coded Allergies: No Known Drug Allergies (Unverified Allergy, Unknown, 02/26/17) PHYSICAL EXAM EYES: Anicteric. Pupils equal and reactive. HENT: No oral thrush seen, moist Oral mucosa NECK: Supple, no JVD or thyromegaly. LUNGS: Good air entry. No rales, no rhonchi. CARDIOVASCULAR: S1, S2 regular. No murmur heard. Small-vessel disease. Left lower extremity ABDOMEN: Soft, non tender, bowel sounds present, no organomegaly CENTRAL NERVOUS SYSTEM: Awake, alert, oriented x 3. No focal deficits. SKIN: Ulcer 3rd toe and 4th toe left foot edema and cellulitis. LYMPHATICS: No peripheral lymphadenopathy MUSCULOSKELETAL: No joint swelling, erythema or tenderness. EXTREMITIES: Ulceration 3rd and 4th toe left foot with cellulitis. BACK: No deformity, no pressure ulcer. GENITOURINARY: No dysuria or hematuria Vital Sign (Last 24 Hours) 12/28/23 10:57 Temp 98.8 Pulse 95 Resp 18 B/P (MAP) 130/70 Pulse Ox 98 O2 Delivery Room Air* O2 Flow Rate 0 FiO2 21 Intake & Output (last 24hrs) 12/27/23 12/27/23 12/28/23 15:00 23:00 07:00 Intake Total 300.0 ml Balance 300.0 ml LABS: Laboratory: Test 12/28/23 11:50 12/28/23 07:00 12/27/23 15:45 Range/Units Whole Blood Glucose 166 H 70-110 MG/DL White Blood Count 9.8 4.8-10.8 K/uL Red Blood Count 2.87 L 4.00-5.50 MIL/uL Hemoglobin 8.9 L 12.0-16.0 g/dL Hematocrit 27.4 L 36-48 % Mean Corpuscular Volume 95.5 79-99 fL Mean Corpuscular Hemoglobin 31.0 27.0-33.0 pg Mean Corpuscular Hemoglobin Concent 32.5 32.0-36.0 g/dL Red Cell Distribution Width 12.6 11.0-15.5 % Platelet Count 330 130-400 K/uL Mean Platelet Volume 9.3 7.5-10.5 fL Immature Granulocyte % (Auto) 0.6 0-1 % Neutrophils (%) (Auto) 85.0 H 40.0-77.0 % Lymphocytes (%) (Auto) 9.4 L 21.0-51.0 % Monocytes (%) (Auto) 4.3 3.0-13.0 % Eosinophils (%) (Auto) 0.3 0.0-8.0 % Basophils (%) (Auto) 0.4 0.0-5.0 % Neutrophils # (Auto) 8.3 H 1.8-7.7 K/uL Lymphocytes # (Auto) 0.9 L 1.0-4.8 K/uL Monocytes # (Auto) 0.4 0.1-1.0 K/uL Eosinophils # (Auto) 0.03 0.00-0.70 K/uL Basophils # (Auto) 0.04 0.00-0.20 K/uL Absolute Immature Granulocyte (auto 0.06 0-1 K/uL Nucleated Red Blood Cells 0.0 0.0-0.19 % White Cell Morphology Comment See comments Prothrombin Time 10.8 9.6-11.6 SEC Prothromb Time International Ratio 1.00 0.85-1.15 Activated Partial Thromboplast Time 24.5 L 26.3-35.5 SEC Sodium Level 142 136-145 mmol/L Potassium Level 4.8 3.5-5.1 mmol/L Chloride Level 107 101-111 mmol/L Carbon Dioxide Level 25 21-32 mmol/L Blood Urea Nitrogen 22 H 7-18 mg/dL Creatinine 0.9 0.5-1.0 mg/dL Glomerular Filtration Rate Calc 69 >90 mL/min Random Glucose 235 H 70-105 mg/dL Total Calcium 8.4 L 8.5-10.1 mg/dL Magnesium Level 1.60 L 1.80-2.40 mg/dL Total Bilirubin 0.3 0.2-1.0 mg/dL Aspartate Amino Transf (AST/SGOT) 13 10-37 U/L Alanine Aminotransferase (ALT/SGPT) 12 12-78 U/L Alkaline Phosphatase 67 50-136 U/L Total Protein 6.5 6.0-8.3 g/dL Albumin 3.0 L 3.5-5.0 g/dL Erythrocyte Sedimentation Rate 55 H 0-30 MM/HR DIAGNOSTICS / RADIOLOGY: [ ] FOOT COMP 3+VWS LT HISTORY: Foot lesion COMPARISON: None TECHNIQUE: 3 images of left foot were obtained. FINDINGS: There is no acute displaced fracture or dislocation. There is soft tissue swelling. Vascular calcifications are seen. Degenerative changes are seen. IMPRESSION: 1. Findings as described above. Arterial Ultrasound left On the left, the peak systolic velocity of the common femoral artery is 180 cm/s, the proximal femoral artery is 112 cm/s, the mid femoral artery is 67 cm/s, the distal femoral artery is 76 cm/s, the proximal popliteal artery is 147 cm/s, the distal popliteal artery is 130 cm/s, the anterior tibial artery is 127 cm/s, the posterior tibial artery artery is 86 cm/s,and the dorsalis pedal artery is 95 cm/s. ASSESSMENT: Diabetic foot ulcer 3rd and 4th toe left foot diabetic foot infection. PLAN: Begin local wound care we will order Iodosorb for wound care every other day continue IV antibiotics and follow up hospital course and therapy. ONESIMO SAUCEDO DPM Dec 28, 2023 12:25
--- NOTE | 2023-12-28 13:02 | PN ---
[facility] PROGRESS NOTE Date of Service: Dec 28, 2023 Time of Service: 12:57 SUBJECTIVE: [ 68-year-old female admitted due to left lower extremity pain, patient had wound ulcer between 3rd and 4th toe of the left foot and some necrosis. Arterial Doppler was done which showed abnormal monophasic arterial waveform seen in the right superficial femoral popliteal bilateral posterior tibial anterior dL dorsalis pedal arteries. Hyperemic flow is seen in the right dorsalis pedal, left anterior tibial and posterior tibial arteries. There is an occlusion of the right distal superficial femoral artery, high-grade stenosis is suspected in the right common femoral and right proximal superficial femoral artery, high-grade stenosis is also suspected in the right popliteal artery proximally. Dr. Charles has been consulted and recommending cardiovascular consult. Patient offers any complaints. She is afebrile. Labs reviewed. REVIEW OF SYSTEMS CONSTITUTIONAL: Denies fevers, chills, or night sweats. No unintentional weight loss reported. NEUROLOGICAL: Denies headache, amaurosis fugax, motor weakness, sensory deficit, vertigo/spinning sensation, gait abnormalities, or tremors. ENT: No hearing loss, otalgia, otorrhea, rhinitis, rhinorrhea, hoarseness, or sore throat. CARDIOVASCULAR: Denies any exertional angina, dyspnea on exertion, orthopnea, paroxysmal nocturnal dyspnea, palpitations, life-threatening arrhythmias, claudication. PULMONARY: Denies any shortness of breath, cough, phlegm/sputum, hemoptysis, pleuritic chest pain. SLEEP: Denies morning headaches, daytime somnolence or napping. Denies difficulty falling asleep, staying asleep, waking from sleep. Denies knowledge of snoring. GASTROINTESTINAL: Complain of nausea and vomiting x1 Denies any type of dysphagia to either liquids or solids. Denies pyrosis, early satiety, abdominal pain, diarrhea, constipation, or changes in stool consistency or caliber. Denies coffee-ground emesis, hematemesis, hematochezia, or melanotic stools. GENITOURINARY: Denies frequency, urgency, nocturia, hematuria or incontinence (Storage/Irritative symptoms.) Low urinary stream, straining to void, urinary intermittency or hesitancy, splitting of the voiding stream, terminal dribbling. ENDOCRINOLOGIC: Denies polyuria, polydipsia, polyphagia or heat/cold intolerances. HEMATOLOGIC: Denies thrombophilia/previous clots, or coagulopathy/bleeding diso rders. ONCOLOGIC: Denies personal history of malignancy. DERMATOLOGIC: Left anterior foot with ecchymosis and wound on the 3rd and 4th toe Denies rashes or pruritus. PSYCHIATRIC: Denies any suicidal or homicidal ideation. Denies hallucinations. PHYSICAL EXAM GENERAL APPEARANCE: The patient is awake, alert, and oriented, in no acute cardiopulmonary distress. NEUROLOGICAL: Cranial nerves II-XII grossly intact. Motor is 5/5 in bilateral upper and lower extremities proximal to distal. No sensory deficits. HEENT: Face is symmetric. Pupils are equal and reactive. Extraocular movements are intact. NECK: Supple. No JVD. No thyromegaly. No submental, submandibular, pre- /postauricular, occipital or supraclavicular lymphadenopathy. CHEST: Normal chest expansion. No Telemetry. LUNGS: Absence of any rales, rhonchi or any wheezing. CARDIOVASCULAR: Regular. S1 and S2 normal. No appreciable rubs, murmurs or gallops. ABDOMEN: Soft, nontender, and nondistended. There is no rebound, voluntary guarding, or rigidity. : Deferred. No Martel. EXTREMITIES: Non-edematous and not cyanotic. No clubbing. Good capillary refill. SKIN: left anterior foot with purple discoloration ,left foot swollen and erythema with some necrosis on wound ulcer in between 3rd and 4th toe Vital Signs (last 8hr) Date Time Temp Pulse Resp B/P (MAP) Pulse Ox O2 Delivery O2 Flow Rate FiO2 12/28/23 10:57 98.8 95 18 130/70 98 Room Air* 0 21 12/28/23 09:04 98.8 95 18 132/66 98 Room Air* 0 21 12/28/23 07:57 98.8 94 18 127/62 98 Room Air* 0 21 LABS: Laboratory: Test 12/28/23 11:50 12/28/23 07:00 12/27/23 15:45 Range/Units Whole Blood Glucose 166 H 70-110 MG/DL White Blood Count 9.8 4.8-10.8 K/uL Red Blood Count 2.87 L 4.00-5.50 MIL/uL Hemoglobin 8.9 L 12.0-16.0 g/dL Hematocrit 27.4 L 36-48 % Mean Corpuscular Volume 95.5 79-99 fL Mean Corpuscular Hemoglobin 31.0 27.0-33.0 pg Mean Corpuscular Hemoglobin Concent 32.5 32.0-36.0 g/dL Red Cell Distribution Width 12.6 11.0-15.5 % Platelet Count 330 130-400 K/uL Mean Platelet Volume 9.3 7.5-10.5 fL Immature Granulocyte % (Auto) 0.6 0-1 % Neutrophils (%) (Auto) 85.0 H 40.0-77.0 % Lymphocytes (%) (Auto) 9.4 L 21.0-51.0 % Monocytes (%) (Auto) 4.3 3.0-13.0 % Eosinophils (%) (Auto) 0.3 0.0-8.0 % Basophils (%) (Auto) 0.4 0.0-5.0 % Neutrophils # (Auto) 8.3 H 1.8-7.7 K/uL Lymphocytes # (Auto) 0.9 L 1.0-4.8 K/uL Monocytes # (Auto) 0.4 0.1-1.0 K/uL Eosinophils # (Auto) 0.03 0.00-0.70 K/uL Basophils # (Auto) 0.04 0.00-0.20 K/uL Absolute Immature Granulocyte (auto 0.06 0-1 K/uL Nucleated Red Blood Cells 0.0 0.0-0.19 % White Cell Morphology Comment See comments Prothrombin Time 10.8 9.6-11.6 SEC Prothromb Time International Ratio 1.00 0.85-1.15 Activated Partial Thromboplast Time 24.5 L 26.3-35.5 SEC Sodium Level 142 136-145 mmol/L Potassium Level 4.8 3.5-5.1 mmol/L Chloride Level 107 101-111 mmol/L Carbon Dioxide Level 25 21-32 mmol/L Blood Urea Nitrogen 22 H 7-18 mg/dL Creatinine 0.9 0.5-1.0 mg/dL Glomerular Filtration Rate Calc 69 >90 mL/min Random Glucose 235 H 70-105 mg/dL Total Calcium 8.4 L 8.5-10.1 mg/dL Magnesium Level 1.60 L 1.80-2.40 mg/dL Total Bilirubin 0.3 0.2-1.0 mg/dL Aspartate Amino Transf (AST/SGOT) 13 10-37 U/L Alanine Aminotransferase (ALT/SGPT) 12 12-78 U/L Alkaline Phosphatase 67 50-136 U/L Total Protein 6.5 6.0-8.3 g/dL Albumin 3.0 L 3.5-5.0 g/dL Erythrocyte Sedimentation Rate 55 H 0-30 MM/HR Current Medications Medications (Trade) Dose Ordered Sig/Reji Route PRN Reason Start Time Stop Time Status Last Admin Dose Admin Acetaminophen (TYLenol 325MG TAB) 650 mg Q4H PRN PO MILD PAIN (1-3) 12/27/23 19:30 01/26/24 19:29 Acetaminophen (TYLenol 325MG TAB) 650 mg Q6H PRN PO TEMPERATURE GREATER THAN 101.5 12/27/23 19:30 01/26/24 19:29 Acetaminophen/ Hydrocodone Bitart (NORco 5/325MG) 1 tab Q4H PRN PO MODERATE PAIN (4-6) 12/27/23 19:30 01/01/24 19:29 12/28/23 07:04 1 TAB Dextrose (D50w) 50 ml AD PRN IV HYPOGLYCEMIA PROTOCOL 12/27/23 19:30 01/26/24 19:29 Enoxaparin Sodium (Lovenox) 30 mg DAILY SQ 12/28/23 09:00 01/27/24 08:59 12/28/23 08:58 30 MG Famotidine (Pepcid 20mg Tab) 20 mg BID PO 12/27/23 21:00 01/26/24 20:59 12/28/23 08:58 20 MG Glucagon (Glucagon 1mg Kit) 1 mg AD PRN IM HYPOGLYCEMIA PROTOCOL 12/27/23 19:30 01/26/24 19:29 Hydralazine HCl (APRESOLine 20MG INJ) 10 mg Q6H PRN IV For:SBP above 160;DBP above 90 12/27/23 19:30 01/26/24 19:29 Insulin Human Regular (humuLIN R 100 UNIT/ML 3ML) INSULIN SLIDING SCAL... ACHS SQ 12/27/23 21:00 01/26/24 20:59 12/28/23 07:10 3 UNIT Magnesium Sulfate 50 ml @ 0 mls/hr PROTOCOL PRN IV OTHER [SEE ORDER COMMENTS] 12/27/23 19:30 01/26/24 19:29 Morphine Sulfate (morPHINE 2MG SYG) 2 mg Q4H PRN IV MODERATE PAIN (7-10) 12/27/23 19:30 01/03/24 19:29 12/27/23 21:01 2 MG Ondansetron HCl (zoFRAN 4MG INJ) 4 mg Q6H PRN IV NAUSEA/VOMITING 12/27/23 19:30 01/26/24 19:29 12/28/23 05:36 4 MG Piperacillin Sod/ Tazobactam Sod (Zosyn 3.375gm+NS 50ml) 3.375 gm Q8H IV 12/28/23 02:00 01/18/24 01:59 12/28/23 08:58 3.375 GM Potassium Chloride 100 ml @ 100 mls/hr AD PRN IV POTASSIUM PROTOCOL 12/27/23 19:30 01/26/24 19:29 Potassium Chloride (K-Dur/Klor-Con 20meq) 20 meq AD PRN PO POTASSIUM PROTOCOL 12/27/23 19:30 01/26/24 19:29 Potassium Chloride (KCl 10% Elixir 20meq/15ml) 20 meq AD PRN PO POTASSIUM PROTOCOL 12/27/23 19:30 01/26/24 19:29 Vancomycin HCl (Vancomycin 750mg) 750 mg Q12H IVPB 12/28/23 06:00 01/07/24 05:59 12/28/23 05:32 750 MG Vancomycin HCl (Vancomycin Protocol) 1 each AD IV 12/27/23 18:00 12/27/23 19:20 DC Vancomycin HCl (Vancomycin Protocol) 1 each AD IV 12/27/23 19:30 01/10/24 19:29 DIAGNOSTICS / RADIOLOGY: [ ] ASSESSMENT: Severe left foot pain POA Left foot cellulitis POA Suspected Left foot osteomyelitis POA left lower extremity Peripheral arterial disease POA Recent peripheral angioplasty of Left lower extremity on DAPT POA Uncontrolled diabetes POA Hypertension POA Anemia POA POA Hyperlipidemia POA History of left lower extremity DVT PLAN: We will admit patient in medical telemetry We will start on heart healthy and consistent carb diet We will continue Zosyn IV and vancomycin IV for broad-spectrum coverage We will apply nitro paste 0.5 mg topical x1 now We will start on Lovenox 30 mg subQ daily We will start on Famotidine 20 mg p.o. bid for GI prophylaxis We will replace electrolytes as needed per protocol We will start on insulin sliding scale AC & HS with hypoglycemia protocol We will add prn medication for fever,pain, nausea and vomiting We will reconcile home meds once medlist available We will seek podiatry consultation We will request labs in am Further orders to follow depending on above results We will consult Infectious Disease Case discussed with attending physician and came up with above treatment and plan of care. ATTESTATION BY PHYSICIAN I have seen and examined the patient. I reviewed the documentation, medical decision making, and treatment plan as noted by the mid-level provider above. I agree with the findings and plan of care. HEMAL MENESES MD, [facility] Dec 28, 2023 13:01
--- NOTE | 2023-12-28 13:12 | NUR ---
DCP: HOME Pt reports tht she is living with son Sal Suarez [phone] and his GF, in home their are renting. GF assists pt with bathing dressing and grooming, pt has no provider services. Pt states she has No HH or HD needed at this time. PCP is Dr Rivera and uses [facility] for rx. Discussed dcp, pt denies need for snf and wants to return home at [place]. Addendum: 12/28/23 at 1315 by JOS GARCIA Amended: Links added.
--- NOTE | 2023-12-28 14:29 | NUR ---
DR. LOCO CONSULTED
--- NOTE | 2023-12-28 15:49 | NUR ---
[facility] Consult: Patient assessed by wound healing team. See wound assessment. Assessment and recommendations provided to primary nurse. Education provided. Addendum: 12/28/23 at 1621 by PONCE ANN RN RN/ Amended: Links added.
--- NOTE | 2023-12-28 16:44 | PN ---
SUBJECTIVE: This is a 68-year-old patient of Dr. Gray, admitted with severe left foot pain and cellulitis. The patient has an ultrasound, demonstrates some degree of peripheral vascular disease. RECOMMENDATIONS: My recommendation will be to elevation, IV antibiotics, blood cultures and a CT angiogram to assess the vascular supply to the left foot. After reviewing the CT angiogram, we will recommend an angiogram or not. TID: [id number] RECEIPT: [id number]
[2023-12-28] MEDS: hydrALAZine 20MG/ML VIAL IV PRN (20:56)
[2023-12-29] VITALS (7 sets, daily range): BP systolic 159–175; BP diastolic 71–87; PULSE 99–111; RESP 18–19; TEMP 98.5–99.6; O2SAT 98–100
--- NOTE | 2023-12-29 00:57 | NUR ---
HAND OFF REPORT GIVEN TO DIXON AN AT THIS TIME.
--- NOTE | 2023-12-29 05:58 | CONS ---
INFECTIOUS DISEASE CONSULTATION DATE OF SERVICE: 12/28/2023 REQUESTING PHYSICIAN: Shannon Trevino NP. REASON FOR CONSULTATION: Left foot ulcer and possible osteomyelitis. HISTORY OF PRESENT ILLNESS: A 68-year-old female with history of diabetes mellitus, hypertension and dyslipidemia, who presented to the hospital with left foot pain and discoloration. The patient complained of excruciating pain to the dorsum of the left foot. The patient also found with ulcer involving the left third and fourth toe. No history of trauma or fall. Denied fever or chills. The patient has peripheral vascular disease and underwent angiogram ____ few days ago. The patient had x-rays done, shows soft tissue swelling. Arterial Doppler shows monophasic flow. The patient has been started on vancomycin and Zosyn. PAST MEDICAL HISTORY: * Diabetes mellitus. * Hypertension. * Dyslipidemia. * Left lower extremity DVT. * Peripheral vascular disease. PAST SURGICAL HISTORY: Angiogram and intervention of lower extremities. ALLERGIES: No known drug allergy. CURRENT MEDICATIONS: Reviewed. SOCIAL HISTORY: No alcohol, tobacco or illicit drug use. FAMILY HISTORY: Positive for diabetes mellitus. REVIEW OF SYSTEMS: CONSTITUTIONAL: No fever or chills. No weight loss or night sweats. EYES: No eye pain. No photophobia or diplopia. HENT: No sore throat. No rhinorrhea or earache. NECK: No neck pain or neck swelling. RESPIRATORY: No cough. No hemoptysis or pleuritic pain. CARDIOVASCULAR: No chest pain. No palpitation or orthopnea. GASTROINTESTINAL: Denied nausea, vomiting, or abdominal pain. GENITOURINARY: No dysuria, urgency or urinary frequency. CENTRAL NERVOUS SYSTEM: No headache, dyspnea, or slurred speech. PSYCHIATRY: No depression. No suicidal ideation. MUSCULOSKELETAL: No joint pain or joint swelling. EXTREMITIES: Positive for left foot pain and swelling. PHYSICAL EXAMINATION: GENERAL: An elderly female, awake. VITAL SIGNS: Temperature 98.8, pulse 90, respiratory rate 18, blood pressure 128/74. EYES: No icterus. Pupils equal and reactive. HENT: No oral thrush seen. Moist oral mucosa. NECK: Supple. No JVD or thyromegaly. LUNGS: Good air entry. No rales, no rhonchi. CARDIOVASCULAR: S1, S2 regular. No murmur heard. ABDOMEN: Full, soft, nontender. Bowel sounds present. CENTRAL NERVOUS SYSTEM: Awake, alert, oriented x 3. No focal deficits. SKIN: No rashes, no itchiness. LYMPHATIC: No peripheral lymphadenopathy. BACK: No deformity, no pressure ulcer. EXTREMITIES: Gangrenous changes and ulcer involving the left third and fourth toe. Excessively tender. VASCULAR: Absent arterial pulsation to the left dorsalis and anterior tibial artery area. LABORATORY DATA: Sodium 142, potassium 4.1, BUN 20, creatinine 0.9. WBC 9.0, hemoglobin 8.9, platelet 230. RADIOLOGY: X-ray of the left foot shows soft tissue swelling. Arterial Doppler showed monophasic flow. ASSESSMENT: A 68-year-old female presented to the hospital with left third toe pain, swelling and ulcer. CURRENT PROBLEMS: Include: * Possible left foot osteomyelitis. * Possible diabetic foot ulcer. * Peripheral vascular disease. * Left foot cellulitis. * Anemia. * Diabetes mellitus. PLAN: * Continue Zosyn. * Continue wound care. * Continue vancomycin. * Obtain MRI of the left forefoot. * The patient will be given Tdap. * Continue pain management. * Continue antiplatelet. * Monitor electrolyte. * The patient will be followed up closely. Thank you for allowing me to participate in the care of this patient. TID: [id number] RECEIPT: [id number]
--- NOTE | 2023-12-29 08:55 | PN ---
[facility] PROGRESS NOTE Date of Service: Dec 29, 2023 Time of Service: 08:52 SUBJECTIVE: [ 68-year-old female admitted due to left lower extremity pain, patient had wound ulcer between 3rd and 4th toe of the left foot and some necrosis. Arterial Doppler was done which showed abnormal monophasic arterial waveform seen in the right superficial femoral popliteal bilateral posterior tibial anterior dorsalis pedal arteries. Hyperemic flow is seen in the right dorsalis pedal, left anterior tibial and posterior tibial arteries. There is an occlusion of the right distal superficial femoral artery, high-grade stenosis is suspected in the right common femoral and right proximal superficial femoral artery, high-grade stenosis is also suspected in the right popliteal artery proximally. Dr. Charles has been consulted and recommending cardiovascular consult for vascular assessment. Dr. Mao recommending CT angio to the left foot. Infectious Disease also consulted, we will continue with IV antibiotics. We are pending MRI to rule out osteomyelitis. Otherwise patient has no complaints. REVIEW OF SYSTEMS CONSTITUTIONAL: Denies fevers, chills, or night sweats. No unintentional weight loss reported. NEUROLOGICAL: Denies headache, amaurosis fugax, motor weakness, sensory deficit, vertigo/spinning sensation, gait abnormalities, or tremors. ENT: No hearing loss, otalgia, otorrhea, rhinitis, rhinorrhea, hoarseness, or sore throat. CARDIOVASCULAR: Denies any exertional angina, dyspnea on exertion, orthopnea, paroxysmal nocturnal dyspnea, palpitations, life-threatening arrhythmias, claudication. PULMONARY: Denies any shortness of breath, cough, phlegm/sputum, hemoptysis, pleuritic chest pain. SLEEP: Denies morning headaches, daytime somnolence or napping. Denies difficulty falling asleep, staying asleep, waking from sleep. Denies knowledge of snoring. GASTROINTESTINAL: Complain of nausea and vomiting x1 Denies any type of dysphagia to either liquids or solids. Denies pyrosis, early satiety, abdominal pain, diarrhea, constipation, or changes in stool consistency or caliber. Denies coffee-ground emesis, hematemesis, hematochezia, or melanotic stools. GENITOURINARY: Denies frequency, urgency, nocturia, hematuria or incontinence (Storage/Irritative symptoms.) Low urinary stream, straining to void, urinary intermittency or hesitancy, splitting of the voiding stream, terminal dribbling. ENDOCRINOLOGIC: Denies polyuria, polydipsia, polyphagia or heat/cold intolerances. HEMATOLOGIC: Denies thrombophilia/previous clots, or coagulopathy/bleeding disorders. ONCOLOGIC: Denies personal history of malignancy. DERMATOLOGIC: Left anterior foot with ecchymosis and wound on the 3rd and 4th toe Denies rashes or pruritus. PSYCHIATRIC: Denies any suicidal or homicidal ideation. Denies hallucinations. PHYSICAL EXAM GENERAL APPEARANCE: The patient is awake, alert, and oriented, in no acute cardiopulmonary distress. NEUROLOGICAL: Cranial nerves II-XII grossly intact. Motor is 5/5 in bilateral upper and lower extremities proximal to distal. No sensory deficits. HEENT: Face is symmetric. Pupils are equal and reactive. Extraocular movements are intact. NECK: Supple. No JVD. No thyromegaly. No submental, submandibular, pre- /postauricular, occipital or supraclavicular lymphadenopathy. CHEST: Normal chest expansion. No Telemetry. LUNGS: Absence of any rales, rhonchi or any wheezing. CARDIOVASCULAR: Regular. S1 and S2 normal. No appreciable rubs, murmurs or gallops. ABDOMEN: Soft, nontender, and nondistended. There is no rebound, voluntary guarding, or rigidity. : Deferred. No Martel. EXTREMITIES: Non-edematous and not cyanotic. No clubbing. Good capillary refill. SKIN: left anterior foot with purple discoloration ,left foot swollen and erythema with some necrosis on wound ulcer in between 3rd and 4th toe Vital Signs (last 8hr) Date Time Temp Pulse Resp B/P (MAP) Pulse Ox O2 Delivery O2 Flow Rate FiO2 12/29/23 08:00 99.0 99 18 159/74 96 Room Air 12/29/23 04:11 99.1 104 18 159/71 96 Room Air 12/29/23 02:00 100 Room Air* 0 21 12/29/23 01:57 98.6 109 18 161/87 99 Room Air LABS: Laboratory: Test 12/29/23 05:53 12/29/23 05:31 12/28/23 07:00 12/27/23 15:45 Range/Units Vancomycin Level Trough 13.8 10.0-20.0 UG/ML Whole Blood Glucose 174 H 70-110 MG/DL White Blood Count 9.8 4.8-10.8 K/uL Red Blood Count 2.87 L 4.00-5.50 MIL/uL Hemoglobin 8.9 L 12.0-16.0 g/dL Hematocrit 27.4 L 36-48 % Mean Corpuscular Volume 95.5 79-99 fL Mean Corpuscular Hemoglobin 31.0 27.0-33.0 pg Mean Corpuscular Hemoglobin Concent 32.5 32.0-36.0 g/dL Red Cell Distribution Width 12.6 11.0-15.5 % Platelet Count 330 130-400 K/uL Mean Platelet Volume 9.3 7.5-10.5 fL Immature Granulocyte % (Auto) 0.6 0-1 % Neutrophils (%) (Auto) 85.0 H 40.0-77.0 % Lymphocytes (%) (Auto) 9.4 L 21.0-51.0 % Monocytes (%) (Auto) 4.3 3.0-13.0 % Eosinophils (%) (Auto) 0.3 0.0-8.0 % Basophils (%) (Auto) 0.4 0.0-5.0 % Neutrophils # (Auto) 8.3 H 1.8-7.7 K/uL Lymphocytes # (Auto) 0.9 L 1.0-4.8 K/uL Monocytes # (Auto) 0.4 0.1-1.0 K/uL Eosinophils # (Auto) 0.03 0.00-0.70 K/uL Basophils # (Auto) 0.04 0.00-0.20 K/uL Absolute Immature Granulocyte (auto 0.06 0-1 K/uL Nucleated Red Blood Cells 0.0 0.0-0.19 % White Cell Morphology Comment See comments Prothrombin Time 10.8 9.6-11.6 SEC Prothromb Time International Ratio 1.00 0.85-1.15 Activated Partial Thromboplast Time 24.5 L 26.3-35.5 SEC Sodium Level 142 136-145 mmol/L Potassium Level 4.8 3.5-5.1 mmol/L Chloride Level 107 101-111 mmol/L Carbon Dioxide Level 25 21-32 mmol/L Blood Urea Nitrogen 22 H 7-18 mg/dL Creatinine 0.9 0.5-1.0 mg/dL Glomerular Filtration Rate Calc 69 >90 mL/min Random Glucose 235 H 70-105 mg/dL Total Calcium 8.4 L 8.5-10.1 mg/dL Magnesium Level 1.60 L 1.80-2.40 mg/dL Total Bilirubin 0.3 0.2-1.0 mg/dL Aspartate Amino Transf (AST/SGOT) 13 10-37 U/L Alanine Aminotransferase (ALT/SGPT) 12 12-78 U/L Alkaline Phosphatase 67 50-136 U/L Total Protein 6.5 6.0-8.3 g/dL Albumin 3.0 L 3.5-5.0 g/dL Erythrocyte Sedimentation Rate 55 H 0-30 MM/HR Current Medications Medications (Trade) Dose Ordered Sig/Reji Route PRN Reason Start Time Stop Time Status Last Admin Dose Admin Acetaminophen (TYLenol 325MG TAB) 650 mg Q4H PRN PO MILD PAIN (1-3) 12/27/23 19:30 01/26/24 19:29 Acetaminophen (TYLenol 325MG TAB) 650 mg Q6H PRN PO TEMPERATURE GREATER THAN 101.5 12/27/23 19:30 01/26/24 19:29 Acetaminophen/ Hydrocodone Bitart (NORco 5/325MG) 1 tab Q4H PRN PO MODERATE PAIN (4-6) 12/27/23 19:30 01/01/24 19:29 12/28/23 18:56 1 TAB Dextrose (D50w) 50 ml AD PRN IV HYPOGLYCEMIA PROTOCOL 12/27/23 19:30 01/26/24 19:29 Enoxaparin Sodium (Lovenox) 30 mg DAILY SQ 12/28/23 09:00 01/27/24 08:59 12/29/23 08:32 30 MG Famotidine (Pepcid 20mg Tab) 20 mg BID PO 12/27/23 21:00 01/26/24 20:59 12/29/23 08:32 20 MG Glucagon (Glucagon 1mg Kit) 1 mg AD PRN IM HYPOGLYCEMIA PROTOCOL 12/27/23 19:30 01/26/24 19:29 Hydralazine HCl (APRESOLine 20MG INJ) 10 mg Q6H PRN IV For:SBP above 160;DBP above 90 12/27/23 19:30 01/26/24 19:29 12/28/23 20:56 10 MG Insulin Human Regular (humuLIN R 100 UNIT/ML 3ML) INSULIN SLIDING SCAL... ACHS SQ 12/27/23 21:00 01/26/24 20:59 12/28/23 20:40 2 UNIT Magnesium Sulfate 50 ml @ 0 mls/hr PROTOCOL PRN IV OTHER [SEE ORDER COMMENTS] 12/27/23 19:30 01/26/24 19:29 Morphine Sulfate (morPHINE 2MG SYG) 2 mg Q4H PRN IV MODERATE PAIN (7-10) 12/27/23 19:30 01/03/24 19:29 12/27/23 21:01 2 MG Ondansetron HCl (zoFRAN 4MG INJ) 4 mg Q6H PRN IV NAUSEA/VOMITING 12/27/23 19:30 01/26/24 19:29 12/28/23 05:36 4 MG Piperacillin Sod/ Tazobactam Sod (Zosyn 3.375gm+NS 50ml) 3.375 gm Q8H IV 12/28/23 02:00 01/18/24 01:59 12/29/23 08:32 3.375 GM Potassium Chloride 100 ml @ 100 mls/hr AD PRN IV POTASSIUM PROTOCOL 12/27/23 19:30 01/26/24 19:29 Potassium Chloride (K-Dur/Klor-Con 20meq) 20 meq AD PRN PO POTASSIUM PROTOCOL 12/27/23 19:30 01/26/24 19:29 Potassium Chloride (KCl 10% Elixir 20meq/15ml) 20 meq AD PRN PO POTASSIUM PROTOCOL 12/27/23 19:30 01/26/24 19:29 Vancomycin HCl (Vancomycin 750mg) 750 mg Q12H IVPB 12/28/23 06:00 01/07/24 05:59 12/29/23 07:14 750 MG Vancomycin HCl (Vancomycin Protocol) 1 each AD IV 12/27/23 18:00 12/27/23 19:20 DC Vancomycin HCl (Vancomycin Protocol) 1 each AD IV 12/27/23 19:30 01/10/24 19:29 DIAGNOSTICS / RADIOLOGY: [ ] ASSESSMENT: Severe left foot pain POA Left foot cellulitis POA Suspected Left foot osteomyelitis POA left lower extremity Peripheral arterial disease POA Recent peripheral angioplasty of Left lower extremity on DAPT POA Uncontrolled diabetes POA Hypertension POA Anemia POA POA Hyperlipidemia POA History of left lower extremity DVT PLAN: We will downgrade to medical We will start on heart healthy and consistent carb diet We will continue Zosyn IV and vancomycin IV for broad-spectrum coverage We will apply nitro paste 0.5 mg topical x1 now We will start on Lovenox 30 mg subQ daily We will start on Famotidine 20 mg p.o. bid for GI prophylaxis We will replace electrolytes as needed per protocol We will start on insulin sliding scale AC & HS with hypoglycemia protocol We will add prn medication for fever,pain, nausea and vomiting We will reconcile home meds once medlist available We will seek podiatry consultation We will request labs in am Further orders to follow depending on above results We will consult Infectious Disease Case discussed with attending physician and came up with above treatment and plan of care. ATTESTATION BY PHYSICIAN I have seen and examined the patient. I reviewed the documentation, medical decision making, and treatment plan as noted by the mid-level provider above. I agree with the findings and plan of care. HEMAL MENESES MD, [facility] Dec 29, 2023 08:55
[2023-12-29] MEDS ORDERED: IOHEXOL-350 50ML VIAL IV ONE (09:52)
[2023-12-29] MEDS ORDERED: IOHEXOL 350 MG/ML 100ML INFUS..BTL IV ONE (09:52)
[2023-12-29 10:06] LABS: HEMATOCRIT 28.3 % (36-48); MEAN CORPUSCULAR HEMOGLOBIN 30.3 pg (27.0-33.0); MEAN CORPUSCULAR HGB CONC 32.2 g/dL (32.0-36.0); MEAN CORPUSCULAR VOLUME 94.3 fL (79-99); RED CELL DISTRIBUTION WIDTH 12.7 % (11.0-15.5); WHITE BLOOD COUNT (AUTO) 6.9 K/uL (4.8-10.8)
[2023-12-29 10:41] LABS: BILIRUBIN,TOTAL 0.2 mg/dL (0.2-1.0); CREATININE 0.8 mg/dL (0.5-1.0); MAGNESIUM 1.7 mg/dL (1.80-2.40); POTASSIUM 3.7 mmol/L (3.5-5.1); TOTAL PROTEIN, SERUM 6.7 g/dL (6.0-8.3)
--- NOTE | 2023-12-29 12:06 | PN ---
INFECTIOUS DISEASE PROGRESS NOTE Date of Service: Dec 29, 2023 SUBJECTIVE: This 68-year-old female patient who was admitted for severe left foot pain. Patient had a left foot MRI done which showed findings suspicious for osteomyelitis involving the third and fourth toes. No fever, temperature is 9 9.0. Patient continues on vancomycin and Zosyn. Patient is scheduled for an CT angio with abdominal runoff. We will continue to follow patient's care. PHYSICAL EXAM EYES: Anicteric. Pupils equal and reactive. HENT: No oral thrush seen, moist Oral mucosa NECK: Supple, no JVD or thyromegaly. LUNGS: Good air entry. No rales, no rhonchi. CARDIOVASCULAR: S1, S2 regular. No murmur heard. ABDOMEN: Soft, non tender, bowel sounds present, no organomegaly CENTRAL NERVOUS SYSTEM: Awake, alert, oriented x 3. SKIN: No rashes, no swelling. LYMPHATICS: No peripheral lymphadenopathy MUSCULOSKELETAL: No joint swelling, erythema or tenderness. EXTREMITIES: No cyanosis or clubbing BACK: No deformity, no pressure ulcer. GENITOURINARY: No dysuria or hematuria Vital Sign (Last 12 Hours) 12/29/23 12/29/23 12/29/23 12/29/23 00:42 01:57 02:00 04:11 Temp 99.5 98.6 99.1 Pulse 104 109 104 Resp 18 18 18 B/P (MAP) 143/60 161/87 159/71 Pulse Ox 100 99 100 96 O2 Delivery Room Air* Room Air Room Air* Room Air O2 Flow Rate 0 0 FiO2 12/29/23 08:00 Temp 99.0 Pulse 99 Resp 18 B/P (MAP) 159/74 Pulse Ox 96 O2 Delivery Room Air LABS: Laboratory: Test 12/29/23 11:12 12/29/23 05:53 12/28/23 07:00 12/27/23 15:45 Range/Units Whole Blood Glucose 248 H 70-110 MG/DL White Blood Count 6.9 # 4.8-10.8 K/uL Red Blood Count 3.00 L 4.00-5.50 MIL/uL Hemoglobin 9.1 L 12.0-16.0 g/dL Hematocrit 28.3 L 36-48 % Mean Corpuscular Volume 94.3 79-99 fL Mean Corpuscular Hemoglobin 30.3 27.0-33.0 pg Mean Corpuscular Hemoglobin Concent 32.2 32.0-36.0 g/dL Red Cell Distribution Width 12.7 11.0-15.5 % Platelet Count 367 130-400 K/uL Mean Platelet Volume 9.4 7.5-10.5 fL Nucleated Red Blood Cells 0.0 0.0-0.19 % Sodium Level 153 H 136-145 mmol/L Potassium Level 3.7 3.5-5.1 mmol/L Chloride Level 114 H 101-111 mmol/L Carbon Dioxide Level 22 21-32 mmol/L Blood Urea Nitrogen 16 7-18 mg/dL Creatinine 0.8 0.5-1.0 mg/dL Glomerular Filtration Rate Calc 79 >90 mL/min Random Glucose 181 H 70-105 mg/dL Total Calcium 9.0 8.5-10.1 mg/dL Magnesium Level 1.70 L 1.80-2.40 mg/dL Total Bilirubin 0.2 # 0.2-1.0 mg/dL Aspartate Amino Transf (AST/SGOT) 13 10-37 U/L Alanine Aminotransferase (ALT/SGPT) 12 12-78 U/L Alkaline Phosphatase 67 50-136 U/L Total Protein 6.7 6.0-8.3 g/dL Albumin 3.0 L 3.5-5.0 g/dL Vancomycin Level Trough 13.8 10.0-20.0 UG/ML Immature Granulocyte % (Auto) 0.6 0-1 % Neutrophils (%) (Auto) 85.0 H 40.0-77.0 % Lymphocytes (%) (Auto) 9.4 L 21.0-51.0 % Monocytes (%) (Auto) 4.3 3.0-13.0 % Eosinophils (%) (Auto) 0.3 0.0-8.0 % Basophils (%) (Auto) 0.4 0.0-5.0 % Neutrophils # (Auto) 8.3 H 1.8-7.7 K/uL Lymphocytes # (Auto) 0.9 L 1.0-4.8 K/uL Monocytes # (Auto) 0.4 0.1-1.0 K/uL Eosinophils # (Auto) 0.03 0.00-0.70 K/uL Basophils # (Auto) 0.04 0.00-0.20 K/uL Absolute Immature Granulocyte (auto 0.06 0-1 K/uL White Cell Morphology Comment See comments Prothrombin Time 10.8 9.6-11.6 SEC Prothromb Time International Ratio 1.00 0.85-1.15 Activated Partial Thromboplast Time 24.5 L 26.3-35.5 SEC Erythrocyte Sedimentation Rate 55 H 0-30 MM/HR ASSESSMENT: Left foot osteomyelitis. Diabetic foot ulcer. Peripheral vascular disease. Diabetes mellitus. PLAN: Continue Zosyn. Continue vancomycin per pharmacy protocol. Continue GI prophylaxis. Continue monitoring glucose levels. We will monitor and replace electrolytes. This case was reviewed and discussed with my supervising physician and the above assessment and plan was formulated and agreed upon. ATTESTATION BY PHYSICIAN I have seen and examined the patient. I reviewed the documentation, medical decision making, and treatment plan as noted by the mid-level provider above. I agree with the findings and plan of care. IVAN LOCO MD, [facility] Dec 29, 2023 12:06
--- NOTE | 2023-12-29 12:25 | HMCIMG ---
MR FOOT LEFT WO HISTORY: Wound COMPARISON: None TECHNIQUE: MRI of the left foot was performed utilizing multiple pulse sequences in axial, coronal and sagittal planes. Patient was not given contrast through intravenous route. FINDINGS: Abnormal increased signal intensity is seen involving the third and fourth toes may be related to osteomyelitis. Adjacent cellulitis changes are seen. No evidence of fracture or dislocation is seen. Degenerative changes are seen. IMPRESSION: 1. Findings suspicious for osteomyelitis involving the third and fourth toes. Clinical correlation is recommended.
--- NOTE | 2023-12-29 12:48 | HMCIMG ---
CT ANGIO ABD AORTA W RUNOFF HISTORY: Left foot erythema COMPARISON: 09/23/2018 TECHNIQUE: CT angiography of the abdomen and pelvis and bilateral lower extremities was obtained using angiographic technique with maximum intensity projection reconstruction images. Patient was 125 cc of Omnipaque through intravenous route. Oral contrast was not given. FINDINGS: No pleural effusion is seen bilaterally. Tiny left lower lobe pulmonary nodules are seen with the largest measuring 7.8 mm. 6 month follow-up study is recommended. Degenerative changes of the thoracolumbar spine are present. The heart is not enlarged. Liver measures 17 cm. There is fluid-filled colon may be related to enterocolitis. The liver, spleen, adrenal glands and pancreas are unremarkable. There is no evidence of hydronephrosis bilaterally. No evidence of renal stone is seen. Fecal material is seen in the colon. There are normal size retroperitoneal and mesenteric lymph nodes. No ascites is seen. Atherosclerotic changes are present. There is diffuse atherosclerotic disease. No evidence of abdominal aortic aneurysm is seen. The celiac, superior mesenteric and bilateral renal arteries are grossly patent. The visualized portion of the iliac arterial systems are also grossly patent. The study is limited due to extensive vascular calcifications. Multiple short segment high-grade stenosis are seen throughout the right superficial femoral artery. There are occlusions of left anterior tibial and bilateral posterior tibial arteries. There is also occlusion of the right anterior tibial artery at mid calf level. There may be reconstitution of the posterior tibial arteries near the distal calf level. Pelvic sidewalls are symmetric bilaterally. Bladder is well distended without wall thickening. IMPRESSION: 1. The study is limited due to extensive vascular calcifications. Extensive atherosclerotic changes are seen. Multiple short segment high-grade stenosis are seen throughout the right superficial femoral artery. There are occlusions of left anterior tibial and bilateral posterior tibial arteries. There is also occlusion of the right anterior tibial artery at mid calf level. There may be reconstitution of the posterior tibial arteries near the distal calf level. CT was performed with one or more following dose reduction techniques: automated exposure control, adjustment of the mA and kv according to patient's size, or use of a iterative reconstruction technique.
--- NOTE | 2023-12-29 12:51 | NUR ---
Nutrition consult per poor appetite Reviewed labs, notes, and medications. Pt with N/V POA, on 60 gm cho, iv abx, sedated, insulin, hypernatremia 153, hyperchloride 114, hyperglycemia 248, hypomagnesemia 1.70 per chart review. Pt with ulcers in toes, 25 %PO intake, wt via bed scale, last BM 12/28/23, mild muscle and fat loss, no edema, inadequate nutrition per nursing. Pt with non-severe PCM, Supplement thiamin 100 mg/day for 5-7 days + MVI QD for at least 10 days. Poor appetite may be due to pain. Recommendations: -Provide 60 gm cho + prostat jello tid w/ trays -Monitor PO intake -Encourage PO intake as able -If poor PO intake continues consider appetite stimulant -Monitor BM -If no BM >3 days consider stool softener -Monitor electrolytes -Replenish electrolytes per protocol -Monitor wts -Reweigh as able -Order Vit D, vit b-12 labs to rule out deficiencies -Order lipid panel, A1C -Provide b-complex + vit. C supplement to aid in wound healing -Recommend Pt to follow up with PCP -Monitor goals of care RD to follow + available for consult per protocol Addendum: 12/29/23 at [address] Amended: Links added.
[2023-12-29 13:46] LABS: HEMOGLOBIN A1C 10.9 % (4.0-6.0)
[2023-12-29] MEDS: MAGNESIUM 2GM PREMIX 50ML 50 ML IV PRN (13:51)
[2023-12-29] MEDS: PoTASSium chl 10% ELIXIR 20MEQ 20 MEQ/15 ML UDCUP PO PRN (13:51)
[2023-12-29 13:59] LABS: CHOLESTEROL 143 mg/dL (<200); HDL CHOLESTEROL 32 mg/dL (35-85); LDL DIRECT 80 mg/dL (0-99); TRIGLYCERIDES 161 mg/dL (30-200)
[2023-12-29] MEDS ORDERED: MAGNESIUM 2GM PREMIX 50ML 50 ML IV SCH (14:30)
--- NOTE | 2023-12-29 19:34 | PN ---
PROGRESS NOTE Date of Service: Dec 29, 2023 Time of Service: 19:32 SUBJECTIVE: 68 years old female was seen for follow up status post angioplasty follow up on ulcer to the 3rd and 4th toe left foot chief complaint of pain. REVIEW OF SYSTEMS CONSTITUTIONAL: Denies fever, chills, or fatigue. HEAD/FACE: No signs of trauma. EENT: Denies eye pain, blurred vision, double vision, or light sensitivity. RESPIRATORY: Denies shortness of breath, cough, wheezing CARDIOVASCULAR: Denies chest pain, palpitation, syncope GASTROINTESTINAL/ABDOMINAL: Denies abdominal pain, constipation, diarrhea, nausea or vomiting GENITOURINARY: Denies dysuria or hematuria. MUSCULOSKELETAL: Denies joint pain, tenderness, or trauma. INTEGUMENTARY: Ulceration 3rd and 4th toe left foot with cellulitis of the left foot. NEUROLOGICAL/PSYCH: Denies anxiety, depression, heat or cold intolerance. PHYSICAL EXAM EYES: Anicteric. Pupils equal and reactive. HENT: No oral thrush seen, moist Oral mucosa NECK: Supple, no JVD or thyromegaly. LUNGS: Good air entry. No rales, no rhonchi. CARDIOVASCULAR: S1, S2 regular. No murmur heard. Small-vessel disease. Left lower extremity ABDOMEN: Soft, non tender, bowel sounds present, no organomegaly CENTRAL NERVOUS SYSTEM: Awake, alert, oriented x 3. No focal deficits. SKIN: Ulcer 3rd toe and 4th toe left foot edema and cellulitis. LYMPHATICS: No peripheral lymphadenopathy MUSCULOSKELETAL: No joint swelling, erythema or tenderness. EXTREMITIES: Ulceration 3rd and 4th toe left foot with cellulitis. BACK: No deformity, no pressure ulcer. GENITOURINARY: No dysuria or hematuria Vital Signs (last 8hr) Date Time Temp Pulse Resp B/P (MAP) Pulse Ox O2 Delivery O2 Flow Rate FiO2 12/29/23 12:00 98.4 111 18 163/78 98 Room Air LABS: Laboratory: Test 12/29/23 19:24 12/29/23 05:53 12/28/23 07:00 Range/Units Whole Blood Glucose 233 H 70-110 MG/DL White Blood Count 6.9 # 4.8-10.8 K/uL Red Blood Count 3.00 L 4.00-5.50 MIL/uL Hemoglobin 9.1 L 12.0-16.0 g/dL Hematocrit 28.3 L 36-48 % Mean Corpuscular Volume 94.3 79-99 fL Mean Corpuscular Hemoglobin 30.3 27.0-33.0 pg Mean Corpuscular Hemoglobin Concent 32.2 32.0-36.0 g/dL Red Cell Distribution Width 12.7 11.0-15.5 % Platelet Count 367 130-400 K/uL Mean Platelet Volume 9.4 7.5-10.5 fL Nucleated Red Blood Cells 0.0 0.0-0.19 % Sodium Level 153 H 136-145 mmol/L Potassium Level 3.7 3.5-5.1 mmol/L Chloride Level 114 H 101-111 mmol/L Carbon Dioxide Level 22 21-32 mmol/L Blood Urea Nitrogen 16 7-18 mg/dL Creatinine 0.8 0.5-1.0 mg/dL Glomerular Filtration Rate Calc 79 >90 mL/min Random Glucose 181 H 70-105 mg/dL Hemoglobin A1c 10.9 H 4.0-6.0 % Estimated Average Glucose (eAG) 266 H 70-126 mg/dL Total Calcium 9.0 8.5-10.1 mg/dL Magnesium Level 1.70 L 1.80-2.40 mg/dL Total Bilirubin 0.2 # 0.2-1.0 mg/dL Aspartate Amino Transf (AST/SGOT) 13 10-37 U/L Alanine Aminotransferase (ALT/SGPT) 12 12-78 U/L Alkaline Phosphatase 67 50-136 U/L Total Protein 6.7 6.0-8.3 g/dL Albumin 3.0 L 3.5-5.0 g/dL Triglycerides Level 161 30-200 mg/dL Cholesterol Level 143 <200 mg/dL LDL Cholesterol 80 0-99 mg/dL HDL Cholesterol 32 L 35-85 mg/dL Vitamin B12 Level 2251 H 193-986 pg/mL Vancomycin Level Trough 13.8 10.0-20.0 UG/ML Immature Granulocyte % (Auto) 0.6 0-1 % Neutrophils (%) (Auto) 85.0 H 40.0-77.0 % Lymphocytes (%) (Auto) 9.4 L 21.0-51.0 % Monocytes (%) (Auto) 4.3 3.0-13.0 % Eosinophils (%) (Auto) 0.3 0.0-8.0 % Basophils (%) (Auto) 0.4 0.0-5.0 % Neutrophils # (Auto) 8.3 H 1.8-7.7 K/uL Lymphocytes # (Auto) 0.9 L 1.0-4.8 K/uL Monocytes # (Auto) 0.4 0.1-1.0 K/uL Eosinophils # (Auto) 0.03 0.00-0.70 K/uL Basophils # (Auto) 0.04 0.00-0.20 K/uL Absolute Immature Granulocyte (auto 0.06 0-1 K/uL White Cell Morphology Comment See comments Prothrombin Time 10.8 9.6-11.6 SEC Prothromb Time International Ratio 1.00 0.85-1.15 Activated Partial Thromboplast Time 24.5 L 26.3-35.5 SEC DIAGNOSTICS / RADIOLOGY: [ ] FOOT COMP 3+VWS LT HISTORY: Foot lesion COMPARISON: None TECHNIQUE: 3 images of left foot were obtained. FINDINGS: There is no acute displaced fracture or dislocation. There is soft tissue swelling. Vascular calcifications are seen. Degenerative changes are seen. IMPRESSION: 1. Findings as described above. Arterial Ultrasound left On the left, the peak systolic velocity of the common femoral artery is 180 cm/s, the proximal femoral artery is 112 cm/s, the mid femoral artery is 67 cm/s, the distal femoral artery is 76 cm/s, the proximal popliteal artery is 147 cm/s, the distal popliteal artery is 130 cm/s, the anterior tibial artery is 127 cm/s, the posterior tibial artery artery is 86 cm/s,and the dorsalis pedal artery is 95 cm/s. ASSESSMENT: Diabetic foot ulcer 3rd and 4th toe left foot diabetic foot infection. PLAN: Continue IV antibiotics therapy pain management Iodosorb for wound care this to be done on the daily basis we will monitor her progress if pain continues and continues to be unbearable for the patient we will review the possibility of amputation of the 3rd toe which was noted to be the most affected one we will monitor her progress on in the stay here in the hospital. The prognosis is guarded secondary to small-vessel disease. ONESIMO SAUCEDO DPM Dec 29, 2023 19:34
[2023-12-29] MEDS: IODOSORB GEL 40GM TP ONE (21:12)
[2023-12-30] VITALS (9 sets, daily range): BP systolic 141–170; BP diastolic 70–91; PULSE 74–108; RESP 17–19; TEMP 97.8–99.3; O2SAT 99
[2023-12-30 05:29] LABS: HEMATOCRIT 27.4 % (36-48); MEAN CORPUSCULAR HEMOGLOBIN 30.4 pg (27.0-33.0); MEAN CORPUSCULAR HGB CONC 32.5 g/dL (32.0-36.0); MEAN CORPUSCULAR VOLUME 93.5 fL (79-99); RED BLOOD CELL COUNT(AUTO) 2.93 MIL/uL (4.00-5.50); RED CELL DISTRIBUTION WIDTH 12.2 % (11.0-15.5); WHITE BLOOD COUNT (AUTO) 8.1 K/uL (4.8-10.8)
[2023-12-30 05:38] LABS: CREATININE 0.6 mg/dL (0.5-1.0); POTASSIUM 3.2 mmol/L (3.5-5.1)
[2023-12-30] MEDS: TICAGrelor 90 MG TABLET PO SCH (08:58)
[2023-12-30] MEDS: ASPIRIN 81MG CHEW TAB PO SCH (08:59)
[2023-12-30] MEDS: PoTASSium chloRIDE 20MEQ ER 20 MEQ ERTAB PO ONE (09:00)
[2023-12-30] MEDS: LISINOPRIL 10 MG TABLET PO SCH (09:01)
[2023-12-30] MEDS: CYANOCOBALAMIN (VITAMIN B-12) 1,000 MCG TABLET PO SCH (09:01)
[2023-12-30] MEDS: FOLic ACID 1 MG TABLET PO SCH (09:01)
--- NOTE | 2023-12-30 13:20 | NUR ---
PATIENT VERBALIZED FEELING PAIN ON HER LEFT LEG, #9 IN A SCALE OF 1-10 (BEING MILD PAIN TO 10 BEING THE WORSE PAIN FELT) PATIENT BLOOD PRESSURE 148/60 MMHG. PATIENT IS ALERT, ORIENTED IN PERSON, TIME AND PLACE. NO SIGNS OF RESPIRATORY DISTRESS NOTED. GAVE MORPHINE 2 MG IV PUSH FOLLOWING HOSPITAL GUIDELINES. NOTIFY MR. ISIDRO COMBS OF RE- ASSESSING PATIENTS PAIN IN 30 MINUTES TO VERIFY MEDICATION EFFECTIVENESS. MR. ISIDRO COMBS VERBALIZED UNDERSTANDING.
--- NOTE | 2023-12-30 14:35 | PN ---
[facility] PROGRESS NOTE Date of Service: Dec 30, 2023 Time of Service: 14:34 SUBJECTIVE: HPI 68-year-old female admitted due to left lower extremity pain, patient had wound ulcer between 3rd and 4th toe of the left foot and some necrosis. Arterial Doppler was done which showed abnormal monophasic arterial waveform seen in the right superficial femoral popliteal bilateral posterior tibial anterior dorsalis pedal arteries. Hyperemic flow is seen in the right dorsalis pedal, left anterior tibial and posterior tibial arteries. There is an occlusion of the right distal superficial femoral artery, high-grade stenosis is suspected in the right common femoral and right proximal superficial femoral artery, high-grade stenosis is also suspected in the right popliteal artery proximally. Dr. Charles has been consulted and recommending cardiovascular consult for vascular assessment. Dr. Mao recommending CT angio to the left foot. Infectious Disease also consulted, we will continue with IV antibiotics. We are pending MRI to rule out osteomyelitis. Otherwise patient has no complaints. Interval History 12/30/23: Lying in bed at the time of evaluation. Alert and oriented and in mild distress. Continues with complaints of right foot pain. Rates the pain as 7/10. Morphine 2mg ordered for adequate pain management. An MRI was done today. Shows findings suspicious for osteomyelitis involving the 3rd and 4th toes. Patient is currently on Vancomycin and Zosyn IV Aorto with runoff CTA shows extensive atherosclerotic changes. Multiple short segment high grade stenosis seen throughout the right superficial femoral artery. There are occlusions of left anterior tibial and bilateral post tibial artery. There is also occlusion of the right anterior tibial artery at mid calf level. Cardiovascular surgeon is on the case. Patient denies any chest pain, shortness of breath, nausea , vomiting or associated symptoms. REVIEW OF SYSTEMS CONSTITUTIONAL: Denies fevers, chills, or night sweats. No unintentional weight loss reported. NEUROLOGICAL: Denies headache, amaurosis fugax, motor weakness, sensory deficit, vertigo/spinning sensation, gait abnormalities, or tremors. ENT: No hearing loss, otalgia, otorrhea, rhinitis, rhinorrhea, hoarseness, or sore throat. CARDIOVASCULAR: Denies any exertional angina, dyspnea on exertion, orthopnea, paroxysmal nocturnal dyspnea, palpitations, life-threatening arrhythmias, claudication. PULMONARY: Denies any shortness of breath, cough, phlegm/sputum, hemoptysis, pleuritic chest pain. SLEEP: Denies morning headaches, daytime somnolence or napping. Denies difficulty falling asleep, staying asleep, waking from sleep. Denies knowledge of snoring. GASTROINTESTINAL: Denies any type of dysphagia to either liquids or solids. Denies pyrosis, early satiety, abdominal pain, diarrhea, constipation, or changes in stool consistency or caliber. Denies coffee-ground emesis, hematemesis, hematochezia, or melanotic stools. GENITOURINARY: Denies frequency, urgency, nocturia, hematuria or incontinence (Storage/Irritative symptoms.) Low urinary stream, straining to void, urinary intermittency or hesitancy, splitting of the voiding stream, terminal dribbling. ENDOCRINOLOGIC: Denies polyuria, polydipsia, polyphagia or heat/cold intolerances. HEMATOLOGIC: Denies thrombophilia/previous clots, or coagulopathy/bleeding disorders. ONCOLOGIC: Denies personal history of malignancy. DERMATOLOGIC: Left anterior foot with ecchymosis and wound on the 3rd and 4th toe Denies rashes or pruritus. PSYCHIATRIC: Denies any suicidal or homicidal ideation. Denies hallucinations. PHYSICAL EXAM GENERAL APPEARANCE: The patient is awake, alert, and oriented, in no acute cardiopulmonary distress. NEUROLOGICAL: Cranial nerves II-XII grossly intact. Motor is 5/5 in bilateral upper and lower extremities proximal to distal. No sensory deficits. HEENT: Face is symmetric. Pupils are equal and reactive. Extraocular movements are intact. NECK: Supple. No JVD. No thyromegaly. No submental, submandibular, pre- /postauricular, occipital or supraclavicular lymphadenopathy. CHEST: Normal chest expansion. No Telemetry. LUNGS: Absence of any rales, rhonchi or any wheezing. CARDIOVASCULAR: Regular. S1 and S2 normal. No appreciable rubs, murmurs or gallops. ABDOMEN: Soft, nontender, and nondistended. There is no rebound, voluntary guarding, or rigidity. : Deferred. No Martel. EXTREMITIES: Non-edematous and not cyanotic. No clubbing. Good capillary refill. SKIN: left anterior foot with purple discoloration ,left foot swollen and erythema with some necrosis and ulcer in between 3rd and 4th toe Vital Signs (last 8hr) Date Time Temp Pulse Resp B/P (MAP) Pulse Ox O2 Delivery O2 Flow Rate FiO2 12/30/23 12:00 99.3 108 18 160/70 98 Room Air 21 12/30/23 08:00 97.9 99 18 141/72 99 Room Air 21 12/30/23 08:00 99 Room Air* 0 21 LABS: Laboratory: Test 12/30/23 11:45 12/30/23 04:44 12/29/23 05:53 Range/Units Whole Blood Glucose 226 H 70-110 MG/DL Bedside Glucose Comment Notified Nurse White Blood Count 8.1 4.8-10.8 K/uL Red Blood Count 2.93 L 4.00-5.50 MIL/uL Hemoglobin 8.9 L 12.0-16.0 g/dL Hematocrit 27.4 L 36-48 % Mean Corpuscular Volume 93.5 79-99 fL Mean Corpuscular Hemoglobin 30.4 27.0-33.0 pg Mean Corpuscular Hemoglobin Concent 32.5 32.0-36.0 g/dL Red Cell Distribution Width 12.2 11.0-15.5 % Platelet Count 364 130-400 K/uL Mean Platelet Volume 9.0 7.5-10.5 fL Nucleated Red Blood Cells 0.0 0.0-0.19 % Sodium Level 145 136-145 mmol/L Potassium Level 3.2 L 3.5-5.1 mmol/L Chloride Level 109 101-111 mmol/L Carbon Dioxide Level 25 21-32 mmol/L Blood Urea Nitrogen 9 7-18 mg/dL Creatinine 0.6 0.5-1.0 mg/dL Glomerular Filtration Rate Calc 97 >90 mL/min Random Glucose 201 H 70-105 mg/dL Total Calcium 8.4 L 8.5-10.1 mg/dL Magnesium Level 1.80 1.80-2.40 mg/dL Hemoglobin A1c 10.9 H 4.0-6.0 % Estimated Average Glucose (eAG) 266 H 70-126 mg/dL Total Bilirubin 0.2 # 0.2-1.0 mg/dL Aspartate Amino Transf (AST/SGOT) 13 10-37 U/L Alanine Aminotransferase (ALT/SGPT) 12 12-78 U/L Alkaline Phosphatase 67 50-136 U/L Total Protein 6.7 6.0-8.3 g/dL Albumin 3.0 L 3.5-5.0 g/dL Triglycerides Level 161 30-200 mg/dL Cholesterol Level 143 <200 mg/dL LDL Cholesterol 80 0-99 mg/dL HDL Cholesterol 32 L 35-85 mg/dL Vitamin B12 Level 2251 H 193-986 pg/mL Vancomycin Level Trough 13.8 10.0-20.0 UG/ML Current Medications Medications (Trade) Dose Ordered Sig/Reji Route PRN Reason Start Time Stop Time Status Last Admin Dose Admin Acetaminophen (TYLenol 325MG TAB) 650 mg Q4H PRN PO MILD PAIN (1-3) 12/27/23 19:30 01/26/24 19:29 Acetaminophen (TYLenol 325MG TAB) 650 mg Q6H PRN PO TEMPERATURE GREATER THAN 101.5 12/27/23 19:30 01/26/24 19:29 Acetaminophen/ Hydrocodone Bitart (NORco 5/325MG) 1 tab Q4H PRN PO MODERATE PAIN (4-6) 12/27/23 19:30 01/01/24 19:29 12/30/23 12:11 1 TAB Aspirin (Aspirin 81mg Chew Tab) 81 mg DAILY PO 12/30/23 09:00 01/29/24 08:59 12/30/23 08:59 81 MG Atorvastatin Calcium (LIPItor 40MG) 40 mg HS PO 12/30/23 21:00 01/29/24 20:59 Dextrose (D50w) 50 ml AD PRN IV HYPOGLYCEMIA PROTOCOL 12/27/23 19:30 01/26/24 19:29 Enoxaparin Sodium (Lovenox) 30 mg DAILY SQ 12/28/23 09:00 01/27/24 08:59 12/30/23 09:04 30 MG Famotidine (Pepcid 20mg Tab) 20 mg BID PO 12/27/23 21:00 01/26/24 20:59 12/30/23 08:59 20 MG Folic Acid (FOLic ACID 1 MG TABLET) 1 mg DAILY PO 12/30/23 09:00 01/29/24 08:59 12/30/23 09:01 1 MG Glucagon (Glucagon 1mg Kit) 1 mg AD PRN IM HYPOGLYCEMIA PROTOCOL 12/27/23 19:30 01/26/24 19:29 Hydralazine HCl (APRESOLine 20MG INJ) 10 mg Q6H PRN IV For:SBP above 160;DBP above 90 12/27/23 19:30 01/26/24 19:29 12/30/23 02:35 10 MG Insulin Human Regular (humuLIN R 100 UNIT/ML 3ML) INSULIN SLIDING SCAL... ACHS SQ 12/27/23 21:00 01/26/24 20:59 12/30/23 12:03 4 UNIT Lisinopril (Prinivil 10mg) 10 mg DAILY PO 12/30/23 09:00 01/29/24 08:59 12/30/23 09:01 10 MG Magnesium Sulfate 50 ml @ 0 mls/hr PROTOCOL IV 12/29/23 14:30 12/29/23 14:10 DC Magnesium Sulfate 50 ml @ 0 mls/hr PROTOCOL PRN IV OTHER [SEE ORDER COMMENTS] 12/27/23 19:30 01/26/24 19:29 12/29/23 13:51 0 MLS/HR Morphine Sulfate (morPHINE 2MG SYG) 2 mg Q4H PRN IV SEVERE PAIN (7-10) 12/27/23 19:30 01/03/24 19:29 12/30/23 13:25 2 MG Ondansetron HCl (zoFRAN 4MG INJ) 4 mg Q6H PRN IV NAUSEA/VOMITING 12/27/23 19:30 01/26/24 19:29 12/28/23 05:36 4 MG Piperacillin Sod/ Tazobactam Sod (Zosyn 3.375gm+NS 50ml) 3.375 gm Q8H IV 12/28/23 02:00 01/18/24 01:59 12/30/23 09:04 3.375 GM Potassium Chloride 100 ml @ 100 mls/hr AD PRN IV POTASSIUM PROTOCOL 12/27/23 19:30 01/26/24 19:29 Potassium Chloride (K-Dur/Klor-Con 20meq) 20 meq AD PRN PO POTASSIUM PROTOCOL 12/27/23 19:30 01/26/24 19:29 Potassium Chloride (KCl 10% Elixir 20meq/15ml) 20 meq AD PRN PO POTASSIUM PROTOCOL 12/27/23 19:30 01/26/24 19:29 12/29/23 13:51 20 MEQ Ticagrelor (BRILinta) 90 mg BID PO 12/30/23 09:00 01/29/24 08:59 12/30/23 08:58 90 MG Vancomycin HCl (Vancomycin 750mg) 750 mg Q12H IVPB 12/28/23 06:00 01/07/24 05:59 12/30/23 05:27 750 MG Vancomycin HCl (Vancomycin Protocol) 1 each AD IV 12/27/23 18:00 12/27/23 19:20 DC Vancomycin HCl (Vancomycin Protocol) 1 each AD IV 12/27/23 19:30 01/10/24 19:29 Vitamin B Complex (Vitamin B-12) 1,000 mcg DAILY PO 12/30/23 09:00 01/29/24 08:59 12/30/23 09:01 1,000 MCG DIAGNOSTICS / RADIOLOGY: ATIENT: JERMAINE TRAYLOR MR#: [id number] : 1955 SEX: F AGE: 68 LOCATION: [facility] ORDER 0850 STATUS: ADM IN REPORT#: [id number] SERVICE 0850 REASON: assess vascular supply of the left foot ORDERING PHYSICIAN: DONG IVERSON PROCEDURE: CTA ABDAOR - CT ANGIO ABD AORTA W RUNOFF CT ANGIO ABD AORTA W RUNOFF HISTORY: Left foot erythema COMPARISON: 09/23/2018 TECHNIQUE: CT angiography of the abdomen and pelvis and bilateral lower extremities was obtained using angiographic technique with maximum intensity projection reconstruction images. Patient was 125 cc of Omnipaque through intravenous route. Oral contrast was not given. FINDINGS: No pleural effusion is seen bilaterally. Tiny left lower lobe pulmonary nodules are seen with the largest measuring 7.8 mm. 6 month follow-up study is recommended. Degenerative changes of the thoracolumbar spine are present. The heart is not enlarged. Liver measures 17 cm. There is fluid-filled colon may be related to enterocolitis. The liver, spleen, adrenal glands and pancreas are unremarkable. There is no evidence of hydronephrosis bilaterally. No evidence of renal stone is seen. Fecal material is seen in the colon. There are normal size retroperitoneal and mesenteric lymph nodes. No ascites is seen. Atherosclerotic changes are present. There is diffuse atherosclerotic disease. No evidence of abdominal aortic aneurysm is seen. The celiac, superior mesenteric and bilateral renal arteries are grossly patent. The visualized portion of the iliac arterial systems are also grossly patent. The study is limited due to extensive vascular calcifications. Multiple short segment high-grade stenosis are seen throughout the right superficial femoral artery. There are occlusions of left anterior tibial and bilateral posterior tibial arteries. There is also occlusion of the right anterior tibial artery at mid calf level. There may be reconstitution of the posterior tibial arteries near the distal calf level. Pelvic sidewalls are symmetric bilaterally. Bladder is well distended without wall thickening. IMPRESSION: 1. The study is limited due to extensive vascular calcifications. Extensive atherosclerotic changes are seen. Multiple short segment high-grade stenosis are seen throughout the right superficial femoral artery. There are occlusions of left anterior tibial and bilateral posterior tibial arteries. There is also occlusion of the right anterior tibial artery at mid calf level. There may be reconstitution of the posterior tibial arteries near the distal calf level. CT was performed with one or more following dose reduction techniques: automated exposure control, adjustment of the mA and kv according to patient's size, or use of a iterative reconstruction technique. DICTATED BY: JESS THOMPSON MD DATE: 12/29/230 ELECTRONICALLY SIGNED BY: JESS THOMPSON MD DATE: 12/29/231247 PATIENT: JERMAINE TRAYLOR MR#: [id number] : 1955 SEX: F AGE: 68 LOCATION: [facility] ORDER 8 STATUS: ADM IN REPORT#: [id number] SERVICE 6 REASON: left 3rd and 4th toe ulcer ORDERING PHYSICIAN: IVAN LOCO MD PROCEDURE: FT LT WO - MR FOOT LEFT WO MR FOOT LEFT WO HISTORY: Wound COMPARISON: None TECHNIQUE: MRI of the left foot was performed utilizing multiple pulse sequences in axial, coronal and sagittal planes. Patient was not given contrast through intravenous route. FINDINGS: Abnormal increased signal intensity is seen involving the third and fourth toes may be related to osteomyelitis. Adjacent cellulitis changes are seen. No evidence of fracture or dislocation is seen. Degenerative changes are seen. IMPRESSION: 1. Findings suspicious for osteomyelitis involving the third and fourth toes. Clinical correlation is recommended. DICTATED BY: JESS THOMPSON MD DATE: 12/29/23 1221 ELECTRONICALLY SIGNED BY: JESS THOMPSON MD DATE: 12/29/23 5295 ASSESSMENT: Severe left foot pain POA Left foot cellulitis POA Suspected Left foot osteomyelitis POA left lower extremity Peripheral arterial disease POA Recent peripheral angioplasty of Left lower extremity on DAPT POA Uncontrolled diabetes POA Hypertension POA Anemia POA POA Hyperlipidemia POA History of left lower extremity DVT PLAN: Severe left foot pain POA Left foot cellulitis POA Left foot osteomyelitis POA *MRI showed findings suspicious for osteomyelitis involving the 3rd and 4th toes *Infectious Disease is on the case. *Continue on Vancomycin IV and Zosyn IV as ordered *Continue with Morphine 2mg IV for adequate pain management *Podiatry consult placed. *Trend temperature , WBC and procalcitonin levels *Follow cultures *De escalate antibiotics use as soon as possible. *Panculture if new onset fever Left lower extremity Peripheral arterial disease POA Recent peripheral angioplasty of Left lower extremity on DAPT POA *Cardiovascular consult ordered. Pending recommendations. *CTA aorto with runoff shows multiple occlusions in the left lower extremity Uncontrolled diabetes POA *Maintain blood glucose between 100-180 at all times *Insulin sliding scale for blood glucose management *Hyperglycemia and hypoglycemia protocols in place Hypertension POA Hyperlipidemia POA *Continue with Lisinopril 10mg po daily as ordered for elevated BP. *Continue with Hydralazine 10mg IV for systolic BP>160 *Continue with Atorvastatin 40mg daily as ordered for hyperlipidemia *Follow hemodynamics. *Vital signs per facility protocol Anemia *Monitor H & H. Keep Hgb > 7 *Transfuse 1 unit of PRBC for Hgb < 7 *Continue on Lovenox 30 mg subQ daily for DVT prphylaxis *Continue on Famotidine 20 mg p.o. bid for GI prophylaxis *Continue prn medication for fever,pain, nausea and vomiting *Labs in the morning. *Case discussed with attending physician and came up with above treatment and plan of care. ATTESTATION BY PHYSICIAN I have seen and examined the patient. I reviewed the documentation, medical decision making, and treatment plan as noted by the resident provider above. I agree with the findings and plan of care. Kameron Ash MD OBI,ILDEFONSO Leiva MD Dec 30, 2023 14:35
--- NOTE | 2023-12-30 16:18 | PN ---
INFECTIOUS DISEASE PROGRESS NOTE Date of Service: Dec 30, 2023 SUBJECTIVE: This 68-year-old female patient who was admitted for severe left foot pain. Patient was seen and examined at bedside in room 320. Patient is awake, alert and oriented x3. Patient continues with low-grade fevers. Had a temperature of 99.7 during the night and is currently 99.3. Left foot is very tender on palpation and there is some cellulitis on the dorsal left foot. Patient underwent a CT angio with aorta runoff with findings of occlusions. Cardiovascular surgeon already on the case and following patient. Patient continues on vancomycin and Zosyn. We will continue to follow patient's care. PHYSICAL EXAM EYES: Anicteric. Pupils equal and reactive. HENT: No oral thrush seen, moist Oral mucosa NECK: Supple, no JVD or thyromegaly. LUNGS: Good air entry. No rales, no rhonchi. CARDIOVASCULAR: S1, S2 regular. No murmur heard. ABDOMEN: Soft, non tender, bowel sounds present, no organomegaly CENTRAL NERVOUS SYSTEM: Awake, alert, oriented x 3. SKIN: No rashes, no swelling. LYMPHATICS: No peripheral lymphadenopathy MUSCULOSKELETAL: No joint swelling, erythema or tenderness. EXTREMITIES: No cyanosis or clubbing BACK: No deformity, no pressure ulcer. GENITOURINARY: No dysuria or hematuria Vital Sign (Last 12 Hours) 12/30/23 12/30/23 12/30/23 08:00 08:00 12:00 Temp 97.9 99.3 Pulse 99 108 Resp 18 18 B/P (MAP) 141/72 160/70 Pulse Ox 99 99 98 O2 Delivery Room Air* Room Air Room Air O2 Flow Rate 0 FiO2 LABS: Laboratory: Test 12/30/23 11:45 12/30/23 04:44 12/29/23 05:53 Range/Units Whole Blood Glucose 226 H 70-110 MG/DL Bedside Glucose Comment Notified Nurse White Blood Count 8.1 4.8-10.8 K/uL Red Blood Count 2.93 L 4.00-5.50 MIL/uL Hemoglobin 8.9 L 12.0-16.0 g/dL Hematocrit 27.4 L 36-48 % Mean Corpuscular Volume 93.5 79-99 fL Mean Corpuscular Hemoglobin 30.4 27.0-33.0 pg Mean Corpuscular Hemoglobin Concent 32.5 32.0-36.0 g/dL Red Cell Distribution Width 12.2 11.0-15.5 % Platelet Count 364 130-400 K/uL Mean Platelet Volume 9.0 7.5-10.5 fL Nucleated Red Blood Cells 0.0 0.0-0.19 % Sodium Level 145 136-145 mmol/L Potassium Level 3.2 L 3.5-5.1 mmol/L Chloride Level 109 101-111 mmol/L Carbon Dioxide Level 25 21-32 mmol/L Blood Urea Nitrogen 9 7-18 mg/dL Creatinine 0.6 0.5-1.0 mg/dL Glomerular Filtration Rate Calc 97 >90 mL/min Random Glucose 201 H 70-105 mg/dL Total Calcium 8.4 L 8.5-10.1 mg/dL Magnesium Level 1.80 1.80-2.40 mg/dL Hemoglobin A1c 10.9 H 4.0-6.0 % Estimated Average Glucose (eAG) 266 H 70-126 mg/dL Total Bilirubin 0.2 # 0.2-1.0 mg/dL Aspartate Amino Transf (AST/SGOT) 13 10-37 U/L Alanine Aminotransferase (ALT/SGPT) 12 12-78 U/L Alkaline Phosphatase 67 50-136 U/L Total Protein 6.7 6.0-8.3 g/dL Albumin 3.0 L 3.5-5.0 g/dL Triglycerides Level 161 30-200 mg/dL Cholesterol Level 143 <200 mg/dL LDL Cholesterol 80 0-99 mg/dL HDL Cholesterol 32 L 35-85 mg/dL Vitamin B12 Level 2251 H 193-986 pg/mL Vancomycin Level Trough 13.8 10.0-20.0 UG/ML ASSESSMENT: Left foot osteomyelitis. Diabetic foot ulcer. Left foot cellulitis. Left foot ischemia. Peripheral vascular disease. Diabetes mellitus. Hypokalemia. PLAN: Continue Zosyn. Continue vancomycin per pharmacy protocol. Continue pain management. Continue GI prophylaxis. Wound care as recommended by heater operator. Cardiovascular surgeon evaluated patient on following. Continue monitoring glucose levels. We will monitor and replace electrolytes. This case was reviewed and discussed with my supervising physician and the above assessment and plan was formulated and agreed upon. ATTESTATION BY PHYSICIAN I have seen and examined the patient. I reviewed the documentation, medical decision making, and treatment plan as noted by the mid-level provider above. I agree with the findings and plan of care. IVAN LOCO MD, [facility] Dec 30, 2023 16:18
[2023-12-30] MEDS: PoTASSium chloRIDE 20MEQ ER 20 MEQ ERTAB PO PRN (18:20)
[2023-12-30] MEDS: atorVAStatin 40 MG TABLET PO SCH (20:16)
[2023-12-31] VITALS (8 sets, daily range): BP systolic 133–164; BP diastolic 62–75; PULSE 88–115; RESP 16–19; TEMP 97.7–100.9; O2SAT 98
--- NOTE | 2023-12-31 01:14 | PN ---
SUBJECTIVE: This is a 68-year-old lady admitted with peripheral vascular disease. CT angiogram demonstrates some findings significant for peripheral vascular disease and arterial calcification, but it is difficult to assess the patency of distant vessels. The patient will require appropriate arteriogram prior to decision into endoscopic intervention versus surgical. TID: [id number] RECEIPT: [id number]
[2023-12-31 04:50] LABS: BASOPHILS # (AUTO) 0.03 K/uL (0.00-0.20); BASOPHILS % (AUTO) 0.4 % (0.0-5.0); EOSINOPHILS # (AUTO) 0.15 K/uL (0.00-0.70); EOSINOPHILS % (AUTO) 1.8 % (0.0-8.0); HEMATOCRIT 25.1 % (36-48); IMMATURE GRANULOCYTE ABSOLUTE 0.02 K/uL (0-1); LYMPHOCYTES # (AUTO) 1.5 K/uL (1.0-4.8); LYMPHOCYTES % (AUTO) 17.6 % (21.0-51.0); MEAN CORPUSCULAR HEMOGLOBIN 30.2 pg (27.0-33.0); MEAN CORPUSCULAR HGB CONC 33.1 g/dL (32.0-36.0); MEAN CORPUSCULAR VOLUME 91.3 fL (79-99); MONOCYTES # (AUTO) 0.6 K/uL (0.1-1.0); MONOCYTES % (AUTO) 6.8 % (3.0-13.0); NEUTROPHILS # (AUTO) 6.1 K/uL (1.8-7.7); NEUTROPHILS % (AUTO) 73.2 % (40.0-77.0); PLATELET COUNT (AUTO) 334 K/uL (130-400); RED BLOOD CELL COUNT(AUTO) 2.75 MIL/uL (4.00-5.50); RED CELL DISTRIBUTION WIDTH 12.5 % (11.0-15.5); WHITE BLOOD COUNT (AUTO) 8.3 K/uL (4.8-10.8)
[2023-12-31 05:11] LABS: ALBUMIN 2.5 g/dL (3.5-5.0); BILIRUBIN,TOTAL 0.3 mg/dL (0.2-1.0); CREATININE 0.8 mg/dL (0.5-1.0); MAGNESIUM 1.6 mg/dL (1.80-2.40); POTASSIUM 3.8 mmol/L (3.5-5.1); TOTAL PROTEIN, SERUM 6.1 g/dL (6.0-8.3)
--- NOTE | 2023-12-31 14:02 | PN ---
[facility] PROGRESS NOTE Date of Service: Dec 31, 2023 Time of Service: 13:57 SUBJECTIVE: HPI 68-year-old female admitted due to left lower extremity pain, patient had wound ulcer between 3rd and 4th toe of the left foot and some necrosis. Arterial Doppler was done which showed abnormal monophasic arterial waveform seen in the right superficial femoral popliteal bilateral posterior tibial anterior dorsalis pedal arteries. Hyperemic flow is seen in the right dorsalis pedal, left anterior tibial and posterior tibial arteries. There is an occlusion of the right distal superficial femoral artery, high-grade stenosis is suspected in the right common femoral and right proximal superficial femoral artery, high-grade stenosis is also suspected in the right popliteal artery proximally. Dr. Charles has been consulted and recommending cardiovascular consult for vascular assessment. Dr. Mao recommending CT angio to the left foot. Infectious Disease also consulted, we will continue with IV antibiotics. We are pending MRI to rule out osteomyelitis. Otherwise patient has no complaints. Interval History 12/30/23: Lying in bed at the time of evaluation. Alert and oriented and in mild distress. Continues with complaints of right foot pain. Rates the pain as 7/10. Morphine 2mg ordered for adequate pain management. An MRI was done today. Shows findings suspicious for osteomyelitis involving the 3rd and 4th toes. Patient is currently on Vancomycin and Zosyn IV Aorto with runoff CTA shows extensive atherosclerotic changes. Multiple short segment high grade stenosis seen throughout the right superficial femoral artery. There are occlusions of left anterior tibial and bilateral post tibial artery. There is also occlusion of the right anterior tibial artery at mid calf level. Cardiovascular surgeon is on the case. Patient denies any chest pain, shortness of breath, nausea , vomiting or associated symptoms. 12/31/23 patient evaluated in the room this morning. She is in good spirits. Pain is minimal to the left leg. She is status post CT angio abdominal aorta with runoff that showed extensive vascular calcifications. Extensive atherosclerotic changes seen. Multiple short-segment high-grade stenosis are seen throughout the right superficial femoral artery. There are occlusions of left anterior tibial and bilateral posterior tibial arteries. There is also occlusion of the right anterior tibial artery and mid calf level. There may be reconstitution of posterior tibial arteries near the distal calf level. MRI of the left foot shows suspicious for osteomyelitis-involving 3rd and 4th toes. On physical evaluation, there are necrosis on the 3rd and 4th toe. We will follow up with CV surgeon on further recommendations. Podiatry is recommending amputation, we will await for final recommendations from CV team. REVIEW OF SYSTEMS CONSTITUTIONAL: Denies fevers, chills, or night sweats. No unintentional weight loss reported. NEUROLOGICAL: Denies headache, amaurosis fugax, motor weakness, sensory deficit, vertigo/spinning sensation, gait abnormalities, or tremors. ENT: No hearing loss, otalgia, otorrhea, rhinitis, rhinorrhea, hoarseness, or sore throat. CARDIOVASCULAR: Denies any exertional angina, dyspnea on exertion, orthopnea, paroxysmal nocturnal dyspnea, palpitations, life-threatening arrhythmias, claudication. PULMONARY: Denies any shortness of breath, cough, phlegm/sputum, hemoptysis, pleuritic chest pain. SLEEP: Denies morning headaches, daytime somnolence or napping. Denies difficulty falling asleep, staying asleep, waking from sleep. Denies knowledge of snoring. GASTROINTESTINAL: Denies any type of dysphagia to either liquids or solids. Denies pyrosis, early satiety, abdominal pain, diarrhea, constipation, or changes in stool consistency or caliber. Denies coffee-ground emesis, hematemesis, hematochezia, or melanotic stools. GENITOURINARY: Denies frequency, urgency, nocturia, hematuria or incontinence (Storage/Irritative symptoms.) Low urinary stream, straining to void, urinary intermittency or hesitancy, splitting of the voiding stream, terminal dribbling. ENDOCRINOLOGIC: Denies polyuria, polydipsia, polyphagia or heat/cold intolerances. HEMATOLOGIC: Denies thrombophilia/previous clots, or coagulopathy/bleeding disorders. ONCOLOGIC: Denies personal history of malignancy. DERMATOLOGIC: Left anterior foot with ecchymosis and wound on the 3rd and 4th toe Denies rashes or pruritus. PSYCHIATRIC: Denies any suicidal or homicidal ideation. Denies hallucinations. PHYSICAL EXAM GENERAL APPEARANCE: The patient is awake, alert, and oriented, in no acute cardiopulmonary distress. NEUROLOGICAL: Cranial nerves II-XII grossly intact. Motor is 5/5 in bilateral upper and lower extremities proximal to distal. No sensory deficits. HEENT: Face is symmetric. Pupils are equal and reactive. Extraocular movements are intact. NECK: Supple. No JVD. No thyromegaly. No submental, submandibular, pre- /postauricular, occipital or supraclavicular lymphadenopathy. CHEST: Normal chest expansion. No Telemetry. LUNGS: Absence of any rales, rhonchi or any wheezing. CARDIOVASCULAR: Regular. S1 and S2 normal. No appreciable rubs, murmurs or gallops. ABDOMEN: Soft, nontender, and nondistended. There is no rebound, voluntary guarding, or rigidity. : Deferred. No Martel. EXTREMITIES: Non-edematous and not cyanotic. No clubbing. Good capillary refill. SKIN: left anterior foot with purple discoloration ,left foot swollen and erythema with some necrosis and ulcer in between 3rd and 4th toe Vital Signs (last 8hr) Date Time Temp Pulse Resp B/P (MAP) Pulse Ox O2 Delivery O2 Flow Rate FiO2 12/31/23 12:00 98.2 99 18 164/74 99 Room Air 21 12/31/23 08:00 99.0 88 16 133/62 98 Room Air 21 LABS: Laboratory: Test 12/31/23 11:38 12/31/23 04:38 12/30/23 16:53 12/30/23 04:44 Range/Units Whole Blood Glucose 269 H 70-110 MG/DL Bedside Glucose Comment Notified Nurse White Blood Count 8.3 4.8-10.8 K/uL Red Blood Count 2.75 L 4.00-5.50 MIL/uL Hemoglobin 8.3 L 12.0-16.0 g/dL Hematocrit 25.1 L 36-48 % Mean Corpuscular Volume 91.3 79-99 fL Mean Corpuscular Hemoglobin 30.2 27.0-33.0 pg Mean Corpuscular Hemoglobin Concent 33.1 32.0-36.0 g/dL Red Cell Distribution Width 12.5 11.0-15.5 % Platelet Count 334 130-400 K/uL Mean Platelet Volume 8.7 7.5-10.5 fL Immature Granulocyte % (Auto) 0.2 0-1 % Neutrophils (%) (Auto) 73.2 40.0-77.0 % Lymphocytes (%) (Auto) 17.6 L 21.0-51.0 % Monocytes (%) (Auto) 6.8 3.0-13.0 % Eosinophils (%) (Auto) 1.8 0.0-8.0 % Basophils (%) (Auto) 0.4 0.0-5.0 % Neutrophils # (Auto) 6.1 1.8-7.7 K/uL Lymphocytes # (Auto) 1.5 1.0-4.8 K/uL Monocytes # (Auto) 0.6 0.1-1.0 K/uL Eosinophils # (Auto) 0.15 0.00-0.70 K/uL Basophils # (Auto) 0.03 0.00-0.20 K/uL Absolute Immature Granulocyte (auto 0.02 0-1 K/uL Nucleated Red Blood Cells 0.0 0.0-0.19 % Sodium Level 142 136-145 mmol/L Potassium Level 3.8 3.5-5.1 mmol/L Chloride Level 109 101-111 mmol/L Carbon Dioxide Level 24 21-32 mmol/L Blood Urea Nitrogen 10 7-18 mg/dL Creatinine 0.8 0.5-1.0 mg/dL Glomerular Filtration Rate Calc 79 >90 mL/min Random Glucose 184 H 70-105 mg/dL Total Calcium 8.1 L 8.5-10.1 mg/dL Magnesium Level 1.60 L 1.80-2.40 mg/dL Total Bilirubin 0.3 0.2-1.0 mg/dL Aspartate Amino Transf (AST/SGOT) 14 10-37 U/L Alanine Aminotransferase (ALT/SGPT) 14 12-78 U/L Alkaline Phosphatase 62 50-136 U/L Total Protein 6.1 6.0-8.3 g/dL Albumin 2.5 L 3.5-5.0 g/dL Vancomycin Level Trough 14.5 10.0-20.0 UG/ML Vitamin D 25-Hydroxy 16.1 30.0-100.0 ng/mL Current Medications Medications (Trade) Dose Ordered Sig/Reji Route PRN Reason Start Time Stop Time Status Last Admin Dose Admin Acetaminophen (TYLenol 325MG TAB) 650 mg Q4H PRN PO MILD PAIN (1-3) 12/27/23 19:30 12 19:29 Acetaminophen (TYLenol 325MG TAB) 650 mg Q6H PRN PO TEMPERATURE GREATER THAN 101.5 12/27/23 19:30 01/26/24 19:29 Acetaminophen/ Hydrocodone Bitart (NORco 5/325MG) 1 tab Q4H PRN PO MODERATE PAIN (4-6) 12/27/23 19:30 01/01/24 19:29 12/31/23 01:44 1 TAB Aspirin (Aspirin 81mg Chew Tab) 81 mg DAILY PO 12/30/23 09:00 01/29/24 08:59 12/31/23 08:25 81 MG Atorvastatin Calcium (LIPItor 40MG) 40 mg HS PO 12/30/23 21:00 01/29/24 20:59 12/30/23 20:16 40 MG Dextrose (D50w) 50 ml AD PRN IV HYPOGLYCEMIA PROTOCOL 12/27/23 19:30 01/26/24 19:29 Enoxaparin Sodium (Lovenox) 30 mg DAILY SQ 12/28/23 09:00 01/27/24 08:59 12/31/23 08:25 30 MG Famotidine (Pepcid 20mg Tab) 20 mg BID PO 12/27/23 21:00 01/26/24 20:59 12/31/23 08:24 20 MG Folic Acid (FOLic ACID 1 MG TABLET) 1 mg DAILY PO 12/30/23 09:00 01/29/24 08:59 12/31/23 08:24 1 MG Glucagon (Glucagon 1mg Kit) 1 mg AD PRN IM HYPOGLYCEMIA PROTOCOL 12/27/23 19:30 01/26/24 19:29 Hydralazine HCl (APRESOLine 20MG INJ) 10 mg Q6H PRN IV For:SBP above 160;DBP above 90 12/27/23 19:30 01/26/24 19:29 12/31/23 11:55 10 MG Insulin Human Regular (humuLIN R 100 UNIT/ML 3ML) INSULIN SLIDING SCAL... ACHS SQ 12/27/23 21:00 01/26/24 20:59 12/31/23 12:00 5 UNIT Lisinopril (Prinivil 10mg) 10 mg DAILY PO 12/30/23 09:00 01/29/24 08:59 12/31/23 08:24 10 MG Magnesium Sulfate 50 ml @ 0 mls/hr PROTOCOL IV 12/29/23 14:30 12/29/23 14:10 DC Magnesium Sulfate 50 ml @ 0 mls/hr PROTOCOL PRN IV OTHER [SEE ORDER COMMENTS] 12/27/23 19:30 01/26/24 19:29 12/31/23 05:46 25 MLS/HR Morphine Sulfate (morPHINE 2MG SYG) 2 mg Q4H PRN IV SEVERE PAIN (7-10) 12/27/23 19:30 01/03/24 19:29 12/31/23 13:45 2 MG Ondansetron HCl (zoFRAN 4MG INJ) 4 mg Q6H PRN IV NAUSEA/VOMITING 12/27/23 19:30 01/26/24 19:29 12/31/23 13:45 4 MG Piperacillin Sod/ Tazobactam Sod (Zosyn 3.375gm+NS 50ml) 3.375 gm Q8H IV 12/28/23 02:00 01/18/24 01:59 12/31/23 10:02 3.375 GM Potassium Chloride 100 ml @ 100 mls/hr AD PRN IV POTASSIUM PROTOCOL 12/27/23 19:30 01/26/24 19:29 Potassium Chloride (K-Dur/Klor-Con 20meq) 20 meq AD PRN PO POTASSIUM PROTOCOL 12/27/23 19:30 01/26/24 19:29 12/30/23 18:20 20 MEQ Potassium Chloride (KCl 10% Elixir 20meq/15ml) 20 meq AD PRN PO POTASSIUM PROTOCOL 12/27/23 19:30 01/26/24 19:29 12/29/23 13:51 20 MEQ Ticagrelor (BRILinta) 90 mg BID PO 12/30/23 09:00 01/29/24 08:59 12/31/23 08:24 90 MG Vancomycin HCl (Vancomycin 750mg) 750 mg Q12H IVPB 12/28/23 06:00 01/07/24 05:59 12/31/23 05:37 750 MG Vancomycin HCl (Vancomycin Protocol) 1 each AD IV 12/27/23 18:00 12/27/23 19:20 DC Vancomycin HCl (Vancomycin Protocol) 1 each AD IV 12/27/23 19:30 01/10/24 19:29 Vitamin B Complex (Vitamin B-12) 1,000 mcg DAILY PO 12/30/23 09:00 01/29/24 08:59 12/31/23 08:24 1,000 MCG DIAGNOSTICS / RADIOLOGY: [ ] ASSESSMENT: Severe left foot pain POA Left foot cellulitis POA Suspected Left foot osteomyelitis POA left lower extremity Peripheral arterial disease POA Recent peripheral angioplasty of Left lower extremity on DAPT POA Uncontrolled diabetes POA Hypertension POA Anemia POA POA Hyperlipidemia POA History of left lower extremity DVT PLAN: Severe left foot pain POA Left foot cellulitis POA Left foot osteomyelitis POA *MRI showed findings suspicious for osteomyelitis involving the 3rd and 4th toes *Infectious Disease is on the case. *Continue on Vancomycin IV and Zosyn IV as ordered *Continue with Morphine 2mg IV for adequate pain management *Podiatry consult placed. *Trend temperature , WBC and procalcitonin levels *Follow cultures *De escalate antibiotics use as soon as possible. *Panculture if new onset fever Left lower extremity Peripheral arterial disease POA Recent peripheral angioplasty of Left lower extremity on DAPT POA *Cardiovascular consult ordered. Pending recommendations. *CTA aorto with runoff shows multiple occlusions in the left lower extremity Uncontrolled diabetes POA *Maintain blood glucose between 100-180 at all times *Insulin sliding scale for blood glucose management *Hyperglycemia and hypoglycemia protocols in place Hypertension POA Hyperlipidemia POA *Continue with Lisinopril 10mg po daily as ordered for elevated BP. *Continue with Hydralazine 10mg IV for systolic BP>160 *Continue with Atorvastatin 40mg daily as ordered for hyperlipidemia *Follow hemodynamics. *Vital signs per facility protocol Anemia *Monitor H & H. Keep Hgb > 7 *Transfuse 1 unit of PRBC for Hgb < 7 *Continue on Lovenox 30 mg subQ daily for DVT prphylaxis *Continue on Famotidine 20 mg p.o. bid for GI prophylaxis *Continue prn medication for fever,pain, nausea and vomiting *Labs in the morning. *Case discussed with attending physician and came up with above treatment and plan of care. ATTESTATION BY PHYSICIAN I have seen and examined the patient. I reviewed the documentation, medical decision making, and treatment plan as noted by the mid-level provider above. I agree with the findings and plan of care. Quita Ash MD, [facility] Dec 31, 2023 14:02
[2023-12-31] MEDS ORDERED: LACTULOSE 20 GM/30 ML UDCUP PO PRN (15:30)
[2023-12-31] MEDS: LACTULOSE 20 GM/30 ML UDCUP PO ONE (16:07)
--- NOTE | 2023-12-31 17:04 | CONS ---
[facility] Cardiology Consultation Cardiology consultation note dictated for Panfilo Barboza MD Date/Time of Consultation: December 31, 2023 CHIEF COMPLAINT: Left foot pain with known peripheral arterial disease SOURCE: Dr. Ceballos OUTPATIENT FAST BRIM POUNCER: Dr. Shani Lam OUTPATIENT PRIMARY MD: Dr. Jonathan Selby HPI: The patient is a 68-year-old female with a past medical history of peripheral arterial disease, diabetes mellitus, hypertension, hyperlipidemia, history of left lower extremity DVT. The patient originally was admitted to [facility] 2 weeks ago secondary to left foot pain for the previous 3 weeks. At the time evaluation in the ED she was found to have a glucose of 324 mg/dl and HgB A1c of 12.5. Ultrasound revealed severe stenosis of the mid superficial femoral artery with moderate to marked distal arterial inflow occlusion. Subsequently, the patient was taken to the scientific laboratory supervisor and Dr. Cam treated the superficial femoral with overlapping inflations with a 6 x 60 mm shockwave, using all 300 pulses. A 4 x 60 mm shockwave was used to treat the left popliteal and distal SFA, again using all 300 pulses. A 4 x 80 mm Medtronic impact was used to treat the popliteal and distal SFA. A Medtronic impact 6 x 100 mm DCB was used to treated the superficial femoral. The tibioperoneal and peroneal was treated with over Lapping shockwave treatments with a 3 x 40 mm shockwave balloon, applying to treatments at each location. A 4 x 60 mm impact was used to treat the tibioperoneal/popliteal. The final result being SFA 80-98% segmental stenosis is reduced to 0% residual. Left popliteal segmental 90-98% stenosis is reduced to 10% residual. Left tibioperoneal and proximal peroneal 90-98% stenosis is reduced to 0% residual. Although initial images demonstrated very slow flow through the lower extremity, final images demonstrate brisk flow to the ankle with collaterals into the heel and dorsalis pedis region, but the plantar arch is not well served. There was no achievable direct flow into the foot. The patient was discharged and seen in follow-up through wound care. Unfortunately, the patient continued with significant amount of pain and was recommended to return to the emergency department by her PCP for possible ischemic limb with cellulitis. The patient returned to [facility] for further evaluation and admitted. The patient was noted to have a wound ulcer between the 3rd and 4th toe on the left foot which was red, necrotic and swollen. The left anterior foot was discolored. The patient has been seen by Podiatry, Infectious Disease, and cardiovascular surgery. She was started on IV Zosyn and vancomycin. She is being treated with Iodosorb gel. HgB A1c during this visit is 10.9. A CT angiogram was performed and reported that the study was limited due to extensive vascular calcifications. High-grade stenosis was seen throughout the right superficial femoral artery. There are occlusions of left anterior tibial and bilateral posterior tibial arteries. There is also occlusion of the right anterior tibial artery at mid calf level. There may be reconstitution of the posterior tibial arteries near the distal calf level. Due to this question, cardiology was consulted. REVIEW OF SYSTEMS: Constitutional: Patient denies fever or chills. She has had a weight loss of 9 lb which is unintentional. HEENT: Denies any visual changes, rhinorrhea or sore throat. Respiratory: Denies any cough, cold, congestion, or wheezing. Cardiovascular: Denies any chest pressure, tightness, shortness of breath, palpitations, dizziness, or syncope. GI/: Complains of nausea, denies any vomiting abdominal pain or GI/ bleeding. Musculoskeletal: Complains of severe left foot pain. Neuro: Denies any headaches, seizures, unilateral weakness. Hematological: Denies easy bleeding or bruising. Endocrine: Complains cold intolerance. PAST MEDICAL HISTORY: PID, history left lower extremity DVT, uncontrolled diabetes, hypertension, hyperlipidemia PAST SURGICAL HISTORY: July 27, 2020 left SFA balloon angioplasty, MARBLE CARVER right SFA however with extensive collaterals, appendectomy, x4 FAMILY HISTORY: Hypertension, diabetes, cancer SOCIAL HISTORY: Patient lives with her son. Patient denies smoking tobacco or drinking alcohol. Coded Allergies: No Known Drug Allergies (Unverified Allergy, Unknown, 02/26/17) Active Scripts Ketorolac Tromethamine (Toradol) 10 Mg Tab, 1 TAB PO Q6HPRN PRN for pain for 5 Days, #20 TAB 0 Refills Prov:OPAL FERRERA MD 12/23/23 Acetaminophen (Acetaminophen) 325 Mg Tablet, 1 TAB PO Q4HPRN PRN for pain or fever for 24 Days, #100 TAB 0 Refills Prov:OPAL FERRERA MD 12/23/23 Aspirin (ASPIRIN 81MG CHEW TAB) 81 Mg Tab.chew, 81 MG PO DAILY for 30 Days, #30 TAB.CHEW Prov:OPAL FERRERA MD 12/23/23 Ticagrelor (Brilinta) 90 Mg Tablet, 90 MG PO BID for 30 Days, #60 TAB Prov:OPAL FERRERA MD 12/23/23 Insulin Glargine,Hum.rec.anlog (Lantus) 100 Unit/Ml Inj, 15 UNITS SQ HS, #1 ML Prov:LAWRENCE WILSON I [facility] 04/14/23 Folic Acid (Folvite) 1 Mg Tab, 1 MG PO DAILY, #30 TAB Prov:LAWRENCE WILSON I [facility] 04/14/23 Cyanocobalamin (Vitamin B-12) (Vitamin B-12) 1,000 Mcg Tablet, 1000 MCG PO DAILY, #30 TAB Prov:LAWRENCE WILSON I [facility] 04/14/23 Reported Medications Semaglutide (Ozempic) 1 Mg/0.75 Ml (4 Mg/3 Ml) Pen.injctr, 1 MG SQ QWEEK for 30 Days, #3 ML 0 Refills 12/19/23 [Rumoquin] No Conflict Check, PO AD 12/19/23 Metformin HCl (Metformin HCl ER) 1,000 Mg [id number], 1 TAB PO BID for diabetes for 30 Days, #60 TAB 0 Refills 12/19/23 Insulin Detemir (Levemir) 100 Unit/Ml Vial, 30 UNIT SQ DAILY, VIAL 12/19/23 Lisinopril (Lisinopril) 10 Mg Tablet, 1 TAB PO DAILY 04/14/23 Atorvastatin Calcium (Atorvastatin Calcium) 40 Mg Tablet, 1 TAB PO HS 04/14/23 Metformin HCl (Metformin HCl) 1,000 Mg Tablet, 1000 MG PO BID, TAB 09/24/18 Glipizide (Glipizide) 5 Mg Tablet, 5 MG PO DAILY, TAB 09/24/18 PHYSICAL EXAMINATION: GENERAL: Resting comfortably, in pain to the left foot. HEENT: Atraumatic. Hearing is intact. No facial asymmetry, nasal discharge, icterus or lid lag. NECK: Symmetric. Midline trachea. Bruits noted bilaterally. CARDIOVASCULAR: Rhythm and rate regular. No murmur No edema. Unable to palpate pedal pulses RESPIRATORY: Lungs clear to the bases. No retractions, wheezes or rhonchi. GASTROINTESTINAL: Benign, soft, nontender, nondistended. MUSCULOSKELETAL: No amputations. Range of motion is grossly normal. SKIN: Ulceration between 3rd and 4th left toes with erythema and necrosis NEUROLOGIC: No tremors. Speech is clear. PSYCHIATRY: Alert and oriented x 3. Cooperative and pleasant. Vital Signs (last 8hr) Date Time Temp Pulse Resp B/P (MAP) Pulse Ox O2 Delivery O2 Flow Rate FiO2 12/31/23 12:00 98.2 99 18 164/74 99 Room Air 21 Hematology Labs: Test 12/31/23 04:38 Range/Units White Blood Count 8.3 4.8-10.8 K/uL Red Blood Count 2.75 L 4.00-5.50 MIL/uL Hemoglobin 8.3 L 12.0-16.0 g/dL Hematocrit 25.1 L 36-48 % Mean Corpuscular Volume 91.3 79-99 fL Mean Corpuscular Hemoglobin 30.2 27.0-33.0 pg Mean Corpuscular Hemoglobin Concent 33.1 32.0-36.0 g/dL Red Cell Distribution Width 12.5 11.0-15.5 % Platelet Count 334 130-400 K/uL Mean Platelet Volume 8.7 7.5-10.5 fL Immature Granulocyte % (Auto) 0.2 0-1 % Neutrophils (%) (Auto) 73.2 40.0-77.0 % Lymphocytes (%) (Auto) 17.6 L 21.0-51.0 % Monocytes (%) (Auto) 6.8 3.0-13.0 % Eosinophils (%) (Auto) 1.8 0.0-8.0 % Basophils (%) (Auto) 0.4 0.0-5.0 % Neutrophils # (Auto) 6.1 1.8-7.7 K/uL Lymphocytes # (Auto) 1.5 1.0-4.8 K/uL Monocytes # (Auto) 0.6 0.1-1.0 K/uL Eosinophils # (Auto) 0.15 0.00-0.70 K/uL Basophils # (Auto) 0.03 0.00-0.20 K/uL Absolute Immature Granulocyte (auto 0.02 0-1 K/uL Nucleated Red Blood Cells 0.0 0.0-0.19 % Chemistry Labs: Test 12/31/23 16:48 12/31/23 04:38 12/30/23 04:44 Range/Units Whole Blood Glucose 235 H 70-110 MG/DL Bedside Glucose Comment Notified Nurse Sodium Level 142 136-145 mmol/L Potassium Level 3.8 3.5-5.1 mmol/L Chloride Level 109 101-111 mmol/L Carbon Dioxide Level 24 21-32 mmol/L Blood Urea Nitrogen 10 7-18 mg/dL Creatinine 0.8 0.5-1.0 mg/dL Glomerular Filtration Rate Calc 79 >90 mL/min Random Glucose 184 H 70-105 mg/dL Total Calcium 8.1 L 8.5-10.1 mg/dL Magnesium Level 1.60 L 1.80-2.40 mg/dL Total Bilirubin 0.3 0.2-1.0 mg/dL Aspartate Amino Transf (AST/SGOT) 14 10-37 U/L Alanine Aminotransferase (ALT/SGPT) 14 12-78 U/L Alkaline Phosphatase 62 50-136 U/L Total Protein 6.1 6.0-8.3 g/dL Albumin 2.5 L 3.5-5.0 g/dL Vitamin D 25-Hydroxy 16.1 30.0-100.0 ng/mL Current Medications Medications (Trade) Dose Ordered Sig/Reji Route Start Time Stop Time Status Last Admin Dose Admin Aspirin (Aspirin 81mg Chew Tab) 81 mg DAILY PO 12/30/23 09:00 01/29/24 08:59 12/31/23 08:25 81 MG Atorvastatin Calcium (LIPItor 40MG) 40 mg HS PO 12/30/23 21:00 01/29/24 20:59 12/30/23 20:16 40 MG Enoxaparin Sodium (Lovenox) 30 mg DAILY SQ 12/28/23 09:00 01/27/24 08:59 12/31/23 08:25 30 MG Famotidine (Pepcid 20mg Tab) 20 mg BID PO 12/27/23 21:00 01/26/24 20:59 12/31/23 08:24 20 MG Folic Acid (FOLic ACID 1 MG TABLET) 1 mg DAILY PO 12/30/23 09:00 01/29/24 08:59 12/31/23 08:24 1 MG Insulin Human Regular (humuLIN R 100 UNIT/ML 3ML) INSULIN SLIDING SCAL... ACHS SQ 12/27/23 21:00 01/26/24 20:59 12/31/23 12:00 5 UNIT Lisinopril (Prinivil 10mg) 10 mg DAILY PO 12/30/23 09:00 01/29/24 08:59 12/31/23 08:24 10 MG Magnesium Sulfate 50 ml @ 0 mls/hr PROTOCOL IV 12/29/23 14:30 12/29/23 14:10 DC Piperacillin Sod/ Tazobactam Sod (Zosyn 3.375gm+NS 50ml) 3.375 gm Q8H IV 12/28/23 02:00 01/18/24 01:59 12/31/23 10:02 3.375 GM Ticagrelor (BRILinta) 90 mg BID PO 12/30/23 09:00 01/29/24 08:59 12/31/23 08:24 90 MG Vancomycin HCl (Vancomycin 750mg) 750 mg Q12H IVPB 12/28/23 06:00 01/07/24 05:59 12/31/23 05:37 750 MG Vancomycin HCl (Vancomycin Protocol) 1 each AD IV 12/27/23 18:00 12/27/23 19:20 DC Vancomycin HCl (Vancomycin Protocol) 1 each AD IV 12/27/23 19:30 01/10/24 19:29 Vitamin B Complex (Vitamin B-12) 1,000 mcg DAILY PO 12/30/23 09:00 01/29/24 08:59 12/31/23 08:24 1,000 MCG RADIOLOGY: MRI IMPRESSION: 1. Findings suspicious for osteomyelitis involving the third and fourth toes. Clinical correlation is recommended. CT angiogram IMPRESSION: 1. The study is limited due to extensive vascular calcifications. Extensive atherosclerotic changes are seen. Multiple short segment high-grade stenosis are seen throughout the right superficial femoral artery. There are occlusions of left anterior tibial and bilateral posterior tibial arteries. There is also occlusion of the right anterior tibial artery at mid calf level. There may be reconstitution of the posterior tibial arteries near the distal calf level. ASSESSMENT: 12/22/2023 abdominal aortogram with pelvic runoff, left lower extremity digital subtraction arteriogram and [employer] with shockwave and DCB left superficial femoral, popliteal, tibioperoneal and peroneal. 04/12/2023 History of left lower extremity DVT July 27, 2020 left SFA balloon angioplasty MARBLE CARVER right SFA however with extensive collaterals Severe left foot pain Left foot osteomyelitis Uncontrolled diabetes Hypertension Anemia Hyperlipidemia PLAN: Dr. Barboza has reviewed the study performed by Dr. Cam on 12/22/2023 and based on these findings, further arteriogram is not recommended. Close monitor ing and control of the patient's blood pressure and blood sugar will be necessary should amputation of the left toe be performed. This case has been reviewed with Dr. Barboza. JERALD WASHINGTON Dec 31, 2023 17:04
--- NOTE | 2023-12-31 22:54 | PN ---
INFECTIOUS DISEASE FOLLOWUP NOTE DATE OF SERVICE: 12/31/2023 SUBJECTIVE: The patient is seen and examined at bedside today. The patient has no fever, no chills. No nausea or vomiting. She has pain to the left foot. No bleeding tendency. No rashes or itchiness. No palpitation, no orthopnea. PHYSICAL EXAMINATION:. VITAL SIGNS: Temperature 97.6. EYES: No icterus. Pupils equal and reactive. HENT: No oral thrush seen. Moist oral mucosa. NECK: Supple, no JVD or thyromegaly. LUNGS: Good air entry. No rales, no rhonchi. CARDIOVASCULAR: S1, S2 regular. No murmur heard. ABDOMEN: Full, soft, nontender. Bowel sounds present. CENTRAL NERVOUS SYSTEM: Awake, alert, oriented x 3. No focal deficits. SKIN: No rashes, no itchiness. LYMPHATIC: There is left inguinal lymphadenopathy. BACK: No deformity, no pressure ulcer. EXTREMITIES: Ulcer with gangrene involving the left third and fourth toe. ASSESSMENT: A 68-year-old female with multiple problems, which include: * Left foot osteomyelitis. * Diabetic foot ulcer. * Left foot gangrene. * Cellulitis. * Diabetes mellitus. * Anemia. PLAN: * Continue vancomycin. * Continue Zosyn. * Continue pain management. * Continue wound care. * Continue nutritional support. * Monitor electrolytes. * Continue DVT prophylaxis. * Continue antiplatelet. * Monitor renal function. TID: [id number] RECEIPT: [id number]
[2024-01-01] VITALS (7 sets, daily range): BP systolic 144–170; BP diastolic 64–83; PULSE 91–109; RESP 16–19; TEMP 98.2–100.2; O2SAT 97–98
[2024-01-01 05:00] LABS: HEMATOCRIT 24.3 % (36-48); MEAN CORPUSCULAR HEMOGLOBIN 30.2 pg (27.0-33.0); MEAN CORPUSCULAR HGB CONC 32.9 g/dL (32.0-36.0); MEAN CORPUSCULAR VOLUME 91.7 fL (79-99); RED BLOOD CELL COUNT(AUTO) 2.65 MIL/uL (4.00-5.50); RED CELL DISTRIBUTION WIDTH 12.3 % (11.0-15.5); WHITE BLOOD COUNT (AUTO) 7.8 K/uL (4.8-10.8)
[2024-01-01 05:18] LABS: CREATININE 0.7 mg/dL (0.5-1.0); POTASSIUM 3.5 mmol/L (3.5-5.1)
[2024-01-01] MEDS: INSULIN humuLIN R 100 UNIT/ML 3ML SQ SCH (05:43)
--- NOTE | 2024-01-01 12:00 | PN ---
[facility] PROGRESS NOTE Date of Service: Jan 01, 2024 Time of Service: 11:55 SUBJECTIVE: HPI 68-year-old female admitted due to left lower extremity pain, patient had wound ulcer between 3rd and 4th toe of the left foot and some necrosis. Arterial Doppler was done which showed abnormal monophasic arterial waveform seen in the right superficial femoral popliteal bilateral posterior tibial anterior dorsalis pedal arteries. Hyperemic flow is seen in the right dorsalis pedal, left anterior tibial and posterior tibial arteries. There is an occlusion of the right distal superficial femoral artery, high-grade stenosis is suspected in the right common femoral and right proximal superficial femoral artery, high-grade stenosis is also suspected in the right popliteal artery proximally. Dr. Charles has been consulted and recommending cardiovascular consult for vascular assessment. Dr. Mao recommending CT angio to the left foot. Infectious Disease also consulted, we will continue with IV antibiotics. We are pending MRI to rule out osteomyelitis. Otherwise patient has no complaints. Interval History 12/30/23: Lying in bed at the time of evaluation. Alert and oriented and in mild distress. Continues with complaints of right foot pain. Rates the pain as 7/10. Morphine 2mg ordered for adequate pain management. An MRI was done today. Shows findings suspicious for osteomyelitis involving the 3rd and 4th toes. Patient is currently on Vancomycin and Zosyn IV Aorto with runoff CTA shows extensive atherosclerotic changes. Multiple short segment high grade stenosis seen throughout the right superficial femoral artery. There are occlusions of left anterior tibial and bilateral post tibial artery. There is also occlusion of the right anterior tibial artery at mid calf level. Cardiovascular surgeon is on the case. Patient denies any chest pain, shortness of breath, nausea , vomiting or associated symptoms. 12/31/23 patient evaluated in the room this morning. She is in good spirits. Pain is minimal to the left leg. She is status post CT angio abdominal aorta with runoff that showed extensive vascular calcifications. Extensive atherosclerotic changes seen. Multiple short-segment high-grade stenosis are seen throughout the right superficial femoral artery. There are occlusions of left anterior tibial and bilateral posterior tibial arteries. There is also occlusion of the right anterior tibial artery and mid calf level. There may be reconstitution of posterior tibial arteries near the distal calf level. MRI of the left foot shows suspicious for osteomyelitis-involving 3rd and 4th toes. On physical evaluation, there are necrosis on the 3rd and 4th toe. We will follow up with CV surgeon on further recommendations. Podiatry is recommending amputation, we will await for final recommendations from CV team. 12/31 patient was evaluated in the room this morning, she complains of 10/10 pain to the left leg. We are awaiting for final recommendations from consultants. For now we will continue with pain management and IV antibiotics. REVIEW OF SYSTEMS CONSTITUTIONAL: Denies fevers, chills, or night sweats. No unintentional weight loss reported. NEUROLOGICAL: Denies headache, amaurosis fugax, motor weakness, sensory deficit, vertigo/spinning sensation, gait abnormalities, or tremors. ENT: No hearing loss, otalgia, otorrhea, rhinitis, rhinorrhea, hoarseness, or sore throat. CARDIOVASCULAR: Denies any exertional angina, dyspnea on exertion, orthopnea, paroxysmal nocturnal dyspnea, palpitations, life-threatening arrhythmias, claudication. PULMONARY: Denies any shortness of breath, cough, phlegm/sputum, hemoptysis, pleuritic chest pain. SLEEP: Denies morning headaches, daytime somnolence or napping. Denies difficulty falling asleep, staying asleep, waking from sleep. Denies knowledge of snoring. GASTROINTESTINAL: Denies any type of dysphagia to either liquids or solids. Denies pyrosis, early satiety, abdominal pain, diarrhea, constipation, or changes in stool consistency or caliber. Denies coffee-ground emesis, hematemesis, hematochezia, or melanotic stools. GENITOURINARY: Denies frequency, urgency, nocturia, hematuria or incontinence (Storage/Irritative symptoms.) Low urinary stream, straining to void, urinary intermittency or hesitancy, splitting of the voiding stream, terminal dribbling. ENDOCRINOLOGIC: Denies polyuria, polydipsia, polyphagia or heat/cold intolerances. HEMATOLOGIC: Denies thrombophilia/previous clots, or coagulopathy/bleeding disorders. ONCOLOGIC: Denies personal history of malignancy. DERMATOLOGIC: Left anterior foot with ecchymosis and wound on the 3rd and 4th toe Denies rashes or pruritus. PSYCHIATRIC: Denies any suicidal or homicidal ideation. Denies hallucinations. PHYSICAL EXAM GENERAL APPEARANCE: The patient is awake, alert, and oriented, in no acute cardiopulmonary distress. NEUROLOGICAL: Cranial nerves II-XII grossly intact. Motor is 5/5 in bilateral upper and lower extremities proximal to distal. No sensory deficits. HEENT: Face is symmetric. Pupils are equal and reactive. Extraocular movements are intact. NECK: Supple. No JVD. No thyromegaly. No submental, submandibular, pre- /postauricular, occipital or supraclavicular lymphadenopathy. CHEST: Normal chest expansion. No Telemetry. LUNGS: Absence of any rales, rhonchi or any wheezing. CARDIOVASCULAR: Regular. S1 and S2 normal. No appreciable rubs, murmurs or gallops. ABDOMEN: Soft, nontender, and nondistended. There is no rebound, voluntary guarding, or rigidity. : Deferred. No Martel. EXTREMITIES: Non-edematous and not cyanotic. No clubbing. Good capillary refill. SKIN: left anterior foot with purple discoloration ,left foot swollen and erythema with some necrosis and ulcer in between 3rd and 4th toe Vital Signs (last 8hr) Date Time Temp Pulse Resp B/P (MAP) Pulse Ox O2 Delivery O2 Flow Rate FiO2 01/01/24 07:59 98.2 96 16 170/72 98 01/01/24 07:47 98 Room Air* 0 21 01/01/24 04:00 98.2 96 18 155/82 97 Room Air LABS: Laboratory: Test 01/01/24 11:19 01/01/24 04:38 12/31/23 16:48 12/31/23 04:38 Range/Units Whole Blood Glucose 258 #H 70-110 MG/DL White Blood Count 7.8 4.8-10.8 K/uL Red Blood Count 2.65 L 4.00-5.50 MIL/uL Hemoglobin 8.0 L 12.0-16.0 g/dL Hematocrit 24.3 L 36-48 % Mean Corpuscular Volume 91.7 79-99 fL Mean Corpuscular Hemoglobin 30.2 27.0-33.0 pg Mean Corpuscular Hemoglobin Concent 32.9 32.0-36.0 g/dL Red Cell Distribution Width 12.3 11.0-15.5 % Platelet Count 330 130-400 K/uL Mean Platelet Volume 8.7 7.5-10.5 fL Nucleated Red Blood Cells 0.0 0.0-0.19 % Sodium Level 138 136-145 mmol/L Potassium Level 3.5 3.5-5.1 mmol/L Chloride Level 105 101-111 mmol/L Carbon Dioxide Level 25 21-32 mmol/L Blood Urea Nitrogen 9 7-18 mg/dL Creatinine 0.7 0.5-1.0 mg/dL Glomerular Filtration Rate Calc 93 >90 mL/min Random Glucose 163 H 70-105 mg/dL Total Calcium 8.0 L 8.5-10.1 mg/dL Bedside Glucose Comment Notified Nurse Immature Granulocyte % (Auto) 0.2 0-1 % Neutrophils (%) (Auto) 73.2 40.0-77.0 % Lymphocytes (%) (Auto) 17.6 L 21.0-51.0 % Monocytes (%) (Auto) 6.8 3.0-13.0 % Eosinophils (%) (Auto) 1.8 0.0-8.0 % Basophils (%) (Auto) 0.4 0.0-5.0 % Neutrophils # (Auto) 6.1 1.8-7.7 K/uL Lymphocytes # (Auto) 1.5 1.0-4.8 K/uL Monocytes # (Auto) 0.6 0.1-1.0 K/uL Eosinophils # (Auto) 0.15 0.00-0.70 K/uL Basophils # (Auto) 0.03 0.00-0.20 K/uL Absolute Immature Granulocyte (auto 0.02 0-1 K/uL Magnesium Level 1.60 L 1.80-2.40 mg/dL Total Bilirubin 0.3 0.2-1.0 mg/dL Aspartate Amino Transf (AST/SGOT) 14 10-37 U/L Alanine Aminotransferase (ALT/SGPT) 14 12-78 U/L Alkaline Phosphatase 62 50-136 U/L Total Protein 6.1 6.0-8.3 g/dL Albumin 2.5 L 3.5-5.0 g/dL Test 12/30/23 16:53 Range/Units Vancomycin Level Trough 14.5 10.0-20.0 UG/ML Current Medications Medications (Trade) Dose Ordered Sig/Reji Route PRN Reason Start Time Stop Time Status Last Admin Dose Admin Acetaminophen (TYLenol 325MG TAB) 650 mg Q4H PRN PO MILD PAIN (1-3) 12/27/23 19:30 01/26/24 19:29 Acetaminophen (TYLenol 325MG TAB) 650 mg Q6H PRN PO TEMPERATURE GREATER THAN 101.5 12/27/23 19:30 01/26/24 19:29 Acetaminophen/ Hydrocodone Bitart (NORco 5/325MG) 1 tab Q4H PRN PO MODERATE PAIN (4-6) 12/27/23 19:30 01/01/24 19:29 01/01/24 10:03 1 TAB Aspirin (Aspirin 81mg Chew Tab) 81 mg DAILY PO 12/30/23 09:00 01/29/24 08:59 01/01/24 07:47 81 MG Atorvastatin Calcium (LIPItor 40MG) 40 mg HS PO 12/30/23 21:00 01/29/24 20:59 12/31/23 20:15 40 MG Dextrose (D50w) 50 ml AD PRN IV HYPOGLYCEMIA PROTOCOL 12/27/23 19:30 01/26/24 19:29 Enoxaparin Sodium (Lovenox) 30 mg DAILY SQ 12/28/23 09:00 01/27/24 08:59 01/01/24 07:48 30 MG Famotidine (Pepcid 20mg Tab) 20 mg BID PO 12/27/23 21:00 01/26/24 20:59 01/01/24 07:47 20 MG Folic Acid (FOLic ACID 1 MG TABLET) 1 mg DAILY PO 12/30/23 09:00 01/29/24 08:59 01/01/24 07:47 1 MG Glucagon (Glucagon 1mg Kit) 1 mg AD PRN IM HYPOGLYCEMIA PROTOCOL 12/27/23 19:30 01/26/24 19:29 Hydralazine HCl (APRESOLine 20MG INJ) 10 mg Q6H PRN IV For:SBP above 160;DBP above 90 12/27/23 19:30 01/26/24 19:29 12/31/23 11:55 10 MG Insulin Human Regular (humuLIN R 100 UNIT/ML 3ML) INSULIN SLIDING SCAL... ACHS SQ 12/27/23 21:00 12/31/23 22:15 DC 12/31/23 21:04 2 UNIT Insulin Human Regular (humuLIN R 100 UNIT/ML 3ML) INSULIN SLIDING SCAL... ACHS SQ 01/01/24 07:30 01/31/24 07:29 Lactulose (Constulose 20gm/ 30ml Udcup) 20 gm BID PRN PO CONSTIPATION 12/31/23 15:30 01/30/24 15:29 Lisinopril (Prinivil 10mg) 10 mg DAILY PO 12/30/23 09:00 01/29/24 08:59 01/01/24 07:47 10 MG Magnesium Sulfate 50 ml @ 0 mls/hr PROTOCOL IV 12/29/23 14:30 12/29/23 14:10 DC Magnesium Sulfate 50 ml @ 0 mls/hr PROTOCOL PRN IV OTHER [SEE ORDER COMMENTS] 12/27/23 19:30 01/26/24 19:29 12/31/23 05:46 25 MLS/HR Morphine Sulfate (morPHINE 2MG SYG) 2 mg Q4H PRN IV SEVERE PAIN (7-10) 12/27/23 19:30 01/03/24 19:29 01/01/24 07:48 2 MG Ondansetron HCl (zoFRAN 4MG INJ) 4 mg Q6H PRN IV NAUSEA/VOMITING 12/27/23 19:30 01/26/24 19:29 12/31/23 13:45 4 MG Piperacillin Sod/ Tazobactam Sod (Zosyn 3.375gm+NS 50ml) 3.375 gm Q8H IV 12/28/23 02:00 01/18/24 01:59 01/01/24 10:00 3.375 GM Potassium Chloride 100 ml @ 100 mls/hr AD PRN IV POTASSIUM PROTOCOL 12/27/23 19:30 01/26/24 19:29 Potassium Chloride (K-Dur/Klor-Con 20meq) 20 meq AD PRN PO POTASSIUM PROTOCOL 12/27/23 19:30 01/26/24 19:29 01/01/24 05:43 20 MEQ Potassium Chloride (KCl 10% Elixir 20meq/15ml) 20 meq AD PRN PO POTASSIUM PROTOCOL 12/27/23 19:30 01/26/24 19:29 01/01/24 05:43 20 MEQ Ticagrelor (BRILinta) 90 mg BID PO 12/30/23 09:00 01/29/24 08:59 01/01/24 07:47 90 MG Vancomycin HCl (Vancomycin 750mg) 750 mg Q12H IVPB 12/28/23 06:00 01/07/24 05:59 01/01/24 05:08 750 MG Vancomycin HCl (Vancomycin Protocol) 1 each AD IV 12/27/23 18:00 12/27/23 19:20 DC Vancomycin HCl (Vancomycin Protocol) 1 each AD IV 12/27/23 19:30 01/10/24 19:29 Vitamin B Complex (Vitamin B-12) 1,000 mcg DAILY PO 12/30/23 09:00 01/29/24 08:59 01/01/24 07:47 1,000 MCG DIAGNOSTICS / RADIOLOGY: [ ] ASSESSMENT: Severe left foot pain POA Left foot cellulitis POA Suspected Left foot osteomyelitis POA left lower extremity Peripheral arterial disease POA Recent peripheral angioplasty of Left lower extremity on DAPT POA Uncontrolled diabetes POA Hypertension POA Anemia POA POA Hyperlipidemia POA History of left lower extremity DVT PLAN: Severe left foot pain POA Left foot cellulitis POA Left foot osteomyelitis POA *MRI showed findings suspicious for osteomyelitis involving the 3rd and 4th toes *Infectious Disease is on the case. *Continue on Vancomycin IV and Zosyn IV as ordered *Continue with Morphine 2mg IV for adequate pain management *Podiatry consult placed. *Trend temperature , WBC and procalcitonin levels *Follow cultures *De escalate antibiotics use as soon as possible. *Panculture if new onset fever Left lower extremity Peripheral arterial disease POA Recent peripheral angioplasty of Left lower extremity on DAPT POA *Cardiovascular consult ordered. Pending recommendations. *CTA aorto with runoff shows multiple occlusions in the left lower extremity * Cardiology on the case, we are following their recommendations on their standpoint, no need for arteriogram, based on Dr. Cam's last note performed on 12/22/23: ----SFA 80-98% segmental stenosis is reduced to 0% residual. ----Left popliteal segmental 90-98% stenosis is reduced to 10% residual ----Left tibioperoneal and proximal peroneal 90-98% stenosis is reduced to 0% residual. ----Although initial images demonstrated very slow flow through the lower extremity, final images demonstrate brisk flow to the ankle with collaterals into the heel and dorsalis pedis region, but the plantar arch is not well served. There is no achievable direct flow into the foot. Uncontrolled diabetes POA *Maintain blood glucose between 100-180 at all times *Insulin sliding scale for blood glucose management *Hyperglycemia and hypoglycemia protocols in place Hypertension POA Hyperlipidemia POA *Continue with Lisinopril 10mg po daily as ordered for elevated BP. *Continue with Hydralazine 10mg IV for systolic BP>160 *Continue with Atorvastatin 40mg daily as ordered for hyperlipidemia *Follow hemodynamics. *Vital signs per facility protocol Anemia *Monitor H & H. Keep Hgb > 7 *Transfuse 1 unit of PRBC for Hgb < 7 *Continue on Lovenox 30 mg subQ daily for DVT prphylaxis *Continue on Famotidine 20 mg p.o. bid for GI prophylaxis *Continue prn medication for fever,pain, nausea and vomiting *Labs in the morning. *Case discussed with attending physician and came up with above treatment and plan of care. ATTESTATION BY PHYSICIAN I have seen and examined the patient. I reviewed the documentation, medical decision making, and treatment plan as noted by the mid-level provider above. I agree with the findings and plan of care. Quita Ash MD, [facility] Jan 01, 2024 12:00
--- NOTE | 2024-01-01 12:14 | PN ---
PROGRESS NOTE PROBLEM LIST: 12/22/2023 abdominal aortogram with pelvic runoff, left lower extremity digital subtraction arteriogram and STATE TESTED NURSING ASSISTANT with shockwave and DCB left superficial femoral, popliteal, tibioperoneal and peroneal. 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 Patient's history was reviewed regarding her last admission to the hospital as well as last procedures done approximately 10 days ago. I personally reviewed images and intervention performed by Dr. Cam in indeed successful result occurred involving single-vessel runoff noted to the left foot via peroneal artery with reconstitution of STATE TESTED NURSING ASSISTANT and RUBY at level of foot with suboptimal collateralization noted to digits REVIEW OF SYSTEMS: No fever, headache, chest pain, abdominal pain, nausea, vomiting, or diarrhea. VITAL SIGNS Vital Signs Date Time Temp Pulse Resp B/P (MAP) Pulse Ox O2 Delivery O2 Flow Rate FiO2 01/01/24 07:59 98.2 96 16 170/72 98 01/01/24 07:47 Room Air* 0 21 Laboratory Tests 01/01/24 04:38 LABS/MEDS Laboratory Tests Test 12/31/23 16:48 12/31/23 20:23 01/01/24 04:38 01/01/24 05:35 Whole Blood Glucose 235 MG/DL (70-110) H 181 MG/DL (70-110) H 139 MG/DL (70-110) H Bedside Glucose Comment Notified Nurse White Blood Count 7.8 K/uL (4.8-10.8) Red Blood Count 2.65 MIL/uL (4.00-5.50) L Hemoglobin 8.0 g/dL (12.0-16.0) L Hematocrit 24.3 % (36-48) L Mean Corpuscular Volume 91.7 fL (79-99) Mean Corpuscular Hemoglobin 30.2 pg (27.0-33.0) Mean Corpuscular Hemoglobin Concent 32.9 g/dL (32.0-36.0) Red Cell Distribution Width 12.3 % (11.0-15.5) Platelet Count 330 K/uL (130-400) Mean Platelet Volume 8.7 fL (7.5-10.5) Nucleated Red Blood Cells 0.0 % (0.0-0.19) Sodium Level 138 mmol/L (136-145) Potassium Level 3.5 mmol/L (3.5-5.1) Chloride Level 105 mmol/L (101-111) Carbon Dioxide Level 25 mmol/L (21-32) Blood Urea Nitrogen 9 mg/dL (7-18) Creatinine 0.7 mg/dL (0.5-1.0) Glomerular Filtration Rate Calc 93 mL/min (>90) Random Glucose 163 mg/dL (70-105) H Total Calcium 8.0 mg/dL (8.5-10.1) L Test 01/01/24 11:19 Whole Blood Glucose 258 MG/DL (70-110) #H Current Medications Ketorolac Tromethamine 30 mg ONCE ONCE IM Last administered on 12/27/23at 17:58; Start 12/27/23 at 18:00; Stop 12/27/23 at 18:01; Status DC Vancomycin HCl 1 gm ONCE ONCE IV Last administered on 12/27/23at 18:36; Start 12/27/23 at 18:00; Stop 12/27/23 at 18:01; Status DC Vancomycin HCl 1 each AD IV; Start 12/27/23 at 18:00; Stop 12/27/23 at 19:20; Status DC Piperacillin Sod/ Tazobactam Sod 3.375 gm ONCE ONCE IV Last administered on 12/27/23at 18:14; Start 12/27/23 at 18:00; Stop 12/27/23 at 18:01; Status DC Hydromorphone HCl 0.5 mg ONCE ONCE IM Last administered on 12/27/23at 18:45; Start 12/27/23 at 19:00; Stop 12/27/23 at 19:01; Status DC Vancomycin HCl 750 mg Q12H IVPB Last administered on 01/01/24at 05:08; Start 12/28/23 at 06:00; Stop 01/07/24 at 05:59 Nitroglycerin 0.5 inch ONCE ONCE TD Last administered on 12/27/23at 18:52; Start 12/27/23 at 19:00; Stop 12/27/23 at 19:01; Status DC Acetaminophen 650 mg Q6H PRN PO; Start 12/27/23 at 19:30; Stop 01/26/24 at 19:29 Acetaminophen 650 mg Q4H PRN PO; Start 12/27/23 at 19:30; Stop 01/26/24 at 19:29 Ondansetron HCl 4 mg Q6H PRN IV Last administered on 12/31/23at 13:45; Start 12/27/23 at 19:30; Stop 01/26/24 at 19:29 Famotidine 20 mg BID PO Last administered on 01/01/24at 07:47; Start 12/27/23 at 21:00; Stop 01/26/24 at 20:59 Morphine Sulfate 2 mg Q4H PRN IV Last administered on 01/01/24at 07:48; Start 12/27/23 at 19:30; Stop 01/03/24 at 19:29 Acetaminophen/ Hydrocodone Bitart 1 tab Q4H PRN PO Last administered on 01/01/24at 10:03; Start 12/27/23 at 19:30; Stop 01/01/24 at 19:29 Hydralazine HCl 10 mg Q6H PRN IV Last administered on 01/01/24at 11:44; Start 12/27/23 at 19:30; Stop 01/26/24 at 19:29 Piperacillin Sod/ Tazobactam Sod 3.375 gm Q8H IV Last administered on 01/01/24at 10:00; Start 12/28/23 at 02:00; Stop 01/18/24 at 01:59 Vancomycin HCl 1 each AD IV; Start 12/27/23 at 19:30; Stop 01/10/24 at 19:29 Enoxaparin Sodium 30 mg DAILY SQ Last administered on 01/01/24at 07:48; Start 12/28/23 at 09:00; Stop 01/27/24 at 08:59 Insulin Human Regular INSULIN SLIDING SCAL... ACHS SQ Last administered on 12/31/23at 21:04; Start 12/27/23 at 21:00; Stop 12/31/23 at 22:15; Status DC Dextrose 50 ml AD PRN IV; Start 12/27/23 at 19:30; Stop 01/26/24 at 19:29 Glucagon 1 mg AD PRN IM; Start 12/27/23 at 19:30; Stop 01/26/24 at 19:29 Magnesium Sulfate 50 ml @ 0 mls/hr PROTOCOL PRN IV Last administered on 12/31/23at 05:46; Start 12/27/23 at 19:30; Stop 01/26/24 at 19:29 Potassium Chloride 100 ml @ 100 mls/hr AD PRN IV; Start 12/27/23 at 19:30; Stop 01/26/24 at 19:29 Potassium Chloride 20 meq AD PRN PO Last administered on 01/01/24at 05:43; Start 12/27/23 at 19:30; Stop 01/26/24 at 19:29 Potassium Chloride 20 meq AD PRN PO Last administered on 01/01/24at 05:43; Start 12/27/23 at 19:30; Stop 01/26/24 at 19:29 Iohexol 35,000 mg STK-MED ONCE IV; Start 12/29/23 at 09:52; Stop 12/29/23 at 09:52; Status DC Iohexol 50 ml STK-MED ONCE IV; Start 12/29/23 at 09:52; Stop 12/29/23 at 09:52; Status DC Magnesium Sulfate 50 ml @ 0 mls/hr PROTOCOL IV; Start 12/29/23 at 14:30; Stop 12/29/23 at 14:10; Status DC Cadexomer Iodine 1 APPL ONCE ONCE TP Last administered on 12/29/23at 21:12; Start 12/29/23 at 20:00; Stop 12/29/23 at 20:01; Status DC Potassium Chloride 40 meq ONCE ONCE PO Last administered on 12/30/23at 09:00; Start 12/30/23 at 08:00; Stop 12/30/23 at 08:01; Status DC Aspirin 81 mg DAILY PO Last administered on 01/01/24at 07:47; Start 12/30/23 at 09:00; Stop 01/29/24 at 08:59 Atorvastatin Calcium 40 mg HS PO Last administered on 12/31/23at 20:15; Start 12/30/23 at 21:00; Stop 01/29/24 at 20:59 Vitamin B Complex 1,000 mcg DAILY PO Last administered on 01/01/24at 07:47; Start 12/30/23 at 09:00; Stop 01/29/24 at 08:59 Folic Acid 1 mg DAILY PO Last administered on 01/01/24at 07:47; Start 12/30/23 at 09:00; Stop 01/29/24 at 08:59 Lisinopril 10 mg DAILY PO Last administered on 01/01/24at 07:47; Start 12/30/23 at 09:00; Stop 01/29/24 at 08:59 Ticagrelor 90 mg BID PO Last administered on 01/01/24at 07:47; Start 12/30/23 at 09:00; Stop 01/29/24 at 08:59 Lactulose 20 gm ONCE ONCE PO Last administered on 12/31/23at 16:07; Start 12/31/23 at 15:30; Stop 12/31/23 at 15:31; Status DC Lactulose 20 gm BID PRN PO; Start 12/31/23 at 15:30; Stop 01/30/24 at 15:29 Insulin Human Regular INSULIN SLIDING SCAL... ACHS SQ Last administered on 01/01/24at 11:57; Start 01/01/24 at 07:30; Stop 01/31/24 at 07:29 PHYSICAL EXAMINATION: GENERAL: No acute distress. HEENT: Normocephalic, atraumatic. CARDIAC: Positive S1 and S2. No murmurs. LUNGS: Clear to auscultation bilaterally. ABDOMEN: Bowel sounds present, soft, nontender. EXTREMITIES: No edema bilaterally. Left foot is bandaged NEUROLOGIC: Cranial nerves 2-12 grossly intact. PSYCHIATRIC: Calm. ASSESSMENT: 12/22/2023 abdominal aortogram with pelvic runoff, left lower extremity digital subtraction arteriogram and STATE TESTED NURSING ASSISTANT with shockwave and DCB left superficial femoral, popliteal, tibioperoneal and peroneal. 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 She had optimal revascularization take place regarding her left SFA left popliteal artery left tibioperoneal trunk and left peroneal artery with single-vessel runoff noted to the left foot with reconstitution noted at the level of the ankle of RUBY and STATE TESTED NURSING ASSISTANT. Patient did have poor digital runoff noted and I am hoping that with optimal blood glucose control blood pressure management and antiplatelet agents the patient should heal from digital amputation however there is a distinct possibility that this might need to be advanced to a TMA in the future which she should heal from if it needed to be performed. I however do not think any surgical revascularization in the setting would provide any optimal or improved healing from a digital amputation nor what it add any benefit to the work that has already been done by Dr. Cam. Repeat abdominal aortography and angiography we will not be performed. Would proceed with amputation of digits. We will follow from afanamaria. ALEXI NIELSEN MD Jan 01, 2024 12:14
[2024-01-01] MEDS: metoPROLOL tartRATE 25 MG TAB PO SCH (16:46)
--- NOTE | 2024-01-01 20:58 | PN ---
TIME: 8:00 p.m. The patient is a 68-year-old female who presented with left lower extremity peripheral arterial disease and underwent an angiogram about 10 days ago that showed no real targets that go down to her foot. I reviewed the angiogram today with the nurse at the bedside on the computer and I do not really see any appropriate targets for this patient for bypass of her lower extremity. She may eventually need an amputation but from a vascular surgery standpoint, the targets to the foot are very marginal and very poor. Thank you very much for this consultation. TID: [id number] RECEIPT: [id number]
[2024-01-02] VITALS (7 sets, daily range): BP systolic 161–170; BP diastolic 69–89; PULSE 79–107; RESP 17–20; TEMP 98.2–99.9; O2SAT 98–99
[2024-01-02] MEDS: hydroMORPHone 0.5 MG SYG (0.5MG/0.5ML) IVP PRN (00:54)
--- NOTE | 2024-01-02 02:54 | PN ---
DATE OF SERVICE: 01/01/2024 INFECTIOUS DISEASE FOLLOWUP NOTE SUBJECTIVE: The patient is seen. No fever, no chills. No bleeding tendencies. No rashes or itchiness. No dysuria or hematuria. Remains on antibiotic which she is tolerating. She has severe pain to the left foot. The patient surgery by pasteurizer helper. PHYSICAL EXAMINATION: VITAL SIGNS: Temperature 97.7. EYES: No icterus. Pupils are equal and reactive. HENT: No oral thrush seen. Moist oral mucosa. NECK: Supple. No JVD or thyromegaly. LUNGS: Good air entry. No rales. No rhonchi. CARDIOVASCULAR: S1, S2 regular. No murmur heard. ABDOMEN: Full. Soft. Bowel sounds are present. CENTRAL NERVOUS SYSTEM: Awake, alert and oriented x 3. No focal deficits. SKIN: No rashes. No itchiness. LYMPHATIC: No peripheral lymphadenopathy. BACK: No deformity. No pressure ulcer. EXTREMITIES: Ulcer with gangrenous changes involving the left third and fourth toe. ASSESSMENT: A 68-year-old female with left foot bunionectomy. CURRENT PROBLEMS: Include: * Left foot osteomyelitis. * Diabetic foot ulcer. * Left foot gangrene. * Cellulitis. * Diabetes mellitus. * Anemia. PLAN: * Continue Zosyn. * Continue wound care. * Continue vancomycin. * Continue antiplatelet. * Continue DVT prophylaxis. * Monitor electrolytes. TID: [id number] RECEIPT: [id number]
[2024-01-02] MEDS: acetaMINOPHEN 325 MG TAB PO PRN (05:39)
--- NOTE | 2024-01-02 05:41 | NUR ---
PATIENT AWAKE AND ALERT. VOICES ALL NEEDS. MEDICATED FOR COMPLAINTS OF A HEADACHE AND NAUSEA. ZOFRAN AND TYLENOL GIVEN PER MARS. RESP EVEN AND UNLABORED. NO SOB NOTED. ON ROOM AIR. PO FLUIDS ENCOURAGED. SMALL SIPS TAKEN AT THIS TIME. BLOOD PRESSURE WAS 166/89, RECHECK BLOOD PRESSURE WAS 155/75. DRESSING TO LEFT FOOT DRY AND INTACT. REPOSITIONED FOR COMFORT. HOB ELEVATED. CALL LIGHT WITHIN REACH. NO SIGNS OF DISTRESS NOTED UPON EXITING THE ROOM. Addendum: 01/02/24 at 0545 by LISET HEALY RN RN Amended: Links added.
[2024-01-02 06:07] LABS: HEMATOCRIT 26.5 % (36-48); MEAN CORPUSCULAR HGB CONC 32.5 g/dL (32.0-36.0); MEAN CORPUSCULAR VOLUME 92.3 fL (79-99); RED BLOOD CELL COUNT(AUTO) 2.87 MIL/uL (4.00-5.50); RED CELL DISTRIBUTION WIDTH 12.4 % (11.0-15.5); WHITE BLOOD COUNT (AUTO) 9.4 K/uL (4.8-10.8)
[2024-01-02 06:36] LABS: CREATININE 0.8 mg/dL (0.5-1.0); POTASSIUM 3.8 mmol/L (3.5-5.1)
[2024-01-02] MEDS: traMADol HCL 50 MG TABLET PO PRN (08:06)
--- NOTE | 2024-01-02 10:23 | PN ---
[facility] PROGRESS NOTE Date of Service: Jan 02, 2024 Time of Service: 10:23 SUBJECTIVE: HPI 68-year-old female admitted due to left lower extremity pain, patient had wound ulcer between 3rd and 4th toe of the left foot and some necrosis. Arterial Doppler was done which showed abnormal monophasic arterial waveform seen in the right superficial femoral popliteal bilateral posterior tibial anterior dorsalis pedal arteries. Hyperemic flow is seen in the right dorsalis pedal, left anterior tibial and posterior tibial arteries. There is an occlusion of the right distal superficial femoral artery, high-grade stenosis is suspected in the right common femoral and right proximal superficial femoral artery, high-grade stenosis is also suspected in the right popliteal artery proximally. Dr. Charles has been consulted and recommending cardiovascular consult for vascular assessment. Dr. Mao recommending CT angio to the left foot. Infectious Disease also consulted, we will continue with IV antibiotics. We are pending MRI to rule out osteomyelitis. Otherwise patient has no complaints. Interval History 12/30/23: Lying in bed at the time of evaluation. Alert and oriented and in mild distress. Continues with complaints of right foot pain. Rates the pain as 7/10. Morphine 2mg ordered for adequate pain management. An MRI was done today. Shows findings suspicious for osteomyelitis involving the 3rd and 4th toes. Patient is currently on Vancomycin and Zosyn IV Aorto with runoff CTA shows extensive atherosclerotic changes. Multiple short segment high grade stenosis seen throughout the right superficial femoral artery. There are occlusions of left anterior tibial and bilateral post tibial artery. There is also occlusion of the right anterior tibial artery at mid calf level. Cardiovascular surgeon is on the case. Patient denies any chest pain, shortness of breath, nausea , vomiting or associated symptoms. 12/31/23 patient evaluated in the room this morning. She is in good spirits. Pain is minimal to the left leg. She is status post CT angio abdominal aorta with runoff that showed extensive vascular calcifications. Extensive atherosclerotic changes seen. Multiple short-segment high-grade stenosis are seen throughout the right superficial femoral artery. There are occlusions of left anterior tibial and bilateral posterior tibial arteries. There is also occlusion of the right anterior tibial artery and mid calf level. There may be reconstitution of posterior tibial arteries near the distal calf level. MRI of the left foot shows suspicious for osteomyelitis-involving 3rd and 4th toes. On physical evaluation, there are necrosis on the 3rd and 4th toe. We will follow up with CV surgeon on further recommendations. Podiatry is recommending amputation, we will await for final recommendations from CV team. 12/31 patient was evaluated in the room this morning, she complains of 10/10 pain to the left leg. We are awaiting for final recommendations from consultants. For now we will continue with pain management and IV antibiotics. 01/01 Patient was seen at bedside, she is alert, awake and oriented. Today her vitals are BP 161/69, pulse rate 79, respiratory rate 17, sp02 98% on room air and T-max 98.2 but she has been having low grade temperatures during the weekend. Her Blood pressure has been elevated in 160s, will increase her dose of metoprolol from 25mg to 50mg and start her on Amlodipine 5mg. Her lactic acid was 0.8. She was given Tramadol and dilaudid for pain, she doesn't feel any pain right now. [employer] Hand and vascular surgery recommended digit amputation, pending Dr. Charles recommendation on surgery. We will monitor her vitals closely. REVIEW OF SYSTEMS CONSTITUTIONAL: Denies fevers, chills, or night sweats. No unintentional weight loss reported. NEUROLOGICAL: Denies headache, amaurosis fugax, motor weakness, sensory deficit, vertigo/spinning sensation, gait abnormalities, or tremors. ENT: No hearing loss, otalgia, otorrhea, rhinitis, rhinorrhea, hoarseness, or sore throat. CARDIOVASCULAR: Denies any exertional angina, dyspnea on exertion, orthopnea, paroxysmal nocturnal dyspnea, palpitations, life-threatening arrhythmias, claudication. PULMONARY: Denies any shortness of breath, cough, phlegm/sputum, hemoptysis, pleuritic chest pain. SLEEP: Denies morning headaches, daytime somnolence or napping. Denies difficu lty falling asleep, staying asleep, waking from sleep. Denies knowledge of snoring. GASTROINTESTINAL: Denies any type of dysphagia to either liquids or solids. Denies pyrosis, early satiety, abdominal pain, diarrhea, constipation, or changes in stool consistency or caliber. Denies coffee-ground emesis, hematemesis, hematochezia, or melanotic stools. GENITOURINARY: Denies frequency, urgency, nocturia, hematuria or incontinence (Storage/Irritative symptoms.) Low urinary stream, straining to void, urinary intermittency or hesitancy, splitting of the voiding stream, terminal dribbling. ENDOCRINOLOGIC: Denies polyuria, polydipsia, polyphagia or heat/cold intolerances. HEMATOLOGIC: Denies thrombophilia/previous clots, or coagulopathy/bleeding disorders. ONCOLOGIC: Denies personal history of malignancy. DERMATOLOGIC: Left anterior foot with ecchymosis and wound on the 3rd and 4th toe Denies rashes or pruritus. PSYCHIATRIC: Denies any suicidal or homicidal ideation. Denies hallucinations. PHYSICAL EXAM GENERAL APPEARANCE: The patient is awake, alert, and oriented, in no acute cardiopulmonary distress. NEUROLOGICAL: Cranial nerves II-XII grossly intact. Motor is 5/5 in bilateral upper and lower extremities proximal to distal. No sensory deficits. HEENT: Face is symmetric. Pupils are equal and reactive. Extraocular movements are intact. NECK: Supple. No JVD. No thyromegaly. No submental, submandibular, pre- /postauricular, occipital or supraclavicular lymphadenopathy. CHEST: Normal chest expansion. No Telemetry. LUNGS: Absence of any rales, rhonchi or any wheezing. CARDIOVASCULAR: Regular. S1 and S2 normal. No appreciable rubs, murmurs or gallops. ABDOMEN: Soft, nontender, and nondistended. There is no rebound, voluntary guarding, or rigidity. : Deferred. No Martel. EXTREMITIES: Non-edematous and not cyanotic. No clubbing. Good capillary refill. SKIN: left anterior foot with purple discoloration ,left foot swollen and erythema with some necrosis and ulcer in between 3rd and 4th toe Vital Signs (last 8hr) Date Time Temp Pulse Resp B/P (MAP) Pulse Ox O2 Delivery O2 Flow Rate FiO2 01/02/24 08:11 98.4 102 18 170/71 98 Room Air 01/02/24 04:00 99.9 107 18 166/89 97 Room Air LABS: Laboratory: Test 01/02/24 09:40 01/02/24 05:56 01/02/24 05:50 12/31/23 16:48 Range/Units Lactic Acid Level 0.8 0.8-2.5 mmol/L White Blood Count 9.4 4.8-10.8 K/uL Red Blood Count 2.87 L 4.00-5.50 MIL/uL Hemoglobin 8.6 L 12.0-16.0 g/dL Hematocrit 26.5 L 36-48 % Mean Corpuscular Volume 92.3 79-99 fL Mean Corpuscular Hemoglobin 30.0 27.0-33.0 pg Mean Corpuscular Hemoglobin Concent 32.5 32.0-36.0 g/dL Red Cell Distribution Width 12.4 11.0-15.5 % Platelet Count 358 130-400 K/uL Mean Platelet Volume 8.7 7.5-10.5 fL Nucleated Red Blood Cells 0.0 0.0-0.19 % Sodium Level 144 136-145 mmol/L Potassium Level 3.8 3.5-5.1 mmol/L Chloride Level 109 101-111 mmol/L Carbon Dioxide Level 23 21-32 mmol/L Blood Urea Nitrogen 10 7-18 mg/dL Creatinine 0.8 0.5-1.0 mg/dL Glomerular Filtration Rate Calc 79 >90 mL/min Random Glucose 206 H 70-105 mg/dL Total Calcium 8.5 8.5-10.1 mg/dL Whole Blood Glucose 202 H 70-110 MG/DL Bedside Glucose Comment Notified Nurse Current Medications Medications (Trade) Dose Ordered Sig/Reji Route PRN Reason Start Time Stop Time Status Last Admin Dose Admin Acetaminophen (TYLenol 325MG TAB) 650 mg Q4H PRN PO MILD PAIN (1-3) 12/27/23 19:30 01/26/24 19:29 01/02/24 05:39 650 MG Acetaminophen (TYLenol 325MG TAB) 650 mg Q6H PRN PO TEMPERATURE GREATER THAN 101.5 12/27/23 19:30 01/26/24 19:29 Acetaminophen/ Hydrocodone Bitart (NORco 5/325MG) 1 tab Q4H PRN PO MODERATE PAIN (4-6) 12/27/23 19:30 01/01/24 19:29 DC 01/01/24 18:22 1 TAB Aspirin (Aspirin 81mg Chew Tab) 81 mg DAILY PO 12/30/23 09:00 01/29/24 08:59 01/02/24 08:06 81 MG Atorvastatin Calcium (LIPItor 40MG) 40 mg HS PO 12/30/23 21:00 01/29/24 20:59 01/01/24 20:08 40 MG Dextrose (D50w) 50 ml AD PRN IV HYPOGLYCEMIA PROTOCOL 12/27/23 19:30 01/26/24 19:29 Enoxaparin Sodium (Lovenox) 30 mg DAILY SQ 12/28/23 09:00 01/27/24 08:59 01/02/24 08:07 30 MG Famotidine (Pepcid 20mg Tab) 20 mg BID PO 12/27/23 21:00 01/26/24 20:59 01/02/24 08:05 20 MG Folic Acid (FOLic ACID 1 MG TABLET) 1 mg DAILY PO 12/30/23 09:00 01/29/24 08:59 01/02/24 08:05 1 MG Glucagon (Glucagon 1mg Kit) 1 mg AD PRN IM HYPOGLYCEMIA PROTOCOL 12/27/23 19:30 01/26/24 19:29 Hydralazine HCl (APRESOLine 20MG INJ) 10 mg Q6H PRN IV For:SBP above 160;DBP above 90 12/27/23 19:30 01/26/24 19:29 01/02/24 04:34 10 MG Hydromorphone HCl (DiLAUDid 0.5MG INJ) 0.5 mg Q4H PRN IVP SEVERE PAIN (7-10) 01/02/24 01:00 01/07/24 00:59 01/02/24 00:54 0.5 MG Insulin Human Regular (humuLIN R 100 UNIT/ML 3ML) INSULIN SLIDING SCAL... ACHS SQ 12/27/23 21:00 12/31/23 22:15 DC 12/31/23 21:04 2 UNIT Insulin Human Regular (humuLIN R 100 UNIT/ML 3ML) INSULIN SLIDING SCAL... ACHS SQ 01/01/24 07:30 01/31/24 07:29 01/02/24 06:29 6 UNIT Lactulose (Constulose 20gm/ 30ml Udcup) 20 gm BID PRN PO CONSTIPATION 12/31/23 15:30 01/30/24 15:29 Lisinopril (Prinivil 10mg) 10 mg DAILY PO 12/30/23 09:00 01/29/24 08:59 01/02/24 08:06 10 MG Magnesium Sulfate 50 ml @ 0 mls/hr PROTOCOL IV 12/29/23 14:30 12/29/23 14:10 DC Magnesium Sulfate 50 ml @ 0 mls/hr PROTOCOL PRN IV OTHER [SEE ORDER COMMENTS] 12/27/23 19:30 01/26/24 19:29 12/31/23 05:46 25 MLS/HR Metoprolol Tartrate (loprESSOR) 25 mg BID PO 01/01/24 16:30 01/31/24 16:29 01/02/24 08:05 25 MG Morphine Sulfate (morPHINE 2MG SYG) 2 mg Q4H PRN IV SEVERE PAIN (7-10) 12/27/23 19:30 01/01/24 22:29 DC 01/01/24 20:09 2 MG Ondansetron HCl (zoFRAN 4MG INJ) 4 mg Q6H PRN IV NAUSEA/VOMITING 12/27/23 19:30 01/26/24 19:29 01/02/24 05:28 4 MG Piperacillin Sod/ Tazobactam Sod (Zosyn 3.375gm+NS 50ml) 3.375 gm Q8H IV 12/28/23 02:00 01/18/24 01:59 01/02/24 02:18 3.375 GM Potassium Chloride 100 ml @ 100 mls/hr AD PRN IV POTASSIUM PROTOCOL 12/27/23 19:30 01/26/24 19:29 Potassium Chloride (K-Dur/Klor-Con 20meq) 20 meq AD PRN PO POTASSIUM PROTOCOL 12/27/23 19:30 01/26/24 19:29 01/01/24 05:43 20 MEQ Potassium Chloride (KCl 10% Elixir 20meq/15ml) 20 meq AD PRN PO POTASSIUM PROTOCOL 12/27/23 19:30 01/26/24 19:29 01/01/24 05:43 20 MEQ Ticagrelor (BRILinta) 90 mg BID PO 12/30/23 09:00 01/29/24 08:59 01/02/24 08:06 90 MG Tramadol HCl (UltRAM) 50 mg Q6H PRN PO PAIN LEVEL 4 TO 6 01/02/24 01:00 01/07/24 00:59 01/02/24 08:06 50 MG Vancomycin HCl (Vancomycin 750mg) 750 mg Q12H IVPB 12/28/23 06:00 01/07/24 05:59 01/02/24 04:34 750 MG Vancomycin HCl (Vancomycin Protocol) 1 each AD IV 12/27/23 18:00 12/27/23 19:20 DC Vancomycin HCl (Vancomycin Protocol) 1 each AD IV 12/27/23 19:30 01/10/24 19:29 Vitamin B Complex (Vitamin B-12) 1,000 mcg DAILY PO 12/30/23 09:00 01/29/24 08:59 01/02/24 08:05 1,000 MCG DIAGNOSTICS / RADIOLOGY: [ ] ASSESSMENT: Severe left foot pain POA Left foot cellulitis POA Suspected Left foot osteomyelitis POA left lower extremity Peripheral arterial disease POA Recent peripheral angioplasty of Left lower extremity on DAPT POA Uncontrolled diabetes POA Hypertension POA Anemia POA POA Hyperlipidemia POA History of left lower extremity DVT PLAN: Severe left foot pain POA Left foot cellulitis POA Left foot osteomyelitis POA *MRI showed findings suspicious for osteomyelitis involving the 3rd and 4th toes *Infectious Disease is on the case. *Continue on Vancomycin IV and Zosyn IV as ordered *Continue with Morphine 2mg IV for adequate pain management *Podiatry consult placed. *Trend temperature , WBC and procalcitonin levels *Follow cultures *De escalate antibiotics use as soon as possible. *Panculture if new onset fever Left lower extremity Peripheral arterial disease POA Recent peripheral angioplasty of Left lower extremity on DAPT POA *Cardiovascular consult ordered. Pending recommendations. *CTA aorto with runoff shows multiple occlusions in the left lower extremity * Cardiology on the case, we are following their recommendations on their standpoint, no need for arteriogram, based on Dr. Cam's last note performed on 12/22/23: ----SFA 80-98% segmental stenosis is reduced to 0% residual. ----Left popliteal segmental 90-98% stenosis is reduced to 10% residual ----Left tibioperoneal and proximal peroneal 90-98% stenosis is reduced to 0% residual. ----Although initial images demonstrated very slow flow through the lower extremity, final images demonstrate brisk flow to the ankle with collaterals into the heel and dorsalis pedis region, but the plantar arch is not well served. There is no achievable direct flow into the foot. Uncontrolled diabetes POA *Maintain blood glucose between 100-180 at all times *Insulin sliding scale for blood glucose management *Hyperglycemia and hypoglycemia protocols in place Hypertension POA Hyperlipidemia POA *Continue with Lisinopril 10mg po daily as ordered for elevated BP. *Continue with Hydralazine 10mg IV for systolic BP>160 *Continue with Atorvastatin 40mg daily as ordered for hyperlipidemia *Follow hemodynamics. *Vital signs per facility protocol Anemia *Monitor H & H. Keep Hgb > 7 *Transfuse 1 unit of PRBC for Hgb < 7 *Continue on Lovenox 30 mg subQ daily for DVT prphylaxis *Continue on Famotidine 20 mg p.o. bid for GI prophylaxis *Continue prn medication for fever,pain, nausea and vomiting *Labs in the morning. *Case discussed with attending physician and came up with above treatment and plan of care. ATTESTATION BY PHYSICIAN I have seen and examined the patient. I reviewed the documentation, medical decision making, and treatment plan as noted by the resident provider above. I agree with the findings and plan of care. Quita Ash MD, NIHITHA MD Jan 02, 2024 10:23
--- NOTE | 2024-01-02 12:52 | PN ---
INFECTIOUS DISEASE PROGRESS NOTE Date of Service: Jan 02, 2024 SUBJECTIVE: This 68-year-old female patient who was admitted for severe left foot pain. Patient was seen and examined at bedside in room 320. Patient had a low-grade fever throughout the night of 100.2, no fever this morning temperature 98.2. Continues with pain to the left foot. Continues on vancomycin and Zosyn. We will continue to follow patient's care. PHYSICAL EXAM EYES: Anicteric. Pupils equal and reactive. HENT: No oral thrush seen, moist Oral mucosa NECK: Supple, no JVD or thyromegaly. LUNGS: Good air entry. No rales, no rhonchi. CARDIOVASCULAR: S1, S2 regular. No murmur heard. ABDOMEN: Soft, non tender, bowel sounds present, no organomegaly CENTRAL NERVOUS SYSTEM: Awake, alert, oriented x 3. SKIN: No rashes, no swelling. LYMPHATICS: No peripheral lymphadenopathy MUSCULOSKELETAL: No joint swelling, erythema or tenderness. EXTREMITIES: No cyanosis or clubbing BACK: No deformity, no pressure ulcer. GENITOURINARY: No dysuria or hematuria Vital Sign (Last 12 Hours) 01/02/24 01/02/24 01/02/24 04:00 08:11 11:16 Temp 99.9 98.4 98.2 Pulse 107 102 79 Resp 18 18 17 B/P (MAP) 166/89 170/71 161/69 Pulse Ox 97 98 98 O2 Delivery Room Air Room Air Room Air Intake & Output (last 24hrs) 01/01/24 01/01/24 01/02/24 15:00 23:00 07:00 Output Total 1375 ml 400 ml Balance -1375 ml -400 ml LABS: Laboratory: Test 01/02/24 11:02 01/02/24 09:40 01/02/24 05:56 12/31/23 16:48 Range/Units Whole Blood Glucose 158 H 70-110 MG/DL Lactic Acid Level 0.8 0.8-2.5 mmol/L White Blood Count 9.4 4.8-10.8 K/uL Red Blood Count 2.87 L 4.00-5.50 MIL/uL Hemoglobin 8.6 L 12.0-16.0 g/dL Hematocrit 26.5 L 36-48 % Mean Corpuscular Volume 92.3 79-99 fL Mean Corpuscular Hemoglobin 30.0 27.0-33.0 pg Mean Corpuscular Hemoglobin Concent 32.5 32.0-36.0 g/dL Red Cell Distribution Width 12.4 11.0-15.5 % Platelet Count 358 130-400 K/uL Mean Platelet Volume 8.7 7.5-10.5 fL Nucleated Red Blood Cells 0.0 0.0-0.19 % Sodium Level 144 136-145 mmol/L Potassium Level 3.8 3.5-5.1 mmol/L Chloride Level 109 101-111 mmol/L Carbon Dioxide Level 23 21-32 mmol/L Blood Urea Nitrogen 10 7-18 mg/dL Creatinine 0.8 0.5-1.0 mg/dL Glomerular Filtration Rate Calc 79 >90 mL/min Random Glucose 206 H 70-105 mg/dL Total Calcium 8.5 8.5-10.1 mg/dL Bedside Glucose Comment Notified Nurse ASSESSMENT: Left foot osteomyelitis. Diabetic foot ulcer. Left foot cellulitis. Left foot ischemia. Peripheral vascular disease. Diabetes mellitus. Hypokalemia. PLAN: Continue Zosyn. Continue vancomycin per pharmacy protocol. Continue pain management. Continue GI prophylaxis. Wound care as recommended by fine artist. Continue monitoring glucose levels. We will monitor electrolytes. This case was reviewed and discussed with my supervising physician and the above assessment and plan was formulated and agreed upon. ATTESTATION BY PHYSICIAN I have seen and examined the patient. I reviewed the documentation, medical decision making, and treatment plan as noted by the mid-level provider above. I agree with the findings and plan of care. IVAN LOCO MD, [facility] Jan 02, 2024 12:52
[2024-01-02] MEDS: BisaCODYL 10 MG SUPP.RECT RC PRN (14:58)
[2024-01-02] MEDS: PROMETHAZINE HCL 25 MG/ML 1ML AMPULE IM PRN (16:34)
[2024-01-02] MEDS: metoPROLOL tartRATE 50 MG TAB PO SCH (20:31)
[2024-01-02] MEDS: LACTULOSE 20 GM/30 ML UDCUP PO PRN (20:32)
--- NOTE | 2024-01-02 21:00 | PN ---
PROGRESS NOTE Date of Service: Jan 02, 2024 Time of Service: 20:57 SUBJECTIVE: 68 years old female was seen for follow up status post angioplasty follow up on ulcer to the 3rd and 4th toe left foot chief complaint of pain. REVIEW OF SYSTEMS CONSTITUTIONAL: Denies fever, chills, or fatigue. HEAD/FACE: No signs of trauma. EENT: Denies eye pain, blurred vision, double vision, or light sensitivity. RESPIRATORY: Denies shortness of breath, cough, wheezing CARDIOVASCULAR: Denies chest pain, palpitation, syncope GASTROINTESTINAL/ABDOMINAL: Denies abdominal pain, constipation, diarrhea, nausea or vomiting GENITOURINARY: Denies dysuria or hematuria. MUSCULOSKELETAL: Denies joint pain, tenderness, or trauma. INTEGUMENTARY: Ulceration 3rd and 4th toe left foot with cellulitis of the left foot. NEUROLOGICAL/PSYCH: Denies anxiety, depression, heat or cold intolerance. PHYSICAL EXAM EYES: Anicteric. Pupils equal and reactive. HENT: No oral thrush seen, moist Oral mucosa NECK: Supple, no JVD or thyromegaly. LUNGS: Good air entry. No rales, no rhonchi. CARDIOVASCULAR: S1, S2 regular. No murmur heard. Small-vessel disease. Left lower extremity ABDOMEN: Soft, non tender, bowel sounds present, no organomegaly CENTRAL NERVOUS SYSTEM: Awake, alert, oriented x 3. No focal deficits. SKIN: Ulcer 3rd toe and 4th toe left foot edema and cellulitis. LYMPHATICS: No peripheral lymphadenopathy MUSCULOSKELETAL: No joint swelling, erythema or tenderness. EXTREMITIES: Ulceration 3rd and 4th toe left foot with cellulitis. BACK: No deformity, no pressure ulcer. GENITOURINARY: No dysuria or hematuria Vital Signs (last 8hr) Date Time Temp Pulse Resp B/P (MAP) Pulse Ox O2 Delivery O2 Flow Rate FiO2 01/02/24 19:00 98.8 102 20 168/85 99 Room Air 01/02/24 16:42 98.2 86 18 163/75 98 Room Air LABS: Laboratory: Test 01/02/24 19:45 01/02/24 16:37 01/02/24 09:40 01/02/24 05:56 Range/Units Whole Blood Glucose 195 H 70-110 MG/DL Vancomycin Level Trough 13.1 10.0-20.0 UG/ML Lactic Acid Level 0.8 0.8-2.5 mmol/L White Blood Count 9.4 4.8-10.8 K/uL Red Blood Count 2.87 L 4.00-5.50 MIL/uL Hemoglobin 8.6 L 12.0-16.0 g/dL Hematocrit 26.5 L 36-48 % Mean Corpuscular Volume 92.3 79-99 fL Mean Corpuscular Hemoglobin 30.0 27.0-33.0 pg Mean Corpuscular Hemoglobin Concent 32.5 32.0-36.0 g/dL Red Cell Distribution Width 12.4 11.0-15.5 % Platelet Count 358 130-400 K/uL Mean Platelet Volume 8.7 7.5-10.5 fL Nucleated Red Blood Cells 0.0 0.0-0.19 % Sodium Level 144 136-145 mmol/L Potassium Level 3.8 3.5-5.1 mmol/L Chloride Level 109 101-111 mmol/L Carbon Dioxide Level 23 21-32 mmol/L Blood Urea Nitrogen 10 7-18 mg/dL Creatinine 0.8 0.5-1.0 mg/dL Glomerular Filtration Rate Calc 79 >90 mL/min Random Glucose 206 H 70-105 mg/dL Total Calcium 8.5 8.5-10.1 mg/dL DIAGNOSTICS / RADIOLOGY: [ ] FOOT COMP 3+VWS LT HISTORY: Foot lesion COMPARISON: None TECHNIQUE: 3 images of left foot were obtained. FINDINGS: There is no acute displaced fracture or dislocation. There is soft tissue swelling. Vascular calcifications are seen. Degenerative changes are seen. IMPRESSION: 1. Findings as described above. Arterial Ultrasound left On the left, the peak systolic velocity of the common femoral artery is 180 cm/s, the proximal femoral artery is 112 cm/s, the mid femoral artery is 67 cm/s, the distal femoral artery is 76 cm/s, the proximal popliteal artery is 147 cm/s, the distal popliteal artery is 130 cm/s, the anterior tibial artery is 127 cm/s, the posterior tibial artery artery is 86 cm/s,and the dorsalis pedal artery is 95 cm/s. ASSESSMENT: Diabetic foot ulcer 3rd and 4th toe left foot diabetic foot infection. PLAN: The patient continues with pain at this moment it was discussed with her and her son the treatment options amputation of the toes have a risk of nonhealing due to small-vessel disease on the foot. They both understood the risk and consequences and the possible need in the future for a more proximal amputation. At this time they decided to have the toes amputated possible 4th toe definitely 3rd toe which was noted to be gangrenous and we will follow progress if the pain continues or the wound does not heal most likely the patient will need a more proximal amputation this ostomy explained in detail they both agree to the treatment plan at this moment and we will scheduled for Tuesday for amputation of the 3rd toe possible 4th toe of the left foot again no guarantees were offered at this time this is an attempt to salvage the limb. ONESIMO SAUCEDO DPM Jan 02, 2024 21:00
[2024-01-03] VITALS (8 sets, daily range): BP systolic 142–178; BP diastolic 63–85; PULSE 79–102; RESP 18–20; TEMP 98.1–99.2; O2SAT 98
[2024-01-03] MEDS: amLODIPine 5 MG TAB PO SCH (08:34)
--- NOTE | 2024-01-03 11:30 | NUR ---
blood glucose 217. Covered with 6 units of Humulin R subcutaneous; following insulin scale.
--- NOTE | 2024-01-03 12:06 | PN ---
[facility] PROGRESS NOTE Date of Service: Jan 03, 2024 Time of Service: 11:59 SUBJECTIVE: HPI 68-year-old female admitted due to left lower extremity pain, patient had wound ulcer between 3rd and 4th toe of the left foot and some necrosis. Arterial Doppler was done which showed abnormal monophasic arterial waveform seen in the right superficial femoral popliteal bilateral posterior tibial anterior dorsalis pedal arteries. Hyperemic flow is seen in the right dorsalis pedal, left anterior tibial and posterior tibial arteries. There is an occlusion of the right distal superficial femoral artery, high-grade stenosis is suspected in the right common femoral and right proximal superficial femoral artery, high-grade stenosis is also suspected in the right popliteal artery proximally. Dr. Charles has been consulted and recommending cardiovascular consult for vascular assessment. Dr. Mao recommending CT angio to the left foot. Infectious Disease also consulted, we will continue with IV antibiotics. We are pending MRI to rule out osteomyelitis. Otherwise patient has no complaints. Interval History 12/30/23: Lying in bed at the time of evaluation. Alert and oriented and in mild distress. Continues with complaints of right foot pain. Rates the pain as 7/10. Morphine 2mg ordered for adequate pain management. An MRI was done today. Shows findings suspicious for osteomyelitis involving the 3rd and 4th toes. Patient is currently on Vancomycin and Zosyn IV Aorto with runoff CTA shows extensive atherosclerotic changes. Multiple short segment high grade stenosis seen throughout the right superficial femoral artery. There are occlusions of left anterior tibial and bilateral post tibial artery. There is also occlusion of the right anterior tibial artery at mid calf level. Cardiovascular surgeon is on the case. Patient denies any chest pain, shortness of breath, nausea , vomiting or associated symptoms. 12/31/23 patient evaluated in the room this morning. She is in good spirits. Pain is minimal to the left leg. She is status post CT angio abdominal aorta with runoff that showed extensive vascular calcifications. Extensive atherosclerotic changes seen. Multiple short-segment high-grade stenosis are seen throughout the right superficial femoral artery. There are occlusions of left anterior tibial and bilateral posterior tibial arteries. There is also occlusion of the right anterior tibial artery and mid calf level. There may be reconstitution of posterior tibial arteries near the distal calf level. MRI of the left foot shows suspicious for osteomyelitis-involving 3rd and 4th toes. On physical evaluation, there are necrosis on the 3rd and 4th toe. We will follow up with CV surgeon on further recommendations. Podiatry is recommending amputation, we will await for final recommendations from CV team. 12/31 patient was evaluated in the room this morning, she complains of 10/10 pain to the left leg. We are awaiting for final recommendations from consultants. For now we will continue with pain management and IV antibiotics. 01/01 Patient was seen at bedside, she is alert, awake and oriented. Today her vitals are BP 161/69, pulse rate 79, respiratory rate 17, sp02 98% on room air and T-max 98.2 but she has been having low grade temperatures during the weekend. Her Blood pressure has been elevated in 160s, will increase her dose of metoprolol from 25mg to 50mg and start her on Amlodipine 5mg. Her lactic acid was 0.8. She was given Tramadol and dilaudid for pain, she doesn't feel any pain right now. Votator Machine Operator and vascular surgery recommended digit amputation, pending Dr. Charles recommendation on surgery. We will monitor her vitals closely. 01/02 Patient was seen at bedside, she is alert, awake and oriented. Today her vitals are BP 142/63, pulse rate 79, respiratory rate 18, sp02 98% on room air and T-max 98.2, she did not spike a fever last night, she has no complaints. She was constipated yesterday and was feeling nauseous to take lactulose. Prescribed her bisacodyl enema, she had a bowel moment. She was unable to tolerate feeds due to nausea, added promethazine to her medication and she was eating better today. Dr. Charles saw the patient yesterday and has scheduled for amputation tomorrow. REVIEW OF SYSTEMS CONSTITUTIONAL: Denies fevers, chills, or night sweats. No unintentional weight loss reported. NEUROLOGICAL: Denies headache, amaurosis fugax, motor weakness, sensory deficit, vertigo/spinning sensation, gait abnormalities, or tremors. ENT: No hearing loss, otalgia, otorrhea, rhinitis, rhinorrhea, hoarseness, or sore throat. CARDIOVASCULAR: Denies any exertional angina, dyspnea on exertion, orthopnea, paroxysmal nocturnal dyspnea, palpitations, life-threatening arrhythmias, claudication. PULMONARY: Denies any shortness of breath, cough, phlegm/sputum, hemoptysis, pleuritic chest pain. SLEEP: Denies morning headaches, daytime somnolence or napping. Denies difficulty falling asleep, staying asleep, waking from sleep. Denies knowledge of snoring. GASTROINTESTINAL: Denies any type of dysphagia to either liquids or solids. Denies pyrosis, early satiety, abdominal pain, diarrhea, constipation, or changes in stool consistency or caliber. Denies coffee-ground emesis, hematemesis, hematochezia, or melanotic stools. GENITOURINARY: Denies frequency, urgency, nocturia, hematuria or incontinence (Storage/Irritative symptoms.) Low urinary stream, straining to void, urinary intermittency or hesitancy, splitting of the voiding stream, terminal dribbling. ENDOCRINOLOGIC: Denies polyuria, polydipsia, polyphagia or heat/cold intolerances. HEMATOLOGIC: Denies thrombophilia/previous clots, or coagulopathy/bleeding disorders. ONCOLOGIC: Denies personal history of malignancy. DERMATOLOGIC: Left anterior foot with ecchymosis and wound on the 3rd and 4th toe Denies rashes or pruritus. PSYCHIATRIC: Denies any suicidal or homicidal ideation. Denies hallucinations. PHYSICAL EXAM GENERAL APPEARANCE: The patient is awake, alert, and oriented, in no acute cardiopulmonary distress. NEUROLOGICAL: Cranial nerves II-XII grossly intact. Motor is 5/5 in bilateral upper and lower extremities proximal to distal. No sensory deficits. HEENT: Face is symmetric. Pupils are equal and reactive. Extraocular movements are intact. NECK: Supple. No JVD. No thyromegaly. No submental, submandibular, pre- /postauricular, occipital or supraclavicular lymphadenopathy. CHEST: Normal chest expansion. No Telemetry. LUNGS: Absence of any rales, rhonchi or any wheezing. CARDIOVASCULAR: Regular. S1 and S2 normal. No appreciable rubs, murmurs or gallops. ABDOMEN: Soft, nontender, and nondistended. There is no rebound, voluntary guarding, or rigidity. : Deferred. No Martel. EXTREMITIES: Non-edematous and not cyanotic. No clubbing. Good capillary refill. SKIN: left anterior foot with purple discoloration ,left foot swollen and erythema with some necrosis and ulcer in between 3rd and 4th toe Vital Signs (last 8hr) Date Time Temp Pulse Resp B/P (MAP) Pulse Ox O2 Delivery O2 Flow Rate FiO2 01/03/24 11:28 98.2 79 18 142/63 98 Room Air 01/03/24 08:18 98.4 94 18 153/83 98 Room Air 01/03/24 04:00 98.2 98 20 167/85 98 Room Air LABS: Laboratory: Test 01/03/24 11:06 01/02/24 16:37 01/02/24 09:40 01/02/24 05:56 Range/Units Whole Blood Glucose 217 H 70-110 MG/DL Vancomycin Level Trough 13.1 10.0-20.0 UG/ML Lactic Acid Level 0.8 0.8-2.5 mmol/L White Blood Count 9.4 4.8-10.8 K/uL Red Blood Count 2.87 L 4.00-5.50 MIL/uL Hemoglobin 8.6 L 12.0-16.0 g/dL Hematocrit 26.5 L 36-48 % Mean Corpuscular Volume 92.3 79-99 fL Mean Corpuscular Hemoglobin 30.0 27.0-33.0 pg Mean Corpuscular Hemoglobin Concent 32.5 32.0-36.0 g/dL Red Cell Distribution Width 12.4 11.0-15.5 % Platelet Count 358 130-400 K/uL Mean Platelet Volume 8.7 7.5-10.5 fL Nucleated Red Blood Cells 0.0 0.0-0.19 % Sodium Level 144 136-145 mmol/L Potassium Level 3.8 3.5-5.1 mmol/L Chloride Level 109 101-111 mmol/L Carbon Dioxide Level 23 21-32 mmol/L Blood Urea Nitrogen 10 7-18 mg/dL Creatinine 0.8 0.5-1.0 mg/dL Glomerular Filtration Rate Calc 79 >90 mL/min Random Glucose 206 H 70-105 mg/dL Total Calcium 8.5 8.5-10.1 mg/dL Current Medications Medications (Trade) Dose Ordered Sig/Reji Route PRN Reason Start Time Stop Time Status Last Admin Dose Admin Acetaminophen (TYLenol 325MG TAB) 650 mg Q4H PRN PO MILD PAIN (1-3) 12/27/23 19:30 01/26/24 19:29 01/02/24 05:39 650 MG Acetaminophen (TYLenol 325MG TAB) 650 mg Q6H PRN PO TEMPERATURE GREATER THAN 101.5 12/27/23 19:30 01/26/24 19:29 Acetaminophen/ Hydrocodone Bitart (NORco 5/325MG) 1 tab Q4H PRN PO MODERATE PAIN (4-6) 12/27/23 19:30 01/01/24 19:29 DC 01/01/24 18:22 1 TAB Amlodipine Besylate (NorvASC 5MG TAB) 5 mg DAILY PO 01/03/24 09:00 02/02/24 08:59 01/03/24 08:34 5 MG Aspirin (Aspirin 81mg Chew Tab) 81 mg DAILY PO 12/30/23 09:00 01/29/24 08:59 01/03/24 08:33 81 MG Atorvastatin Calcium (LIPItor 40MG) 40 mg HS PO 12/30/23 21:00 01/29/24 20:59 01/02/24 20:30 40 MG Bisacodyl (DulcoLAX) 10 mg BID PRN RC CONSTIPATION 01/02/24 15:00 02/01/24 14:59 01/02/24 14:58 10 MG Dextrose (D50w) 50 ml AD PRN IV HYPOGLYCEMIA PROTOCOL 12/27/23 19:30 01/26/24 19:29 Enoxaparin Sodium (Lovenox) 30 mg DAILY SQ 12/28/23 09:00 01/27/24 08:59 01/02/24 08:07 30 MG Famotidine (Pepcid 20mg Tab) 20 mg BID PO 12/27/23 21:00 01/26/24 20:59 01/03/24 08:35 20 MG Folic Acid (FOLic ACID 1 MG TABLET) 1 mg DAILY PO 12/30/23 09:00 01/29/24 08:59 01/03/24 08:36 1 MG Glucagon (Glucagon 1mg Kit) 1 mg AD PRN IM HYPOGLYCEMIA PROTOCOL 12/27/23 19:30 01/26/24 19:29 Hydralazine HCl (APRESOLine 20MG INJ) 10 mg Q6H PRN IV For:SBP above 160;DBP above 90 12/27/23 19:30 01/26/24 19:29 01/02/24 12:58 10 MG Hydromorphone HCl (DiLAUDid 0.5MG INJ) 0.5 mg Q4H PRN IVP SEVERE PAIN (7-10) 01/02/24 01:00 01/07/24 00:59 01/03/24 03:10 0.5 MG Insulin Human Regular (humuLIN R 100 UNIT/ML 3ML) INSULIN SLIDING SCAL... ACHS SQ 12/27/23 21:00 12/31/23 22:15 DC 12/31/23 21:04 2 UNIT Insulin Human Regular (humuLIN R 100 UNIT/ML 3ML) INSULIN SLIDING SCAL... ACHS SQ 01/01/24 07:30 01/31/24 07:29 01/02/24 20:40 4 UNIT Lactulose (Constulose 20gm/ 30ml Udcup) 20 gm BID PRN PO CONSTIPATION 12/31/23 15:30 01/02/24 14:41 DC Lactulose (Constulose 20gm/ 30ml Udcup) 20 gm BID PRN PO CONSTIPATION 01/02/24 15:00 02/01/24 14:59 01/02/24 20:32 20 GM Lisinopril (Prinivil 10mg) 10 mg DAILY PO 12/30/23 09:00 01/29/24 08:59 01/03/24 08:34 10 MG Magnesium Sulfate 50 ml @ 0 mls/hr PROTOCOL IV 12/29/23 14:30 12/29/23 14:10 DC Magnesium Sulfate 50 ml @ 0 mls/hr PROTOCOL PRN IV OTHER [SEE ORDER COMMENTS] 12/27/23 19:30 01/26/24 19:29 12/31/23 05:46 25 MLS/HR Metoprolol Tartrate (loprESSOR) 25 mg BID PO 01/01/24 16:30 01/02/24 13:00 DC 01/02/24 08:05 25 MG Metoprolol Tartrate (loprESSOR) 50 mg BID PO 01/02/24 21:00 02/01/24 20:59 01/03/24 08:35 50 MG Morphine Sulfate (morPHINE 2MG SYG) 2 mg Q4H PRN IV SEVERE PAIN (7-10) 12/27/23 19:30 01/01/24 22:29 DC 01/01/24 20:09 2 MG Ondansetron HCl (zoFRAN 4MG INJ) 4 mg Q6H PRN IV NAUSEA/VOMITING 12/27/23 19:30 01/26/24 19:29 01/02/24 14:58 4 MG Piperacillin Sod/ Tazobactam Sod (Zosyn 3.375gm+NS 50ml) 3.375 gm Q8H IV 12/28/23 02:00 01/18/24 01:59 01/03/24 01:28 3.375 GM Potassium Chloride 100 ml @ 100 mls/hr AD PRN IV POTASSIUM PROTOCOL 12/27/23 19:30 01/26/24 19:29 Potassium Chloride (K-Dur/Klor-Con 20meq) 20 meq AD PRN PO POTASSIUM PROTOCOL 12/27/23 19:30 01/26/24 19:29 01/01/24 05:43 20 MEQ Potassium Chloride (KCl 10% Elixir 20meq/15ml) 20 meq AD PRN PO POTASSIUM PROTOCOL 12/27/23 19:30 01/26/24 19:29 01/01/24 05:43 20 MEQ Promethazine HCl (Phenergan) 12.5 mg Q6H PRN IM NAUSEA/VOMITING 01/02/24 16:30 02/01/24 16:29 01/02/24 16:34 12.5 MG Ticagrelor (BRILinta) 90 mg BID PO 12/30/23 09:00 01/29/24 08:59 01/03/24 08:33 90 MG Tramadol HCl (UltRAM) 50 mg Q6H PRN PO PAIN LEVEL 4 TO 6 01/02/24 01:00 01/07/24 00:59 01/03/24 05:40 50 MG Vancomycin HCl (Vancomycin 750mg) 750 mg Q12H IVPB 12/28/23 06:00 01/07/24 05:59 01/03/24 05:40 750 MG Vancomycin HCl (Vancomycin Protocol) 1 each AD IV 12/27/23 18:00 12/27/23 19:20 DC Vancomycin HCl (Vancomycin Protocol) 1 each AD IV 12/27/23 19:30 01/10/24 19:29 Vitamin B Complex (Vitamin B-12) 1,000 mcg DAILY PO 12/30/23 09:00 01/29/24 08:59 01/03/24 08:34 1,000 MCG DIAGNOSTICS / RADIOLOGY: [ ] ASSESSMENT: Severe left foot pain POA Left foot cellulitis POA Suspected Left foot osteomyelitis POA left lower extremity Peripheral arterial disease POA Recent peripheral angioplasty of Left lower extremity on DAPT POA Uncontrolled diabetes POA Hypertension POA Anemia POA POA Hyperlipidemia POA History of left lower extremity DVT PLAN: Severe left foot pain POA Left foot cellulitis POA Left foot osteomyelitis POA *MRI showed findings suspicious for osteomyelitis involving the 3rd and 4th toes *Infectious Disease is on the case. *Continue on Vancomycin IV and Zosyn IV as ordered *Continue with Morphine 2mg IV for adequate pain management *Podiatry consult placed. *Trend temperature , WBC and procalcitonin levels *Follow cultures *De escalate antibiotics use as soon as possible. *Panculture if new onset fever Left lower extremity Peripheral arterial disease POA Recent peripheral angioplasty of Left lower extremity on DAPT POA *Cardiovascular consult ordered. Pending recommendations. *CTA aorto with runoff shows multiple occlusions in the left lower extremity * Cardiology on the case, we are following their recommendations on their standpoint, no need for arteriogram, based on Dr. Cam's last note performed on 12/22/23: ----SFA 80-98% segmental stenosis is reduced to 0% residual. ----Left popliteal segmental 90-98% stenosis is reduced to 10% residual ----Left tibioperoneal and proximal peroneal 90-98% stenosis is reduced to 0% residual. ----Although initial images demonstrated very slow flow through the lower extrem ity, final images demonstrate brisk flow to the ankle with collaterals into the heel and dorsalis pedis region, but the plantar arch is not well served. There is no achievable direct flow into the foot. Uncontrolled diabetes POA *Maintain blood glucose between 100-180 at all times *Insulin sliding scale for blood glucose management *Hyperglycemia and hypoglycemia protocols in place Hypertension POA Hyperlipidemia POA *Continue with Lisinopril 10mg po daily as ordered for elevated BP. *Continue with Hydralazine 10mg IV for systolic BP>160 *Continue with Atorvastatin 40mg daily as ordered for hyperlipidemia *Follow hemodynamics. *Vital signs per facility protocol Anemia *Monitor H & H. Keep Hgb > 7 *Transfuse 1 unit of PRBC for Hgb < 7 *Continue on Lovenox 30 mg subQ daily for DVT prphylaxis *Continue on Famotidine 20 mg p.o. bid for GI prophylaxis *Continue prn medication for fever,pain, nausea and vomiting *Labs in the morning. *Case discussed with attending physician and came up with above treatment and plan of care. ATTESTATION BY PHYSICIAN I have seen and examined the patient. I reviewed the documentation, medical decision making, and treatment plan as noted by the resident provider above. I agree with the findings and plan of care. Quita Ash MD, NIHITHA MD Jan 03, 2024 12:06
--- NOTE | 2024-01-03 15:16 | PN ---
INFECTIOUS DISEASE PROGRESS NOTE Date of Service: Jan 03, 2024 SUBJECTIVE: This 68-year-old female patient who was admitted for severe left foot pain. Patient is awake, alert and able to answer questions. Patient continues with severe pain to the left foot. Patient will be undergoing a left 3rd toe amputation and possible 4th toe amputation tomorrow. No reports of fever this morning, temperature is 98.2. Continues on vancomycin and Zosyn. We will continue to follow patient's care. PHYSICAL EXAM EYES: Anicteric. Pupils equal and reactive. HENT: No oral thrush seen, moist Oral mucosa NECK: Supple, no JVD or thyromegaly. LUNGS: Good air entry. No rales, no rhonchi. CARDIOVASCULAR: S1, S2 regular. No murmur heard. ABDOMEN: Soft, non tender, bowel sounds present, no organomegaly CENTRAL NERVOUS SYSTEM: Awake, alert, oriented x 3. SKIN: No rashes, no swelling. LYMPHATICS: No peripheral lymphadenopathy MUSCULOSKELETAL: No joint swelling, erythema or tenderness. EXTREMITIES: No cyanosis or clubbing BACK: No deformity, no pressure ulcer. GENITOURINARY: No dysuria or hematuria Vital Sign (Last 12 Hours) 01/03/24 01/03/24 01/03/24 04:00 08:18 11:28 Temp 98.2 98.4 98.2 Pulse 98 94 79 Resp 20 18 18 B/P (MAP) 167/85 153/83 142/63 Pulse Ox 98 98 98 O2 Delivery Room Air Room Air Room Air Intake & Output (last 24hrs) 01/02/24 01/02/24 01/03/24 15:00 23:00 07:00 Intake Total 400.0 ml 50 ml Output Total 1100 ml Balance 400.0 ml -1050 ml LABS: Laboratory: Test 01/03/24 11:06 01/02/24 16:37 01/02/24 09:40 01/02/24 05:56 Range/Units Whole Blood Glucose 217 H 70-110 MG/DL Vancomycin Level Trough 13.1 10.0-20.0 UG/ML Lactic Acid Level 0.8 0.8-2.5 mmol/L White Blood Count 9.4 4.8-10.8 K/uL Red Blood Count 2.87 L 4.00-5.50 MIL/uL Hemoglobin 8.6 L 12.0-16.0 g/dL Hematocrit 26.5 L 36-48 % Mean Corpuscular Volume 92.3 79-99 fL Mean Corpuscular Hemoglobin 30.0 27.0-33.0 pg Mean Corpuscular Hemoglobin Concent 32.5 32.0-36.0 g/dL Red Cell Distribution Width 12.4 11.0-15.5 % Platelet Count 358 130-400 K/uL Mean Platelet Volume 8.7 7.5-10.5 fL Nucleated Red Blood Cells 0.0 0.0-0.19 % Sodium Level 144 136-145 mmol/L Potassium Level 3.8 3.5-5.1 mmol/L Chloride Level 109 101-111 mmol/L Carbon Dioxide Level 23 21-32 mmol/L Blood Urea Nitrogen 10 7-18 mg/dL Creatinine 0.8 0.5-1.0 mg/dL Glomerular Filtration Rate Calc 79 >90 mL/min Random Glucose 206 H 70-105 mg/dL Total Calcium 8.5 8.5-10.1 mg/dL ASSESSMENT: Left foot osteomyelitis. Diabetic foot ulcer. Left foot cellulitis. Left foot ischemia. Peripheral vascular disease. Diabetes mellitus. Hypokalemia. PLAN: Continue Zosyn. Continue vancomycin per pharmacy protocol. Continue pain management. Continue GI prophylaxis. Wound care as recommended by group sales representative. Continue monitoring glucose levels. We will monitor electrolytes. Patient will be undergoing a left 3rd toe possible right 4th toe amputation tomorrow. This case was reviewed and discussed with my supervising physician and the above assessment and plan was formulated and agreed upon. ATTESTATION BY PHYSICIAN I have seen and examined the patient. I reviewed the documentation, medical dec ision making, and treatment plan as noted by the mid-level provider above. I agree with the findings and plan of care. IVAN LOCO MD, [facility]TA [facility] Jan 03, 2024 15:16
--- NOTE | 2024-01-03 16:30 | NUR ---
blood glucose 258. Covered with 10 units of Humulin R subcutaneous; following insulin scale.
--- NOTE | 2024-01-03 22:00 | NUR ---
wound care performed at this time as per physician orders. patient was medicated with 0.5mg of dilaudid beforehand. patient did not tolerate wound care well, she winced and pulled her foot away while applying topical medication and dressing. I offered tramadol 50mg and patient agreed.
[2024-01-04] VITALS (22 sets, daily range): BP systolic 115–180; BP diastolic 66–90; PULSE 72–109; RESP 15–22; TEMP 97.3–98.8; O2SAT 98
--- NOTE | 2024-01-04 03:49 | NUR ---
Pain Patient complain of pain to left foot, 7/10 on the pain scale. Dilaudid 0.5mg IV push administered at this time through 22G to right hand.
[2024-01-04 05:28] LABS: ALBUMIN 2.5 g/dL (3.5-5.0); BILIRUBIN,TOTAL 0.3 mg/dL (0.2-1.0); CREATININE 0.8 mg/dL (0.5-1.0); HEMATOCRIT 27.6 % (36-48); INR 1.04 (0.85-1.15); MEAN CORPUSCULAR HEMOGLOBIN 30.2 pg (27.0-33.0); MEAN CORPUSCULAR HGB CONC 31.2 g/dL (32.0-36.0); MEAN CORPUSCULAR VOLUME 96.8 fL (79-99); POTASSIUM 3.3 mmol/L (3.5-5.1); PROTHROMBIN TIME 11.2 SEC (9.6-11.6); RED BLOOD CELL COUNT(AUTO) 2.85 MIL/uL (4.00-5.50); RED CELL DISTRIBUTION WIDTH 12.4 % (11.0-15.5); TOTAL PROTEIN, SERUM 6.8 g/dL (6.0-8.3)
--- NOTE | 2024-01-04 06:33 | NUR ---
PATIENT WAS PICKED UP BY TECH AND NURSE FROM HOLDING AT THIS TIME.
[2024-01-04] MEDS ORDERED: ketaMINE 50MG/ML SYRINGE 50 MG/ML DISP.SYRIN ONE (06:43)
[2024-01-04] MEDS ORDERED: proPOFol 10 MG/ML 20ML VIAL IV ONE (06:45)
[2024-01-04] MEDS ORDERED: FENTanyl CITRate PF 50 MCG/1 ML 2ML VIAL ONE (06:46)
[2024-01-04] MEDS ORDERED: LIDOCAINE HCL-MPF 2% 10ML AMP IJ ONE (06:46)
[2024-01-04] MEDS ORDERED: MIDAZOLAM HCL 1 MG/ML 2ML VIAL ONE (06:46)
[2024-01-04] MEDS: LIDOCAINE HCL 1% 20 ML VIAL ONE (07:20)
[2024-01-04] MEDS ORDERED: ondanSETRON 4MG INJ ONE (07:20)
[2024-01-04] MEDS: BUPIvacaine/PF 0.5% 30ML VIAL ONE (07:20)
[2024-01-04] MEDS: BACITRACIN 28.4 GM OINT TP ONE (07:30)
--- NOTE | 2024-01-04 07:52 | OP ---
Operative Note: DATE OF PROCEDURE: 01/04/24 SURGEON: ONESIMO SAUCEDO DPM GOGGLES ASSEMBLER: Or nona ANESTHESIA: Local IV sedation 1% xylocaine 0.25% Marcaine ANESTHESIOLOGIST/ANAESTHESIOLOGIST: PREOPERATIVE DIAGNOSIS: Gangrene 3rd toe left foot POSTOPERATIVE DIAGNOSIS: Gangrene 3rd toe left foot SYNOPSIS: This 68 years old female seen for evaluation of gangrene 3rd toe left foot this moment after the patient was assessed by cardiovascular as an outpatient with angioplasty the decision was made for amputation of the 3rd toe patient still have a small-vessel disease and most recent arterial Dopplers and CT angio was abnormal for the circulation of the foot patient does not want them a [id number] amputation at this time amputation of the 3rd toe at this moment we will be attempted for the possible salvage of the limb no guarantees were offered at this time this was explained to the patient. Also was explained to the family member her son. Both agree to the treatment plan with no guarantees as planned at the above with the possibility of further surgeries in the future. PROCEDURE: Amputation of 3rd toe left foot metatarsal head level ESTIMATED BLOOD LOSS: Less than 2 cc INDICATIONS: Gangrene 3rd toe left DESCRIPTION OF PROCEDURE: The patient was brought into the operating room from was placed on the operating table in the supine position on the IV sedation local anesthesia was achieved via local infiltration 1% xylocaine 0.25% Marcaine plain total of 20 cc to the forefoot area. At this moment then attention was directed towards the left foot where the foot was prepped and draped in usual sterile fashion. At this moment assessment was done of the 3rd toe was noted to be gangrenous utilizing a 15 blade two semielliptical incision were done at the level of the metatarsal head this incision was carried down through subcutaneous tissue level down to tendon and capsular level dorsal plantar capsulotomy were performed at this time lateral collateral and medial collateral ligaments were excised at this time. By this mean disarticulating the metatarsophalangeal joint and removing the toe from the surgical site. At this moment then a transverse osteotomy was performed to the metatarsal head utilizing a bone cutter. And remove the distal aspect of the metatarsal head at this time. The wound was irrigated with copious amounts of saline solution cultures and sensitivity were taken from the wound proximal skin was reapproximated utilizing 3-0 nylon lysing position remaining of the wound was left open for allow drainage to take place. A wound care will be continued as an inpatient and outpatient and we will follow up as an outpatient once the patient is discharged from the hospital continue with IV antibiotics. Patient tolerated procedure and anesthesia well. ONESIMO SAUCEDO DPM Jan 04, 2024 07:52
--- NOTE | 2024-01-04 08:00 | NUR ---
RECEIVED PATIENT FROM OR. SHE HAD A 3RED TOE LEFT FOOT AMPUTATION. DRESSING CLEAN AND DRY. PATIENT GROGGY. NO SIGNS OF RESPIRATORY DISTRESS NOTED. IV INFILTRATED. DORSALIS PEDIS PULSES PRESENT BUT WEAK ON LEFT FOOT. POST VITAL SIGNS STARTED; FOLLOWING POST OP PROTOCOL.
[2024-01-04] MEDS: 0.9%NACL 1000ML 1,000 ML IV ONE (10:04)
--- NOTE | 2024-01-04 10:32 | PN ---
[facility] PROGRESS NOTE Date of Service: Jan 04, 2024 Time of Service: 10:29 SUBJECTIVE: HPI 68-year-old female admitted due to left lower extremity pain, patient had wound ulcer between 3rd and 4th toe of the left foot and some necrosis. Arterial Doppler was done which showed abnormal monophasic arterial waveform seen in the right superficial femoral popliteal bilateral posterior tibial anterior dorsalis pedal arteries. Hyperemic flow is seen in the right dorsalis pedal, left anterior tibial and posterior tibial arteries. There is an occlusion of the right distal superficial femoral artery, high-grade stenosis is suspected in the right common femoral and right proximal superficial femoral artery, high-grade stenosis is also suspected in the right popliteal artery proximally. Dr. Charles has been consulted and recommending cardiovascular consult for vascular assessment. Dr. Mao recommending CT angio to the left foot. Infectious Disease also consulted, we will continue with IV antibiotics. We are pending MRI to rule out osteomyelitis. Otherwise patient has no complaints. Interval History 12/30/23: Lying in bed at the time of evaluation. Alert and oriented and in mild distress. Continues with complaints of right foot pain. Rates the pain as 7/10. Morphine 2mg ordered for adequate pain management. An MRI was done today. Shows findings suspicious for osteomyelitis involving the 3rd and 4th toes. Patient is currently on Vancomycin and Zosyn IV Aorto with runoff CTA shows extensive atherosclerotic changes. Multiple short segment high grade stenosis seen throughout the right superficial femoral artery. There are occlusions of left anterior tibial and bilateral post tibial artery. There is also occlusion of the right anterior tibial artery at mid calf level. Cardiovascular surgeon is on the case. Patient denies any chest pain, shortness of breath, nausea , vomiting or associated symptoms. 12/31/23 patient evaluated in the room this morning. She is in good spirits. Pain is minimal to the left leg. She is status post CT angio abdominal aorta with runoff that showed extensive vascular calcifications. Extensive atherosclerotic changes seen. Multiple short-segment high-grade stenosis are seen throughout the right superficial femoral artery. There are occlusions of left anterior tibial and bilateral posterior tibial arteries. There is also occlusion of the right anterior tibial artery and mid calf level. There may be reconstitution of posterior tibial arteries near the distal calf level. MRI of the left foot shows suspicious for osteomyelitis-involving 3rd and 4th toes. On physical evaluation, there are necrosis on the 3rd and 4th toe. We will follow up with CV surgeon on further recommendations. Podiatry is recommending amputation, we will await for final recommendations from CV team. 12/31 patient was evaluated in the room this morning, she complains of 10/10 pain to the left leg. We are awaiting for final recommendations from consultants. For now we will continue with pain management and IV antibiotics. 01/01 Patient was seen at bedside, she is alert, awake and oriented. Today her vitals are BP 161/69, pulse rate 79, respiratory rate 17, sp02 98% on room air and T-max 98.2 but she has been having low grade temperatures during the weekend. Her Blood pressure has been elevated in 160s, will increase her dose of metoprolol from 25mg to 50mg and start her on Amlodipine 5mg. Her lactic acid was 0.8. She was given Tramadol and dilaudid for pain, she doesn't feel any pain right now. [employer] Laminator and vascular surgery recommended digit amputation, pending Dr. Charles recommendation on surgery. We will monitor her vitals closely. 01/02 Patient was seen at bedside, she is alert, awake and oriented. Today her vitals are BP 142/63, pulse rate 79, respiratory rate 18, sp02 98% on room air and T-max 98.2, she did not spike a fever last night, she has no complaints. She was constipated yesterday and was feeling nauseous to take lactulose. Prescribed her bisacodyl enema, she had a bowel moment. She was unable to tolerate feeds due to nausea, added promethazine to her medication and she was eating better today. Dr. Charles saw the patient yesterday and has scheduled for amputation tomorrow. 01/03 Patient was seen at bedside, she is alert, awake and oriented. She had a third digit amputation of left foot done by Dr. Charles this morning. She is currently weaning off anesthesia and doesn't feel pain. Resume ADA diet, dressing changes daily, iodosorb ointnment. Patient continues to have high isolated high systolic blood pressure, will increase the dose of lisinopril from 10 mg to 20 mg. Will request PT evaluation with partial weight bearing. Resume meds. REVIEW OF SYSTEMS CONSTITUTIONAL: Denies fevers, chills, or night sweats. No unintentional weight loss reported. NEUROLOGICAL: Denies headache, amaurosis fugax, motor weakness, sensory deficit, vertigo/spinning sensation, gait abnormalities, or tremors. ENT: No hearing loss, otalgia, otorrhea, rhinitis, rhinorrhea, hoarseness, or sore throat. CARDIOVASCULAR: Denies any exertional angina, dyspnea on exertion, orthopnea, paroxysmal nocturnal dyspnea, palpitations, life-threatening arrhythmias, claudication. PULMONARY: Denies any shortness of breath, cough, phlegm/sputum, hemoptysis, pleuritic chest pain. SLEEP: Denies morning headaches, daytime somnolence or napping. Denies difficulty falling asleep, staying asleep, waking from sleep. Denies knowledge of snoring. GASTROINTESTINAL: Denies any type of dysphagia to either liquids or solids. Denies pyrosis, early satiety, abdominal pain, diarrhea, constipation, or changes in stool consistency or caliber. Denies coffee-ground emesis, hematemesis, hematochezia, or melanotic stools. GENITOURINARY: Denies frequency, urgency, nocturia, hematuria or incontinence (Storage/Irritative symptoms.) Low urinary stream, straining to void, urinary intermittency or hesitancy, splitting of the voiding stream, terminal dribbling. ENDOCRINOLOGIC: Denies polyuria, polydipsia, polyphagia or heat/cold intoleranc es. HEMATOLOGIC: Denies thrombophilia/previous clots, or coagulopathy/bleeding disorders. ONCOLOGIC: Denies personal history of malignancy. DERMATOLOGIC: Left anterior foot with ecchymosis and wound on the 3rd and 4th toe Denies rashes or pruritus. PSYCHIATRIC: Denies any suicidal or homicidal ideation. Denies hallucinations. PHYSICAL EXAM GENERAL APPEARANCE: The patient is awake, alert, and oriented, in no acute cardiopulmonary distress. NEUROLOGICAL: Cranial nerves II-XII grossly intact. Motor is 5/5 in bilateral upper and lower extremities proximal to distal. No sensory deficits. HEENT: Face is symmetric. Pupils are equal and reactive. Extraocular movements are intact. NECK: Supple. No JVD. No thyromegaly. No submental, submandibular, pre- /postauricular, occipital or supraclavicular lymphadenopathy. CHEST: Normal chest expansion. No Telemetry. LUNGS: Absence of any rales, rhonchi or any wheezing. CARDIOVASCULAR: Regular. S1 and S2 normal. No appreciable rubs, murmurs or gallops. ABDOMEN: Soft, nontender, and nondistended. There is no rebound, voluntary guarding, or rigidity. : Deferred. No Martel. EXTREMITIES: Non-edematous and not cyanotic. No clubbing. Good capillary refill. SKIN: left foot swollen and erythema with amputation of 3rd toe Vital Signs (last 8hr) Date Time Temp Pulse Resp B/P (MAP) Pulse Ox O2 Delivery O2 Flow Rate FiO2 01/04/24 10:08 98.6 107 16 165/78 98 01/04/24 09:35 92 168/77 01/04/24 09:05 93 166/77 01/04/24 08:50 174/82 01/04/24 08:35 93 180/84 01/04/24 08:20 98.2 92 16 167/77 96 01/04/24 08:15 97.3 89 16 162/81 96 Room Air 01/04/24 08:11 98.8 80 16 146/90 94 01/04/24 08:10 97.3 85 16 158/79 97 Room Air 01/04/24 08:05 97.3 87 16 161/82 97 Room Air 01/04/24 08:00 97.3 90 16 156/74 97 Room Air 01/04/24 07:55 97.3 87 15 161/73 97 Room Air 01/04/24 07:50 97.3 87 15 163/80 97 Room Air 01/04/24 07:45 97.3 90 15 159/75 97 Nasal Cannula 1.0 01/04/24 07:40 97.3 89 15 169/82 98 Nasal Cannula 2.0 24 01/04/24 07:35 97.3 92 15 163/75 98 Nasal Cannula 3.0 28 01/04/24 06:30 98.2 95 20 158/82 96 Room Air 01/04/24 04:00 98.2 95 20 158/82 96 Room Air LABS: Laboratory: Test 01/04/24 07:53 01/04/24 04:58 01/02/24 16:37 Range/Units Whole Blood Glucose 146 H 70-110 MG/DL White Blood Count 9.0 4.8-10.8 K/uL Red Blood Count 2.85 L 4.00-5.50 MIL/uL Hemoglobin 8.6 L 12.0-16.0 g/dL Hematocrit 27.6 L 36-48 % Mean Corpuscular Volume 96.8 79-99 fL Mean Corpuscular Hemoglobin 30.2 27.0-33.0 pg Mean Corpuscular Hemoglobin Concent 31.2 L 32.0-36.0 g/dL Red Cell Distribution Width 12.4 11.0-15.5 % Platelet Count 239 # 130-400 K/uL Mean Platelet Volume 10.5 7.5-10.5 fL Nucleated Red Blood Cells 0.0 0.0-0.19 % Prothrombin Time 11.2 9.6-11.6 SEC Prothromb Time International Ratio 1.04 0.85-1.15 Sodium Level 139 136-145 mmol/L Potassium Level 3.3 L 3.5-5.1 mmol/L Chloride Level 104 101-111 mmol/L Carbon Dioxide Level 26 21-32 mmol/L Blood Urea Nitrogen 13 7-18 mg/dL Creatinine 0.8 0.5-1.0 mg/dL Glomerular Filtration Rate Calc 79 >90 mL/min Random Glucose 141 H 70-105 mg/dL Total Calcium 8.5 8.5-10.1 mg/dL Total Bilirubin 0.3 0.2-1.0 mg/dL Aspartate Amino Transf (AST/SGOT) 14 10-37 U/L Alanine Aminotransferase (ALT/SGPT) 11 L 12-78 U/L Alkaline Phosphatase 70 50-136 U/L Total Protein 6.8 6.0-8.3 g/dL Albumin 2.5 L 3.5-5.0 g/dL Vancomycin Level Trough 13.1 10.0-20.0 UG/ML Current Medications Medications (Trade) Dose Ordered Sig/Reji Route PRN Reason Start Time Stop Time Status Last Admin Dose Admin Acetaminophen (TYLenol 325MG TAB) 650 mg Q4H PRN PO MILD PAIN (1-3) 12/27/23 19:30 01/26/24 19:29 01/02/24 05:39 650 MG Acetaminophen (TYLenol 325MG TAB) 650 mg Q6H PRN PO TEMPERATURE GREATER THAN 101.5 12/27/23 19:30 01/26/24 19:29 Acetaminophen/ Hydrocodone Bitart (NORco 5/325MG) 1 tab Q4H PRN PO MODERATE PAIN (4-6) 12/27/23 19:30 01/01/24 19:29 DC 01/01/24 18:22 1 TAB Amlodipine Besylate (NorvASC 5MG TAB) 5 mg DAILY PO 01/03/24 09:00 02/02/24 08:59 01/03/24 08:34 5 MG Aspirin (Aspirin 81mg Chew Tab) 81 mg DAILY PO 12/30/23 09:00 01/29/24 08:59 01/03/24 08:33 81 MG Atorvastatin Calcium (LIPItor 40MG) 40 mg HS PO 12/30/23 21:00 01/29/24 20:59 01/03/24 19:58 40 MG Bisacodyl (DulcoLAX) 10 mg BID PRN RC CONSTIPATION 01/02/24 15:00 02/01/24 14:59 01/02/24 14:58 10 MG Dextrose (D50w) 50 ml AD PRN IV HYPOGLYCEMIA PROTOCOL 12/27/23 19:30 01/26/24 19:29 Enoxaparin Sodium (Lovenox) 30 mg DAILY SQ 12/28/23 09:00 01/27/24 08:59 01/02/24 08:07 30 MG Famotidine (Pepcid 20mg Tab) 20 mg BID PO 12/27/23 21:00 01/26/24 20:59 01/03/24 19:58 20 MG Folic Acid (FOLic ACID 1 MG TABLET) 1 mg DAILY PO 12/30/23 09:00 01/29/24 08:59 01/03/24 08:36 1 MG Glucagon (Glucagon 1mg Kit) 1 mg AD PRN IM HYPOGLYCEMIA PROTOCOL 12/27/23 19:30 01/26/24 19:29 Hydralazine HCl (APRESOLine 20MG INJ) 10 mg Q6H PRN IV For:SBP above 160;DBP above 90 12/27/23 19:30 01/26/24 19:29 01/02/24 12:58 10 MG Hydromorphone HCl (DiLAUDid 0.5MG INJ) 0.5 mg Q4H PRN IVP SEVERE PAIN (7-10) 01/02/24 01:00 01/07/24 00:59 01/04/24 03:49 0.5 MG Insulin Human Regular (humuLIN R 100 UNIT/ML 3ML) INSULIN SLIDING SCAL... ACHS SQ 12/27/23 21:00 12/31/23 22:15 DC 12/31/23 21:04 2 UNIT Insulin Human Regular (humuLIN R 100 UNIT/ML 3ML) INSULIN SLIDING SCAL... ACHS SQ 01/01/24 07:30 01/31/24 07:29 01/03/24 20:32 8 UNIT Lactulose (Constulose 20gm/ 30ml Udcup) 20 gm BID PRN PO CONSTIPATION 12/31/23 15:30 01/02/24 14:41 DC Lactulose (Constulose 20gm/ 30ml Udcup) 20 gm BID PRN PO CONSTIPATION 01/02/24 15:00 02/01/24 14:59 01/02/24 20:32 20 GM Lisinopril (Prinivil 10mg) 10 mg DAILY PO 12/30/23 09:00 01/29/24 08:59 01/03/24 08:34 10 MG Magnesium Sulfate 50 ml @ 0 mls/hr PROTOCOL IV 12/29/23 14:30 12/29/23 14:10 DC Magnesium Sulfate 50 ml @ 0 mls/hr PROTOCOL PRN IV OTHER [SEE ORDER COMMENTS] 12/27/23 19:30 01/26/24 19:29 12/31/23 05:46 25 MLS/HR Metoprolol Tartrate (loprESSOR) 25 mg BID PO 01/01/24 16:30 01/02/24 13:00 DC 01/02/24 08:05 25 MG Metoprolol Tartrate (loprESSOR) 50 mg BID PO 01/02/24 21:00 02/01/24 20:59 01/03/24 19:58 50 MG Morphine Sulfate (morPHINE 2MG SYG) 2 mg Q4H PRN IV SEVERE PAIN (7-10) 12/27/23 19:30 01/01/24 22:29 DC 01/01/24 20:09 2 MG Ondansetron HCl (zoFRAN 4MG INJ) 4 mg Q6H PRN IV NAUSEA/VOMITING 12/27/23 19:30 01/26/24 19:29 01/02/24 14:58 4 MG Piperacillin Sod/ Tazobactam Sod (Zosyn 3.375gm+NS 50ml) 3.375 gm Q8H IV 12/28/23 02:00 01/18/24 01:59 01/04/24 02:11 3.375 GM Potassium Chloride 100 ml @ 100 mls/hr AD PRN IV POTASSIUM PROTOCOL 12/27/23 19:30 01/26/24 19:29 Potassium Chloride (K-Dur/Klor-Con 20meq) 20 meq AD PRN PO POTASSIUM PROTOCOL 12/27/23 19:30 01/26/24 19:29 01/01/24 05:43 20 MEQ Potassium Chloride (KCl 10% Elixir 20meq/15ml) 20 meq AD PRN PO POTASSIUM PROTOCOL 12/27/23 19:30 01/26/24 19:29 01/01/24 05:43 20 MEQ Promethazine HCl (Phenergan) 12.5 mg Q6H PRN IM NAUSEA/VOMITING 01/02/24 16:30 02/01/24 16:29 01/02/24 16:34 12.5 MG Ticagrelor (BRILinta) 90 mg BID PO 12/30/23 09:00 01/29/24 08:59 01/03/24 19:58 90 MG Tramadol HCl (UltRAM) 50 mg Q6H PRN PO PAIN LEVEL 4 TO 6 01/02/24 01:00 01/07/24 00:59 01/03/24 22:06 50 MG Vancomycin HCl (Vancomycin 750mg) 750 mg Q12H IVPB 12/28/23 06:00 01/07/24 05:59 01/04/24 05:10 750 MG Vancomycin HCl (Vancomycin Protocol) 1 each AD IV 12/27/23 18:00 12/27/23 19:20 DC Vancomycin HCl (Vancomycin Protocol) 1 each AD IV 12/27/23 19:30 01/10/24 19:29 Vitamin B Complex (Vitamin B-12) 1,000 mcg DAILY PO 12/30/23 09:00 01/29/24 08:59 01/03/24 08:34 1,000 MCG DIAGNOSTICS / RADIOLOGY: [ ] ASSESSMENT: Left third toe amputation done on 01/03 Severe left foot pain POA Left foot cellulitis POA Suspected Left foot osteomyelitis POA left lower extremity Peripheral arterial disease POA Recent peripheral angioplasty of Left lower extremity on DAPT POA Uncontrolled diabetes POA Hypertension POA Anemia POA POA Hyperlipidemia POA History of left lower extremity DVT PLAN: Severe left foot pain POA Left foot cellulitis POA Left foot osteomyelitis POA *Left third toe amputation done on 01/03 *MRI showed findings suspicious for osteomyelitis involving the 3rd and 4th toes *Infectious Disease is on the case. *Continue on Vancomycin IV and Zosyn IV as ordered *Continue with Morphine 2mg IV for adequate pain management *Podiatry consult placed. *Trend temperature , WBC and procalcitonin levels *Follow cultures *De escalate antibiotics use as soon as possible. *Panculture if new onset fever Left lower extremity Peripheral arterial disease POA Recent peripheral angioplasty of Left lower extremity on DAPT POA *Cardiovascular consult ordered. Pending recommendations. *CTA aorto with runoff shows multiple occlusions in the left lower extremity * Cardiology on the case, we are following their recommendations on their standpoint, no need for arteriogram, based on Dr. Cam's last note performed on 12/22/23: ----SFA 80-98% segmental stenosis is reduced to 0% residual. ----Left popliteal segmental 90-98% stenosis is reduced to 10% residual ----Left tibioperoneal and proximal peroneal 90-98% stenosis is reduced to 0% residual. ----Although initial images demonstrated very slow flow through the lower extremity, final images demonstrate brisk flow to the ankle with collaterals into the heel and dorsalis pedis region, but the plantar arch is not well served. There is no achievable direct flow into the foot. Uncontrolled diabetes POA *Maintain blood glucose between 100-180 at all times *Insulin sliding scale for blood glucose management *Hyperglycemia and hypoglycemia protocols in place Hypertension POA Hyperlipidemia POA *Continue with Lisinopril 10mg po daily as ordered for elevated BP. *Continue with Hydralazine 10mg IV for systolic BP>160 *Continue with Atorvastatin 40mg daily as ordered for hyperlipidemia *Follow hemodynamics. *Vital signs per facility protocol Anemia *Monitor H & H. Keep Hgb > 7 *Transfuse 1 unit of PRBC for Hgb < 7 *Continue on Lovenox 30 mg subQ daily for DVT prphylaxis *Continue on Famotidine 20 mg p.o. bid for GI prophylaxis *Continue prn medication for fever,pain, nausea and vomiting *Labs in the morning. ATTESTATION BY PHYSICIAN I have seen and examined the patient. I reviewed the documentation, medical decision making, and treatment plan as noted by the resident provider above. I agree with the findings and plan of care. Trae Bradley IV, MD, NIHITHA MD Jan 04, 2024 10:32
--- NOTE | 2024-01-04 11:30 | NUR ---
BLOOD GLUCOSE AT 254. COVERED WITH 10 UNITS OF HUMULIN R SUBCUTANEOUS; FOLLOWING INSULIN SCALE.
[2024-01-04] MEDS: ketOROlac 30MG VIAL (30MG/ML) IVP ONE (14:10)
--- NOTE | 2024-01-04 16:30 | NUR ---
BLOOD GLUCOSE AT 149. NO INSULIN COVERAGE NEEDED AT THIS TIME.
[2024-01-04] MEDS: traMADol HCL 50 MG TABLET PO PRN (20:14)
--- NOTE | 2024-01-04 21:42 | PN ---
DATE OF SERVICE: 01/04/2024. INFECTIOUS DISEASE FOLLOWUP NOTE SUBJECTIVE: The patient is seen and examined at bedside today. The patient has no fever, no chills. No nausea, no vomiting. Continue with pain to the left foot. No chest pain. No palpitation or orthopnea. No rashes or itchiness. No depression. No suicidal ideation. PHYSICAL EXAMINATION: VITAL SIGNS: Temperature 97.5. EYES: No icterus. Pupils equal and reactive. HENT: No oral thrush seen. Moist oral mucosa. NECK: Supple, no JVD or thyromegaly. LUNGS: Good air entry. No rales, no rhonchi. CARDIOVASCULAR: S1, S2 regular. No murmur heard. ABDOMEN: Full, soft, and nontender. Bowel sounds present. CENTRAL NERVOUS SYSTEM: Awake, alert, and oriented x 3. No focal deficits. SKIN: No rashes, no itchiness. LYMPHATIC: Left inguinal lymphadenopathy. BACK: No deformity, no pressure ulcer. EXTREMITIES: Status post left third toe amputation. Intact sutures. ASSESSMENT: A 68-year-old female admitted with multiple problems, which include: * Left third toe osteomyelitis, status post amputation. * Peripheral vascular disease. * Left foot cellulitis. * Hypertension. * Diabetes mellitus. PLAN: * Continue wound care. * Continue antibiotic. * Continue pain management. * Continue antihypertensive. * Monitor electrolytes. * The patient will follow up closely. TID: [id number] RECEIPT: [id number]
[2024-01-05] VITALS (8 sets, daily range): BP systolic 129–162; BP diastolic 47–80; PULSE 82–101; RESP 16–18; TEMP 98.5–101.5; O2SAT 96
[2024-01-05] MEDS: acetaMINOPHEN 325 MG TAB PO PRN (03:41)
[2024-01-05 05:19] LABS: BASOPHILS # (AUTO) 0.05 K/uL (0.00-0.20); BASOPHILS % (AUTO) 0.5 % (0.0-5.0); EOSINOPHILS # (AUTO) 0.12 K/uL (0.00-0.70); EOSINOPHILS % (AUTO) 1.2 % (0.0-8.0); HEMATOCRIT 24.2 % (36-48); IMMATURE GRANULOCYTE ABSOLUTE 0.08 K/uL (0-1); LYMPHOCYTES # (AUTO) 1.3 K/uL (1.0-4.8); LYMPHOCYTES % (AUTO) 12.3 % (21.0-51.0); MEAN CORPUSCULAR HEMOGLOBIN 29.9 pg (27.0-33.0); MEAN CORPUSCULAR HGB CONC 32.2 g/dL (32.0-36.0); MEAN CORPUSCULAR VOLUME 92.7 fL (79-99); MONOCYTES # (AUTO) 0.8 K/uL (0.1-1.0); MONOCYTES % (AUTO) 7.6 % (3.0-13.0); NEUTROPHILS # (AUTO) 8.1 K/uL (1.8-7.7); NEUTROPHILS % (AUTO) 77.6 % (40.0-77.0); PLATELET COUNT (AUTO) 360 K/uL (130-400); RED BLOOD CELL COUNT(AUTO) 2.61 MIL/uL (4.00-5.50); RED CELL DISTRIBUTION WIDTH 12.6 % (11.0-15.5); WHITE BLOOD COUNT (AUTO) 10.4 K/uL (4.8-10.8)
[2024-01-05 05:38] LABS: ALBUMIN 2.3 g/dL (3.5-5.0); BILIRUBIN,TOTAL 0.4 mg/dL (0.2-1.0); CREATININE 0.9 mg/dL (0.5-1.0); TOTAL PROTEIN, SERUM 6.3 g/dL (6.0-8.3)
[2024-01-05] MEDS: PoTASSium chloRIDE 20MEQ/100ML 100 ML IV PRN (06:04)
[2024-01-05] MEDS: VANCOMYCIN 1G/250ML KIT 250 ML IV SCH (06:37)
--- NOTE | 2024-01-05 08:40 | NUR ---
Patient is alert, oriented in person, time and place. No signs or symptoms of respiratory distress noted. Popliteal pulses present but weak on both legs. Bowel sounds present and active on all four abdominal quadrants. Discussed with patient plan of care, pain management, current medication, PRN medications and wound care. Patient verbalized understanding.
[2024-01-05] MEDS: LISINOPRIL 10 MG TABLET PO SCH (10:09)
--- NOTE | 2024-01-05 10:44 | PN ---
[facility] PROGRESS NOTE Date of Service: Jan 05, 2024 Time of Service: 10:43 SUBJECTIVE: HPI 68-year-old female admitted due to left lower extremity pain, patient had wound ulcer between 3rd and 4th toe of the left foot and some necrosis. Arterial Doppler was done which showed abnormal monophasic arterial waveform seen in the right superficial femoral popliteal bilateral posterior tibial anterior dorsalis pedal arteries. Hyperemic flow is seen in the right dorsalis pedal, left anterior tibial and posterior tibial arteries. There is an occlusion of the right distal superficial femoral artery, high-grade stenosis is suspected in the right common femoral and right proximal superficial femoral artery, high-grade stenosis is also suspected in the right popliteal artery proximally. Dr. Charles has been consulted and recommending cardiovascular consult for vascular assessment. Dr. Mao recommending CT angio to the left foot. Infectious Disease also consulted, we will continue with IV antibiotics. We are pending MRI to rule out osteomyelitis. Otherwise patient has no complaints. Interval History 12/30/23: Lying in bed at the time of evaluation. Alert and oriented and in mild distress. Continues with complaints of right foot pain. Rates the pain as 7/10. Morphine 2mg ordered for adequate pain management. An MRI was done today. Shows findings suspicious for osteomyelitis involving the 3rd and 4th toes. Patient is currently on Vancomycin and Zosyn IV Aorto with runoff CTA shows extensive atherosclerotic changes. Multiple short segment high grade stenosis seen throughout the right superficial femoral artery. There are occlusions of left anterior tibial and bilateral post tibial artery. There is also occlusion of the right anterior tibial artery at mid calf level. Cardiovascular surgeon is on the case. Patient denies any chest pain, shortness of breath, nausea , vomiting or associated symptoms. 12/31/23 patient evaluated in the room this morning. She is in good spirits. Pain is minimal to the left leg. She is status post CT angio abdominal aorta with runoff that showed extensive vascular calcifications. Extensive atherosclerotic changes seen. Multiple short-segment high-grade stenosis are seen throughout the right superficial femoral artery. There are occlusions of left anterior tibial and bilateral posterior tibial arteries. There is also occlusion of the right anterior tibial artery and mid calf level. There may be reconstitution of posterior tibial arteries near the distal calf level. MRI of the left foot shows suspicious for osteomyelitis-involving 3rd and 4th toes. On physical evaluation, there are necrosis on the 3rd and 4th toe. We will follow up with CV surgeon on further recommendations. Podiatry is recommending amputation, we will await for final recommendations from CV team. 12/31 patient was evaluated in the room this morning, she complains of 10/10 pain to the left leg. We are awaiting for final recommendations from consultants. For now we will continue with pain management and IV antibiotics. 01/01 Patient was seen at bedside, she is alert, awake and oriented. Today her vitals are BP 161/69, pulse rate 79, respiratory rate 17, sp02 98% on room air and T-max 98.2 but she has been having low grade temperatures during the weekend. Her Blood pressure has been elevated in 160s, will increase her dose of metoprolol from 25mg to 50mg and start her on Amlodipine 5mg. Her lactic acid was 0.8. She was given Tramadol and dilaudid for pain, she doesn't feel any pain right now. [employer] Service Technician and vascular surgery recommended digit amputation, pending Dr. Charles recommendation on surgery. We will monitor her vitals closely. 01/02 Patient was seen at bedside, she is alert, awake and oriented. Today her vitals are BP 142/63, pulse rate 79, respiratory rate 18, sp02 98% on room air and T-max 98.2, she did not spike a fever last night, she has no complaints. She was constipated yesterday and was feeling nauseous to take lactulose. Prescribed her bisacodyl enema, she had a bowel moment. She was unable to tolerate feeds due to nausea, added promethazine to her medication and she was eating better today. Dr. Charles saw the patient yesterday and has scheduled for amputation tomorrow. 01/03 Patient was seen at bedside, she is alert, awake and oriented. She had a third digit amputation of left foot done by Dr. Charles this morning. She is currently weaning off anesthesia and doesn't feel pain. Resume ADA diet, dressing changes daily, iodosorb ointnment. Patient continues to have high isolated high systolic blood pressure, will increase the dose of lisinopril from 10 mg to 20 mg. Will request PT evaluation with partial weight bearing. Resume meds. 01/04 Patient was seen at bedside, she was lying comfortably in chair. she is al ert, awake and oriented. Today her vitals are blood pressure 129/57, respiratory rate 16, pulse rate 96, spO2 98, T-max 98.4. No acute events overnight, patient has no complaints. Patient's family was at bedside. Inquired about use of blood thinners in the past due to history of DVT, one of the family members said that she was on xarelto prior to elective PCI early this month. Requested patient's family to bring in her medication. Dr. Charles was consulted regarding restarting patient on DVT prophylaxis, recommended to hold off on aspirin and lovenox, not to start xarelto due to the risk of bleeding and since patient is anemic. Will continue on Brilinta and SCDs and monitor her labs closely. REVIEW OF SYSTEMS CONSTITUTIONAL: Denies fevers, chills, or night sweats. No unintentional weight loss reported. NEUROLOGICAL: Denies headache, amaurosis fugax, motor weakness, sensory deficit, vertigo/spinning sensation, gait abnormalities, or tremors. ENT: No hearing loss, otalgia, otorrhea, rhinitis, rhinorrhea, hoarseness, or sore throat. CARDIOVASCULAR: Denies any exertional angina, dyspnea on exertion, orthopnea, paroxysmal nocturnal dyspnea, palpitations, life-threatening arrhythmias, claudication. PULMONARY: Denies any shortness of breath, cough, phlegm/sputum, hemoptysis, pleuritic chest pain. SLEEP: Denies morning headaches, daytime somnolence or napping. Denies difficulty falling asleep, staying asleep, waking from sleep. Denies knowledge of snoring. GASTROINTESTINAL: Denies any type of dysphagia to either liquids or solids. Denies pyrosis, early satiety, abdominal pain, diarrhea, constipation, or changes in stool consistency or caliber. Denies coffee-ground emesis, hematemesis, hematochezia, or melanotic stools. GENITOURINARY: Denies frequency, urgency, nocturia, hematuria or incontinence (Storage/Irritative symptoms.) Low urinary stream, straining to void, urinary intermittency or hesitancy, splitting of the voiding stream, terminal dribbling. ENDOCRINOLOGIC: Denies polyuria, polydipsia, polyphagia or heat/cold intolerances. HEMATOLOGIC: Denies thrombophilia/previous clots, or coagulopathy/bleeding disorders. ONCOLOGIC: Denies personal history of malignancy. DERMATOLOGIC: Left anterior foot with ecchymosis and wound on the 3rd and 4th toe Denies rashes or pruritus. PSYCHIATRIC: Denies any suicidal or homicidal ideation. Denies hallucinations. PHYSICAL EXAM GENERAL APPEARANCE: The patient is awake, alert, and oriented, in no acute cardiopulmonary distress. NEUROLOGICAL: Cranial nerves II-XII grossly intact. Motor is 5/5 in bilateral upper and lower extremities proximal to distal. No sensory deficits. HEENT: Face is symmetric. Pupils are equal and reactive. Extraocular movements are intact. NECK: Supple. No JVD. No thyromegaly. No submental, submandibular, pre- /postauricular, occipital or supraclavicular lymphadenopathy. CHEST: Normal chest expansion. No Telemetry. LUNGS: Absence of any rales, rhonchi or any wheezing. CARDIOVASCULAR: Regular. S1 and S2 normal. No appreciable rubs, murmurs or gallops. ABDOMEN: Soft, nontender, and nondistended. There is no rebound, voluntary guarding, or rigidity. : Deferred. No Martel. EXTREMITIES: Non-edematous and not cyanotic. No clubbing. Good capillary refill. SKIN: left foot swollen and erythema with amputation of 3rd toe Vital Signs (last 8hr) Date Time Temp Pulse Resp B/P (MAP) Pulse Ox O2 Delivery O2 Flow Rate FiO2 01/05/24 08:00 98.4 91 16 129/57 96 Room Air 21 01/05/24 04:00 101.5 99 16 162/75 92 Room Air 01/05/24 03:41 101.5 LABS: Laboratory: Test 01/05/24 05:33 01/05/24 04:58 01/04/24 17:00 01/04/24 04:58 Range/Units Whole Blood Glucose 206 H 70-110 MG/DL White Blood Count 10.4 4.8-10.8 K/uL Red Blood Count 2.61 L 4.00-5.50 MIL/uL Hemoglobin 7.8 L 12.0-16.0 g/dL Hematocrit 24.2 L 36-48 % Mean Corpuscular Volume 92.7 79-99 fL Mean Corpuscular Hemoglobin 29.9 27.0-33.0 pg Mean Corpuscular Hemoglobin Concent 32.2 32.0-36.0 g/dL Red Cell Distribution Width 12.6 11.0-15.5 % Platelet Count 360 # 130-400 K/uL Mean Platelet Volume 8.9 7.5-10.5 fL Immature Granulocyte % (Auto) 0.8 0-1 % Neutrophils (%) (Auto) 77.6 H 40.0-77.0 % Lymphocytes (%) (Auto) 12.3 L 21.0-51.0 % Monocytes (%) (Auto) 7.6 3.0-13.0 % Eosinophils (%) (Auto) 1.2 0.0-8.0 % Basophils (%) (Auto) 0.5 0.0-5.0 % Neutrophils # (Auto) 8.1 H 1.8-7.7 K/uL Lymphocytes # (Auto) 1.3 1.0-4.8 K/uL Monocytes # (Auto) 0.8 0.1-1.0 K/uL Eosinophils # (Auto) 0.12 0.00-0.70 K/uL Basophils # (Auto) 0.05 0.00-0.20 K/uL Absolute Immature Granulocyte (auto 0.08 0-1 K/uL Nucleated Red Blood Cells 0.0 0.0-0.19 % Sodium Level 135 L 136-145 mmol/L Potassium Level 3.0 *L 3.5-5.1 mmol/L Chloride Level 101 101-111 mmol/L Carbon Dioxide Level 25 21-32 mmol/L Blood Urea Nitrogen 13 7-18 mg/dL Creatinine 0.9 0.5-1.0 mg/dL Glomerular Filtration Rate Calc 69 >90 mL/min Random Glucose 209 H 70-105 mg/dL Total Calcium 8.1 L 8.5-10.1 mg/dL Total Bilirubin 0.4 # 0.2-1.0 mg/dL Aspartate Amino Transf (AST/SGOT) 13 10-37 U/L Alanine Aminotransferase (ALT/SGPT) 11 L 12-78 U/L Alkaline Phosphatase 71 50-136 U/L Total Protein 6.3 6.0-8.3 g/dL Albumin 2.3 L 3.5-5.0 g/dL Vancomycin Level Trough 12.6 10.0-20.0 UG/ML Prothrombin Time 11.2 9.6-11.6 SEC Prothromb Time International Ratio 1.04 0.85-1.15 Current Medications Medications (Trade) Dose Ordered Sig/Reji Route PRN Reason Start Time Stop Time Status Last Admin Dose Admin Acetaminophen (TYLenol 325MG TAB) 650 mg Q4H PRN PO MILD PAIN (1-3) 12/27/23 19:30 01/26/24 19:29 01/02/24 05:39 650 MG Acetaminophen (TYLenol 325MG TAB) 650 mg Q6H PRN PO TEMPERATURE GREATER THAN 101.5 12/27/23 19:30 01/26/24 19:29 01/05/24 03:41 650 MG Acetaminophen/ Hydrocodone Bitart (NORco 5/325MG) 1 tab Q4H PRN PO MODERATE PAIN (4-6) 12/27/23 19:30 01/01/24 19:29 DC 01/01/24 18:22 1 TAB Amlodipine Besylate (NorvASC 5MG TAB) 5 mg DAILY PO 01/03/24 09:00 02/02/24 08:59 01/05/24 10:11 5 MG Aspirin (Aspirin 81mg Chew Tab) 81 mg DAILY PO 12/30/23 09:00 01/29/24 08:59 01/05/24 10:10 81 MG Atorvastatin Calcium (LIPItor 40MG) 40 mg HS PO 12/30/23 21:00 01/29/24 20:59 01/04/24 20:14 40 MG Bisacodyl (DulcoLAX) 10 mg BID PRN RC CONSTIPATION 01/02/24 15:00 02/01/24 14:59 01/02/24 14:58 10 MG Dextrose (D50w) 50 ml AD PRN IV HYPOGLYCEMIA PROTOCOL 12/27/23 19:30 01/26/24 19:29 Enoxaparin Sodium (Lovenox) 30 mg DAILY SQ 12/28/23 09:00 01/27/24 08:59 01/05/24 10:11 30 MG Famotidine (Pepcid 20mg Tab) 20 mg BID PO 12/27/23 21:00 01/26/24 20:59 01/05/24 10:08 20 MG Folic Acid (FOLic ACID 1 MG TABLET) 1 mg DAILY PO 12/30/23 09:00 01/29/24 08:59 01/05/24 10:12 1 MG Glucagon (Glucagon 1mg Kit) 1 mg AD PRN IM HYPOGLYCEMIA PROTOCOL 12/27/23 19:30 01/26/24 19:29 Hydralazine HCl (APRESOLine 20MG INJ) 10 mg Q6H PRN IV For:SBP above 160;DBP above 90 12/27/23 19:30 01/26/24 19:29 01/05/24 04:18 10 MG Hydromorphone HCl (DiLAUDid 0.5MG INJ) 0.5 mg Q4H PRN IVP SEVERE PAIN (7-10) 01/02/24 01:00 01/07/24 00:59 01/05/24 02:44 0.5 MG Insulin Human Regular (humuLIN R 100 UNIT/ML 3ML) INSULIN SLIDING SCAL... ACHS SQ 12/27/23 21:00 12/31/23 22:15 DC 12/31/23 21:04 2 UNIT Insulin Human Regular (humuLIN R 100 UNIT/ML 3ML) INSULIN SLIDING SCAL... ACHS SQ 01/01/24 07:30 01/31/24 07:29 01/05/24 06:41 6 UNIT Lactulose (Constulose 20gm/ 30ml Udcup) 20 gm BID PRN PO CONSTIPATION 12/31/23 15:30 01/02/24 14:41 DC Lactulose (Constulose 20gm/ 30ml Udcup) 20 gm BID PRN PO CONSTIPATION 01/02/24 15:00 02/01/24 14:59 01/05/24 10:20 20 GM Lisinopril (Prinivil 10mg) 10 mg DAILY PO 12/30/23 09:00 01/04/24 14:44 DC 01/04/24 10:36 10 MG Lisinopril (Prinivil 10mg) 20 mg DAILY PO 01/05/24 09:00 02/04/24 08:59 01/05/24 10:09 20 MG Magnesium Sulfate 50 ml @ 0 mls/hr PROTOCOL IV 12/29/23 14:30 12/29/23 14:10 DC Magnesium Sulfate 50 ml @ 0 mls/hr PROTOCOL PRN IV OTHER [SEE ORDER COMMENTS] 12/27/23 19:30 01/26/24 19:29 12/31/23 05:46 25 MLS/HR Metoprolol Tartrate (loprESSOR) 25 mg BID PO 01/01/24 16:30 01/02/24 13:00 DC 01/02/24 08:05 25 MG Metoprolol Tartrate (loprESSOR) 50 mg BID PO 01/02/24 21:00 02/01/24 20:59 01/05/24 10:08 50 MG Morphine Sulfate (morPHINE 2MG SYG) 2 mg Q4H PRN IV SEVERE PAIN (7-10) 12/27/23 19:30 01/01/24 22:29 DC 01/01/24 20:09 2 MG Ondansetron HCl (zoFRAN 4MG INJ) 4 mg Q6H PRN IV NAUSEA/VOMITING 12/27/23 19:30 01/26/24 19:29 01/02/24 14:58 4 MG Piperacillin Sod/ Tazobactam Sod (Zosyn 3.375gm+NS 50ml) 3.375 gm Q8H IV 12/28/23 02:00 01/18/24 01:59 01/05/24 10:11 3.375 GM Potassium Chloride 100 ml @ 100 mls/hr AD PRN IV POTASSIUM PROTOCOL 12/27/23 19:30 01/26/24 19:29 01/05/24 06:04 100 MLS/HR Potassium Chloride (K-Dur/Klor-Con 20meq) 20 meq AD PRN PO POTASSIUM PROTOCOL 12/27/23 19:30 01/26/24 19:29 01/05/24 10:10 20 MEQ Potassium Chloride (KCl 10% Elixir 20meq/15ml) 20 meq AD PRN PO POTASSIUM PROTOCOL 12/27/23 19:30 01/26/24 19:29 01/01/24 05:43 20 MEQ Promethazine HCl (Phenergan) 12.5 mg Q6H PRN IM NAUSEA/VOMITING 01/02/24 16:30 02/01/24 16:29 01/02/24 16:34 12.5 MG Ticagrelor (BRILinta) 90 mg BID PO 12/30/23 09:00 01/29/24 08:59 01/05/24 10:09 90 MG Tramadol HCl (UltRAM) 50 mg Q6H PRN PO PAIN LEVEL 4 TO 6 01/02/24 01:00 01/04/24 14:44 DC 01/04/24 13:11 50 MG Tramadol HCl (UltRAM) 75 mg Q6H PRN PO PAIN LEVEL 4 TO 6 01/04/24 19:00 01/09/24 18:59 01/05/24 06:11 75 MG Vancomycin HCl 250 ml @ 125 mls/hr BID@0600,1800 IV 01/05/24 06:00 01/15/24 05:59 01/05/24 06:37 125 MLS/HR Vancomycin HCl (Vancomycin 750mg) 750 mg Q12H IVPB 12/28/23 06:00 01/05/24 06:31 DC 01/04/24 17:24 750 MG Vancomycin HCl (Vancomycin Protocol) 1 each AD IV 12/27/23 18:00 12/27/23 19:20 DC Vancomycin HCl (Vancomycin Protocol) 1 each AD IV 12/27/23 19:30 01/10/24 19:29 Vitamin B Complex (Vitamin B-12) 1,000 mcg DAILY PO 12/30/23 09:00 01/29/24 08:59 01/05/24 10:10 1,000 MCG DIAGNOSTICS / RADIOLOGY: [ ] ASSESSMENT: Left third toe amputation done on 01/03 Severe left foot pain POA Left foot cellulitis POA Suspected Left foot osteomyelitis POA left lower extremity Peripheral arterial disease POA Recent peripheral angioplasty of Left lower extremity on DAPT POA Uncontrolled diabetes POA Hypertension POA Anemia POA POA Hyperlipidemia POA History of left lower extremity DVT PLAN: Severe left foot pain POA Left foot cellulitis POA Left foot osteomyelitis POA *Left third toe amputation done on 01/03 *MRI showed findings suspicious for osteomyelitis involving the 3rd and 4th toes *Infectious Disease is on the case. *Continue on Vancomycin IV and Zosyn IV as ordered *Continue with Morphine 2mg IV for adequate pain management *Podiatry consult placed. *Trend temperature , WBC and procalcitonin levels *Follow cultures *De escalate antibiotics use as soon as possible. *Panculture if new onset fever Left lower extremity Peripheral arterial disease POA Recent peripheral angioplasty of Left lower extremity on DAPT POA *Cardiovascular consult ordered. Pending recommendations. *CTA aorto with runoff shows multiple occlusions in the left lower extremity * Cardiology on the case, we are following their recommendations on their standpoint, no need for arteriogram, based on Dr. Cam's last note performed on 12/22/23: ----SFA 80-98% segmental stenosis is reduced to 0% residual. ----Left popliteal segmental 90-98% stenosis is reduced to 10% residual ----Left tibioperoneal and proximal peroneal 90-98% stenosis is reduced to 0% residual. ----Although initial images demonstrated very slow flow through the lower extremity, final images demonstrate brisk flow to the ankle with collaterals into the heel and dorsalis pedis region, but the plantar arch is not well served. There is no achievable direct flow into the foot. Uncontrolled diabetes POA *Maintain blood glucose between 100-180 at all times *Insulin sliding scale for blood glucose management *Hyperglycemia and hypoglycemia protocols in place Hypertension POA Hyperlipidemia POA *Continue with Lisinopril 10mg po daily as ordered for elevated BP. *Continue with Hydralazine 10mg IV for systolic BP>160 *Continue with Atorvastatin 40mg daily as ordered for hyperlipidemia *Follow hemodynamics. *Vital signs per facility protocol Anemia *Monitor H & H. Keep Hgb > 7 *Transfuse 1 unit of PRBC for Hgb < 7 *Continue on Lovenox 30 mg subQ daily for DVT prphylaxis *Continue on Famotidine 20 mg p.o. bid for GI prophylaxis *Continue prn medication for fever,pain, nausea and vomiting *Labs in the morning. ATTESTATION BY PHYSICIAN I have seen and examined the patient. I reviewed the documentation, medical decision making, and treatment plan as noted by the resident provider above. I agree with the findings and plan of care. Quita Ash MD, NIHITHA MD Jan 05, 2024 10:44
--- NOTE | 2024-01-05 11:30 | NUR ---
BLOOD GLUCOSE AT 159. NO INSULIN COVERAGE NEDED AT THIS TIME.
--- NOTE | 2024-01-05 16:30 | NUR ---
BLOOD GLUCOSE AT 243. COVERED WITH 8 UNITS OF HUMULIN R SUBCUTANEOUS; FOLLOWING INSULIN SCALE.
--- NOTE | 2024-01-05 16:59 | PN ---
INFECTIOUS DISEASE FOLLOWUP NOTE DATE OF SERVICE: 01/05/2024 SUBJECTIVE: The patient is seen and examined at bedside today. The patient has no fever, no chills. No bleeding tendency. Still has pain to the left foot. Tolerating antibiotic. No palpitation or orthopnea. No dysuria, no hematuria. PHYSICAL EXAMINATION: VITAL SIGNS: Temperature 97.6. EYES: No icterus. Pupils equal and reactive. HENT: No oral thrush seen. Moist oral mucosa. NECK: Supple, no JVD or thyromegaly. LUNGS: Good air entry. No rales, no rhonchi. CARDIOVASCULAR: S1, S2 regular. No murmur heard. ABDOMEN: Full, soft, nontender. Bowel sounds present. CENTRAL NERVOUS SYSTEM: Awake, alert, oriented x 3. No focal deficits. SKIN: No rashes, no itchiness. LYMPHATIC: There is left inguinal lymphadenopathy. BACK: No deformity, no pressure ulcer. HEMATOLOGIC: No bleeding or petechial lesions seen. EXTREMITIES: Status post left third toe amputation, intact sutures. LABORATORY DATA: Left foot wound culture growing gram-negative caro. ASSESSMENT: A 68-year-old female with multiple problems: * Left foot gangrene and osteomyelitis, status post third toe amputation. * Left foot cellulitis. * Peripheral vascular disease. * Hypertension. * Diabetes mellitus. * Debility. PLAN: * Continue pain management. * Continue wound care. * Continue antibiotic. * Continue antidiabetic. * Continue nutritional support. * Monitor electrolytes. * The patient will be followed up closely. TID: [id number] RECEIPT: [id number]
[2024-01-06] VITALS (7 sets, daily range): BP systolic 130–169; BP diastolic 56–78; PULSE 64–95; RESP 16–20; TEMP 98.2–100.8; O2SAT 99
[2024-01-06 05:18] LABS: BASOPHILS # (AUTO) 0.07 K/uL (0.00-0.20); BASOPHILS % (AUTO) 0.6 % (0.0-5.0); EOSINOPHILS # (AUTO) 0.11 K/uL (0.00-0.70); IMMATURE GRANULOCYTE ABSOLUTE 0.07 K/uL (0-1); LYMPHOCYTES # (AUTO) 1.2 K/uL (1.0-4.8); LYMPHOCYTES % (AUTO) 10.3 % (21.0-51.0); MEAN CORPUSCULAR HGB CONC 32.2 g/dL (32.0-36.0); MEAN CORPUSCULAR VOLUME 93.1 fL (79-99); MONOCYTES # (AUTO) 0.8 K/uL (0.1-1.0); NEUTROPHILS # (AUTO) 9.1 K/uL (1.8-7.7); NEUTROPHILS % (AUTO) 80.5 % (40.0-77.0); PLATELET COUNT (AUTO) 359 K/uL (130-400); RED BLOOD CELL COUNT(AUTO) 2.47 MIL/uL (4.00-5.50); RED CELL DISTRIBUTION WIDTH 12.6 % (11.0-15.5); WHITE BLOOD COUNT (AUTO) 11.3 K/uL (4.8-10.8)
[2024-01-06 05:41] LABS: ALBUMIN 2.3 g/dL (3.5-5.0); BILIRUBIN,TOTAL 0.4 mg/dL (0.2-1.0); POTASSIUM 3.9 mmol/L (3.5-5.1); VANCOMYCIN TROUGH 18.9 UG/ML (10.0-20.0)
--- NOTE | 2024-01-06 11:30 | NUR ---
BLOOD GLUCOSE AT 227. COVERED WITH 8 UNITS OF HUMULIN R SUBCUTANEOUS; FOLLOWING INSULIN SCALE.
--- NOTE | 2024-01-06 12:17 | PN ---
PROGRESS NOTE Date of Service: Jan 06, 2024 Time of Service: 11:57 SUBJECTIVE: 68 years old female was seen for follow up status post angioplasty follow up on s/p 3rd ttoe amputation cc pain. REVIEW OF SYSTEMS CONSTITUTIONAL: Denies fever, chills, or fatigue. HEAD/FACE: No signs of trauma. EENT: Denies eye pain, blurred vision, double vision, or light sensitivity. RESPIRATORY: Denies shortness of breath, cough, wheezing CARDIOVASCULAR: Denies chest pain, palpitation, syncope GASTROINTESTINAL/ABDOMINAL: Denies abdominal pain, constipation, diarrhea, nausea or vomiting GENITOURINARY: Denies dysuria or hematuria. MUSCULOSKELETAL: Denies joint pain, tenderness, or trauma. INTEGUMENTARY: S/P amputation of 3rd toe left wound stable no cellulitis no drainage NEUROLOGICAL/PSYCH: Denies anxiety, depression, heat or cold intolerance. PHYSICAL EXAM EYES: Anicteric. Pupils equal and reactive. HENT: No oral thrush seen, moist Oral mucosa NECK: Supple, no JVD or thyromegaly. LUNGS: Good air entry. No rales, no rhonchi. CARDIOVASCULAR: S1, S2 regular. No murmur heard. Small-vessel disease. Left lower extremity ABDOMEN: Soft, non tender, bowel sounds present, no organomegaly CENTRAL NERVOUS SYSTEM: Awake, alert, oriented x 3. No focal deficits. SKIN: Ulcer 3rd toe and 4th toe left foot edema and cellulitis. LYMPHATICS: No peripheral lymphadenopathy MUSCULOSKELETAL: No joint swelling, erythema or tenderness. EXTREMITIES: wound 3rd toe base s/p amputation left 3rd toe BACK: No deformity, no pressure ulcer. GENITOURINARY: No dysuria or hematuria Vital Signs (last 8hr) Date Time Temp Pulse Resp B/P (MAP) Pulse Ox O2 Delivery O2 Flow Rate FiO2 01/06/24 08:04 99 Room Air* 0 21 01/06/24 08:00 98.2 95 16 168/76 99 Room Air 21 LABS: Laboratory: Test 01/06/24 11:03 01/06/24 05:13 Range/Units Whole Blood Glucose 227 H 70-110 MG/DL White Blood Count 11.3 H 4.8-10.8 K/uL Red Blood Count 2.47 L 4.00-5.50 MIL/uL Hemoglobin 7.4 L 12.0-16.0 g/dL Hematocrit 23.0 L 36-48 % Mean Corpuscular Volume 93.1 79-99 fL Mean Corpuscular Hemoglobin 30.0 27.0-33.0 pg Mean Corpuscular Hemoglobin Concent 32.2 32.0-36.0 g/dL Red Cell Distribution Width 12.6 11.0-15.5 % Platelet Count 359 130-400 K/uL Mean Platelet Volume 8.6 7.5-10.5 fL Immature Granulocyte % (Auto) 0.6 0-1 % Neutrophils (%) (Auto) 80.5 H 40.0-77.0 % Lymphocytes (%) (Auto) 10.3 L 21.0-51.0 % Monocytes (%) (Auto) 7.0 3.0-13.0 % Eosinophils (%) (Auto) 1.0 0.0-8.0 % Basophils (%) (Auto) 0.6 0.0-5.0 % Neutrophils # (Auto) 9.1 H 1.8-7.7 K/uL Lymphocytes # (Auto) 1.2 1.0-4.8 K/uL Monocytes # (Auto) 0.8 0.1-1.0 K/uL Eosinophils # (Auto) 0.11 0.00-0.70 K/uL Basophils # (Auto) 0.07 0.00-0.20 K/uL Absolute Immature Granulocyte (auto 0.07 0-1 K/uL Nucleated Red Blood Cells 0.0 0.0-0.19 % Sodium Level 142 136-145 mmol/L Potassium Level 3.9 3.5-5.1 mmol/L Chloride Level 108 101-111 mmol/L Carbon Dioxide Level 23 21-32 mmol/L Blood Urea Nitrogen 9 7-18 mg/dL Creatinine 1.0 0.5-1.0 mg/dL Glomerular Filtration Rate Calc 61 >90 mL/min Random Glucose 169 H 70-105 mg/dL Total Calcium 8.1 L 8.5-10.1 mg/dL Total Bilirubin 0.4 0.2-1.0 mg/dL Aspartate Amino Transf (AST/SGOT) 14 10-37 U/L Alanine Aminotransferase (ALT/SGPT) 12 12-78 U/L Alkaline Phosphatase 67 50-136 U/L Total Protein 6.0 6.0-8.3 g/dL Albumin 2.3 L 3.5-5.0 g/dL Vancomycin Level Trough 18.9 # 10.0-20.0 UG/ML DIAGNOSTICS / RADIOLOGY: [ ] FOOT COMP 3+VWS LT HISTORY: Foot lesion COMPARISON: None TECHNIQUE: 3 images of left foot were obtained. FINDINGS: There is no acute displaced fracture or dislocation. There is soft tissue swelling. Vascular calcifications are seen. Degenerative changes are seen. IMPRESSION: 1. Findings as described above. Arterial Ultrasound left On the left, the peak systolic velocity of the common femoral artery is 180 cm/s, the proximal femoral artery is 112 cm/s, the mid femoral artery is 67 cm/s, the distal femoral artery is 76 cm/s, the proximal popliteal artery is 147 cm/s, the distal popliteal artery is 130 cm/s, the anterior tibial artery is 127 cm/s, the posterior tibial artery artery is 86 cm/s,and the dorsalis pedal artery is 95 cm/s. 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 ONESIMO SAUCEDO DPM Jan 06, 2024 12:17
--- NOTE | 2024-01-06 12:53 | NUR ---
Called Miss. Mishra (resident for hospitalist) to notify her that Dr. Charles ordered a PRBC transfusion. She agreed with order.
--- NOTE | 2024-01-06 13:16 | PN ---
[facility] PROGRESS NOTE Date of Service: Jan 06, 2024 Time of Service: 13:09 SUBJECTIVE: HPI 68-year-old female admitted due to left lower extremity pain, patient had wound ulcer between 3rd and 4th toe of the left foot and some necrosis. Arterial Doppler was done which showed abnormal monophasic arterial waveform seen in the right superficial femoral popliteal bilateral posterior tibial anterior dorsalis pedal arteries. Hyperemic flow is seen in the right dorsalis pedal, left anterior tibial and posterior tibial arteries. There is an occlusion of the right distal superficial femoral artery, high-grade stenosis is suspected in the right common femoral and right proximal superficial femoral artery, high-grade stenosis is also suspected in the right popliteal artery proximally. Dr. Charles has been consulted and recommending cardiovascular consult for vascular assessment. Dr. Mao recommending CT angio to the left foot. Infectious Disease also consulted, we will continue with IV antibiotics. We are pending MRI to rule out osteomyelitis. Otherwise patient has no complaints. Interval History 12/30/23: Lying in bed at the time of evaluation. Alert and oriented and in mild distress. Continues with complaints of right foot pain. Rates the pain as 7/10. Morphine 2mg ordered for adequate pain management. An MRI was done today. Shows findings suspicious for osteomyelitis involving the 3rd and 4th toes. Patient is currently on Vancomycin and Zosyn IV Aorto with runoff CTA shows extensive atherosclerotic changes. Multiple short segment high grade stenosis seen throughout the right superficial femoral artery. There are occlusions of left anterior tibial and bilateral post tibial artery. There is also occlusion of the right anterior tibial artery at mid calf level. Cardiovascular surgeon is on the case. Patient denies any chest pain, shortness of breath, nausea , vomiting or associated symptoms. 12/31/23 patient evaluated in the room this morning. She is in good spirits. Pain is minimal to the left leg. She is status post CT angio abdominal aorta with runoff that showed extensive vascular calcifications. Extensive atherosclerotic changes seen. Multiple short-segment high-grade stenosis are seen throughout the right superficial femoral artery. There are occlusions of left anterior tibial and bilateral posterior tibial arteries. There is also occlusion of the right anterior tibial artery and mid calf level. There may be reconstitution of posterior tibial arteries near the distal calf level. MRI of the left foot shows suspicious for osteomyelitis-involving 3rd and 4th toes. On physical evaluation, there are necrosis on the 3rd and 4th toe. We will follow up with CV surgeon on further recommendations. Podiatry is recommending amputation, we will await for final recommendations from CV team. 12/31 patient was evaluated in the room this morning, she complains of 10/10 pain to the left leg. We are awaiting for final recommendations from consultants. For now we will continue with pain management and IV antibiotics. 01/01 Patient was seen at bedside, she is alert, awake and oriented. Today her vitals are BP 161/69, pulse rate 79, respiratory rate 17, sp02 98% on room air and T-max 98.2 but she has been having low grade temperatures during the weekend. Her Blood pressure has been elevated in 160s, will increase her dose of metoprolol from 25mg to 50mg and start her on Amlodipine 5mg. Her lactic acid was 0.8. She was given Tramadol and dilaudid for pain, she doesn't feel any pain right now. Machine I Engraver and vascular surgery recommended digit amputation, pending Dr. Charles recommendation on surgery. We will monitor her vitals closely. 01/02 Patient was seen at bedside, she is alert, awake and oriented. Today her vitals are BP 142/63, pulse rate 79, respiratory rate 18, sp02 98% on room air and T-max 98.2, she did not spike a fever last night, she has no complaints. She was constipated yesterday and was feeling nauseous to take lactulose. Prescribed her bisacodyl enema, she had a bowel moment. She was unable to tolerate feeds due to nausea, added promethazine to her medication and she was eating better today. Dr. Charles saw the patient yesterday and has scheduled for amputation tomorrow. 01/03 Patient was seen at bedside, she is alert, awake and oriented. She had a third digit amputation of left foot done by Dr. Charles this morning. She is currently weaning off anesthesia and doesn't feel pain. Resume ADA diet, dressing changes daily, iodosorb ointnment. Patient continues to have high isolated high systolic blood pressure, will increase the dose of lisinopril from 10 mg to 20 mg. Will request PT evaluation with partial weight bearing. Resume meds. 01/04 Patient was seen at bedside, she was lying comfortably in chair. she is al ert, awake and oriented. Today her vitals are blood pressure 129/57, respiratory rate 16, pulse rate 96, spO2 98, T-max 98.4. No acute events overnight, patient has no complaints. Patient's family was at bedside. Inquired about use of blood thinners in the past due to history of DVT, one of the family members said that she was on xarelto prior to elective PCI early this month. Requested patient's family to bring in her medication. Dr. Charles was consulted regarding restarting patient on DVT prophylaxis, recommended to hold off on aspirin and lovenox, not to start xarelto due to the risk of bleeding and since patient is anemic. Will continue on Brilinta and SCDs and monitor her labs closely. 01/05 Patient was seen at bedside, she was lying comfortably in bed. she is alert, awake and oriented. Today her vitals are blood pressure 168/76, respiratory rate 16, pulse rate 95, spO2 99, T-max 98.2. No acute events overnight, patient has no complaints. Patient's family was at bedside. Her hemoglobin has been dropping consistently, will transfuse one unit. Cultures grew Serratia Marcescens, per ID recommendation patient will require IV antibi otics and case management has been made aware to make discharge planning to SNF. Will start weaning her off Dilaudid and start her on [place] 5 for breakthrough pain. REVIEW OF SYSTEMS CONSTITUTIONAL: Denies fevers, chills, or night sweats. No unintentional weight loss reported. NEUROLOGICAL: Denies headache, amaurosis fugax, motor weakness, sensory deficit, vertigo/spinning sensation, gait abnormalities, or tremors. ENT: No hearing loss, otalgia, otorrhea, rhinitis, rhinorrhea, hoarseness, or sore throat. CARDIOVASCULAR: Denies any exertional angina, dyspnea on exertion, orthopnea, paroxysmal nocturnal dyspnea, palpitations, life-threatening arrhythmias, claudication. PULMONARY: Denies any shortness of breath, cough, phlegm/sputum, hemoptysis, pleuritic chest pain. SLEEP: Denies morning headaches, daytime somnolence or napping. Denies di fficulty falling asleep, staying asleep, waking from sleep. Denies knowledge of snoring. GASTROINTESTINAL: Denies any type of dysphagia to either liquids or solids. Denies pyrosis, early satiety, abdominal pain, diarrhea, constipation, or changes in stool consistency or caliber. Denies coffee-ground emesis, hematemesis, hematochezia, or melanotic stools. GENITOURINARY: Denies frequency, urgency, nocturia, hematuria or incontinence (Storage/Irritative symptoms.) Low urinary stream, straining to void, urinary intermittency or hesitancy, splitting of the voiding stream, terminal dribbling. ENDOCRINOLOGIC: Denies polyuria, polydipsia, polyphagia or heat/cold intolerances. HEMATOLOGIC: Denies thrombophilia/previous clots, or coagulopathy/bleeding disorders. ONCOLOGIC: Denies personal history of malignancy. DERMATOLOGIC: Left anterior foot with ecchymosis and wound on the 3rd and 4th toe Denies rashes or pruritus. PSYCHIATRIC: Denies any suicidal or homicidal ideation. Denies hallucinations. PHYSICAL EXAM GENERAL APPEARANCE: The patient is awake, alert, and oriented, in no acute cardiopulmonary distress. NEUROLOGICAL: Cranial nerves II-XII grossly intact. Motor is 5/5 in bilateral upper and lower extremities proximal to distal. No sensory deficits. HEENT: Face is symmetric. Pupils are equal and reactive. Extraocular movements are intact. NECK: Supple. No JVD. No thyromegaly. No submental, submandibular, pre- /postauricular, occipital or supraclavicular lymphadenopathy. CHEST: Normal chest expansion. No Telemetry. LUNGS: Absence of any rales, rhonchi or any wheezing. CARDIOVASCULAR: Regular. S1 and S2 normal. No appreciable rubs, murmurs or gallops. ABDOMEN: Soft, nontender, and nondistended. There is no rebound, voluntary guarding, or rigidity. : Deferred. No Martel. EXTREMITIES: Non-edematous and not cyanotic. No clubbing. Good capillary refill. SKIN: left foot swollen and erythema with amputation of 3rd toe Vital Signs (last 8hr) Date Time Temp Pulse Resp B/P (MAP) Pulse Ox O2 Delivery O2 Flow Rate FiO2 01/06/24 12:00 98.8 89 16 169/78 96 Room Air 21 01/06/24 08:04 99 Room Air* 0 21 01/06/24 08:00 98.2 95 16 168/76 99 Room Air 21 LABS: Laboratory: Test 01/06/24 11:03 01/06/24 05:13 Range/Units Whole Blood Glucose 227 H 70-110 MG/DL White Blood Count 11.3 H 4.8-10.8 K/uL Red Blood Count 2.47 L 4.00-5.50 MIL/uL Hemoglobin 7.4 L 12.0-16.0 g/dL Hematocrit 23.0 L 36-48 % Mean Corpuscular Volume 93.1 79-99 fL Mean Corpuscular Hemoglobin 30.0 27.0-33.0 pg Mean Corpuscular Hemoglobin Concent 32.2 32.0-36.0 g/dL Red Cell Distribution Width 12.6 11.0-15.5 % Platelet Count 359 130-400 K/uL Mean Platelet Volume 8.6 7.5-10.5 fL Immature Granulocyte % (Auto) 0.6 0-1 % Neutrophils (%) (Auto) 80.5 H 40.0-77.0 % Lymphocytes (%) (Auto) 10.3 L 21.0-51.0 % Monocytes (%) (Auto) 7.0 3.0-13.0 % Eosinophils (%) (Auto) 1.0 0.0-8.0 % Basophils (%) (Auto) 0.6 0.0-5.0 % Neutrophils # (Auto) 9.1 H 1.8-7.7 K/uL Lymphocytes # (Auto) 1.2 1.0-4.8 K/uL Monocytes # (Auto) 0.8 0.1-1.0 K/uL Eosinophils # (Auto) 0.11 0.00-0.70 K/uL Basophils # (Auto) 0.07 0.00-0.20 K/uL Absolute Immature Granulocyte (auto 0.07 0-1 K/uL Nucleated Red Blood Cells 0.0 0.0-0.19 % Sodium Level 142 136-145 mmol/L Potassium Level 3.9 3.5-5.1 mmol/L Chloride Level 108 101-111 mmol/L Carbon Dioxide Level 23 21-32 mmol/L Blood Urea Nitrogen 9 7-18 mg/dL Creatinine 1.0 0.5-1.0 mg/dL Glomerular Filtration Rate Calc 61 >90 mL/min Random Glucose 169 H 70-105 mg/dL Total Calcium 8.1 L 8.5-10.1 mg/dL Total Bilirubin 0.4 0.2-1.0 mg/dL Aspartate Amino Transf (AST/SGOT) 14 10-37 U/L Alanine Aminotransferase (ALT/SGPT) 12 12-78 U/L Alkaline Phosphatase 67 50-136 U/L Total Protein 6.0 6.0-8.3 g/dL Albumin 2.3 L 3.5-5.0 g/dL Vancomycin Level Trough 18.9 # 10.0-20.0 UG/ML Current Medications Medications (Trade) Dose Ordered Sig/Reji Route PRN Reason Start Time Stop Time Status Last Admin Dose Admin Acetaminophen (TYLenol 325MG TAB) 650 mg Q4H PRN PO MILD PAIN (1-3) 12/27/23 19:30 01/26/24 19:29 01/02/24 05:39 650 MG Acetaminophen (TYLenol 325MG TAB) 650 mg Q6H PRN PO TEMPERATURE GREATER THAN 101.5 12/27/23 19:30 01/26/24 19:29 01/05/24 23:57 650 MG Acetaminophen/ Hydrocodone Bitart (NORco 5/325MG) 1 tab Q4H PRN PO MODERATE PAIN (4-6) 12/27/23 19:30 01/01/24 19:29 DC 01/01/24 18:22 1 TAB Acetaminophen/ Hydrocodone Bitart (NORco 5/325MG) 1 tab Q4H PRN PO MODERATE PAIN (4-6) 01/06/24 11:30 01/11/24 11:29 Amlodipine Besylate (NorvASC 5MG TAB) 5 mg DAILY PO 01/03/24 09:00 02/02/24 08:59 01/06/24 08:58 5 MG Aspirin (Aspirin 81mg Chew Tab) 81 mg DAILY PO 12/30/23 09:00 01/05/24 10:57 DC 01/05/24 10:10 81 MG Atorvastatin Calcium (LIPItor 40MG) 40 mg HS PO 12/30/23 21:00 01/29/24 20:59 01/05/24 20:23 40 MG Bisacodyl (DulcoLAX) 10 mg BID PRN RC CONSTIPATION 01/02/24 15:00 02/01/24 14:59 01/02/24 14:58 10 MG Dextrose (D50w) 50 ml AD PRN IV HYPOGLYCEMIA PROTOCOL 12/27/23 19:30 01/26/24 19:29 Enoxaparin Sodium (Lovenox) 30 mg DAILY SQ 12/28/23 09:00 01/05/24 10:57 DC 01/05/24 10:11 30 MG Famotidine (Pepcid 20mg Tab) 20 mg BID PO 12/27/23 21:00 01/26/24 20:59 01/06/24 08:58 20 MG Folic Acid (FOLic ACID 1 MG TABLET) 1 mg DAILY PO 12/30/23 09:00 01/29/24 08:59 01/06/24 08:58 1 MG Glucagon (Glucagon 1mg Kit) 1 mg AD PRN IM HYPOGLYCEMIA PROTOCOL 12/27/23 19:30 01/26/24 19:29 Hydralazine HCl (APRESOLine 20MG INJ) 10 mg Q6H PRN IV For:SBP above 160;DBP above 90 12/27/23 19:30 01/26/24 19:29 01/05/24 04:18 10 MG Hydromorphone HCl (DiLAUDid 0.5MG INJ) 0.5 mg Q4H PRN IVP SEVERE PAIN (7-10) 01/02/24 01:00 01/06/24 11:26 DC 01/06/24 06:11 0.5 MG Hydromorphone HCl (DiLAUDid 0.5MG INJ) 0.5 mg Q8H PRN IVP SEVERE PAIN (7-10) 01/06/24 13:00 01/09/24 00:59 Insulin Human Regular (humuLIN R 100 UNIT/ML 3ML) INSULIN SLIDING SCAL... ACHS SQ 12/27/23 21:00 12/31/23 22:15 DC 12/31/23 21:04 2 UNIT Insulin Human Regular (humuLIN R 100 UNIT/ML 3ML) INSULIN SLIDING SCAL... ACHS SQ 01/01/24 07:30 01/31/24 07:29 01/05/24 20:24 4 UNIT Lactulose (Constulose 20gm/ 30ml Udcup) 20 gm BID PRN PO CONSTIPATION 12/31/23 15:30 01/02/24 14:41 DC Lactulose (Constulose 20gm/ 30ml Udcup) 20 gm BID PRN PO CONSTIPATION 01/02/24 15:00 02/01/24 14:59 01/05/24 16:38 20 GM Lisinopril (Prinivil 10mg) 10 mg DAILY PO 12/30/23 09:00 01/04/24 14:44 DC 01/04/24 10:36 10 MG Lisinopril (Prinivil 10mg) 20 mg DAILY PO 01/05/24 09:00 02/04/24 08:59 01/06/24 08:59 20 MG Magnesium Sulfate 50 ml @ 0 mls/hr PROTOCOL IV 12/29/23 14:30 12/29/23 14:10 DC Magnesium Sulfate 50 ml @ 0 mls/hr PROTOCOL PRN IV OTHER [SEE ORDER COMMENTS] 12/27/23 19:30 01/26/24 19:29 12/31/23 05:46 25 MLS/HR Metoprolol Tartrate (loprESSOR) 25 mg BID PO 01/01/24 16:30 01/02/24 13:00 DC 01/02/24 08:05 25 MG Metoprolol Tartrate (loprESSOR) 50 mg BID PO 01/02/24 21:00 02/01/24 20:59 01/06/24 09:03 50 MG Morphine Sulfate (morPHINE 2MG SYG) 2 mg Q4H PRN IV SEVERE PAIN (7-10) 12/27/23 19:30 01/01/24 22:29 DC 01/01/24 20:09 2 MG Ondansetron HCl (zoFRAN 4MG INJ) 4 mg Q6H PRN IV NAUSEA/VOMITING 12/27/23 19:30 01/26/24 19:29 01/02/24 14:58 4 MG Piperacillin Sod/ Tazobactam Sod (Zosyn 3.375gm+NS 50ml) 3.375 gm Q8H IV 12/28/23 02:00 01/18/24 01:59 01/06/24 10:44 3.375 GM Potassium Chloride 100 ml @ 100 mls/hr AD PRN IV POTASSIUM PROTOCOL 12/27/23 19:30 01/26/24 19:29 01/05/24 06:04 100 MLS/HR Potassium Chloride (K-Dur/Klor-Con 20meq) 20 meq AD PRN PO POTASSIUM PROTOCOL 12/27/23 19:30 01/26/24 19:29 01/05/24 16:45 20 MEQ Potassium Chloride (KCl 10% Elixir 20meq/15ml) 20 meq AD PRN PO POTASSIUM PROTOCOL 12/27/23 19:30 01/26/24 19:29 01/01/24 05:43 20 MEQ Promethazine HCl (Phenergan) 12.5 mg Q6H PRN IM NAUSEA/VOMITING 01/02/24 16:30 02/01/24 16:29 01/06/24 10:43 12.5 MG Ticagrelor (BRILinta) 90 mg BID PO 12/30/23 09:00 01/29/24 08:59 01/06/24 09:01 90 MG Tramadol HCl (UltRAM) 50 mg Q6H PRN PO PAIN LEVEL 4 TO 6 01/02/24 01:00 01/04/24 14:44 DC 01/04/24 13:11 50 MG Tramadol HCl (UltRAM) 75 mg Q6H PRN PO PAIN LEVEL 4 TO 6 01/04/24 19:00 01/06/24 11:36 DC 01/06/24 08:59 75 MG Vancomycin HCl 250 ml @ 125 mls/hr BID@0600,1800 IV 01/05/24 06:00 01/06/24 13:08 DC 01/06/24 06:19 125 MLS/HR Vancomycin HCl (Vancomycin 750mg) 750 mg Q12H IVPB 12/28/23 06:00 01/05/24 06:31 DC 01/04/24 17:24 750 MG Vancomycin HCl (Vancomycin Protocol) 1 each AD IV 12/27/23 18:00 12/27/23 19:20 DC Vancomycin HCl (Vancomycin Protocol) 1 each AD IV 12/27/23 19:30 01/06/24 13:08 DC Vitamin B Complex (Vitamin B-12) 1,000 mcg DAILY PO 12/30/23 09:00 01/29/24 08:59 01/06/24 08:58 1,000 MCG DIAGNOSTICS / RADIOLOGY: [ ] ASSESSMENT: Left third toe amputation done on 01/03 Severe left foot pain POA Left foot cellulitis POA Suspected Left foot osteomyelitis POA left lower extremity Peripheral arterial disease POA Recent peripheral angioplasty of Left lower extremity on DAPT POA Uncontrolled diabetes POA Hypertension POA Anemia POA POA Hyperlipidemia POA History of left lower extremity DVT PLAN: Severe left foot pain POA Left foot cellulitis POA Left foot osteomyelitis POA *Left third toe amputation done on 01/03 *MRI showed findings suspicious for osteomyelitis involving the 3rd and 4th toes *Infectious Disease is on the case. *Continue on Vancomycin IV and Zosyn IV as ordered *Continue with Morphine 2mg IV for adequate pain management *Podiatry consult placed. *Trend temperature , WBC and procalcitonin levels *Cultures grew Serratia marcescens *De escalate antibiotics use as soon as possible. *Panculture if new onset fever Left lower extremity Peripheral arterial disease POA Recent peripheral angioplasty of Left lower extremity on DAPT POA *Cardiovascular consult ordered. Pending recommendations. *CTA aorto with runoff shows multiple occlusions in the left lower extremity * Cardiology on the case, we are following their recommendations on their standpoint, no need for arteriogram, based on Dr. Cam's last note performed on 12/22/23: ----SFA 80-98% segmental stenosis is reduced to 0% residual. ----Left popliteal segmental 90-98% stenosis is reduced to 10% residual ----Left tibioperoneal and proximal peroneal 90-98% stenosis is reduced to 0% residual. ----Although initial images demonstrated very slow flow through the lower extremity, final images demonstrate brisk flow to the ankle with collaterals into the heel and dorsalis pedis region, but the plantar arch is not well served. There is no achievable direct flow into the foot. Uncontrolled diabetes POA *Maintain blood glucose between 100-180 at all times *Insulin sliding scale for blood glucose management *Hyperglycemia and hypoglycemia protocols in place Hypertension POA Hyperlipidemia POA *Continue with Lisinopril 10mg po daily as ordered for elevated BP. *Continue with Hydralazine 10mg IV for systolic BP>160 *Continue with Atorvastatin 40mg daily as ordered for hyperlipidemia *Follow hemodynamics. *Vital signs per facility protocol Anemia *Monitor H & H. Keep Hgb > 7 *Transfuse 1 unit of PRBC for Hgb < 7 *Continue on Lovenox 30 mg subQ daily for DVT prphylaxis *Continue on Famotidine 20 mg p.o. bid for GI prophylaxis *Continue prn medication for fever,pain, nausea and vomiting *Labs in the morning. ATTESTATION BY PHYSICIAN I have seen and examined the patient. I reviewed the documentation, medical decision making, and treatment plan as noted by the resident provider above. I agree with the findings and plan of care. Quita Ash MD, NIHITHA MD Jan 06, 2024 13:16
[2024-01-06 13:59] LABS: INR 1.11 (0.85-1.15); PROTHROMBIN TIME 11.9 SEC (9.6-11.6)
[2024-01-06 14:00] LABS: PARTIAL THROMBOPLASTIN TIME 28.5 SEC (26.3-35.5)
--- NOTE | 2024-01-06 14:00 | NUR ---
OBTAINED CONSENT FOR BLOOD TRANSFUSION FOR 1 UNIT OF PRBC.
--- NOTE | 2024-01-06 14:30 | NUR ---
OBTAINED CONSENT FOR MIDLINE PLACEMENT DUE TO PATIENT NEEDING AIR SAW OPERATOR ANTIBIOTICS PER DR. LOCO ORDER.
--- NOTE | 2024-01-06 15:04 | PN ---
INFECTIOUS DISEASE PROGRESS NOTE Date of Service: Jan 06, 2024 SUBJECTIVE: This is a 68-year-old female patient who was admitted for severe left foot pain. Patient is awake, alert and oriented x3. Patient is status post left 3rd toe amputation on 01/04/2024 do to gangrene and left foot ischemia. Dressing is clean and dry. Pain is being managed with Apex and hydromorphone. WBC this morning is 11.3 and patient had a low-grade fever of 100.9 last night, this morning temperature however is 98.2. We will discontinue Zosyn and continue on Zosyn IV every 8 hours. Patient requesting snf placement for rehab. Per nursing report case management has been consulted for snf referral. We will continue to follow patient's care. PHYSICAL EXAM EYES: Anicteric. Pupils equal and reactive. HENT: No oral thrush seen, moist Oral mucosa NECK: Supple, no JVD or thyromegaly. LUNGS: Good air entry. No rales, no rhonchi. CARDIOVASCULAR: S1, S2 regular. No murmur heard. ABDOMEN: Soft, non tender, bowel sounds present, no organomegaly CENTRAL NERVOUS SYSTEM: Awake, alert, oriented x 3. SKIN: No rashes, no swelling. LYMPHATICS: No peripheral lymphadenopathy MUSCULOSKELETAL: No joint swelling, erythema or tenderness. EXTREMITIES: No cyanosis or clubbing BACK: No deformity, no pressure ulcer. GENITOURINARY: No dysuria or hematuria Vital Sign (Last 12 Hours) 01/06/24 01/06/24 01/06/24 01/06/24 03:57 08:00 08:04 12:00 Temp 98.2 98.2 98.8 Pulse 80 95 89 Resp 20 16 16 B/P (MAP) 130/68 168/76 169/78 Pulse Ox 97 99 99 96 O2 Delivery Room Air Room Air Room Air* Room Air O2 Flow Rate 0 FiO2 21 21 21 Intake & Output (last 24hrs) 01/05/24 01/05/24 01/06/24 15:00 23:00 07:00 Intake Total 250 ml Balance 250 ml LABS: Laboratory: Test 01/06/24 13:44 01/06/24 11:03 01/06/24 05:13 Range/Units Prothrombin Time 11.9 H 9.6-11.6 SEC Prothromb Time International Ratio 1.11 0.85-1.15 Activated Partial Thromboplast Time 28.5 26.3-35.5 SEC Whole Blood Glucose 227 H 70-110 MG/DL White Blood Count 11.3 H 4.8-10.8 K/uL Red Blood Count 2.47 L 4.00-5.50 MIL/uL Hemoglobin 7.4 L 12.0-16.0 g/dL Hematocrit 23.0 L 36-48 % Mean Corpuscular Volume 93.1 79-99 fL Mean Corpuscular Hemoglobin 30.0 27.0-33.0 pg Mean Corpuscular Hemoglobin Concent 32.2 32.0-36.0 g/dL Red Cell Distribution Width 12.6 11.0-15.5 % Platelet Count 359 130-400 K/uL Mean Platelet Volume 8.6 7.5-10.5 fL Immature Granulocyte % (Auto) 0.6 0-1 % Neutrophils (%) (Auto) 80.5 H 40.0-77.0 % Lymphocytes (%) (Auto) 10.3 L 21.0-51.0 % Monocytes (%) (Auto) 7.0 3.0-13.0 % Eosinophils (%) (Auto) 1.0 0.0-8.0 % Basophils (%) (Auto) 0.6 0.0-5.0 % Neutrophils # (Auto) 9.1 H 1.8-7.7 K/uL Lymphocytes # (Auto) 1.2 1.0-4.8 K/uL Monocytes # (Auto) 0.8 0.1-1.0 K/uL Eosinophils # (Auto) 0.11 0.00-0.70 K/uL Basophils # (Auto) 0.07 0.00-0.20 K/uL Absolute Immature Granulocyte (auto 0.07 0-1 K/uL Nucleated Red Blood Cells 0.0 0.0-0.19 % Sodium Level 142 136-145 mmol/L Potassium Level 3.9 3.5-5.1 mmol/L Chloride Level 108 101-111 mmol/L Carbon Dioxide Level 23 21-32 mmol/L Blood Urea Nitrogen 9 7-18 mg/dL Creatinine 1.0 0.5-1.0 mg/dL Glomerular Filtration Rate Calc 61 >90 mL/min Random Glucose 169 H 70-105 mg/dL Total Calcium 8.1 L 8.5-10.1 mg/dL Total Bilirubin 0.4 0.2-1.0 mg/dL Aspartate Amino Transf (AST/SGOT) 14 10-37 U/L Alanine Aminotransferase (ALT/SGPT) 12 12-78 U/L Alkaline Phosphatase 67 50-136 U/L Total Protein 6.0 6.0-8.3 g/dL Albumin 2.3 L 3.5-5.0 g/dL Vancomycin Level Trough 18.9 # 10.0-20.0 UG/ML ASSESSMENT: Left foot osteomyelitis. Diabetic foot ulcer. Left foot cellulitis. Left foot ischemia [id number] toe gangrene, status post amputation of the left 3rd toe on 01/04/2024. Peripheral vascular disease. Diabetes mellitus. Hypokalemia. PLAN: Place midline. Discontinue vancomycin. Continue Zosyn. Continue pain management. Continue GI prophylaxis. Wound care as recommended by parts inspector. Continue monitoring glucose levels. We will monitor electrolytes. Case management evaluation for referral to SNF. This case was reviewed and discussed with my supervising physician and the above assessment and plan was formulated and agreed upon. ATTESTATION BY PHYSICIAN I have seen and examined the patient. I reviewed the documentation, medical decision making, and treatment plan as noted by the mid-level provider above. I agree with the findings and plan of care. IVAN LOCO MD, MIRTA L [facility] Jan 06, 2024 15:04
--- NOTE | 2024-01-06 16:30 | NUR ---
BLOOD GLUCOSE 145. NO INSULIN COVERAGE NEEDED AT THIS TIME.
--- NOTE | 2024-01-06 18:00 | NUR ---
STARTED BLOOD TRANSFUSION PROCESS. DID DOUBLE VERIFICATION AT BEDSIDE WITH MRS. SIRI LVN. PATIENT WAS ALERT, ORIENTED IN PERSON, TIME AND PLACE. NO SIGNS OF RESPIRATORY DISTRESS NOTED. PIV PATENT. (VIEW BLOOD TRANSFUSION PAPER ON CHART).
--- NOTE | 2024-01-06 18:37 | NUR ---
CHARLES OJEDA VISITED WITH PATIENT SEVERAL TIMES. HAD GOTTEN CONSENT FOR HOME HEALTH. BUT THEN DAUGHTER CALLED PATIENT AND TOLD HER COULD NOT HAVE HER HOME RIGHT NOW WITH ALL THE CARE SHE NEEDS. DAD ALREADY TAKING ALL HER TIME. AFTER TALKING TO OTHER FAMILY PATIENT AGREED TO SNF BUT WOULD NOT SAY WHICH ONE WANTED FRAN TO SAY SINCE SHE HAS BEEN SOMEPLACE BEFORE. CALLED NO ANSWER. LEFT MESSAGE. FRAN CALLED BACK [facility]ID [facility]. LET PATIENT KNOW SAID THAT IT WAS OKAY TO SEND REFERRAL. PACKET MADE AND SENT. Addendum: 01/06/24 at 1901 by JAVID JEFFERS RN CM Amended: Links added.
--- NOTE | 2024-01-06 20:00 | NUR ---
MIDLINE INSERTION 5FR 2 LUMEN PICC LINE INSERTED TO LEFT UPPER ARM BASILIC VEIN USING STERILE TECHNIQUE. ULTRASOUND GUIDED USING MST. INTERNAL CATHETER LENGTH: 15CM. EXTERNAL CATHETER LENGTH: 0CM. MIDLINE CARE: - PERFORM HAND HYGIENE, WEAR GLOVES, SCRUB THE HUB FOR 15 SECONDS BEFORE EVERY ACCESS. - FLUSH BOTH LUMENS WITH 10 ML NS FLUSH EVERY 12 HOURS IF LINE IS NOT IN USE AND CLAMP AFTER EVERY ACCESS. - PLEASE CHANGE MIDLINE DRESSING EVERY 7 DAYS AND PRN IF SOILED OR PEELING OFF.
[2024-01-06] MEDS: hydroMORPHone 0.5 MG SYG (0.5MG/0.5ML) IVP PRN (22:20)
[2024-01-07] VITALS (9 sets, daily range): BP systolic 135–179; BP diastolic 66–87; PULSE 78–111; RESP 17–20; TEMP 98.1–101.5; O2SAT 95–99
[2024-01-07] MEDS: LISINOPRIL 20 MG TABLET PO SCH (08:44)
[2024-01-07] MEDS: HYDROcodone/APAP 5/325 1 TAB TABLET PO PRN (08:44)
[2024-01-07 10:35] LABS: HEMATOCRIT 26.7 % (36-48)
--- NOTE | 2024-01-07 12:25 | PN ---
PROGRESS NOTE Date of Service: Jan 07, 2024 Time of Service: 12:17 SUBJECTIVE: 68 years old female was seen for follow up status post angioplasty follow up on s/p 3rd ttoe amputation cc pain. REVIEW OF SYSTEMS CONSTITUTIONAL: Denies fever, chills, or fatigue. HEAD/FACE: No signs of trauma. EENT: Denies eye pain, blurred vision, double vision, or light sensitivity. RESPIRATORY: Denies shortness of breath, cough, wheezing CARDIOVASCULAR: Denies chest pain, palpitation, syncope GASTROINTESTINAL/ABDOMINAL: Denies abdominal pain, constipation, diarrhea, nausea or vomiting GENITOURINARY: Denies dysuria or hematuria. MUSCULOSKELETAL: Denies joint pain, tenderness, or trauma. INTEGUMENTARY: S/P amputation of 3rd toe left wound stable no cellulitis no drainage NEUROLOGICAL/PSYCH: Denies anxiety, depression, heat or cold intolerance. PHYSICAL EXAM EYES: Anicteric. Pupils equal and reactive. HENT: No oral thrush seen, moist Oral mucosa NECK: Supple, no JVD or thyromegaly. LUNGS: Good air entry. No rales, no rhonchi. CARDIOVASCULAR: S1, S2 regular. No murmur heard. Small-vessel disease. Left lower extremity ABDOMEN: Soft, non tender, bowel sounds present, no organomegaly CENTRAL NERVOUS SYSTEM: Awake, alert, oriented x 3. No focal deficits. SKIN: Ulcer 3rd toe and 4th toe left foot edema and cellulitis. LYMPHATICS: No peripheral lymphadenopathy MUSCULOSKELETAL: No joint swelling, erythema or tenderness. EXTREMITIES: wound 3rd toe base s/p amputation left 3rd toe BACK: No deformity, no pressure ulcer. GENITOURINARY: No dysuria or hematuria Vital Signs (last 8hr) Date Time Temp Pulse Resp B/P (MAP) Pulse Ox O2 Delivery O2 Flow Rate FiO2 01/07/24 11:38 98.1 78 17 135/66 99 Room Air 01/07/24 10:00 95 Room Air* 0 21 01/07/24 08:13 99.7 105 17 163/67 95 Room Air 01/07/24 06:23 102 169/68 LABS: Laboratory: Test 01/07/24 11:29 01/07/24 10:30 01/06/24 13:44 01/06/24 05:13 Range/Units Whole Blood Glucose 300 #H 70-110 MG/DL Hemoglobin 8.8 L 12.0-16.0 g/dL Hematocrit 26.7 L 36-48 % Prothrombin Time 11.9 H 9.6-11.6 SEC Prothromb Time International Ratio 1.11 0.85-1.15 Activated Partial Thromboplast Time 28.5 26.3-35.5 SEC White Blood Count 11.3 H 4.8-10.8 K/uL Red Blood Count 2.47 L 4.00-5.50 MIL/uL Mean Corpuscular Volume 93.1 79-99 fL Mean Corpuscular Hemoglobin 30.0 27.0-33.0 pg Mean Corpuscular Hemoglobin Concent 32.2 32.0-36.0 g/dL Red Cell Distribution Width 12.6 11.0-15.5 % Platelet Count 359 130-400 K/uL Mean Platelet Volume 8.6 7.5-10.5 fL Immature Granulocyte % (Auto) 0.6 0-1 % Neutrophils (%) (Auto) 80.5 H 40.0-77.0 % Lymphocytes (%) (Auto) 10.3 L 21.0-51.0 % Monocytes (%) (Auto) 7.0 3.0-13.0 % Eosinophils (%) (Auto) 1.0 0.0-8.0 % Basophils (%) (Auto) 0.6 0.0-5.0 % Neutrophils # (Auto) 9.1 H 1.8-7.7 K/uL Lymphocytes # (Auto) 1.2 1.0-4.8 K/uL Monocytes # (Auto) 0.8 0.1-1.0 K/uL Eosinophils # (Auto) 0.11 0.00-0.70 K/uL Basophils # (Auto) 0.07 0.00-0.20 K/uL Absolute Immature Granulocyte (auto 0.07 0-1 K/uL Nucleated Red Blood Cells 0.0 0.0-0.19 % Sodium Level 142 136-145 mmol/L Potassium Level 3.9 3.5-5.1 mmol/L Chloride Level 108 101-111 mmol/L Carbon Dioxide Level 23 21-32 mmol/L Blood Urea Nitrogen 9 7-18 mg/dL Creatinine 1.0 0.5-1.0 mg/dL Glomerular Filtration Rate Calc 61 >90 mL/min Random Glucose 169 H 70-105 mg/dL Total Calcium 8.1 L 8.5-10.1 mg/dL Total Bilirubin 0.4 0.2-1.0 mg/dL Aspartate Amino Transf (AST/SGOT) 14 10-37 U/L Alanine Aminotransferase (ALT/SGPT) 12 12-78 U/L Alkaline Phosphatase 67 50-136 U/L Total Protein 6.0 6.0-8.3 g/dL Albumin 2.3 L 3.5-5.0 g/dL Vancomycin Level Trough 18.9 # 10.0-20.0 UG/ML DIAGNOSTICS / RADIOLOGY: [ ] FOOT COMP 3+VWS LT HISTORY: Foot lesion COMPARISON: None TECHNIQUE: 3 images of left foot were obtained. FINDINGS: There is no acute displaced fracture or dislocation. There is soft tissue swelling. Vascular calcifications are seen. Degenerative changes are seen. IMPRESSION: 1. Findings as described above. Arterial Ultrasound left On the left, the peak systolic velocity of the common femoral artery is 180 cm/s, the proximal femoral artery is 112 cm/s, the mid femoral artery is 67 cm/s, the distal femoral artery is 76 cm/s, the proximal popliteal artery is 147 cm/s, the distal popliteal artery is 130 cm/s, the anterior tibial artery is 127 cm/s, the posterior tibial artery artery is 86 cm/s,and the dorsalis pedal artery is 95 cm/s. ASSESSMENT: PAD wound 3rd toe left s/p amputation left : continue local wound care Bacitracin Vaseline gauze. 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 ONESIMO SAUCEDO DPM Jan 07, 2024 12:25
--- NOTE | 2024-01-07 12:35 | PN ---
[facility] PROGRESS NOTE Date of Service: Jan 07, 2024 Time of Service: 12:31 SUBJECTIVE: HPI 68-year-old female admitted due to left lower extremity pain, patient had wound ulcer between 3rd and 4th toe of the left foot and some necrosis. Arterial Doppler was done which showed abnormal monophasic arterial waveform seen in the right superficial femoral popliteal bilateral posterior tibial anterior dorsalis pedal arteries. Hyperemic flow is seen in the right dorsalis pedal, left anterior tibial and posterior tibial arteries. There is an occlusion of the right distal superficial femoral artery, high-grade stenosis is suspected in the right common femoral and right proximal superficial femoral artery, high-grade stenosis is also suspected in the right popliteal artery proximally. Dr. Charles has been consulted and recommending cardiovascular consult for vascular assessment. Dr. Mao recommending CT angio to the left foot. Infectious Disease also consulted, we will continue with IV antibiotics. We are pending MRI to rule out osteomyelitis. Otherwise patient has no complaints. Interval History 12/30/23: Lying in bed at the time of evaluation. Alert and oriented and in mild distress. Continues with complaints of right foot pain. Rates the pain as 7/10. Morphine 2mg ordered for adequate pain management. An MRI was done today. Shows findings suspicious for osteomyelitis involving the 3rd and 4th toes. Patient is currently on Vancomycin and Zosyn IV Aorto with runoff CTA shows extensive atherosclerotic changes. Multiple short segment high grade stenosis seen throughout the right superficial femoral artery. There are occlusions of left anterior tibial and bilateral post tibial artery. There is also occlusion of the right anterior tibial artery at mid calf level. Cardiovascular surgeon is on the case. Patient denies any chest pain, shortness of breath, nausea , vomiting or associated symptoms. 12/31/23 patient evaluated in the room this morning. She is in good spirits. Pain is minimal to the left leg. She is status post CT angio abdominal aorta with runoff that showed extensive vascular calcifications. Extensive atherosclerotic changes seen. Multiple short-segment high-grade stenosis are seen throughout the right superficial femoral artery. There are occlusions of left anterior tibial and bilateral posterior tibial arteries. There is also occlusion of the right anterior tibial artery and mid calf level. There may be reconstitution of posterior tibial arteries near the distal calf level. MRI of the left foot shows suspicious for osteomyelitis-involving 3rd and 4th toes. On physical evaluation, there are necrosis on the 3rd and 4th toe. We will follow up with CV surgeon on further recommendations. Podiatry is recommending amputation, we will await for final recommendations from CV team. 12/31 patient was evaluated in the room this morning, she complains of 10/10 pain to the left leg. We are awaiting for final recommendations from consultants. For now we will continue with pain management and IV antibiotics. 01/01 Patient was seen at bedside, she is alert, awake and oriented. Today her vitals are BP 161/69, pulse rate 79, respiratory rate 17, sp02 98% on room air and T-max 98.2 but she has been having low grade temperatures during the weekend. Her Blood pressure has been elevated in 160s, will increase her dose of metoprolol from 25mg to 50mg and start her on Amlodipine 5mg. Her lactic acid was 0.8. She was given Tramadol and dilaudid for pain, she doesn't feel any pain right now. Nuclear Technologist and vascular surgery recommended digit amputation, pending Dr. Charles recommendation on surgery. We will monitor her vitals closely. 01/02 Patient was seen at bedside, she is alert, awake and oriented. Today her vitals are BP 142/63, pulse rate 79, respiratory rate 18, sp02 98% on room air and T-max 98.2, she did not spike a fever last night, she has no complaints. She was constipated yesterday and was feeling nauseous to take lactulose. Prescribed her bisacodyl enema, she had a bowel moment. She was unable to tolerate feeds due to nausea, added promethazine to her medication and she was eating better today. Dr. Charles saw the patient yesterday and has scheduled for amputation tomorrow. 01/03 Patient was seen at bedside, she is alert, awake and oriented. She had a third digit amputation of left foot done by Dr. Charles this morning. She is currently weaning off anesthesia and doesn't feel pain. Resume ADA diet, dressing changes daily, iodosorb ointnment. Patient continues to have high isolated high systolic blood pressure, will increase the dose of lisinopril from 10 mg to 20 mg. Will request PT evaluation with partial weight bearing. Resume meds. 01/04 Patient was seen at bedside, she was lying comfortably in chair. she is al ert, awake and oriented. Today her vitals are blood pressure 129/57, respiratory rate 16, pulse rate 96, spO2 98, T-max 98.4. No acute events overnight, patient has no complaints. Patient's family was at bedside. Inquired about use of blood thinners in the past due to history of DVT, one of the family members said that she was on xarelto prior to elective PCI early this month. Requested patient's family to bring in her medication. Dr. Charles was consulted regarding restarting patient on DVT prophylaxis, recommended to hold off on aspirin and lovenox, not to start xarelto due to the risk of bleeding and since patient is anemic. Will continue on Brilinta and SCDs and monitor her labs closely. 01/05 Patient was seen at bedside, she was lying comfortably in bed. she is alert, awake and oriented. Today her vitals are blood pressure 168/76, respiratory rate 16, pulse rate 95, spO2 99, T-max 98.2. No acute events overnight, patient has no complaints. Patient's family was at bedside. Her hemoglobin has been dropping consistently, will transfuse one unit. Cultures grew Serratia Marcescens, per ID recommendation patient will require IV antibi otics and case management has been made aware to make discharge planning to SNF. Will start weaning her off Dilaudid and start her on [place] 5 for breakthrough pain. 01/06: Patient was seen eating some lunch. She states that she did have some nausea but no vomiting. She denies chest pain or shortness for breath at the present time. He does get some fevers at night and pains at night to her wound site or status post amputation of the 3rd toe of the left foot. REVIEW OF SYSTEMS CONSTITUTIONAL: Denies fevers, chills, or night sweats. No unintentional weight loss reported. NEUROLOGICAL: Denies headache, amaurosis fugax, motor weakness, sensory deficit, vertigo/spinning sensation, gait abnormalities, or tremors. ENT: No hearing loss, otalgia, otorrhea, rhinitis, rhinorrhea, hoarseness, or s ore throat. CARDIOVASCULAR: Denies any exertional angina, dyspnea on exertion, orthopnea, paroxysmal nocturnal dyspnea, palpitations, life-threatening arrhythmias, claudication. PULMONARY: Denies any shortness of breath, cough, phlegm/sputum, hemoptysis, pleuritic chest pain. SLEEP: Denies morning headaches, daytime somnolence or napping. Denies difficulty falling asleep, staying asleep, waking from sleep. Denies knowledge of snoring. GASTROINTESTINAL: Denies any type of dysphagia to either liquids or solids. Denies pyrosis, early satiety, abdominal pain, diarrhea, constipation, or changes in stool consistency or caliber. Denies coffee-ground emesis, hematemesis, hematochezia, or melanotic stools. GENITOURINARY: Denies frequency, urgency, nocturia, hematuria or incontinence (Storage/Irritative symptoms.) Low urinary stream, straining to void, urinary intermittency or hesitancy, splitting of the voiding stream, terminal dribbling. ENDOCRINOLOGIC: Denies polyuria, polydipsia, polyphagia or heat/cold intolerances. HEMATOLOGIC: Denies thrombophilia/previous clots, or coagulopathy/bleeding disorders. ONCOLOGIC: Denies personal history of malignancy. DERMATOLOGIC: Left anterior foot with bulky dry dressing. Denies rashes or pruritus. PSYCHIATRIC: Denies any suicidal or homicidal ideation. Denies hallucinations. PHYSICAL EXAM GENERAL APPEARANCE: The patient is awake, alert, and oriented, in no acute cardiopulmonary distress. NEUROLOGICAL: Cranial nerves II-XII grossly intact. Motor is 5/5 in bilateral upper and lower extremities proximal to distal. No sensory deficits. HEENT: Face is symmetric. Pupils are equal and reactive. Extraocular movements are intact. NECK: Supple. No JVD. No thyromegaly. No submental, submandibular, pre- /postauricular, occipital or supraclavicular lymphadenopathy. CHEST: Normal chest expansion. No Telemetry. LUNGS: Absence of any rales, rhonchi or any wheezing. CARDIOVASCULAR: Regular. S1 and S2 normal. No appreciable rubs, murmurs or gallops. ABDOMEN: Soft, nontender, and nondistended. There is no rebound, voluntary guarding, or rigidity. : Deferred. No Martel. EXTREMITIES: Non-edematous and not cyanotic. No clubbing. Good capillary refill. SKIN: left foot mild swelling and erythema with amputation of 3rd toe Vital Signs (last 8hr) Date Time Temp Pulse Resp B/P (MAP) Pulse Ox O2 Delivery O2 Flow Rate FiO2 01/07/24 11:38 98.1 78 17 135/66 99 Room Air 01/07/24 10:00 95 Room Air* 0 21 01/07/24 08:13 99.7 105 17 163/67 95 Room Air 01/07/24 06:23 102 169/68 LABS: Laboratory: Test 01/07/24 11:29 01/07/24 10:30 01/06/24 13:44 01/06/24 05:13 Range/Units Whole Blood Glucose 300 #H 70-110 MG/DL Hemoglobin 8.8 L 12.0-16.0 g/dL Hematocrit 26.7 L 36-48 % Prothrombin Time 11.9 H 9.6-11.6 SEC Prothromb Time International Ratio 1.11 0.85-1.15 Activated Partial Thromboplast Time 28.5 26.3-35.5 SEC White Blood Count 11.3 H 4.8-10.8 K/uL Red Blood Count 2.47 L 4.00-5.50 MIL/uL Mean Corpuscular Volume 93.1 79-99 fL Mean Corpuscular Hemoglobin 30.0 27.0-33.0 pg Mean Corpuscular Hemoglobin Concent 32.2 32.0-36.0 g/dL Red Cell Distribution Width 12.6 11.0-15.5 % Platelet Count 359 130-400 K/uL Mean Platelet Volume 8.6 7.5-10.5 fL Immature Granulocyte % (Auto) 0.6 0-1 % Neutrophils (%) (Auto) 80.5 H 40.0-77.0 % Lymphocytes (%) (Auto) 10.3 L 21.0-51.0 % Monocytes (%) (Auto) 7.0 3.0-13.0 % Eosinophils (%) (Auto) 1.0 0.0-8.0 % Basophils (%) (Auto) 0.6 0.0-5.0 % Neutrophils # (Auto) 9.1 H 1.8-7.7 K/uL Lymphocytes # (Auto) 1.2 1.0-4.8 K/uL Monocytes # (Auto) 0.8 0.1-1.0 K/uL Eosinophils # (Auto) 0.11 0.00-0.70 K/uL Basophils # (Auto) 0.07 0.00-0.20 K/uL Absolute Immature Granulocyte (auto 0.07 0-1 K/uL Nucleated Red Blood Cells 0.0 0.0-0.19 % Sodium Level 142 136-145 mmol/L Potassium Level 3.9 3.5-5.1 mmol/L Chloride Level 108 101-111 mmol/L Carbon Dioxide Level 23 21-32 mmol/L Blood Urea Nitrogen 9 7-18 mg/dL Creatinine 1.0 0.5-1.0 mg/dL Glomerular Filtration Rate Calc 61 >90 mL/min Random Glucose 169 H 70-105 mg/dL Total Calcium 8.1 L 8.5-10.1 mg/dL Total Bilirubin 0.4 0.2-1.0 mg/dL Aspartate Amino Transf (AST/SGOT) 14 10-37 U/L Alanine Aminotransferase (ALT/SGPT) 12 12-78 U/L Alkaline Phosphatase 67 50-136 U/L Total Protein 6.0 6.0-8.3 g/dL Albumin 2.3 L 3.5-5.0 g/dL Vancomycin Level Trough 18.9 # 10.0-20.0 UG/ML Current Medications Medications (Trade) Dose Ordered Sig/Reji Route PRN Reason Start Time Stop Time Status Last Admin Dose Admin Acetaminophen (TYLenol 325MG TAB) 650 mg Q4H PRN PO MILD PAIN (1-3) 12/27/23 19:30 01/26/24 19:29 01/06/24 16:54 650 MG Acetaminophen (TYLenol 325MG TAB) 650 mg Q6H PRN PO TEMPERATURE GREATER THAN 101.5 12/27/23 19:30 01/26/24 19:29 01/05/24 23:57 650 MG Acetaminophen/ Hydrocodone Bitart (NORco 5/325MG) 1 tab Q4H PRN PO MODERATE PAIN (4-6) 12/27/23 19:30 01/01/24 19:29 DC 01/01/24 18:22 1 TAB Acetaminophen/ Hydrocodone Bitart (NORco 5/325MG) 1 tab Q4H PRN PO MODERATE PAIN (4-6) 01/06/24 11:30 01/11/24 11:29 01/07/24 08:44 1 TAB Amlodipine Besylate (NorvASC 5MG TAB) 5 mg DAILY PO 01/03/24 09:00 02/02/24 08:59 01/07/24 08:43 5 MG Aspirin (Aspirin 81mg Chew Tab) 81 mg DAILY PO 12/30/23 09:00 01/05/24 10:57 DC 01/05/24 10:10 81 MG Atorvastatin Calcium (LIPItor 40MG) 40 mg HS PO 12/30/23 21:00 01/29/24 20:59 01/06/24 21:57 40 MG Bisacodyl (DulcoLAX) 10 mg BID PRN RC CONSTIPATION 01/02/24 15:00 02/01/24 14:59 01/02/24 14:58 10 MG Dextrose (D50w) 50 ml AD PRN IV HYPOGLYCEMIA PROTOCOL 12/27/23 19:30 01/26/24 19:29 Enoxaparin Sodium (Lovenox) 30 mg DAILY SQ 12/28/23 09:00 01/05/24 10:57 DC 01/05/24 10:11 30 MG Famotidine (Pepcid 20mg Tab) 20 mg BID PO 12/27/23 21:00 01/26/24 20:59 01/07/24 08:43 20 MG Folic Acid (FOLic ACID 1 MG TABLET) 1 mg DAILY PO 12/30/23 09:00 01/29/24 08:59 01/07/24 08:44 1 MG Glucagon (Glucagon 1mg Kit) 1 mg AD PRN IM HYPOGLYCEMIA PROTOCOL 12/27/23 19:30 01/26/24 19:29 Hydralazine HCl (APRESOLine 20MG INJ) 10 mg Q6H PRN IV For:SBP above 160;DBP above 90 12/27/23 19:30 01/26/24 19:29 01/07/24 03:49 10 MG Hydromorphone HCl (DiLAUDid 0.5MG INJ) 0.5 mg Q4H PRN IVP SEVERE PAIN (7-10) 01/02/24 01:00 01/06/24 11:26 DC 01/06/24 06:11 0.5 MG Hydromorphone HCl (DiLAUDid 0.5MG INJ) 0.5 mg Q8H PRN IVP SEVERE PAIN (7-10) 01/06/24 13:00 01/09/24 00:59 01/07/24 05:10 0.5 MG Insulin Human Regular (humuLIN R 100 UNIT/ML 3ML) INSULIN SLIDING SCAL... ACHS SQ 12/27/23 21:00 12/31/23 22:15 DC 12/31/23 21:04 2 UNIT Insulin Human Regular (humuLIN R 100 UNIT/ML 3ML) INSULIN SLIDING SCAL... ACHS SQ 01/01/24 07:30 01/31/24 07:29 01/07/24 12:18 12 UNIT Lactulose (Constulose 20gm/ 30ml Udcup) 20 gm BID PRN PO CONSTIPATION 12/31/23 15:30 01/02/24 14:41 DC Lactulose (Constulose 20gm/ 30ml Udcup) 20 gm BID PRN PO CONSTIPATION 01/02/24 15:00 02/01/24 14:59 01/05/24 16:38 20 GM Lisinopril (Prinivil 10mg) 10 mg DAILY PO 12/30/23 09:00 01/04/24 14:44 DC 01/04/24 10:36 10 MG Lisinopril (Prinivil 10mg) 20 mg DAILY PO 01/05/24 09:00 01/06/24 13:26 DC 01/06/24 08:59 20 MG Lisinopril (Prinivil 20mg) 20 mg DAILY PO 01/07/24 09:00 02/04/24 08:59 01/07/24 08:44 20 MG Magnesium Sulfate 50 ml @ 0 mls/hr PROTOCOL IV 12/29/23 14:30 12/29/23 14:10 DC Magnesium Sulfate 50 ml @ 0 mls/hr PROTOCOL PRN IV OTHER [SEE ORDER COMMENTS] 12/27/23 19:30 01/26/24 19:29 12/31/23 05:46 25 MLS/HR Metoprolol Tartrate (loprESSOR) 25 mg BID PO 01/01/24 16:30 01/02/24 13:00 DC 01/02/24 08:05 25 MG Metoprolol Tartrate (loprESSOR) 50 mg BID PO 01/02/24 21:00 02/01/24 20:59 01/07/24 08:44 50 MG Morphine Sulfate (morPHINE 2MG SYG) 2 mg Q4H PRN IV SEVERE PAIN (7-10) 12/27/23 19:30 01/01/24 22:29 DC 01/01/24 20:09 2 MG Ondansetron HCl (zoFRAN 4MG INJ) 4 mg Q6H PRN IV NAUSEA/VOMITING 12/27/23 19:30 01/26/24 19:29 01/07/24 05:10 4 MG Piperacillin Sod/ Tazobactam Sod (Zosyn 3.375gm+NS 50ml) 3.375 gm Q8H IV 12/28/23 02:00 01/18/24 01:59 01/07/24 12:09 3.375 GM Potassium Chloride 100 ml @ 100 mls/hr AD PRN IV POTASSIUM PROTOCOL 12/27/23 19:30 01/26/24 19:29 01/05/24 06:04 100 MLS/HR Potassium Chloride (K-Dur/Klor-Con 20meq) 20 meq AD PRN PO POTASSIUM PROTOCOL 12/27/23 19:30 01/26/24 19:29 01/05/24 16:45 20 MEQ Potassium Chloride (KCl 10% Elixir 20meq/15ml) 20 meq AD PRN PO POTASSIUM PROTOCOL 12/27/23 19:30 01/26/24 19:29 01/01/24 05:43 20 MEQ Promethazine HCl (Phenergan) 12.5 mg Q6H PRN IM NAUSEA/VOMITING 01/02/24 16:30 02/01/24 16:29 01/06/24 10:43 12.5 MG Ticagrelor (BRILinta) 90 mg BID PO 12/30/23 09:00 01/29/24 08:59 01/07/24 08:44 90 MG Tramadol HCl (UltRAM) 50 mg Q6H PRN PO PAIN LEVEL 4 TO 6 01/02/24 01:00 01/04/24 14:44 DC 01/04/24 13:11 50 MG Tramadol HCl (UltRAM) 75 mg Q6H PRN PO PAIN LEVEL 4 TO 6 01/04/24 19:00 01/06/24 11:36 DC 01/06/24 08:59 75 MG Vancomycin HCl 250 ml @ 125 mls/hr BID@0600,1800 IV 01/05/24 06:00 01/06/24 13:08 DC 01/06/24 06:19 125 MLS/HR Vancomycin HCl (Vancomycin 750mg) 750 mg Q12H IVPB 12/28/23 06:00 01/05/24 06:31 DC 01/04/24 17:24 750 MG Vancomycin HCl (Vancomycin Protocol) 1 each AD IV 12/27/23 18:00 12/27/23 19:20 DC Vancomycin HCl (Vancomycin Protocol) 1 each AD IV 12/27/23 19:30 01/06/24 13:08 DC Vitamin B Complex (Vitamin B-12) 1,000 mcg DAILY PO 12/30/23 09:00 01/29/24 08:59 01/07/24 08:44 1,000 MCG DIAGNOSTICS / RADIOLOGY: [ ] ASSESSMENT: Left third toe amputation done on 01/03 Severe left foot pain POA Left foot cellulitis POA Suspected Left foot osteomyelitis POA left lower extremity Peripheral arterial disease POA Recent peripheral angioplasty of Left lower extremity on DAPT POA Uncontrolled diabetes POA Hypertension POA Anemia POA POA Hyperlipidemia POA History of left lower extremity DVT Polymicrobial infection with osteomyelitis of the foot status post amputation of the above. PLAN: Severe left foot pain POA Left foot cellulitis POA Left foot osteomyelitis POA *Left third toe amputation done on 01/03 *MRI showed findings suspicious for osteomyelitis involving the 3rd and 4th toes *Infectious Disease is on the case. *Continue on Zosyn IV as ordered, continue as per Infectious Disease. Snf pending for wound care IV abx, and pt/ot *Continue with Morphine 2mg IV for adequate pain management *Podiatry consult placed. *Trend temperature , WBC and procalcitonin levels *Follow cultures *De escalate antibiotics use as soon as possible. *Panculture if new onset fever Left lower extremity Peripheral arterial disease POA Recent peripheral angioplasty of Left lower extremity on DAPT POA *Cardiovascular consult ordered. Pending recommendations. *CTA aorto with runoff shows multiple occlusions in the left lower extremity * Cardiology on the case, we are following their recommendations on their standpoint, no need for arteriogram, based on Dr. Cam's last note performed on 12/22/23: ----SFA 80-98% segmental stenosis is reduced to 0% residual. ----Left popliteal segmental 90-98% stenosis is reduced to 10% residual ----Left tibioperoneal and proximal peroneal 90-98% stenosis is reduced to 0% residual. ----Although initial images demonstrated very slow flow through the lower extremity, final images demonstrate brisk flow to the ankle with collaterals into the heel and dorsalis pedis region, but the plantar arch is not well served. There is no achievable direct flow into the foot. Uncontrolled diabetes POA *Maintain blood glucose between 100-180 at all times *Insulin sliding scale for blood glucose management *Hyperglycemia and hypoglycemia protocols in place Hypertension POA Hyperlipidemia POA *Continue with Lisinopril 10mg po daily as ordered for elevated BP. *Continue with Hydralazine 10mg IV for systolic BP>160 *Continue with Atorvastatin 40mg daily as ordered for hyperlipidemia *Follow hemodynamics. *Vital signs per facility protocol Anemia *Monitor H & H. Keep Hgb > 7 *Transfuse 1 unit of PRBC for Hgb < 7 *Continue on Lovenox 30 mg subQ daily for DVT prphylaxis *Continue on Famotidine 20 mg p.o. bid for GI prophylaxis *Continue prn medication for fever,pain, nausea and vomiting *Labs in the morning. MAKAYLA DURAN MD Jan 07, 2024 12:35
--- NOTE | 2024-01-07 17:22 | PN ---
INFECTIOUS DISEASE PROGRESS NOTE Date of Service: Jan 07, 2024 SUBJECTIVE: This is a 68-year-old female patient who was admitted for severe left foot pain. Patient is awake, alert and oriented x3. Patient is status post left 3rd toe amputation on 01/04/2024 due to gangrene and left foot ischemia. Pain is resting comfortably. No dyspnea observe and saturating 95-99% on room air. Patient had a low-grade fever of 99.7 this morning. The final wound cultures of the left 3rd toe came back positive for enterococcus faecalis and Serratia marcescens. We will continue on Zosyn. Patient was transfused 1 unit of PRBC yesterday for hemoglobin of 7.4. Case management working on sniff placement. We will continue to follow patient's care. PHYSICAL EXAM EYES: Anicteric. Pupils equal and reactive. HENT: No oral thrush seen, moist Oral mucosa NECK: Supple, no JVD or thyromegaly. LUNGS: Good air entry. No rales, no rhonchi. CARDIOVASCULAR: S1, S2 regular. No murmur heard. ABDOMEN: Soft, non tender, bowel sounds present, no organomegaly CENTRAL NERVOUS SYSTEM: Awake, alert, oriented x 3. SKIN: No rashes, no swelling. LYMPHATICS: No peripheral lymphadenopathy MUSCULOSKELETAL: No joint swelling, erythema or tenderness. EXTREMITIES: No cyanosis or clubbing BACK: No deformity, no pressure ulcer. GENITOURINARY: No dysuria or hematuria Vital Sign (Last 12 Hours) 01/07/24 01/07/24 01/07/24 01/07/24 06:23 08:13 10:00 11:38 Temp 99.7 98.1 Pulse 102 105 78 Resp 17 17 B/P (MAP) 169/68 163/67 135/66 Pulse Ox 95 95 99 O2 Delivery Room Air Room Air* Room Air O2 Flow Rate 0 FiO2 21 01/07/24 16:16 Temp 100.0 Pulse 87 Resp 17 B/P (MAP) 150/70 Pulse Ox 99 O2 Delivery Room Air Intake & Output (last 24hrs) 01/06/24 01/06/24 01/07/24 15:00 23:00 07:00 Intake Total 600 ml Output Total 1500 ml 850 ml Balance -900 ml -850 ml LABS: Laboratory: Test 01/07/24 15:34 01/07/24 10:30 01/06/24 13:44 01/06/24 05:13 Range/Units Whole Blood Glucose 241 H 70-110 MG/DL Hemoglobin 8.8 L 12.0-16.0 g/dL Hematocrit 26.7 L 36-48 % Prothrombin Time 11.9 H 9.6-11.6 SEC Prothromb Time International Ratio 1.11 0.85-1.15 Activated Partial Thromboplast Time 28.5 26.3-35.5 SEC White Blood Count 11.3 H 4.8-10.8 K/uL Red Blood Count 2.47 L 4.00-5.50 MIL/uL Mean Corpuscular Volume 93.1 79-99 fL Mean Corpuscular Hemoglobin 30.0 27.0-33.0 pg Mean Corpuscular Hemoglobin Concent 32.2 32.0-36.0 g/dL Red Cell Distribution Width 12.6 11.0-15.5 % Platelet Count 359 130-400 K/uL Mean Platelet Volume 8.6 7.5-10.5 fL Immature Granulocyte % (Auto) 0.6 0-1 % Neutrophils (%) (Auto) 80.5 H 40.0-77.0 % Lymphocytes (%) (Auto) 10.3 L 21.0-51.0 % Monocytes (%) (Auto) 7.0 3.0-13.0 % Eosinophils (%) (Auto) 1.0 0.0-8.0 % Basophils (%) (Auto) 0.6 0.0-5.0 % Neutrophils # (Auto) 9.1 H 1.8-7.7 K/uL Lymphocytes # (Auto) 1.2 1.0-4.8 K/uL Monocytes # (Auto) 0.8 0.1-1.0 K/uL Eosinophils # (Auto) 0.11 0.00-0.70 K/uL Basophils # (Auto) 0.07 0.00-0.20 K/uL Absolute Immature Granulocyte (auto 0.07 0-1 K/uL Nucleated Red Blood Cells 0.0 0.0-0.19 % Sodium Level 142 136-145 mmol/L Potassium Level 3.9 3.5-5.1 mmol/L Chloride Level 108 101-111 mmol/L Carbon Dioxide Level 23 21-32 mmol/L Blood Urea Nitrogen 9 7-18 mg/dL Creatinine 1.0 0.5-1.0 mg/dL Glomerular Filtration Rate Calc 61 >90 mL/min Random Glucose 169 H 70-105 mg/dL Total Calcium 8.1 L 8.5-10.1 mg/dL Total Bilirubin 0.4 0.2-1.0 mg/dL Aspartate Amino Transf (AST/SGOT) 14 10-37 U/L Alanine Aminotransferase (ALT/SGPT) 12 12-78 U/L Alkaline Phosphatase 67 50-136 U/L Total Protein 6.0 6.0-8.3 g/dL Albumin 2.3 L 3.5-5.0 g/dL Vancomycin Level Trough 18.9 # 10.0-20.0 UG/ML ASSESSMENT: Left foot osteomyelitis. Left foot ischemia [id number] toe gangrene, s/p amputation of the left 3rd toe on 01/04/2024. Diabetic foot ulcer. Left foot cellulitis. Peripheral vascular disease. Diabetes mellitus. Hypokalemia. Anemia requiring blood transfusion. PLAN: Continue Zosyn. Continue pain management. Continue GI prophylaxis. Wound care as recommended by manager educational. Continue monitoring glucose levels. We will monitor electrolytes. Continue physical therapy. Case management working on placement to [facility]. This case was reviewed and discussed with my supervising physician and the above assessment and plan was formulated and agreed upon. ATTESTATION BY PHYSICIAN I have seen and examined the patient. I reviewed the documentation, medical decision making, and treatment plan as noted by the mid-level provider above. I agree with the findings and plan of care. IVAN LOCO MD, MIRTA L [facility] Jan 07, 2024 17:22
[2024-01-08] VITALS (10 sets, daily range): BP systolic 130–160; BP diastolic 63–81; PULSE 77–103; RESP 18–20; TEMP 98–100.1; O2SAT 96–99
[2024-01-08 05:56] LABS: BASOPHILS # (AUTO) 0.05 K/uL (0.00-0.20); BASOPHILS % (AUTO) 0.5 % (0.0-5.0); EOSINOPHILS # (AUTO) 0.22 K/uL (0.00-0.70); EOSINOPHILS % (AUTO) 2.2 % (0.0-8.0); HEMATOCRIT 29.1 % (36-48); IMMATURE GRANULOCYTE ABSOLUTE 0.04 K/uL (0-1); LYMPHOCYTES # (AUTO) 0.9 K/uL (1.0-4.8); LYMPHOCYTES % (AUTO) 9.3 % (21.0-51.0); MEAN CORPUSCULAR HEMOGLOBIN 29.3 pg (27.0-33.0); MEAN CORPUSCULAR VOLUME 88.7 fL (79-99); MONOCYTES # (AUTO) 0.5 K/uL (0.1-1.0); MONOCYTES % (AUTO) 4.7 % (3.0-13.0); NEUTROPHILS # (AUTO) 8.2 K/uL (1.8-7.7); NEUTROPHILS % (AUTO) 82.9 % (40.0-77.0); PLATELET COUNT (AUTO) 405 K/uL (130-400); RED BLOOD CELL COUNT(AUTO) 3.28 MIL/uL (4.00-5.50); RED CELL DISTRIBUTION WIDTH 13.9 % (11.0-15.5); WHITE BLOOD COUNT (AUTO) 9.9 K/uL (4.8-10.8)
[2024-01-08 06:32] LABS: POTASSIUM 3.1 mmol/L (3.5-5.1)
[2024-01-08] MEDS: polyETHYLene GLYCol 3350 17 GM POWD.PACK PO SCH (08:38)
--- NOTE | 2024-01-08 10:23 | PN ---
[facility] PROGRESS NOTE Date of Service: Jan 08, 2024 Time of Service: 10:21 SUBJECTIVE: HPI 68-year-old female admitted due to left lower extremity pain, patient had wound ulcer between 3rd and 4th toe of the left foot and some necrosis. Arterial D oppler was done which showed abnormal monophasic arterial waveform seen in the right superficial femoral popliteal bilateral posterior tibial anterior dorsalis pedal arteries. Hyperemic flow is seen in the right dorsalis pedal, left anterior tibial and posterior tibial arteries. There is an occlusion of the right distal superficial femoral artery, high-grade stenosis is suspected in the right common femoral and right proximal superficial femoral artery, high-grade stenosis is also suspected in the right popliteal artery proximally. Dr. Charles has been consulted and recommending cardiovascular consult for vascular assessment. Dr. Mao recommending CT angio to the left foot. Infectious Disease also consulted, we will continue with IV antibiotics. We are pending MRI to rule out osteomyelitis. Otherwise patient has no complaints. Interval History 12/30/23: Lying in bed at the time of evaluation. Alert and oriented and in mild distress. Continues with complaints of right foot pain. Rates the pain as 7/10. Morphine 2mg ordered for adequate pain management. An MRI was done today. Shows findings suspicious for osteomyelitis involving the 3rd and 4th toes. Patient is currently on Vancomycin and Zosyn IV Aorto with runoff CTA shows extensive atherosclerotic changes. Multiple short segment high grade stenosis seen throughout the right superficial femoral artery. There are occlusions of left anterior tibial and bilateral post tibial artery. There is also occlusion of the right anterior tibial artery at mid calf level. Cardiovascular surgeon is on the case. Patient denies any chest pain, shortness of breath, nausea , vomiting or associated symptoms. 12/31/23 patient evaluated in the room this morning. She is in good spirits. Pain is minimal to the left leg. She is status post CT angio abdominal aorta with runoff that showed extensive vascular calcifications. Extensive atherosclerotic changes seen. Multiple short-segment high-grade stenosis are seen throughout the right superficial femoral artery. There are occlusions of left anterior tibial and bilateral posterior tibial arteries. There is also occlusion of the right anterior tibial artery and mid calf level. There may be reconstitution of posterior tibial arteries near the distal calf level. MRI of the left foot shows suspicious for osteomyelitis-involving 3rd and 4th toes. On physical evaluation, there are necrosis on the 3rd and 4th toe. We will follow up with CV surgeon on further recommendations. Podiatry is recommending amputation, we will await for final recommendations from CV team. 12/31 patient was evaluated in the room this morning, she complains of 10/10 pain to the left leg. We are awaiting for final recommendations from consultants. For now we will continue with pain management and IV antibiotics. 01/01 Patient was seen at bedside, she is alert, awake and oriented. Today her vitals are BP 161/69, pulse rate 79, respiratory rate 17, sp02 98% on room air and T-max 98.2 but she has been having low grade temperatures during the weekend. Her Blood pressure has been elevated in 160s, will increase her dose of metoprolol from 25mg to 50mg and start her on Amlodipine 5mg. Her lactic acid was 0.8. She was given Tramadol and dilaudid for pain, she doesn't feel any pain right now. Bombsight Specialist and vascular surgery recommended digit amputation, pending Dr. Charles recommendation on surgery. We will monitor her vitals closely. 01/02 Patient was seen at bedside, she is alert, awake and oriented. Today her vitals are BP 142/63, pulse rate 79, respiratory rate 18, sp02 98% on room air and T-max 98.2, she did not spike a fever last night, she has no complaints. She was constipated yesterday and was feeling nauseous to take lactulose. Prescribed her bisacodyl enema, she had a bowel moment. She was unable to tolerate feeds due to nausea, added promethazine to her medication and she was eating better today. Dr. Charles saw the patient yesterday and has scheduled for amputation tomorrow. 01/03 Patient was seen at bedside, she is alert, awake and oriented. She had a third digit amputation of left foot done by Dr. Charles this morning. She is currently weaning off anesthesia and doesn't feel pain. Resume ADA diet, dressing changes daily, iodosorb ointnment. Patient continues to have high isolated high systolic blood pressure, will increase the dose of lisinopril from 10 mg to 20 mg. Will request PT evaluation with partial weight bearing. Resume meds. 01/04 Patient was seen at bedside, she was lying comfortably in chair. she is alert, awake and oriented. Today her vitals are blood pressure 129/57, respiratory rate 16, pulse rate 96, spO2 98, T-max 98.4. No acute events overnight, patient has no complaints. Patient's family was at bedside. Inquired about use of blood thinners in the past due to history of DVT, one of the family members said that she was on xarelto prior to elective PCI early this month. Requested patient's family to bring in her medication. Dr. Charles was consulted regarding restarting patient on DVT prophylaxis, recommended to hold off on aspirin and lovenox, not to start xarelto due to the risk of bleeding and since patient is anemic. Will continue on Brilinta and SCDs and monitor her labs closely. 01/05 Patient was seen at bedside, she was lying comfortably in bed. she is alert, awake and oriented. Today her vitals are blood pressure 168/76, respiratory rate 16, pulse rate 95, spO2 99, T-max 98.2. No acute events overnight, patient has no complaints. Patient's family was at bedside. Her hemoglobin has been dropping consistently, will transfuse one unit. Cultures grew Serratia Marcescens, per ID recommendation patient will require IV antibio tics and case management has been made aware to make discharge planning to SNF. Will start weaning her off Dilaudid and start her on [place] 5 for breakthrough pain. 01/06: Patient was seen eating some lunch. She states that she did have some nausea but no vomiting. She denies chest pain or shortness for breath at the present time. He does get some fevers at night and pains at night to her wound site or status post amputation of the 3rd toe of the left foot. 01/08/2024 PATIENT WAS SEEN AT THE BEDSIDE. SHE STATES SHE HAS ABOUT A 6/10 PAIN TO HER AMPUTATION SITE OF HER LEFT FOOT WHERE THE 3RD DIGIT WAS. SHE DENIES CHEST PAIN OR SHORTNESS FOR BREATH NO FEVERS OR CHILLS. AWAITING TRANSFER TO THE NURSING FACILITY FOR FURTHER IV ANTIBIOTICS, WOUND CARE, PT OT. REVIEW OF SYSTEMS CONSTITUTIONAL: Denies fevers, chills, or night sweats. No unintentional weight loss reported. NEUROLOGICAL: Denies headache, amaurosis fugax, motor weakness, sensory deficit, vertigo/spinning sensation, gait abnormalities, or tremors. ENT: No hearing loss, otalgia, otorrhea, rhinitis, rhinorrhea, hoarseness, or sore throat. CARDIOVASCULAR: Denies any exertional angina, dyspnea on exertion, orthopnea, paroxysmal nocturnal dyspnea, palpitations, life-threatening arrhythmias, claudication. PULMONARY: Denies any shortness of breath, cough, phlegm/sputum, hemoptysis, pleuritic chest pain. SLEEP: Denies morning headaches, daytime somnolence or napping. Denies difficulty falling asleep, staying asleep, waking from sleep. Denies knowledge of snoring. GASTROINTESTINAL: Denies any type of dysphagia to either liquids or solids. Denies pyrosis, early satiety, abdominal pain, diarrhea, constipation, or changes in stool consistency or caliber. Denies coffee-ground emesis, hematemesis, hematochezia, or melanotic stools. GENITOURINARY: Denies frequency, urgency, nocturia, hematuria or incontinence (Storage/Irritative symptoms.) Low urinary stream, straining to void, urinary intermittency or hesitancy, splitting of the voiding stream, terminal dribbling. ENDOCRINOLOGIC: Denies polyuria, polydipsia, polyphagia or heat/cold intolerances. HEMATOLOGIC: Denies thrombophilia/previous clots, or coagulopathy/bleeding disorders. ONCOLOGIC: Denies personal history of malignancy. DERMATOLOGIC: Left anterior foot with bulky dry dressing. Denies rashes or pruritus. PSYCHIATRIC: Denies any suicidal or homicidal ideation. Denies hallucinations. PHYSICAL EXAM GENERAL APPEARANCE: The patient is awake, alert, and oriented, in no acute cardiopulmonary distress. NEUROLOGICAL: Cranial nerves II-XII grossly intact. Motor is 5/5 in bilateral upper and lower extremities proximal to distal. No sensory deficits. HEENT: Face is symmetric. Pupils are equal and reactive. Extraocular movements are intact. NECK: Supple. No JVD. No thyromegaly. No submental, submandibular, pre- /postauricular, occipital or supraclavicular lymphadenopathy. CHEST: Normal chest expansion. No Telemetry. LUNGS: Absence of any rales, rhonchi or any wheezing. CARDIOVASCULAR: Regular. S1 and S2 normal. No appreciable rubs, murmurs or gallops. ABDOMEN: Soft, nontender, and nondistended. There is no rebound, voluntary guarding, or rigidity. : Deferred. No Martel. EXTREMITIES: Non-edematous and not cyanotic. No clubbing. Good capillary refill. SKIN: left foot mild swelling and erythema with amputation of 3rd toe Vital Signs (last 8hr) Date Time Temp Pulse Resp B/P (MAP) Pulse Ox O2 Delivery O2 Flow Rate FiO2 01/08/24 08:11 99.1 79 18 153/74 96 Room Air 01/08/24 08:00 96 Room Air* 0 21 01/08/24 04:00 98.1 85 20 155/77 98 Room Air LABS: Laboratory: Test 01/08/24 09:50 01/08/24 05:28 01/08/24 05:20 01/06/24 13:44 Range/Units Potassium Level 3.5 3.5-5.1 mmol/L Whole Blood Glucose 138 H 70-110 MG/DL White Blood Count 9.9 4.8-10.8 K/uL Red Blood Count 3.28 L 4.00-5.50 MIL/uL Hemoglobin 9.6 L 12.0-16.0 g/dL Hematocrit 29.1 L 36-48 % Mean Corpuscular Volume 88.7 79-99 fL Mean Corpuscular Hemoglobin 29.3 27.0-33.0 pg Mean Corpuscular Hemoglobin Concent 33.0 32.0-36.0 g/dL Red Cell Distribution Width 13.9 11.0-15.5 % Platelet Count 405 H 130-400 K/uL Mean Platelet Volume 9.2 7.5-10.5 fL Immature Granulocyte % (Auto) 0.4 0-1 % Neutrophils (%) (Auto) 82.9 H 40.0-77.0 % Lymphocytes (%) (Auto) 9.3 L 21.0-51.0 % Monocytes (%) (Auto) 4.7 3.0-13.0 % Eosinophils (%) (Auto) 2.2 0.0-8.0 % Basophils (%) (Auto) 0.5 0.0-5.0 % Neutrophils # (Auto) 8.2 H 1.8-7.7 K/uL Lymphocytes # (Auto) 0.9 L 1.0-4.8 K/uL Monocytes # (Auto) 0.5 0.1-1.0 K/uL Eosinophils # (Auto) 0.22 0.00-0.70 K/uL Basophils # (Auto) 0.05 0.00-0.20 K/uL Absolute Immature Granulocyte (auto 0.04 0-1 K/uL Nucleated Red Blood Cells 0.0 0.0-0.19 % White Cell Morphology Comment See comments Sodium Level 144 136-145 mmol/L Chloride Level 107 101-111 mmol/L Carbon Dioxide Level 26 21-32 mmol/L Blood Urea Nitrogen 11 7-18 mg/dL Creatinine 1.0 0.5-1.0 mg/dL Glomerular Filtration Rate Calc 61 >90 mL/min Random Glucose 141 H 70-105 mg/dL Total Calcium 8.4 L 8.5-10.1 mg/dL Prothrombin Time 11.9 H 9.6-11.6 SEC Prothromb Time International Ratio 1.11 0.85-1.15 Activated Partial Thromboplast Time 28.5 26.3-35.5 SEC Current Medications Medications (Trade) Dose Ordered Sig/Reji Route PRN Reason Start Time Stop Time Status Last Admin Dose Admin Acetaminophen (TYLenol 325MG TAB) 650 mg Q4H PRN PO MILD PAIN (1-3) 12/27/23 19:30 01/26/24 19:29 01/06/24 16:54 650 MG Acetaminophen (TYLenol 325MG TAB) 650 mg Q6H PRN PO TEMPERATURE GREATER THAN 101.5 12/27/23 19:30 01/26/24 19:29 01/07/24 19:36 650 MG Acetaminophen/ Hydrocodone Bitart (NORco 5/325MG) 1 tab Q4H PRN PO MODERATE PAIN (4-6) 12/27/23 19:30 01/01/24 19:29 DC 01/01/24 18:22 1 TAB Acetaminophen/ Hydrocodone Bitart (NORco 5/325MG) 1 tab Q4H PRN PO MODERATE PAIN (4-6) 01/06/24 11:30 01/11/24 11:29 01/08/24 08:38 1 TAB Amlodipine Besylate (NorvASC 5MG TAB) 5 mg DAILY PO 01/03/24 09:00 02/02/24 08:59 01/08/24 08:38 5 MG Aspirin (Aspirin 81mg Chew Tab) 81 mg DAILY PO 12/30/23 09:00 01/05/24 10:57 DC 01/05/24 10:10 81 MG Atorvastatin Calcium (LIPItor 40MG) 40 mg HS PO 12/30/23 21:00 01/29/24 20:59 01/07/24 19:39 40 MG Bisacodyl (DulcoLAX) 10 mg BID PRN RC CONSTIPATION 01/02/24 15:00 02/01/24 14:59 01/02/24 14:58 10 MG Dextrose (D50w) 50 ml AD PRN IV HYPOGLYCEMIA PROTOCOL 12/27/23 19:30 01/26/24 19:29 Enoxaparin Sodium (Lovenox) 30 mg DAILY SQ 12/28/23 09:00 01/05/24 10:57 DC 01/05/24 10:11 30 MG Famotidine (Pepcid 20mg Tab) 20 mg BID PO 12/27/23 21:00 01/26/24 20:59 01/08/24 08:38 20 MG Folic Acid (FOLic ACID 1 MG TABLET) 1 mg DAILY PO 12/30/23 09:00 01/29/24 08:59 01/08/24 08:37 1 MG Glucagon (Glucagon 1mg Kit) 1 mg AD PRN IM HYPOGLYCEMIA PROTOCOL 12/27/23 19:30 01/26/24 19:29 Hydralazine HCl (APRESOLine 20MG INJ) 10 mg Q6H PRN IV For:SBP above 160;DBP above 90 12/27/23 19:30 01/26/24 19:29 01/07/24 03:49 10 MG Hydromorphone HCl (DiLAUDid 0.5MG INJ) 0.5 mg Q4H PRN IVP SEVERE PAIN (7-10) 01/02/24 01:00 01/06/24 11:26 DC 01/06/24 06:11 0.5 MG Hydromorphone HCl (DiLAUDid 0.5MG INJ) 0.5 mg Q8H PRN IVP SEVERE PAIN (7-10) 01/06/24 13:00 01/09/24 00:59 01/07/24 15:14 0.5 MG Insulin Human Regular (humuLIN R 100 UNIT/ML 3ML) INSULIN SLIDING SCAL... ACHS SQ 12/27/23 21:00 12/31/23 22:15 DC 12/31/23 21:04 2 UNIT Insulin Human Regular (humuLIN R 100 UNIT/ML 3ML) INSULIN SLIDING SCAL... ACHS SQ 01/01/24 07:30 01/31/24 07:29 01/07/24 17:30 8 UNIT Lactulose (Constulose 20gm/ 30ml Udcup) 20 gm BID PRN PO CONSTIPATION 12/31/23 15:30 01/02/24 14:41 DC Lactulose (Constulose 20gm/ 30ml Udcup) 20 gm BID PRN PO CONSTIPATION 01/02/24 15:00 02/01/24 14:59 01/05/24 16:38 20 GM Lisinopril (Prinivil 10mg) 10 mg DAILY PO 12/30/23 09:00 01/04/24 14:44 DC 01/04/24 10:36 10 MG Lisinopril (Prinivil 10mg) 20 mg DAILY PO 01/05/24 09:00 01/06/24 13:26 DC 01/06/24 08:59 20 MG Lisinopril (Prinivil 20mg) 20 mg DAILY PO 01/07/24 09:00 02/04/24 08:59 01/08/24 08:38 20 MG Magnesium Sulfate 50 ml @ 0 mls/hr PROTOCOL IV 12/29/23 14:30 12/29/23 14:10 DC Magnesium Sulfate 50 ml @ 0 mls/hr PROTOCOL PRN IV OTHER [SEE ORDER COMMENTS] 12/27/23 19:30 01/26/24 19:29 12/31/23 05:46 25 MLS/HR Metoprolol Tartrate (loprESSOR) 25 mg BID PO 01/01/24 16:30 01/02/24 13:00 DC 01/02/24 08:05 25 MG Metoprolol Tartrate (loprESSOR) 50 mg BID PO 01/02/24 21:00 02/01/24 20:59 01/08/24 08:37 50 MG Morphine Sulfate (morPHINE 2MG SYG) 2 mg Q4H PRN IV SEVERE PAIN (7-10) 12/27/23 19:30 01/01/24 22:29 DC 01/01/24 20:09 2 MG Ondansetron HCl (zoFRAN 4MG INJ) 4 mg Q6H PRN IV NAUSEA/VOMITING 12/27/23 19:30 01/26/24 19:29 01/07/24 05:10 4 MG Piperacillin Sod/ Tazobactam Sod (Zosyn 3.375gm+NS 50ml) 3.375 gm Q8H IV 12/28/23 02:00 01/18/24 01:59 01/08/24 08:42 3.375 GM Polyethylene Glycol (MIRalax 3350 17 GM POWD.PACK) 17 gm DAILY PO 01/08/24 09:00 02/07/24 08:59 01/08/24 08:38 17 GM Potassium Chloride 100 ml @ 100 mls/hr AD PRN IV POTASSIUM PROTOCOL 12/27/23 19:30 01/26/24 19:29 01/08/24 06:48 100 MLS/HR Potassium Chloride (K-Dur/Klor-Con 20meq) 20 meq AD PRN PO POTASSIUM PROTOCOL 12/27/23 19:30 01/26/24 19:29 01/05/24 16:45 20 MEQ Potassium Chloride (KCl 10% Elixir 20meq/15ml) 20 meq AD PRN PO POTASSIUM PROTOCOL 12/27/23 19:30 01/26/24 19:29 01/01/24 05:43 20 MEQ Promethazine HCl (Phenergan) 12.5 mg Q6H PRN IM NAUSEA/VOMITING 01/02/24 16:30 02/01/24 16:29 01/06/24 10:43 12.5 MG Ticagrelor (BRILinta) 90 mg BID PO 12/30/23 09:00 01/29/24 08:59 01/08/24 08:38 90 MG Tramadol HCl (UltRAM) 50 mg Q6H PRN PO PAIN LEVEL 4 TO 6 01/02/24 01:00 01/04/24 14:44 DC 01/04/24 13:11 50 MG Tramadol HCl (UltRAM) 75 mg Q6H PRN PO PAIN LEVEL 4 TO 6 01/04/24 19:00 01/06/24 11:36 DC 01/06/24 08:59 75 MG Vancomycin HCl 250 ml @ 125 mls/hr BID@0600,1800 IV 01/05/24 06:00 01/06/24 13:08 DC 11/29/24 06:19 125 MLS/HR Vancomycin HCl (Vancomycin 750mg) 750 mg Q12H IVPB 12/28/23 06:00 01/05/24 06:31 DC 01/04/24 17:24 750 MG Vancomycin HCl (Vancomycin Protocol) 1 each AD IV 12/27/23 18:00 12/27/23 19:20 DC Vancomycin HCl (Vancomycin Protocol) 1 each AD IV 12/27/23 19:30 01/06/24 13:08 DC Vitamin B Complex (Vitamin B-12) 1,000 mcg DAILY PO 12/30/23 09:00 01/29/24 08:59 01/08/24 08:38 1,000 MCG DIAGNOSTICS / RADIOLOGY: [ ] ASSESSMENT: Left third toe amputation done on 01/03 Severe left foot pain POA Left foot cellulitis POA Suspected Left foot osteomyelitis POA left lower extremity Peripheral arterial disease POA Recent peripheral angioplasty of Left lower extremity on DAPT POA Uncontrolled diabetes POA Hypertension POA Anemia POA POA Hyperlipidemia POA History of left lower extremity DVT PLAN: Severe left foot pain POA Left foot cellulitis POA Left foot osteomyelitis POA *Left third toe amputation done on 01/03 *MRI showed findings suspicious for osteomyelitis involving the 3rd and 4th toes *Infectious Disease is on the case. *Continue on Vancomycin IV and Zosyn IV as ordered *Continue with Morphine 2mg IV for adequate pain management *Podiatry consult placed. *Trend temperature , WBC and procalcitonin levels *Cultures grew Serratia marcescens *De escalate antibiotics use as soon as possible. *Panculture if new onset fever Left lower extremity Peripheral arterial disease POA Recent peripheral angioplasty of Left lower extremity on DAPT POA *Cardiovascular consult ordered. Pending recommendations. *CTA aorto with runoff shows multiple occlusions in the left lower extremity * Cardiology on the case, we are following their recommendations on their standpoint, no need for arteriogram, based on Dr. Cam's last note performed on 12/22/23: ----SFA 80-98% segmental stenosis is reduced to 0% residual. ----Left popliteal segmental 90-98% stenosis is reduced to 10% residual ----Left tibioperoneal and proximal peroneal 90-98% stenosis is reduced to 0% residual. ----Although initial images demonstrated very slow flow through the lower extremity, final images demonstrate brisk flow to the ankle with collaterals into the heel and dorsalis pedis region, but the plantar arch is not well served. There is no achievable direct flow into the foot. Uncontrolled diabetes POA *Maintain blood glucose between 100-180 at all times *Insulin sliding scale for blood glucose management *Hyperglycemia and hypoglycemia protocols in place Hypertension POA Hyperlipidemia POA *Continue with Lisinopril 10mg po daily as ordered for elevated BP. *Continue with Hydralazine 10mg IV for systolic BP>160 *Continue with Atorvastatin 40mg daily as ordered for hyperlipidemia *Follow hemodynamics. *Vital signs per facility protocol Anemia *Monitor H & H. Keep Hgb > 7 *Transfuse 1 unit of PRBC for Hgb < 7 *Continue on Lovenox 30 mg subQ daily for DVT prphylaxis *Continue on Famotidine 20 mg p.o. bid for GI prophylaxis *Continue prn medication for fever,pain, nausea and vomiting *Labs in the morning. AWAITING TRANSFER TO ALF FACILITY FOR CONTINUED IV ANTIBIOTICS, WOUND CARE, PT OT HOPEFULLY TRANSFER IN THE NEXT 12:48 P.M.. MAKAYLA DURAN MD Jan 08, 2024 10:23
[2024-01-08] MEDS ORDERED: VANCOMYCIN PROTOCOL PER PHARMACY IV SCH (12:30)
--- NOTE | 2024-01-08 12:31 | PN ---
INFECTIOUS DISEASE PROGRESS NOTE Date of Service: Jan 08, 2024 SUBJECTIVE: This is a 68-year-old female patient who was admitted for severe left foot pain. Patient is awake, alert and oriented x3. Patient is status post left 3rd toe amputation on 01/04/2024 due to gangrene and left foot ischemia. Wound culture to the left 3rd toe came back positive for methicillin-resistant Staphylococcus aureus, Enterococcus faecalis and Serratia marcescens. Patient had a fever of 101.5 throughout the night and current temperature is 99.1. The WBC however remains within normal level of 9.9. We will add vancomycin per pharmacy protocol and continue on Zosyn. Hemoglobin improved to 9.6 after the 1 unit of PRBC transfused on 01/06/2024. No reports of nausea or vomiting. Case management working on snf placement. We will continue to follow patient's care. PHYSICAL EXAM EYES: Anicteric. Pupils equal and reactive. HENT: No oral thrush seen, moist Oral mucosa NECK: Supple, no JVD or thyromegaly. LUNGS: Good air entry. No rales, no rhonchi. CARDIOVASCULAR: S1, S2 regular. No murmur heard. ABDOMEN: Soft, non tender, bowel sounds present, no organomegaly CENTRAL NERVOUS SYSTEM: Awake, alert, oriented x 3. SKIN: No rashes, no swelling. LYMPHATICS: No peripheral lymphadenopathy MUSCULOSKELETAL: No joint swelling, erythema or tenderness. EXTREMITIES: No cyanosis or clubbing. Status post left 3rd toe amputation. BACK: No deformity, no pressure ulcer. GENITOURINARY: No dysuria or hematuria. Vital Sign (Last 12 Hours) 01/08/24 01/08/24 01/08/24 04:00 08:00 08:11 Temp 98.1 99.1 Pulse 85 79 Resp 20 18 B/P (MAP) 155/77 153/74 Pulse Ox 98 96 96 O2 Delivery Room Air Room Air* Room Air O2 Flow Rate 0 FiO2 21 Intake & Output (last 24hrs) 01/07/24 01/07/24 01/08/24 15:00 23:00 07:00 Intake Total 200 ml 100 ml Output Total 600 ml Balance 200 ml -500 ml LABS: Laboratory: Test 01/08/24 11:54 01/08/24 09:50 01/08/24 05:20 01/06/24 13:44 Range/Units Whole Blood Glucose 231 #H 70-110 MG/DL Potassium Level 3.5 3.5-5.1 mmol/L White Blood Count 9.9 4.8-10.8 K/uL Red Blood Count 3.28 L 4.00-5.50 MIL/uL Hemoglobin 9.6 L 12.0-16.0 g/dL Hematocrit 29.1 L 36-48 % Mean Corpuscular Volume 88.7 79-99 fL Mean Corpuscular Hemoglobin 29.3 27.0-33.0 pg Mean Corpuscular Hemoglobin Concent 33.0 32.0-36.0 g/dL Red Cell Distribution Width 13.9 11.0-15.5 % Platelet Count 405 H 130-400 K/uL Mean Platelet Volume 9.2 7.5-10.5 fL Immature Granulocyte % (Auto) 0.4 0-1 % Neutrophils (%) (Auto) 82.9 H 40.0-77.0 % Lymphocytes (%) (Auto) 9.3 L 21.0-51.0 % Monocytes (%) (Auto) 4.7 3.0-13.0 % Eosinophils (%) (Auto) 2.2 0.0-8.0 % Basophils (%) (Auto) 0.5 0.0-5.0 % Neutrophils # (Auto) 8.2 H 1.8-7.7 K/uL Lymphocytes # (Auto) 0.9 L 1.0-4.8 K/uL Monocytes # (Auto) 0.5 0.1-1.0 K/uL Eosinophils # (Auto) 0.22 0.00-0.70 K/uL Basophils # (Auto) 0.05 0.00-0.20 K/uL Absolute Immature Granulocyte (auto 0.04 0-1 K/uL Nucleated Red Blood Cells 0.0 0.0-0.19 % White Cell Morphology Comment See comments Sodium Level 144 136-145 mmol/L Chloride Level 107 101-111 mmol/L Carbon Dioxide Level 26 21-32 mmol/L Blood Urea Nitrogen 11 7-18 mg/dL Creatinine 1.0 0.5-1.0 mg/dL Glomerular Filtration Rate Calc 61 >90 mL/min Random Glucose 141 H 70-105 mg/dL Total Calcium 8.4 L 8.5-10.1 mg/dL Prothrombin Time 11.9 H 9.6-11.6 SEC Prothromb Time International Ratio 1.11 0.85-1.15 Activated Partial Thromboplast Time 28.5 26.3-35.5 SEC ASSESSMENT: Left foot osteomyelitis. Left foot ischemia [id number] toe gangrene, s/p amputation of the left 3rd toe on 01/04/2024. Left 3rd toe Infection with methicillin-resistant Staphylococcus aureus. Diabetic foot ulcer. Left 3rd toe wound with Polymicrobial infection. Left foot cellulitis. Peripheral vascular disease. Diabetes mellitus. Hypokalemia. Anemia requiring blood transfusion. PLAN: Start vancomycin per pharmacy protocol. Continue Zosyn. Continue pain management. Continue GI prophylaxis. Wound care as recommended by swimming coach. Continue monitoring glucose levels. We will monitor electrolytes. Continue physical therapy. Case management working on placement to [facility]. This case was reviewed and discussed with my supervising physician and the above assessment and plan was formulated and agreed upon. ATTESTATION BY PHYSICIAN I have seen and examined the patient. I reviewed the documentation, medical decision making, and treatment plan as noted by the mid-level provider above. I agree with the findings and plan of care. IVAN LOCO MD, [facility] Jan 08, 2024 12:31
[2024-01-08] MEDS: VANCOMYCIN 1G/250ML KIT 250 ML IV SCH (14:40)
[2024-01-09] VITALS (7 sets, daily range): BP systolic 132–153; BP diastolic 68–78; PULSE 85–99; RESP 18–20; TEMP 97.9–100.4; O2SAT 99
[2024-01-09 05:59] LABS: BASOPHILS # (AUTO) 0.05 K/uL (0.00-0.20); BASOPHILS % (AUTO) 0.5 % (0.0-5.0); EOSINOPHILS # (AUTO) 0.25 K/uL (0.00-0.70); EOSINOPHILS % (AUTO) 2.6 % (0.0-8.0); HEMATOCRIT 27.5 % (36-48); IMMATURE GRANULOCYTE ABSOLUTE 0.04 K/uL (0-1); LYMPHOCYTES # (AUTO) 0.8 K/uL (1.0-4.8); LYMPHOCYTES % (AUTO) 8.6 % (21.0-51.0); MEAN CORPUSCULAR HEMOGLOBIN 29.2 pg (27.0-33.0); MEAN CORPUSCULAR HGB CONC 32.7 g/dL (32.0-36.0); MEAN CORPUSCULAR VOLUME 89.3 fL (79-99); MONOCYTES # (AUTO) 0.5 K/uL (0.1-1.0); MONOCYTES % (AUTO) 5.2 % (3.0-13.0); NEUTROPHILS # (AUTO) 7.9 K/uL (1.8-7.7); NEUTROPHILS % (AUTO) 82.7 % (40.0-77.0); PLATELET COUNT (AUTO) 374 K/uL (130-400); RED BLOOD CELL COUNT(AUTO) 3.08 MIL/uL (4.00-5.50); RED CELL DISTRIBUTION WIDTH 13.5 % (11.0-15.5); WHITE BLOOD COUNT (AUTO) 9.5 K/uL (4.8-10.8)
[2024-01-09 06:10] LABS: POTASSIUM 3.6 mmol/L (3.5-5.1)
--- NOTE | 2024-01-09 14:56 | PN ---
[facility] PROGRESS NOTE Date of Service: Jan 09, 2024 Time of Service: 14:34 SUBJECTIVE: HPI 68-year-old female admitted due to left lower extremity pain, patient had wound ulcer between 3rd and 4th toe of the left foot and some necrosis. Arterial D oppler was done which showed abnormal monophasic arterial waveform seen in the right superficial femoral popliteal bilateral posterior tibial anterior dorsalis pedal arteries. Hyperemic flow is seen in the right dorsalis pedal, left anterior tibial and posterior tibial arteries. There is an occlusion of the right distal superficial femoral artery, high-grade stenosis is suspected in the right common femoral and right proximal superficial femoral artery, high-grade stenosis is also suspected in the right popliteal artery proximally. Dr. Charles has been consulted and recommending cardiovascular consult for vascular assessment. Dr. Moa recommending CT angio to the left foot. Infectious Disease also consulted, we will continue with IV antibiotics. We are pending MRI to rule out osteomyelitis. Otherwise patient has no complaints. Interval History 01/08/2024 PATIENT WAS SEEN AT THE BEDSIDE. SHE STATES SHE HAS ABOUT A 6/10 PAIN TO HER AMPUTATION SITE OF HER LEFT FOOT WHERE THE 3RD DIGIT WAS. SHE DENIES CHEST PAIN OR SHORTNESS FOR BREATH NO FEVERS OR CHILLS. AWAITING TRANSFER TO THE NURSING FACILITY FOR FURTHER IV ANTIBIOTICS, WOUND CARE, PT OT. 01/09/24 Patient was seen at the bedside, she was sleeping comfortably. Her vital s are BP 148/68, IL 98, RR 18, SpO2 99% with RA, T-max 99.3. Talked to case management, still pending approval from [facility]. Cultures came back positive for MRSA, enterococcus faecalis, serratia. Currently on vanco and zosyn. REVIEW OF SYSTEMS CONSTITUTIONAL: Denies fevers, chills, or night sweats. No unintentional weight loss reported. NEUROLOGICAL: Denies headache, amaurosis fugax, motor weakness, sensory deficit, vertigo/spinning sensation, gait abnormalities, or tremors. ENT: No hearing loss, otalgia, otorrhea, rhinitis, rhinorrhea, hoarseness, or sore throat. CARDIOVASCULAR: Denies any exertional angina, dyspnea on exertion, orthopnea, paroxysmal nocturnal dyspnea, palpitations, life-threatening arrhythmias, claudication. PULMONARY: Denies any shortness of breath, cough, phlegm/sputum, hemoptysis, pleuritic chest pain. SLEEP: Denies morning headaches, daytime somnolence or napping. Denies difficulty falling asleep, staying asleep, waking from sleep. Denies knowledge of snoring. GASTROINTESTINAL: Denies any type of dysphagia to either liquids or solids. Den ies pyrosis, early satiety, abdominal pain, diarrhea, constipation, or changes in stool consistency or caliber. Denies coffee-ground emesis, hematemesis, hematochezia, or melanotic stools. GENITOURINARY: Denies frequency, urgency, nocturia, hematuria or incontinence (Storage/Irritative symptoms.) Low urinary stream, straining to void, urinary intermittency or hesitancy, splitting of the voiding stream, terminal dribbling. ENDOCRINOLOGIC: Denies polyuria, polydipsia, polyphagia or heat/cold intolerances. HEMATOLOGIC: Denies thrombophilia/previous clots, or coagulopathy/bleeding disorders. ONCOLOGIC: Denies personal history of malignancy. DERMATOLOGIC: Left anterior foot with bulky dry dressing. Denies rashes or pruritus. PSYCHIATRIC: Denies any suicidal or homicidal ideation. Denies hallucinations. PHYSICAL EXAM GENERAL APPEARANCE: The patient is sleeping comfortably, in no acute cardiopulm onary distress. NEUROLOGICAL: Cranial nerves II-XII grossly intact. Motor is 5/5 in bilateral upper and lower extremities proximal to distal. No sensory deficits. HEENT: Face is symmetric. Pupils are equal and reactive. Extraocular movements are intact. NECK: Supple. No JVD. No thyromegaly. No submental, submandibular, pre- /postauricular, occipital or supraclavicular lymphadenopathy. CHEST: Normal chest expansion. No Telemetry. LUNGS: Absence of any rales, rhonchi or any wheezing. CARDIOVASCULAR: Regular. S1 and S2 normal. No appreciable rubs, murmurs or gallops. ABDOMEN: Soft, nontender, and nondistended. There is no rebound, voluntary guarding, or rigidity. : Deferred. No Martel. EXTREMITIES: Non-edematous and not cyanotic. No clubbing. Good capillary refill. SKIN: left foot mild swelling and erythema with amputation of 3rd toe Vital Signs (last 8hr) Date Time Temp Pulse Resp B/P (MAP) Pulse Ox O2 Delivery O2 Flow Rate FiO2 01/09/24 12:03 99.3 98 18 148/68 99 Room Air 01/09/24 08:52 98.4 01/09/24 08:04 100.4 99 18 150/76 99 Room Air LABS: Laboratory: Test 01/09/24 11:27 01/09/24 05:42 01/08/24 05:20 Range/Units Whole Blood Glucose 172 H 70-110 MG/DL White Blood Count 9.5 4.8-10.8 K/uL Red Blood Count 3.08 L 4.00-5.50 MIL/uL Hemoglobin 9.0 L 12.0-16.0 g/dL Hematocrit 27.5 L 36-48 % Mean Corpuscular Volume 89.3 79-99 fL Mean Corpuscular Hemoglobin 29.2 27.0-33.0 pg Mean Corpuscular Hemoglobin Concent 32.7 32.0-36.0 g/dL Red Cell Distribution Width 13.5 11.0-15.5 % Platelet Count 374 130-400 K/uL Mean Platelet Volume 9.1 7.5-10.5 fL Immature Granulocyte % (Auto) 0.4 0-1 % Neutrophils (%) (Auto) 82.7 H 40.0-77.0 % Lymphocytes (%) (Auto) 8.6 L 21.0-51.0 % Monocytes (%) (Auto) 5.2 3.0-13.0 % Eosinophils (%) (Auto) 2.6 0.0-8.0 % Basophils (%) (Auto) 0.5 0.0-5.0 % Neutrophils # (Auto) 7.9 H 1.8-7.7 K/uL Lymphocytes # (Auto) 0.8 L 1.0-4.8 K/uL Monocytes # (Auto) 0.5 0.1-1.0 K/uL Eosinophils # (Auto) 0.25 0.00-0.70 K/uL Basophils # (Auto) 0.05 0.00-0.20 K/uL Absolute Immature Granulocyte (auto 0.04 0-1 K/uL Nucleated Red Blood Cells 0.0 0.0-0.19 % Sodium Level 143 136-145 mmol/L Potassium Level 3.6 3.5-5.1 mmol/L Chloride Level 108 101-111 mmol/L Carbon Dioxide Level 24 21-32 mmol/L Blood Urea Nitrogen 10 7-18 mg/dL Creatinine 1.0 0.5-1.0 mg/dL Glomerular Filtration Rate Calc 61 >90 mL/min Random Glucose 134 H 70-105 mg/dL Total Calcium 8.0 L 8.5-10.1 mg/dL White Cell Morphology Comment See comments Current Medications Medications (Trade) Dose Ordered Sig/Reji Route PRN Reason Start Time Stop Time Status Last Admin Dose Admin Acetaminophen (TYLenol 325MG TAB) 650 mg Q4H PRN PO MILD PAIN (1-3) 12/27/23 19:30 01/26/24 19:29 01/06/24 16:54 650 MG Acetaminophen (TYLenol 325MG TAB) 650 mg Q6H PRN PO TEMPERATURE GREATER THAN 101.5 12/27/23 19:30 01/26/24 19:29 01/08/24 19:33 650 MG Acetaminophen/ Hydrocodone Bitart (NORco 5/325MG) 1 tab Q4H PRN PO MODERATE PAIN (4-6) 12/27/23 19:30 01/01/24 19:29 DC 01/01/24 18:22 1 TAB Acetaminophen/ Hydrocodone Bitart (NORco 5/325MG) 1 tab Q4H PRN PO MODERATE PAIN (4-6) 01/06/24 11:30 01/11/24 11:29 01/09/24 13:42 1 TAB Amlodipine Besylate (NorvASC 5MG TAB) 5 mg DAILY PO 01/03/24 09:00 02/02/24 08:59 01/09/24 08:44 5 MG Aspirin (Aspirin 81mg Chew Tab) 81 mg DAILY PO 12/30/23 09:00 01/05/24 10:57 DC 01/05/24 10:10 81 MG Atorvastatin Calcium (LIPItor 40MG) 40 mg HS PO 12/30/23 21:00 01/29/24 20:59 01/08/24 19:34 40 MG Bisacodyl (DulcoLAX) 10 mg BID PRN RC CONSTIPATION 01/02/24 15:00 02/01/24 14:59 01/02/24 14:58 10 MG Dextrose (D50w) 50 ml AD PRN IV HYPOGLYCEMIA PROTOCOL 12/27/23 19:30 01/26/24 19:29 Enoxaparin Sodium (Lovenox) 30 mg DAILY SQ 12/28/23 09:00 01/05/24 10:57 DC 01/05/24 10:11 30 MG Famotidine (Pepcid 20mg Tab) 20 mg BID PO 12/27/23 21:00 01/26/24 20:59 01/09/24 08:44 20 MG Folic Acid (FOLic ACID 1 MG TABLET) 1 mg DAILY PO 12/30/23 09:00 01/29/24 08:59 01/09/24 08:44 1 MG Glucagon (Glucagon 1mg Kit) 1 mg AD PRN IM HYPOGLYCEMIA PROTOCOL 12/27/23 19:30 01/26/24 19:29 Hydralazine HCl (APRESOLine 20MG INJ) 10 mg Q6H PRN IV For:SBP above 160;DBP above 90 12/27/23 19:30 01/26/24 19:29 01/07/24 03:49 10 MG Hydromorphone HCl (DiLAUDid 0.5MG INJ) 0.5 mg Q4H PRN IVP SEVERE PAIN (7-10) 01/02/24 01:00 01/06/24 11:26 DC 01/06/24 06:11 0.5 MG Hydromorphone HCl (DiLAUDid 0.5MG INJ) 0.5 mg Q8H PRN IVP SEVERE PAIN (7-10) 01/06/24 13:00 01/09/24 09:10 DC 01/08/24 13:47 0.5 MG Insulin Human Regular (humuLIN R 100 UNIT/ML 3ML) INSULIN SLIDING SCAL... ACHS SQ 12/27/23 21:00 12/31/23 22:15 DC 12/31/23 21:04 2 UNIT Insulin Human Regular (humuLIN R 100 UNIT/ML 3ML) INSULIN SLIDING SCAL... ACHS SQ 01/01/24 07:30 01/31/24 07:29 01/08/24 21:56 8 UNIT Lactulose (Constulose 20gm/ 30ml Udcup) 20 gm BID PRN PO CONSTIPATION 12/31/23 15:30 01/02/24 14:41 DC Lactulose (Constulose 20gm/ 30ml Udcup) 20 gm BID PRN PO CONSTIPATION 01/02/24 15:00 02/01/24 14:59 01/05/24 16:38 20 GM Lisinopril (Prinivil 10mg) 10 mg DAILY PO 12/30/23 09:00 01/04/24 14:44 DC 01/04/24 10:36 10 MG Lisinopril (Prinivil 10mg) 20 mg DAILY PO 01/05/24 09:00 01/06/24 13:26 DC 01/06/24 08:59 20 MG Lisinopril (Prinivil 20mg) 20 mg DAILY PO 01/07/24 09:00 02/04/24 08:59 01/09/24 08:45 20 MG Magnesium Sulfate 50 ml @ 0 mls/hr PROTOCOL IV 12/29/23 14:30 12/29/23 14:10 DC Magnesium Sulfate 50 ml @ 0 mls/hr PROTOCOL PRN IV OTHER [SEE ORDER COMMENTS] 12/27/23 19:30 01/26/24 19:29 12/31/23 05:46 25 MLS/HR Metoprolol Tartrate (loprESSOR) 25 mg BID PO 01/01/24 16:30 01/02/24 13:00 DC 01/02/24 08:05 25 MG Metoprolol Tartrate (loprESSOR) 50 mg BID PO 01/02/24 21:00 02/01/24 20:59 01/09/24 08:44 50 MG Morphine Sulfate (morPHINE 2MG SYG) 2 mg Q4H PRN IV SEVERE PAIN (7-10) 12/27/23 19:30 01/01/24 22:29 DC 01/01/24 20:09 2 MG Ondansetron HCl (zoFRAN 4MG INJ) 4 mg Q6H PRN IV NAUSEA/VOMITING 12/27/23 19:30 01/26/24 19:29 01/07/24 05:10 4 MG Piperacillin Sod/ Tazobactam Sod (Zosyn 3.375gm+NS 50ml) 3.375 gm Q8H IV 12/28/23 02:00 01/18/24 01:59 01/09/24 10:08 3.375 GM Polyethylene Glycol (MIRalax 3350 17 GM POWD.PACK) 17 gm DAILY PO 01/08/24 09:00 02/07/24 08:59 01/09/24 08:45 17 GM Potassium Chloride 100 ml @ 100 mls/hr AD PRN IV POTASSIUM PROTOCOL 12/27/23 19:30 01/26/24 19:29 01/08/24 06:48 100 MLS/HR Potassium Chloride (K-Dur/Klor-Con 20meq) 20 meq AD PRN PO POTASSIUM PROTOCOL 12/27/23 19:30 01/26/24 19:29 01/08/24 18:20 20 MEQ Potassium Chloride (KCl 10% Elixir 20meq/15ml) 20 meq AD PRN PO POTASSIUM PROTOCOL 12/27/23 19:30 01/26/24 19:29 01/08/24 18:20 20 MEQ Promethazine HCl (Phenergan) 12.5 mg Q6H PRN IM NAUSEA/VOMITING 01/02/24 16:30 02/01/24 16:29 01/06/24 10:43 12.5 MG Ticagrelor (BRILinta) 90 mg BID PO 12/30/23 09:00 01/29/24 08:59 01/09/24 08:45 90 MG Tramadol HCl (UltRAM) 50 mg Q6H PRN PO PAIN LEVEL 4 TO 6 01/02/24 01:00 01/04/24 14:44 DC 01/04/24 13:11 50 MG Tramadol HCl (UltRAM) 75 mg Q6H PRN PO PAIN LEVEL 4 TO 6 01/04/24 19:00 01/06/24 11:36 DC 01/06/24 08:59 75 MG Vancomycin HCl 250 ml @ 125 mls/hr BID@0600,1800 IV 01/05/24 06:00 01/06/24 13:08 DC 01/06/24 06:19 125 MLS/HR Vancomycin HCl 250 ml @ 125 mls/hr Q24H IV 01/08/24 13:00 01/18/24 12:59 01/09/24 13:40 125 MLS/HR Vancomycin HCl (Vancomycin 750mg) 750 mg Q12H IVPB 12/28/23 06:00 01/05/24 06:31 DC 01/04/24 17:24 750 MG Vancomycin HCl (Vancomycin Protocol) 1 each AD IV 12/27/23 18:00 12/27/23 19:20 DC Vancomycin HCl (Vancomycin Protocol) 1 each AD IV 12/27/23 19:30 01/06/24 13:08 DC Vancomycin HCl (Vancomycin Protocol) 1 each AD IV 01/08/24 12:30 01/22/24 12:29 Vitamin B Complex (Vitamin B-12) 1,000 mcg DAILY PO 12/30/23 09:00 01/29/24 08:59 01/09/24 08:45 1,000 MCG DIAGNOSTICS / RADIOLOGY: [ ] RUN DATE: 01/08/24 [facility] PAGE 1 RUN TIME: [id number] [address], [place] [address] Department of Laboratories CLIA # [id number] Clam Shucker: Jazmín Marcelino DO Specimen Report PATIENT: JERMAINE TRAYLOR Cali ACCT: [id number] LOC: [facility] U: [id number] AGE/SX: 68/F ROOM: [facility] RE12/27/[address]: HEMAL MENESES MD : 1955 BED: 1 DIS: STATUS: ADM IN TLOC: SPEC: [id number] ESTER: 01/04/24 STATUS: COMP REQ: [id number] RECD: 01/04/24-1146 [facility] DR: HEMAL MENESES MD SOURCE: OTHER SOUR ENTR: 01/04/24-[address]: IVAN LOCO MD SPDC: OTHER NIELSEN,KITTY THERESE ADAMES LUIS R DPM ORDERED: PILAR CULTURE, AEROBIC CULTURE COMMENTS: LT THIRD TOE LT THIRD TOE CALLED TO NURSE OZZIE 01/08/24 CR 1400 LT THIRD TOE LT THIRD TOE LT THIRD TOE LT THIRD TOE LT THIRD TOE LT THIRD TOE LT THIRD TOE LT THIRD TOE LT THIRD TOE LT THIRD TOE LT THIRD TOE LT THIRD TOE LT THIRD TOE LT THIRD TOE LT THIRD TOE LT THIRD TOE LT THIRD TOE LT THIRD TOE LT THIRD TOE LT THIRD TOE LT THIRD TOE Procedure Result Cami Date-Time ANAEROBIC CULTURE Final 01/07/24-0839 MRL COLONY DESCRIPTION: REPORT 1: NO ANAEROBES AT 16-23 HOURS; STUDIES TO CONTINUE REPORT 2: NO ANAEROBES AT 36-47 HOURS; STUDIES TO CONTINUE REPORT 3: NO ANAEROBES AT 60 TO 71 HOURS Test(s) performed by: [facility] [address] [place] [address] CONTINUED ON NEXT PAGE RUN DATE: 01/08/24 [facility] PAGE 2 RUN TIME: [address] [address], [place] [address] [facility] # [id number] Clam Shucker: Jazmín Marcelino DO Specimen Report SPEC: [id number] PATIENT: JERMAINE TRAYLOR [id number] (Continued) Procedure Result Cami Date-Time AEROBIC CULTURE Final 01/08/24-0706 [facility] METHICILLIN-RESISTANT STAPHYLOCOCCUS AUREUS RESULT WAS CALLED BY EMMETT UREÑA ON 01/08/24 AT 0659. CRITICAL VALUES WERE READ BACK AND ACKNOWLEDGED BY JESS MARTINEZ AT [facility] COLONY DESCRIPTION: REPORT 1: 1+ GRAM NEGATIVE RODS IDENTIFICATION AND SENSITIVITY TO FOLLOW REPORT 2: 1+ GRAM POSITIVE COCCI IN CLUSTERS STAPHYLOCOCCUS AUREUS SENSITIVITY TO FOLLOW 1+ GRAM POSITIVE COCCI IN CHAINS . IDENTIFICATION AND SENSITIVITY TO FOLLOW COMMENTS(R): CONFIRMED BY ALTERNATE METHOD MRSA: NOTE: THIS IS A METHICILLIN-RESISTANT STAPH AUREUS ENTEROCOCCUS FAECALIS STAPHYLOCOCCUS AUREUS-MRSA SERRATIA MARCESCENS E FAECALIS MRSA M.I.C. RX M.I.C. RX --------- ---- --------- ---- AMPICILLIN <=2 S <=2 S AZTREONAM CEFTAZIDIME CEFTAZIDIME/AVIBACTAM CLINDAMYCIN >2 R ERYTHROMYCIN >4 R GENTAMICIN <=4 S LEVOFLOXACIN VANCOMYCIN 1 S 1 S OXACILLIN KENIA >2 R RIFAMPIN <=1 S TETRACYCLINE >8 R GENTAMICIN Synergy Screen >500 R >500 R MEROPENEM PENICILLIN 2 S 2 S PIPERACILLIN/TAZOBACTAM STREPTOMYCIN Synergy Screen <=1000 S <=1000 S TRIMETHOPRIM/SUFLAMETHOXAZOLE <=0.5/9.5 S CONTINUED ON NEXT PAGE RUN DATE: 01/08/24 [facility] PAGE 3 RUN TIME: [id number] [place] [address] of Laboratories CLIA # [id number] Clam Shucker: Jazmín Marcelino DO Specimen Report SPEC: [id number] PATIENT: JERMAINE TRAYLOR [id number] (Continued) --------- --- Procedure Result Cami Date-Time AEROBIC CULTURE Final (continued) 01/08/24-705 CHRIS Cevallos RX --------- ---- AMPICILLIN AZTREONAM <=4 S CEFTAZIDIME 8 I CEFTAZIDIME/AVIBACTAM <=8 S CLINDAMYCIN ERYTHROMYCIN GENTAMICIN <=2 S LEVOFLOXACIN <=0.5 S VANCOMYCIN OXACILLIN KENIA RIFAMPIN TETRACYCLINE GENTAMICIN Synergy Screen MEROPENEM <=1 S PENICILLIN PIPERACILLIN/TAZOBACTAM <=8 S STREPTOMYCIN Synergy Screen TRIMETHOPRIM/SUFLAMETHOXAZOLE <=2/38 S ENTEROCOCCUS FAECALIS: POSITIVE COMBO 34 Streptomycin Synergy Screen S Gentamicin Synergy Screen R STAPHYLOCOCCUS AUREUS-MRSA: POSITIVE COMBO 34 Streptomycin Synergy Screen S Gentamicin Synergy Screen R SERRATIA MARCESCENS: NEGATIVE/URINE COMBO 62 Lab Alert - ESBL (Extended-Spectrum Beta-Lactamase creative services producer) @ [facility] Test Performed at: [facility] [address], [place], [place] Medical Sleep Lab Technologist: Harjinder Noyola D.O. END OF REPORT ASSESSMENT: Left third toe amputation done on 01/03 Severe left foot pain POA Left foot cellulitis POA Suspected Left foot osteomyelitis POA left lower extremity Peripheral arterial disease POA Recent peripheral angioplasty of Left lower extremity on DAPT POA Uncontrolled diabetes POA Hypertension POA Anemia POA POA Hyperlipidemia POA History of left lower extremity DVT PLAN: Severe left foot pain POA Left foot cellulitis POA Left foot osteomyelitis POA *Left third toe amputation done on 01/03 *MRI showed findings suspicious for osteomyelitis involving the 3rd and 4th toes *Infectious Disease is on the case. *Continue on Vancomycin IV and Zosyn IV as ordered *Continue with Morphine 2mg IV for adequate pain management *Podiatry consult placed. *Trend temperature , WBC and procalcitonin levels *Cultures grew Serratia marcescens *De escalate antibiotics use as soon as possible. *Panculture if new onset fever Left lower extremity Peripheral arterial disease POA Recent peripheral angioplasty of Left lower extremity on DAPT POA *Cardiovascular consult ordered. Pending recommendations. *CTA aorto with runoff shows multiple occlusions in the left lower extremity * Cardiology on the case, we are following their recommendations on their standpoint, no need for arteriogram, based on Dr. Cam's last note performed on 12/22/23: ----SFA 80-98% segmental stenosis is reduced to 0% residual. ----Left popliteal segmental 90-98% stenosis is reduced to 10% residual ----Left tibioperoneal and proximal peroneal 90-98% stenosis is reduced to 0% residual. ----Although initial images demonstrated very slow flow through the lower extremity, final images demonstrate brisk flow to the ankle with collaterals into the heel and dorsalis pedis region, but the plantar arch is not well served. There is no achievable direct flow into the foot. Uncontrolled diabetes POA *Maintain blood glucose between 100-180 at all times *Insulin sliding scale for blood glucose management *Hyperglycemia and hypoglycemia protocols in place Hypertension POA Hyperlipidemia POA *Continue with Lisinopril 10mg po daily as ordered for elevated BP. *Continue with Hydralazine 10mg IV for systolic BP>160 *Continue with Atorvastatin 40mg daily as ordered for hyperlipidemia *Follow hemodynamics. *Vital signs per facility protocol Anemia *Monitor H & H. Keep Hgb > 7 *Transfuse 1 unit of PRBC for Hgb < 7 *Continue on Lovenox 30 mg subQ daily for DVT prphylaxis *Continue on Famotidine 20 mg p.o. bid for GI prophylaxis *Continue prn medication for fever,pain, nausea and vomiting *Labs in the morning. AWAITING TRANSFER TO LONG TERM FACILITY FOR CONTINUED IV ANTIBIOTICS, WOUND CARE, PT OT HOPEFULLY TRANSFER. ATTESTATION BY PHYSICIAN I have seen and examined the patient. I reviewed the documentation, medical decision making, and treatment plan as noted by the resident provider above. I agree with the findings and plan of care. Quita Ash MD, NIHITHA MD Jan 09, 2024 14:56
--- NOTE | 2024-01-09 15:50 | PN ---
INFECTIOUS DISEASE PROGRESS NOTE Date of Service: Jan 09, 2024 SUBJECTIVE: This is a 68-year-old female patient who was admitted for severe left foot pain. Patient is awake, alert and oriented x3. Patient is status post left 3rd toe amputation on 01/04/2024 due to gangrene and left foot ischemia. Patient continues with a low-grade fever of 100.4 this morning. Patient was started on vancomycin per pharmacy protocol yesterday due to left 3rd toe wound culture came back positive for methicillin-resistant Staphylococcus aureus. WBC remains within normal level of 9.5 this morning. No reports of nausea or vomiting. We will continue to follow patient's care. PHYSICAL EXAM EYES: Anicteric. Pupils equal and reactive. HENT: No oral thrush seen, moist Oral mucosa NECK: Supple, no JVD or thyromegaly. LUNGS: Good air entry. No rales, no rhonchi. CARDIOVASCULAR: S1, S2 regular. No murmur heard. ABDOMEN: Soft, non tender, bowel sounds present, no organomegaly CENTRAL NERVOUS SYSTEM: Awake, alert, oriented x 3. SKIN: No rashes, no swelling. LYMPHATICS: No peripheral lymphadenopathy MUSCULOSKELETAL: No joint swelling, erythema or tenderness. EXTREMITIES: No cyanosis or clubbing. Status post left 3rd toe amputation. BACK: No deformity, no pressure ulcer. GENITOURINARY: No dysuria or hematuria. Vital Sign (Last 12 Hours) 01/09/24 01/09/24 01/09/24 01/09/24 04:00 08:04 08:52 12:03 Temp 99.1 100.4 98.4 99.3 Pulse 91 99 98 Resp 20 18 18 B/P (MAP) 153/78 150/76 148/68 Pulse Ox 99 99 99 O2 Delivery Room Air Room Air Room Air Intake & Output (last 24hrs) 01/08/24 01/08/24 01/09/24 15:00 23:00 07:00 Intake Total 300 ml Output Total 1300 ml Balance -1000 ml LABS: Laboratory: Test 01/09/24 11:27 01/09/24 05:42 01/08/24 05:20 Range/Units Whole Blood Glucose 172 H 70-110 MG/DL White Blood Count 9.5 4.8-10.8 K/uL Red Blood Count 3.08 L 4.00-5.50 MIL/uL Hemoglobin 9.0 L 12.0-16.0 g/dL Hematocrit 27.5 L 36-48 % Mean Corpuscular Volume 89.3 79-99 fL Mean Corpuscular Hemoglobin 29.2 27.0-33.0 pg Mean Corpuscular Hemoglobin Concent 32.7 32.0-36.0 g/dL Red Cell Distribution Width 13.5 11.0-15.5 % Platelet Count 374 130-400 K/uL Mean Platelet Volume 9.1 7.5-10.5 fL Immature Granulocyte % (Auto) 0.4 0-1 % Neutrophils (%) (Auto) 82.7 H 40.0-77.0 % Lymphocytes (%) (Auto) 8.6 L 21.0-51.0 % Monocytes (%) (Auto) 5.2 3.0-13.0 % Eosinophils (%) (Auto) 2.6 0.0-8.0 % Basophils (%) (Auto) 0.5 0.0-5.0 % Neutrophils # (Auto) 7.9 H 1.8-7.7 K/uL Lymphocytes # (Auto) 0.8 L 1.0-4.8 K/uL Monocytes # (Auto) 0.5 0.1-1.0 K/uL Eosinophils # (Auto) 0.25 0.00-0.70 K/uL Basophils # (Auto) 0.05 0.00-0.20 K/uL Absolute Immature Granulocyte (auto 0.04 0-1 K/uL Nucleated Red Blood Cells 0.0 0.0-0.19 % Sodium Level 143 136-145 mmol/L Potassium Level 3.6 3.5-5.1 mmol/L Chloride Level 108 101-111 mmol/L Carbon Dioxide Level 24 21-32 mmol/L Blood Urea Nitrogen 10 7-18 mg/dL Creatinine 1.0 0.5-1.0 mg/dL Glomerular Filtration Rate Calc 61 >90 mL/min Random Glucose 134 H 70-105 mg/dL Total Calcium 8.0 L 8.5-10.1 mg/dL White Cell Morphology Comment See comments ASSESSMENT: Left foot osteomyelitis. Left foot ischemia [id number] toe gangrene, s/p amputation of the left 3rd toe on 01/04/2024. Left 3rd toe Infection with methicillin-resistant Staphylococcus aureus. Diabetic foot ulcer. Left 3rd toe wound with Polymicrobial infection. Left foot cellulitis. Peripheral vascular disease. Diabetes mellitus. Hypokalemia. Anemia requiring blood transfusion. PLAN: Continue vancomycin per pharmacy protocol. Continue Zosyn. Continue pain management. Continue GI prophylaxis. Wound care as recommended by roll over press operator. Continue monitoring glucose levels. We will monitor electrolytes. Continue physical therapy. Case management working on SNF placement. This case was reviewed and discussed with my supervising physician and the above assessment and plan was formulated and agreed upon. ATTESTATION BY PHYSICIAN I have seen and examined the patient. I reviewed the documentation, medical decision making, and treatment plan as noted by the mid-level provider above. I agree with the findings and plan of care. IVAN LOCO MD, MIRTA L [facility] Jan 09, 2024 15:50
--- NOTE | 2024-01-09 16:05 | DS ---
Discharge Summary Hospital Course Summary: 68-year-old female admitted due to left lower extremity pain, patient had wound ulcer between 3rd and 4th toe of the left foot and some necrosis. Arterial Doppler was done which showed abnormal monophasic arterial waveform seen in the right superficial femoral popliteal bilateral posterior tibial anterior dorsalis pedal arteries. Hyperemic flow is seen in the right dorsalis pedal, left anterior tibial and posterior tibial arteries. There is an occlusion of the right distal superficial femoral artery, high-grade stenosis is suspected in the right common femoral and right proximal superficial femoral artery, high-grade stenosis is also suspected in the right popliteal artery proximally. Dr. Charles has been consulted and recommending cardiovascular consult for vascular assessment. Dr. Mao recommending CT angio to the left foot. An MRI was done , findings suspicious for osteomyelitis involving the 3rd and 4th toes. Aorto with runoff CTA shows extensive atherosclerotic changes. Multiple short segment high grade stenosis seen throughout the right superficial femoral artery. There are occlusions of left anterior tibial and bilateral post tibial artery. There is also occlusion of the right anterior tibial artery at mid calf level. Safety Leader and vascular surgery recommended digit amputation, Dr. Charles saw the patient and has scheduled for amputation of third left toe, patient tolerated the procedure well without any complications. Her hemoglobin has been dropping consistently and was transfused one unit, no adverse reactions noted. Cultures grew Serratia Marcescens, per ID recommendation patient will require IV antibiotics and case management has been made aware to make discharge planning to SNF. [facility] than [facility], patient was doing good, had no complaints other than pain while weight bearing during PT. Will discharge her today to [facility] for iv antibiotics, wound care and physical therapy and ask her to f/u with PCP, Dr. Charles in 1 week. Filling Station Equipment Mechanic(s): ID - Dr. Palmoares, Podiatry - Dr. Charles, Vascular - Dr. Mao, Cardiology - Dr. Nielsen Procedure(s): REASON: FOOT LESION ORDERING PHYSICIAN: SUSIE PLEITEZ MD PROCEDURE: FT 3VW LT - FOOT COMP 3+VWS LT FOOT COMP 3+VWS LT HISTORY: Foot lesion COMPARISON: None TECHNIQUE: 3 images of left foot were obtained. FINDINGS: There is no acute displaced fracture or dislocation. There is soft tissue swelling. Vascular calcifications are seen. Degenerative changes are seen. IMPRESSION: 1. Findings as described above. REASON: PAD ORDERING PHYSICIAN: ONESIMO CHARLES DPM PROCEDURE: ART B LE - US ARTERIAL BILAT LOW EXT DUPL US ARTERIAL BILAT LOW EXT DUPL HISTORY: Peripheral arterial disease COMPARISON: None TECHNIQUE: Bilateral lower extremity arterial Doppler ultrasound study was performed. FINDINGS: Abnormal monophasic arterial waveforms are seen in the right superficial femoral, popliteal, bilateral posterior tibial, anterior tibial and dorsalis pedal arteries. Hyperemic flow is seen in the right dorsalis pedal, left anterior tibial and posterior tibial arteries. There is occlusion of the right distal superficial femoral artery. Normal triphasic and biphasic arterial waveforms are noted in the common femoral, deep femoral, superficial femoral, and left popliteal arteries. On the right, the peak systolic velocity of the common femoral artery is 238 cm/s, the proximal femoral artery is 236 cm/s, the mid femoral artery is 121 cm/s, the distal femoral artery is 0 cm/s, the proximal popliteal artery is 240 cm/s, the distal popliteal artery is 77 cm/s, the anterior tibial artery is 33 cm/s, the posterior tibial artery artery is 38 cm/s,and the dorsalis pedal artery is 91 cm/s. On the left, the peak systolic velocity of the common femoral artery is 180 cm/s, the proximal femoral artery is 112 cm/s, the mid femoral artery is 67 cm/s, the distal femoral artery is 76 cm/s, the proximal popliteal artery is 147 cm/s, the distal popliteal artery is 130 cm/s, the anterior tibial artery is 127 cm/s, the posterior tibial artery artery is 86 cm/s,and the dorsalis pedal artery is 95 cm/s. IMPRESSION: 1. Atherosclerotic disease. 2. Abnormal monophasic arterial waveforms are seen in the right superficial femoral, popliteal, bilateral posterior tibial, anterior tibial and dorsalis pedal arteries. Hyperemic flow is seen in the right dorsalis pedal, left anterior tibial and posterior tibial arteries. There is occlusion of the right distal superficial femoral artery. High-grade stenosis is suspected in the right common femoral and right proximal superficial femoral artery. High-grade stenosis is also suspected in the right popliteal artery proximally. REASON: left 3rd and 4th toe ulcer ORDERING PHYSICIAN: IVAN PALOMARES MD PROCEDURE: FT LT WO - MR FOOT LEFT WO MR FOOT LEFT WO HISTORY: Wound COMPARISON: None TECHNIQUE: MRI of the left foot was performed utilizing multiple pulse sequences in axial, coronal and sagittal planes. Patient was not given contrast through intravenous route. FINDINGS: Abnormal increased signal intensity is seen involving the third and fourth toes may be related to osteomyelitis. Adjacent cellulitis changes are seen. No evidence of fracture or dislocation is seen. Degenerative changes are seen. IMPRESSION: 1. Findings suspicious for osteomyelitis involving the third and fourth toes. Clinical correlation is recommended. REASON: assess vascular supply of the left foot ORDERING PHYSICIAN: DONG IVERSON PROCEDURE: CTA ABDAOR - CT ANGIO ABD AORTA W RUNOFF CT ANGIO ABD AORTA W RUNOFF HISTORY: Left foot erythema COMPARISON: 09/23/2018 TECHNIQUE: CT angiography of the abdomen and pelvis and bilateral lower extremities was obtained using angiographic technique with maximum intensity projection reconstruction images. Patient was 125 cc of Omnipaque through intravenous route. Oral contrast was not given. FINDINGS: No pleural effusion is seen bilaterally. Tiny left lower lobe pulmonary nodules are seen with the largest measuring 7.8 mm. 6 month follow-up study is recommended. Degenerative changes of the thoracolumbar spine are present. The heart is not enlarged. Liver measures 17 cm. There is fluid-filled colon may be related to enterocolitis. The liver, spleen, adrenal glands and pancreas are unremarkable. There is no evidence of hydronephrosis bilaterally. No evidence of renal stone is seen. Fecal material is seen in the colon. There are normal size retroperitoneal and mesenteric lymph nodes. No ascites is seen. Atherosclerotic changes are present. There is diffuse atherosclerotic disease. No evidence of abdominal aortic aneurysm is seen. The celiac, superior mesenteric and bilateral renal arteries are grossly patent. The visualized portion of the iliac arterial systems are also grossly patent. The study is limited due to extensive vascular calcifications. Multiple short segment high-grade stenosis are seen throughout the right superficial femoral artery. There are occlusions of left anterior tibial and bilateral posterior tibial arteries. There is also occlusion of the right anterior tibial artery at mid calf level. There may be reconstitution of the posterior tibial arteries near the distal calf level. Pelvic sidewalls are symmetric bilaterally. Bladder is well distended without wall thickening. IMPRESSION: 1. The study is limited due to extensive vascular calcifications. Extensive atherosclerotic changes are seen. Multiple short segment high-grade stenosis are seen throughout the right superficial femoral artery. There are occlusions of left anterior tibial and bilateral posterior tibial arteries. There is also occlusion of the right anterior tibial artery at mid calf level. There may be reconstitution of the posterior tibial arteries near the distal calf level. RUN DATE: 01/08/24 [facility] PAGE 1 RUN TIME: [id number] [address], [place] [address] Department of Laboratories CLIA # [id number] Public Health Educator: Jazmín Marcelino DO Specimen Report PATIENT: JERMAINE TRAYLOR ACCT: [id number] LOC: [facility] U: [id number] AGE/SX: 68/F ROOM: [facility] RE12/27/[address]: HEMAL MENESES MD : [id number] BED: 1 DIS: STATUS: ADM IN TLOC: SPEC: [id number] ESTER: 01/04/24 STATUS: COMP REQ: [id number] RECD: 01/04/[address]: HEMAL MENESES MD SOURCE: OTHER SOUR ENTR: 01/04/24 [facility] DR: IVAN PALOMARES MD SPDESC: OTHER ALEXI NIELSEN MD, ARNULFO VENEGAS, LUIS R DPM ORDERED: PILAR CULTURE, AEROBIC CULTURE COMMENTS: LT THIRD TOE LT THIRD TOE CALLED TO NURSE OZZIE 01/08/24 CR 1400 LT THIRD TOE LT THIRD TOE LT THIRD TOE LT THIRD TOE LT THIRD TOE LT THIRD TOE LT THIRD TOE LT THIRD TOE LT THIRD TOE LT THIRD TOE LT THIRD TOE LT THIRD TOE LT THIRD TOE LT THIRD TOE LT THIRD TOE LT THIRD TOE LT THIRD TOE LT THIRD TOE LT THIRD TOE LT THIRD TOE LT THIRD TOE Procedure Result Cami Date-Time ANAEROBIC CULTURE Final 01/07/24-0839 MRL COLONY DESCRIPTION: REPORT 1: NO ANAEROBES AT 16-23 HOURS; STUDIES TO CONTINUE REPORT 2: NO ANAEROBES AT 36-47 HOURS; STUDIES TO CONTINUE REPORT 3: NO ANAEROBES AT 60 TO 71 HOURS Test(s) performed by: [facility] [address] [place] [address] CONTINUED ON NEXT PAGE RUN DATE: 01/08/24 [facility] PAGE 2 RUN TIME: [id number] [address], [place] [address] Department of Laboratories [facility] # [id number] Public Health Educator: Jazmín Marcelino DO Specimen Report SPEC: [id number] PATIENT: JERMAINE TRAYLOR [id number] (Continued) Procedure Result Cami Date-Time AEROBIC CULTURE Final 01/08/24-0706 MRL METHICILLIN-RESISTANT STAPHYLOCOCCUS AUREUS RESULT WAS CALLED BY EMMETT UREÑA ON 01/08/24 AT 0659. CRITICAL VALUES WERE READ BACK AND ACKNOWLEDGED BY JESS MARTINEZ AT [facility] COLONY DESCRIPTION: REPORT 1: 1+ GRAM NEGATIVE RODS IDENTIFICATION AND SENSITIVITY TO FOLLOW REPORT 2: 1+ GRAM POSITIVE COCCI IN CLUSTERS STAPHYLOCOCCUS AUREUS SENSITIVITY TO FOLLOW 1+ GRAM POSITIVE COCCI IN CHAINS . IDENTIFICATION AND SENSITIVITY TO FOLLOW COMMENTS(R): CONFIRMED BY ALTERNATE METHOD MRSA: NOTE: THIS IS A METHICILLIN-RESISTANT STAPH AUREUS ENTEROCOCCUS FAECALIS STAPHYLOCOCCUS AUREUS-MRSA SERRATIA MARCESCENS E FAECALIS MRSA M.I.C. RX M.I.C. RX --------- ---- --------- ---- AMPICILLIN <=2 S <=2 S AZTREONAM CEFTAZIDIME CEFTAZIDIME/AVIBACTAM CLINDAMYCIN >2 R ERYTHROMYCIN >4 R GENTAMICIN <=4 S LEVOFLOXACIN VANCOMYCIN 1 S 1 S OXACILLIN KENIA >2 R RIFAMPIN <=1 S TETRACYCLINE >8 R GENTAMICIN Synergy Screen >500 R >500 R MEROPENEM PENICILLIN 2 S 2 S PIPERACILLIN/TAZOBACTAM STREPTOMYCIN Synergy Screen <=1000 S <=1000 S TRIMETHOPRIM/SUFLAMETHOXAZOLE <=0.5/9.5 S CONTINUED ON NEXT PAGE RUN DATE: 01/08/24 [facility] PAGE 3 RUN TIME: [id number] [address], [place] [address] Department of [place] # [id number] Public Health Educator: Jazmín Marcelino DO Specimen Report SPEC: [id number] PATIENT: JERMAINE TRAYLOR [id number] (Continued) Procedure Result Cami Date-Time AEROBIC CULTURE Final (continued) 01/08/24-705 CHRIS Cevallos RX --------- ---- AMPICILLIN AZTREONAM <=4 S CEFTAZIDIME 8 I CEFTAZIDIME/AVIBACTAM <=8 S CLINDAMYCIN ERYTHROMYCIN GENTAMICIN <=2 S LEVOFLOXACIN <=0.5 S VANCOMYCIN OXACILLIN KENIA RIFAMPIN TETRACYCLINE GENTAMICIN Synergy Screen MEROPENEM <=1 S PENICILLIN PIPERACILLIN/TAZOBACTAM <=8 S STREPTOMYCIN Synergy Screen TRIMETHOPRIM/SUFLAMETHOXAZOLE <=2/38 S ENTEROCOCCUS FAECALIS: POSITIVE COMBO 34 Streptomycin Synergy Screen S Gentamicin Synergy Screen R STAPHYLOCOCCUS AUREUS-MRSA: POSITIVE COMBO 34 Streptomycin Synergy Screen S Gentamicin Synergy Screen R SERRATIA MARCESCENS: NEGATIVE/URINE COMBO 62 Lab Alert - ESBL (Extended-Spectrum Beta-Lactamase writer producer) @ [facility] Test Performed at: [facility] [address], [place], [place] Medical Molder Feeder: Harjinder Noyola D.O. END OF REPORT Assessment/Plan: ASSESSMENT: Left third toe amputation done on 01/03 Severe left foot pain POA Left foot cellulitis POA Suspected Left foot osteomyelitis POA left lower extremity Peripheral arterial disease POA Recent peripheral angioplasty of Left lower extremity on DAPT POA Uncontrolled diabetes POA Hypertension POA Anemia POA POA Hyperlipidemia POA History of left lower extremity DVT PLAN: Severe left foot pain POA Left foot cellulitis POA Left foot osteomyelitis POA *Left third toe amputation done on 01/03 *MRI showed findings suspicious for osteomyelitis involving the 3rd and 4th toes *Infectious Disease is on the case. *Continue on Vancomycin IV and Zosyn IV as ordered *Continue with Morphine 2mg IV for adequate pain management *Podiatry consult placed. *Trend temperature , WBC and procalcitonin levels *Cultures grew Serratia marcescens *De escalate antibiotics use as soon as possible. *Panculture if new onset fever Left lower extremity Peripheral arterial disease POA Recent peripheral angioplasty of Left lower extremity on DAPT POA *Cardiovascular consult ordered. Pending recommendations. *CTA aorto with runoff shows multiple occlusions in the left lower extremity * Cardiology on the case, we are following their recommendations on their standpoint, no need for arteriogram, based on Dr. Cam's last note performed on 12/22/23: ----SFA 80-98% segmental stenosis is reduced to 0% residual. ----Left popliteal segmental 90-98% stenosis is reduced to 10% residual ----Left tibioperoneal and proximal peroneal 90-98% stenosis is reduced to 0% residual. ----Although initial images demonstrated very slow flow through the lower extremity, final images demonstrate brisk flow to the ankle with collaterals into the heel and dorsalis pedis region, but the plantar arch is not well served. There is no achievable direct flow into the foot. Uncontrolled diabetes POA *Maintain blood glucose between 100-180 at all times *Insulin sliding scale for blood glucose management *Hyperglycemia and hypoglycemia protocols in place Hypertension POA Hyperlipidemia POA *Continue with Lisinopril 10mg po daily as ordered for elevated BP. *Continue with Hydralazine 10mg IV for systolic BP>160 *Continue with Atorvastatin 40mg daily as ordered for hyperlipidemia *Follow hemodynamics. *Vital signs per facility protocol Anemia *Monitor H & H. Keep Hgb > 7 *Transfuse 1 unit of PRBC for Hgb < 7 *Continue on Lovenox 30 mg subQ daily for DVT prphylaxis *Continue on Famotidine 20 mg p.o. bid for GI prophylaxis *Continue prn medication for fever,pain, nausea and vomiting *Labs in the morning. AWAITING TRANSFER TO [facility] FOR CONTINUED IV ANTIBIOTICS, WOUND CARE, PT OT HOPEFULLY TRANSFER. Discharge Instructions: ADMISSION DATE : 12/27/23 DISCHARGE DATE: 01/09/24 DISPOSITION : SNF CONDITION : Stable TRUCKING SUPERVISOR(S) : JERAMY - Dr. Palomares, Podiatry - Dr. Charles, Vascular - Dr. Mao, Cardiology - Dr. Nielsen FOLLOW UP APPOINTMENT(S) : f/u with PCP in one week, f/u with Dr. Charles in one week, PROCEDURES: amputation of left third toe IMAGING (S) : report attached to summary MICROBIOLOGY : report attached to summary; wound culture ACTIVITY : ad zena HOME MEDICATIONS : Continued Home Medications: Active Scripts Ketorolac Tromethamine (Toradol) 10 Mg Tab, 1 TAB PO Q6HPRN PRN for pain for 5 Days, #20 TAB 0 Refills Prov:OPAL FERRERA MD 12/23/23 Acetaminophen (Acetaminophen) 325 Mg Tablet, 1 TAB PO Q4HPRN PRN for pain or fever for 24 Days, #100 TAB 0 Refills Prov:OPAL FERRERA MD 12/23/23 Aspirin (ASPIRIN 81MG CHEW TAB) 81 Mg Tab.chew, 81 MG PO DAILY for 30 Days, #30 TAB.CHEW Prov:OPAL FERRERA MD 12/23/23 Ticagrelor (Brilinta) 90 Mg Tablet, 90 MG PO BID for 30 Days, #60 TAB Prov:OPAL FERRERA MD 12/23/23 Insulin Glargine,Hum.rec.anlog (Lantus) 100 Unit/Ml Inj, 15 UNITS SQ HS, #1 ML Prov:LAWRENCE WILSON I TUCKPOINTER 04/14/23 Folic Acid (Folvite) 1 Mg Tab, 1 MG PO DAILY, #30 TAB Prov:LAWRENCE WILSON I TUCKPOINTER 04/14/23 Cyanocobalamin (Vitamin B-12) (Vitamin B-12) 1,000 Mcg Tablet, 1000 MCG PO DAILY, #30 TAB Prov:LAWRENCE WILSON I TUCKPOINTER 04/14/23 Reported Medications Semaglutide (Ozempic) 1 Mg/0.75 Ml (4 Mg/3 Ml) Pen.injctr, 1 MG SQ QWEEK for 30 Days, #3 ML 0 Refills 12/19/23 [Rumoquin] No Conflict Check, PO AD 12/19/23 Metformin HCl (Metformin HCl ER) 1,000 Mg [id number], 1 TAB PO BID for diabetes for 30 Days, #60 TAB 0 Refills 12/19/23 Insulin Detemir (Levemir) 100 Unit/Ml Vial, 30 UNIT SQ DAILY, VIAL 12/19/23 Lisinopril (Lisinopril) 10 Mg Tablet, 1 TAB PO DAILY 04/14/23 Atorvastatin Calcium (Atorvastatin Calcium) 40 Mg Tablet, 1 TAB PO HS 04/14/23 Metformin HCl (Metformin HCl) 1,000 Mg Tablet, 1000 MG PO BID, TAB 09/24/18 Glipizide (Glipizide) 5 Mg Tablet, 5 MG PO DAILY, TAB 09/24/18 Continued Medications: Acetaminophen (Acetaminophen) 325 Mg Tablet 1 TAB PO Q4HPRN PRN for pain or fever for 24 Days, #100 TAB 0 Refills Aspirin (Aspirin 81MG Chew Tab) 81 Mg Tab.chew 81 MG PO DAILY for 30 Days, #30 TAB.CHEW Atorvastatin Calcium (Atorvastatin Calcium) 40 Mg Tablet 1 TAB PO HS Cyanocobalamin (Vitamin B-12) (Vitamin B-12) 1,000 Mcg Tablet 1000 MCG PO DAILY, #30 TAB Folic Acid (Folvite) 1 Mg Tab 1 MG PO DAILY, #30 TAB Glipizide (Glipizide) 5 Mg Tablet 5 MG PO DAILY, TAB Insulin Detemir (Levemir) 100 Unit/Ml Vial 30 UNIT SQ DAILY, VIAL Insulin Glargine,Hum.rec.anlog (Lantus) 100 Unit/Ml Inj 15 UNITS SQ HS, #1 ML Ketorolac Tromethamine (Toradol) 10 Mg Tab 1 TAB PO Q6HPRN PRN for pain for 5 Days, #20 TAB 0 Refills Lisinopril (Lisinopril) 10 Mg Tablet 1 TAB PO DAILY Metformin HCl (Metformin HCl) 1,000 Mg Tablet 1000 MG PO BID, TAB Metformin HCl (Metformin HCl ER) 1,000 Mg [id number] 1 TAB PO BID for diabetes for 30 Days, #60 TAB 0 Refills [Rumoquin] () Unknown Dose PO AD Semaglutide (Ozempic) 1 Mg/0.75 Ml (4 Mg/3 Ml) Pen.injctr 1 MG SQ QWEEK for 30 Days, #3 ML 0 Refills Ticagrelor (Brilinta) 90 Mg Tablet 90 MG PO BID for 30 Days, #60 TAB Time spent arranging discharge: 1-30 minutes ATTESTATION BY PHYSICIAN I have seen and examined the patient. I reviewed the documentation, medical decision making, and treatment plan as noted by the resident provider above. I agree with the findings and plan of care. Quita Ash MD, NIHITHA MD Jan 09, 2024 16:05
--- NOTE | 2024-01-09 20:42 | NUR ---
DC PLAN REFERRAL HAD BEEN SENT TO [facility] [phone]. RECEIVED CALL FROM REP PATIENT ACCEPTED. EMS SET UP. PASRR SENT TO FACILITY. LET NURSE AND RIGGER THIRD KNOW. Addendum: 01/09/24 at 2042 by JAVID JEFFERS RN CM Amended: Links added.
== END 2024-01-09 18:20 | DRG 256 ==
LOC: EDH 14:38 → EDHIP 19:02 → 3CH 12-29 00:05
PROVIDERS: ADMIT Internal Medicine; ATTEND Internal Medicine
PROC: 05HC33Z Insertion of Infusion Device into Left Basilic Vein, Percutaneous Approach (ICD-10-PCS; 2023-12-27)
PROC: B54MZZA Ultrasonography of Right Upper Extremity Veins, Guidance (ICD-10-PCS; 2023-12-27)
PROC: 0Y6U0Z0 Detachment at Left 3rd Toe, Complete, Open Approach (ICD-10-PCS; principal; 2024-01-04 07:00)
PROC: 30233N1 Transfusion of Nonautologous Red Blood Cells into Peripheral Vein, Percutaneous Approach (ICD-10-PCS; 2024-01-06)
DX: E11.52 Type 2 diabetes mellitus with diabetic peripheral angiopathy with gangrene (principal); L03.116 Cellulitis of left lower limb; M86.8X7 Other osteomyelitis, ankle and foot; E11.69 Type 2 diabetes mellitus with other specified complication; E11.621 Type 2 diabetes mellitus with foot ulcer; I10 Essential (primary) hypertension; D64.9 Anemia, unspecified; E11.628 Type 2 diabetes mellitus with other skin complications; L97.529 Non-pressure chronic ulcer of other part of left foot with unspecified severity; E78.5 Hyperlipidemia, unspecified; E87.6 Hypokalemia; E78.00 Pure hypercholesterolemia, unspecified; I99.8 Other disorder of circulatory system; B95.62 Methicillin resistant Staphylococcus aureus infection as the cause of diseases classified elsewhere; K59.00 Constipation, unspecified; Z79.02 Long term (current) use of antithrombotics/antiplatelets; Z79.4 Long term (current) use of insulin; Z79.899 Other long term (current) drug therapy; Z82.49 Family history of ischemic heart disease and other diseases of the circulatory system; Z83.3 Family history of diabetes mellitus; Z86.718 Personal history of other venous thrombosis and embolism
CPT/HCPCS: 36415; 73630; 73718; 75635; 80048; 80053; 80061; 80202; 82306; 82607; 82948; 83036; 83605; 83735; 84132; 85014; 85018; 85025; 85027; 85610; 85651; 85730; 86850; 86900; 86901; 86923; 87070; 87076; 87086; 87186; 87205; 93925; 96365; 96366; 96372; 96375; 99285; C1894; G0378; J0360; J1171; J1650; J1815; J1885; J2250; J2270; J2405; J2543; J2550; J2704; J3010; J3370; J3475; J3480; J3490; J7030; P9016; Q9967; A4216; A4222; A4223; C1750; J0665

== ENCOUNTER → 2024-02-22 | Outpatient (CLI) | payer OTHER ==
[~2024-02-22] MED LIST changes: +LIDOCAINE HCL 4% LTA SOL 4 ML VIAL TP ONE
== END | disposition home or self-care (01) ==
LOC: WHH 09:18
PROVIDERS: ATTEND Podiatrist Foot & Ankle Surgery
DX: T87.89 Other complications of amputation stump (principal); E11.621 Type 2 diabetes mellitus with foot ulcer; L97.522 Non-pressure chronic ulcer of other part of left foot with fat layer exposed; E11.52 Type 2 diabetes mellitus with diabetic peripheral angiopathy with gangrene; I96 Gangrene, not elsewhere classified; E11.69 Type 2 diabetes mellitus with other specified complication; M86.8X7 Other osteomyelitis, ankle and foot; I10 Essential (primary) hypertension; E78.5 Hyperlipidemia, unspecified; Z86.718 Personal history of other venous thrombosis and embolism; Z79.899 Other long term (current) drug therapy; Y83.5 Amputation of limb(s) as the cause of abnormal reaction of the patient, or of later complication, without mention of misadventure at the time of the procedure
CPT/HCPCS: G0463; A4450

== ENCOUNTER → 2024-02-23 | Outpatient (CLI) | payer OTHER ==
[~2024-02-23] MED LIST changes: -LIDOCAINE HCL 4% LTA SOL 4 ML VIAL TP ONE
== END | disposition home or self-care (01) ==
LOC: WHH 11:47
PROVIDERS: ATTEND Podiatrist Foot & Ankle Surgery
DX: E11.621 Type 2 diabetes mellitus with foot ulcer (principal); L97.522 Non-pressure chronic ulcer of other part of left foot with fat layer exposed; T87.89 Other complications of amputation stump; E11.52 Type 2 diabetes mellitus with diabetic peripheral angiopathy with gangrene; I96 Gangrene, not elsewhere classified; E11.69 Type 2 diabetes mellitus with other specified complication; M86.8X7 Other osteomyelitis, ankle and foot; I10 Essential (primary) hypertension; E78.5 Hyperlipidemia, unspecified; Z86.718 Personal history of other venous thrombosis and embolism; Y83.5 Amputation of limb(s) as the cause of abnormal reaction of the patient, or of later complication, without mention of misadventure at the time of the procedure
CPT/HCPCS: 93923

== ENCOUNTER → 2024-03-07 | Outpatient (CLI) | payer OTHER ==
[~2024-03-07] MED LIST changes: +LIDOCAINE HCL 4% LTA SOL 4 ML VIAL TP ONE
== END | disposition home or self-care (01) ==
LOC: WHH 10:13
PROVIDERS: ATTEND Podiatrist Foot & Ankle Surgery
DX: T87.89 Other complications of amputation stump (principal); E11.621 Type 2 diabetes mellitus with foot ulcer; L97.522 Non-pressure chronic ulcer of other part of left foot with fat layer exposed; E11.52 Type 2 diabetes mellitus with diabetic peripheral angiopathy with gangrene; I96 Gangrene, not elsewhere classified; E11.69 Type 2 diabetes mellitus with other specified complication; M86.8X7 Other osteomyelitis, ankle and foot; I10 Essential (primary) hypertension; E78.5 Hyperlipidemia, unspecified; Z86.718 Personal history of other venous thrombosis and embolism; Z79.899 Other long term (current) drug therapy; Y83.5 Amputation of limb(s) as the cause of abnormal reaction of the patient, or of later complication, without mention of misadventure at the time of the procedure
CPT/HCPCS: G0463; A6209

== ENCOUNTER → 2024-03-28 | Outpatient (CLI) | payer OTHER | END | disposition home or self-care (01) | LOC: WHH 10:55 | PROVIDERS: ATTEND Podiatrist Foot & Ankle Surgery | DX: T87.89 Other complications of amputation stump (principal); E11.621 Type 2 diabetes mellitus with foot ulcer; L97.522 Non-pressure chronic ulcer of other part of left foot with fat layer exposed; E11.52 Type 2 diabetes mellitus with diabetic peripheral angiopathy with gangrene; I96 Gangrene, not elsewhere classified; E11.69 Type 2 diabetes mellitus with other specified complication; M86.8X7 Other osteomyelitis, ankle and foot; I10 Essential (primary) hypertension; E78.5 Hyperlipidemia, unspecified; Z86.718 Personal history of other venous thrombosis and embolism; Z79.899 Other long term (current) drug therapy; Y83.5 Amputation of limb(s) as the cause of abnormal reaction of the patient, or of later complication, without mention of misadventure at the time of the procedure | CPT/HCPCS: G0463; A6209; A6196 ×2 ==

== ENCOUNTER → 2024-04-04 | Outpatient (CLI) | payer OTHER | END | disposition home or self-care (01) | LOC: WHH 09:19 | PROVIDERS: ATTEND Podiatrist Foot & Ankle Surgery | DX: T87.89 Other complications of amputation stump (principal); E11.621 Type 2 diabetes mellitus with foot ulcer; L97.522 Non-pressure chronic ulcer of other part of left foot with fat layer exposed; E11.52 Type 2 diabetes mellitus with diabetic peripheral angiopathy with gangrene; I96 Gangrene, not elsewhere classified; E11.69 Type 2 diabetes mellitus with other specified complication; M86.8X7 Other osteomyelitis, ankle and foot; I10 Essential (primary) hypertension; E78.5 Hyperlipidemia, unspecified; Z86.718 Personal history of other venous thrombosis and embolism; Z79.899 Other long term (current) drug therapy; Y83.5 Amputation of limb(s) as the cause of abnormal reaction of the patient, or of later complication, without mention of misadventure at the time of the procedure | CPT/HCPCS: G0463; A6209; A4450 ==

== ENCOUNTER → 2024-04-18 | Outpatient (CLI) | payer OTHER | END | disposition home or self-care (01) | LOC: WHH 09:03 | PROVIDERS: ATTEND Podiatrist Foot & Ankle Surgery | DX: T87.89 Other complications of amputation stump (principal); E11.621 Type 2 diabetes mellitus with foot ulcer; L97.522 Non-pressure chronic ulcer of other part of left foot with fat layer exposed; L03.032 Cellulitis of left toe; E11.52 Type 2 diabetes mellitus with diabetic peripheral angiopathy with gangrene; I96 Gangrene, not elsewhere classified; E11.69 Type 2 diabetes mellitus with other specified complication; M86.8X7 Other osteomyelitis, ankle and foot; L60.0 Ingrowing nail; I10 Essential (primary) hypertension; E78.5 Hyperlipidemia, unspecified; Z86.718 Personal history of other venous thrombosis and embolism; Z79.899 Other long term (current) drug therapy; Y83.5 Amputation of limb(s) as the cause of abnormal reaction of the patient, or of later complication, without mention of misadventure at the time of the procedure | CPT/HCPCS: 11719; A6209; A4450 ==

== ENCOUNTER → 2024-04-25 | Outpatient (CLI) | payer OTHER | END | disposition home or self-care (01) | LOC: WHH 09:19 | PROVIDERS: ATTEND Podiatrist Foot & Ankle Surgery | DX: T87.89 Other complications of amputation stump (principal); E11.621 Type 2 diabetes mellitus with foot ulcer; L97.522 Non-pressure chronic ulcer of other part of left foot with fat layer exposed; E11.52 Type 2 diabetes mellitus with diabetic peripheral angiopathy with gangrene; I96 Gangrene, not elsewhere classified; E11.69 Type 2 diabetes mellitus with other specified complication; M86.8X7 Other osteomyelitis, ankle and foot; L60.0 Ingrowing nail; I10 Essential (primary) hypertension; E78.5 Hyperlipidemia, unspecified; Z86.718 Personal history of other venous thrombosis and embolism; Z79.899 Other long term (current) drug therapy; Y83.5 Amputation of limb(s) as the cause of abnormal reaction of the patient, or of later complication, without mention of misadventure at the time of the procedure | CPT/HCPCS: 11042; 11730; A6209 ==

== ENCOUNTER → 2024-05-23 | Outpatient (CLI) | payer OTHER | END | disposition home or self-care (01) | LOC: WHH 09:11 | PROVIDERS: ATTEND Podiatrist Foot & Ankle Surgery | DX: T87.89 Other complications of amputation stump (principal); E11.621 Type 2 diabetes mellitus with foot ulcer; L97.522 Non-pressure chronic ulcer of other part of left foot with fat layer exposed; E11.52 Type 2 diabetes mellitus with diabetic peripheral angiopathy with gangrene; I96 Gangrene, not elsewhere classified; E11.69 Type 2 diabetes mellitus with other specified complication; M86.8X7 Other osteomyelitis, ankle and foot; L60.0 Ingrowing nail; I10 Essential (primary) hypertension; E78.5 Hyperlipidemia, unspecified; Z86.718 Personal history of other venous thrombosis and embolism; Z79.899 Other long term (current) drug therapy; Y83.5 Amputation of limb(s) as the cause of abnormal reaction of the patient, or of later complication, without mention of misadventure at the time of the procedure | CPT/HCPCS: 11042; A6209; A4450 ==

== ENCOUNTER → 2024-07-18 | Outpatient (CLI) | payer OTHER | END | disposition home or self-care (01) | LOC: WHH 09:41 | PROVIDERS: ATTEND Podiatrist Foot & Ankle Surgery | DX: T87.89 Other complications of amputation stump (principal); E11.621 Type 2 diabetes mellitus with foot ulcer; L97.522 Non-pressure chronic ulcer of other part of left foot with fat layer exposed; E11.52 Type 2 diabetes mellitus with diabetic peripheral angiopathy with gangrene; I96 Gangrene, not elsewhere classified; E11.69 Type 2 diabetes mellitus with other specified complication; M86.8X7 Other osteomyelitis, ankle and foot; L60.0 Ingrowing nail; I10 Essential (primary) hypertension; E78.5 Hyperlipidemia, unspecified; Z86.718 Personal history of other venous thrombosis and embolism; Z79.899 Other long term (current) drug therapy; Y83.5 Amputation of limb(s) as the cause of abnormal reaction of the patient, or of later complication, without mention of misadventure at the time of the procedure | CPT/HCPCS: G0463; A6022; A4450 ==

== ENCOUNTER → 2024-08-01 | Outpatient (CLI) | payer OTHER | END | disposition home or self-care (01) | LOC: WHH 09:47 | PROVIDERS: ATTEND Podiatrist Foot & Ankle Surgery | DX: T87.89 Other complications of amputation stump (principal); E11.621 Type 2 diabetes mellitus with foot ulcer; L97.522 Non-pressure chronic ulcer of other part of left foot with fat layer exposed; E11.52 Type 2 diabetes mellitus with diabetic peripheral angiopathy with gangrene; I96 Gangrene, not elsewhere classified; E11.69 Type 2 diabetes mellitus with other specified complication; M86.8X7 Other osteomyelitis, ankle and foot; L60.0 Ingrowing nail; I10 Essential (primary) hypertension; E78.5 Hyperlipidemia, unspecified; Z86.718 Personal history of other venous thrombosis and embolism; Z79.899 Other long term (current) drug therapy; Y83.5 Amputation of limb(s) as the cause of abnormal reaction of the patient, or of later complication, without mention of misadventure at the time of the procedure | CPT/HCPCS: G0463; A6022 ==

== ENCOUNTER → 2024-09-05 | Outpatient (CLI) | payer OTHER | END | disposition home or self-care (01) | LOC: WHH 10:07 | PROVIDERS: ATTEND Podiatrist Foot & Ankle Surgery | DX: T87.89 Other complications of amputation stump (principal); E11.621 Type 2 diabetes mellitus with foot ulcer; L97.522 Non-pressure chronic ulcer of other part of left foot with fat layer exposed; E11.52 Type 2 diabetes mellitus with diabetic peripheral angiopathy with gangrene; I96 Gangrene, not elsewhere classified; E11.69 Type 2 diabetes mellitus with other specified complication; M86.8X7 Other osteomyelitis, ankle and foot; L60.0 Ingrowing nail; I10 Essential (primary) hypertension; E78.5 Hyperlipidemia, unspecified; Z86.718 Personal history of other venous thrombosis and embolism; Z79.899 Other long term (current) drug therapy; Y83.5 Amputation of limb(s) as the cause of abnormal reaction of the patient, or of later complication, without mention of misadventure at the time of the procedure | CPT/HCPCS: G0463; A6022; A4450 ==

== ENCOUNTER → 2024-09-26 | Outpatient (CLI) | payer OTHER ==
[~2024-09-26] MED LIST changes: -LIDOCAINE HCL 4% LTA SOL 4 ML VIAL TP ONE
== END | disposition home or self-care (01) ==
LOC: WHH 09:07
PROVIDERS: ATTEND Podiatrist Foot & Ankle Surgery
DX: T87.89 Other complications of amputation stump (principal); E11.621 Type 2 diabetes mellitus with foot ulcer; L97.522 Non-pressure chronic ulcer of other part of left foot with fat layer exposed; E11.52 Type 2 diabetes mellitus with diabetic peripheral angiopathy with gangrene; I96 Gangrene, not elsewhere classified; E11.69 Type 2 diabetes mellitus with other specified complication; M86.8X7 Other osteomyelitis, ankle and foot; L60.0 Ingrowing nail; I10 Essential (primary) hypertension; E78.5 Hyperlipidemia, unspecified; Z86.718 Personal history of other venous thrombosis and embolism; Z79.899 Other long term (current) drug therapy; Y83.5 Amputation of limb(s) as the cause of abnormal reaction of the patient, or of later complication, without mention of misadventure at the time of the procedure
CPT/HCPCS: G0463; A6010; A4450

== ENCOUNTER → 2024-10-17 | Outpatient (CLI) | payer OTHER | END | disposition home or self-care (01) | LOC: WHH 09:13 | PROVIDERS: ATTEND Podiatrist Foot & Ankle Surgery | DX: T87.89 Other complications of amputation stump (principal); E11.621 Type 2 diabetes mellitus with foot ulcer; L97.522 Non-pressure chronic ulcer of other part of left foot with fat layer exposed; E11.52 Type 2 diabetes mellitus with diabetic peripheral angiopathy with gangrene; I96 Gangrene, not elsewhere classified; E11.69 Type 2 diabetes mellitus with other specified complication; M86.8X7 Other osteomyelitis, ankle and foot; L60.0 Ingrowing nail; I10 Essential (primary) hypertension; E78.5 Hyperlipidemia, unspecified; Z86.718 Personal history of other venous thrombosis and embolism; Z79.899 Other long term (current) drug therapy; Y83.5 Amputation of limb(s) as the cause of abnormal reaction of the patient, or of later complication, without mention of misadventure at the time of the procedure | CPT/HCPCS: G0463; A6010; A4450 ==

== ENCOUNTER → 2024-11-21 | Outpatient (CLI) | payer OTHER | END | disposition home or self-care (01) | LOC: WHH 09:21 | PROVIDERS: ATTEND Podiatrist Foot & Ankle Surgery | DX: T87.89 Other complications of amputation stump (principal); E11.621 Type 2 diabetes mellitus with foot ulcer; L97.522 Non-pressure chronic ulcer of other part of left foot with fat layer exposed; E11.52 Type 2 diabetes mellitus with diabetic peripheral angiopathy with gangrene; I96 Gangrene, not elsewhere classified; E11.69 Type 2 diabetes mellitus with other specified complication; M86.8X7 Other osteomyelitis, ankle and foot; L60.0 Ingrowing nail; I10 Essential (primary) hypertension; E78.5 Hyperlipidemia, unspecified; Z86.718 Personal history of other venous thrombosis and embolism; Z79.899 Other long term (current) drug therapy; Y83.5 Amputation of limb(s) as the cause of abnormal reaction of the patient, or of later complication, without mention of misadventure at the time of the procedure | CPT/HCPCS: G0463; A6197; A4450 ==

== ENCOUNTER → 2024-12-19 | Outpatient (CLI) | payer OTHER | END | disposition home or self-care (01) | LOC: WHH 09:25 | PROVIDERS: ATTEND Podiatrist Foot & Ankle Surgery | DX: T87.89 Other complications of amputation stump (principal); E11.621 Type 2 diabetes mellitus with foot ulcer; L97.522 Non-pressure chronic ulcer of other part of left foot with fat layer exposed; E11.52 Type 2 diabetes mellitus with diabetic peripheral angiopathy with gangrene; I96 Gangrene, not elsewhere classified; E11.69 Type 2 diabetes mellitus with other specified complication; M86.8X7 Other osteomyelitis, ankle and foot; L60.0 Ingrowing nail; I10 Essential (primary) hypertension; E78.5 Hyperlipidemia, unspecified; Z86.718 Personal history of other venous thrombosis and embolism; Z79.899 Other long term (current) drug therapy; Y83.5 Amputation of limb(s) as the cause of abnormal reaction of the patient, or of later complication, without mention of misadventure at the time of the procedure | CPT/HCPCS: G0463; A6209; A4450; A6260 ==